=== PATIENT | female | born 1965 | race Caucasian/White ===

== ENCOUNTER → 2018-12-30 | Outpatient (CLI) | payer MEDICAID ==
[~2018-12-30] MED LIST: CLOP75TA PO; DILT120C PO; DILT120C57 PO; DILT240C56 PO; FLUO20CA25 PO; GABA-488 PO; HYDR-3875 PO; HYDR-3876 PO; HYDR-91 PO; LEVO750T6 PO; NITR-33 PO; NITR-65 PO; OMEP20CA12 PO; OMEP20TA2 PO; OXYC-272 PO; PNT40TEC PO; PRD20T PO; TAMS0.4C98 PO
--- NOTE | 2018-12-30 12:30 | Diagnostic Imaging Report ---
INDICATION: Pain. Two views were obtained. FINDINGS: The alignment is normal. There is no fracture or dislocation. Soft tissues are unremarkable. IMPRESSION: No acute fracture or dislocation. Dictated by: Dictated on workstation # [id number]
== END ==
LOC: RAD FS 11:47
PROVIDERS: ATTEND Family Medicine
DX: M79.674 Pain in right toe(s) (principal)
CPT/HCPCS: 73660

== ENCOUNTER 2019-04-17 19:27 | Emergency (ER) | payer MEDICAID ==
[~2019-04-17] VITALS: Ht 162.6 cm; Wt 108.9 kg
[2019-04-17] MEDS ORDERED: ONDANSETRON 4 MG/2 ML (SDV) Z0FRAN IVP STA (19:48)
[2019-04-17] MEDS ORDERED: NS IV 1000 ML 1,000 ML IV STA (19:48)
[2019-04-17] MEDS ORDERED: fentaNYL INJECTION 100 MCG/2 ML AMP IVP STA (19:48)
[2019-04-17 20:00] LABS: CLARITY,URINE CLOUDY; COLOR,URINE YELLOW; PH,URINE 5.5 (5-9)
[2019-04-17 20:01] LABS: BILIRUBIN,URINE NEGATIVE (NEGATIVE); GLUCOSE, URINE (UA) NEGATIVE (NEGATIVE); KETONES,URINE NEGATIVE (NEGATIVE); LEUKOCYTE ESTERASE ,URINE 2+ (NEGATIVE); NITRITE,URINE POSITIVE (NEGATIVE); PROTEIN,URINE NEGATIVE (NEGATIVE); RBC,URINE 0-2 /HPF; UROBILINOGEN,URINE 0.2 MG/DL (NORMAL)
--- NOTE | 2019-04-17 20:01 | ED General ---
General Chief Complaint: - Urinary Stated Complaint: KIDNEY PAIN Nursing Triage Note: PT ARRIVED VIA EMS WITH COMPLAINTS OF RIGHT FLANK PAIN AND NAUSEA FOR ABOUT 3 DAYS. PT STATES SHE IS HAVING DIFFICULTY URINATING Nursing Sepsis Screen: No Definite Risk History of Present Illness Date Seen by Provider: Apr 17, 2019 Time Seen by Provider: 19:42 This is a 53-year-old female with a history of diabetes, multiple abdominal surgeries, here for right flank pain and nausea for the last couple of days. She had fallen out of bed and hit the top of her head several days ago and her head was also hurting but this is not the main reason for her visit. No visual change or focal weakness, numbness, or tingling. No neck pain. No neck stiffness. No fever or chills, but she does feel generalized malaise. She has had some nausea and vomiting. No change in bowel movements. She feels that she has urinary urgency passing only small volumes of urine when she does go. She also mentions some right sided chest pain that coming and going which she refers to as "gas pain". This is nonexertional. She is not having any shortness of breath. No pleuritic pain. No unilateral leg swelling. No history of blood clots. Allergies and Home Medications Allergies Coded Allergies: aspirin (Unverified Allergy, Severe, THROAT SWELLS, 01/20/13) amoxicillin (Unverified Allergy, Intermediate, HIVES, 04/25/16) sulfamethoxazole (Unverified Allergy, Unknown, 01/20/13) trimethoprim (Unverified Allergy, Unknown, 01/20/13) Home Medications Diltiazem HCl 240 Mg Capsule.er, 240 MG PO DAILY, (Reported) Fluoxetine Hcl 20 Mg Capsule, 20 MG PO DAILY, (Reported) Gabapentin 300 Mg Capsule, 300 MG PO TID, (Reported) Hydrocodone/Acetaminophen 1 Each Tablet, 1-2 EACH PO Q4H PRN for PAIN Prescribed by: ELENA AUSTIN on 04/25/16858 Nitrofurantoin Monohyd/M-Cryst 100 Mg Capsule, 1 TAB PO BID Prescribed by: ELENA AUSTIN on 04/25/16858 Patient Home Medication List Home Medication List Reviewed: Yes Review of Systems Review of Systems Constitutional: see HPI EENTM: no symptoms reported Respiratory: no symptoms reported Cardiovascular: see HPI Gastrointestinal: see HPI Genitourinary: see HPI Musculoskeletal: no symptoms reported Skin: no symptoms reported Psychiatric/Neurological: See HPI Hematologic/Lymphatic: No Symptoms Reported Immunological/Allergic: no symptoms reported Past Ordirsu-Zhbipn-Oglcbm Hx Past Med/Social Hx: Reviewed Nursing Past Med/Soc Hx Patient Social History Alcohol Use: Denies Use Recreational Drug Use: No (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) Recent Foreign Travel: No Contact w/Someone Who Travel: No Recent Infectious Disease Expo: No Recent Hopitalizations: No Immunizations Up To Date Date of Pneumonia Vaccine: Jan 06, 2013 Date of Influenza Vaccine: Jan 20, 2013 Past Medical History Surgeries: Yes (cysto's and eswl's) Respiratory: No Cardiac: Yes (SVT, ) Neurological: Yes (HAS 3 BRAIN ANEURYSMS DX AT 37 YRS OF AGE) Reproductive Disorders: No Kidney Stones Gastrointestinal: No (enlarged liver) Gastroesophageal Reflux Musculoskeletal: Yes (restless leg) Arthritis Endocrine: Yes (diet controlled diabetes) Cancer: No Uterine Psychosocial: Yes Depression Integumentary: No Blood Disorders: No Physical Exam Vital Signs Vital Signs - First Documented 04/17/19 19:33 Temp 98.1 Pulse 67 Resp 18 B/P (MAP) 60/ Pulse Ox 96 O2 Delivery Room Air Capillary Refill : Less Than 3 Seconds Height, Weight, BMI Height: 5'4.00" Weight: 240lbs. 9.6oz. 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 Norm as Tested; No Abnormal Cerebellar Tests Skin: Warm/Dry Progress/Results/Core Measures Suspected Sepsis Recent Fever Within 48 Hours: No Infection Criteria Present: Suspected New Infection New/Unexplained Altered Menta: No Sepsis Screen: No Definite Risk SIRS Temperature:98.1 Pulse: 67 Respiratory Rate: 18 Laboratory Tests 04/17/19 20:17: White Blood Count 15.0H Blood Pressure 60 / Mean: Laboratory Tests 04/17/19 20:17: Creatinine 0.80, Platelet Count 372, Total Bilirubin 0.3 Results/Orders Lab Results Laboratory Tests Test 04/17/19 19:40 04/17/19 20:17 Range/Units Urine Color YELLOW Urine Clarity CLOUDY Urine pH 5.5 5-9 Urine Specific [place] 1.015 L 1.016-1.022 Urine Protein NEGATIVE NEGATIVE Urine Glucose (UA) NEGATIVE NEGATIVE Urine Ketones NEGATIVE NEGATIVE Urine Nitrite POSITIVE H NEGATIVE Urine Bilirubin NEGATIVE NEGATIVE Urine Urobilinogen 0.2 NORMAL MG/DL Urine Leukocyte Esterase 2+ H NEGATIVE Urine RBC (Auto) TRACE H NEGATIVE Urine RBC 0-2 /HPF Urine WBC 50-100 H /HPF Urine Squamous Epithelial Cells 5-10 /HPF Urine Crystals NONE /LPF Urine Bacteria FEW H /HPF Urine Casts NONE /LPF Urine Mucus NONE /LPF Urine Culture Indicated YES White Blood Count 15.0 H 4.3-11.0 10^3/uL Red Blood Count 4.72 4.35-5.85 10^6/uL Hemoglobin 14.1 11.5-16.0 G/DL Hematocrit 43 35-52 % Mean Corpuscular Volume 92 80-99 FL Mean Corpuscular Hemoglobin 30 25-34 PG Mean Corpuscular Hemoglobin Concent 33 32-36 G/DL Red Cell Distribution Width 15.2 H 10.0-14.5 % Platelet Count 372 130-400 10^3/uL Mean Platelet Volume 11.5 H 7.4-10.4 FL Sodium Level 138 135-145 MMOL/L Potassium Level 4.3 3.6-5.0 MMOL/L Chloride Level 96 L 98-107 MMOL/L Carbon Dioxide Level 23 21-32 MMOL/L Anion Gap 19 H 5-14 MMOL/L Blood Urea Nitrogen 18 7-18 MG/DL Creatinine 0.80 0.60-1.30 MG/DL Estimat Glomerular Filtration Rate > 60 BUN/Creatinine Ratio 23 Glucose Level 111 H 70-105 MG/DL Calcium Level 9.5 8.5-10.1 MG/DL Corrected Calcium 9.6 8.5-10.1 MG/DL Total Bilirubin 0.3 0.1-1.0 MG/DL Aspartate Amino Transf (AST/SGOT) 12 5-34 U/L Alanine Aminotransferase (ALT/SGPT) 14 0-55 U/L Alkaline Phosphatase 103 40-136 U/L Troponin T < 6 <=10 NG/L Total Protein 7.6 6.4-8.2 GM/DL Albumin 3.9 3.2-4.5 GM/DL Lipase 23 8-78 U/L My Orders Orders - ROBERTA WERNERED Maribel DO Ct Head Wo (04/17/19 19:48) Ct Abd/Pelvis Wo(Kidney Stone) (04/17/19 19:48) Ua Culture If Indicated (04/17/19 19:48) Cbc No Diff (04/17/19 19:48) Comprehensive Metabolic Panel (04/17/19 19:48) Lipase (04/17/19:48) Troponin T (04/17/19:48) Ekg Tracing (04/17/19:48) Chest 1 View Ap/Pa Only (04/17/19 19:48) Fentanyl Injection (Sublimaze Injection (04/17/19 19:48) Ondansetron Injection (Zofran Injectio (04/17/19 19:48) Ns Iv 1000 Ml (Sodium Chloride 0.9%) (04/17/19 19:48) Urine Culture (04/17/19 19:40) Ciprofloxacin Iv 400mg/200ml (Cipro Iv S (04/17/19 20:26) Vital Signs/I&O 04/17/19 19:33 Temp 98.1 Pulse 67 Resp 18 B/P (MAP) 60/ Pulse Ox 96 O2 Delivery Room Air Capillary Refill : Less Than 3 Seconds Progress Note #1: Progress Note Patient is here primarily for right flank pain. She has prominent urinary symptoms. We will get a CAT scan to rule out a stone and a UA to rule out infection. Partial bowel obstruction would be another consideration. Gallbladder and appendix have been removed remotely. She had her head several days ago and is neurologically intact but she is having ongoing headaches and we can get a CAT scan to rule out intracranial hemorrhage. She has no neck pain or tenderness and again is neurologically intact we will defer CT of the cervical spine. She also mentions right-sided chest pain coming and going, this is very atypical for ACS or PE or dissection or pneumothorax, we can check an EKG, single troponin as the symptoms have been going on for several days, and a chest x-ray. She will not require admission for cardiac monitoring and serial troponins. Progress Note #2: Progress Note Patient feels well and would like to go home. We'll treat for pyelonephritis with ciprofloxacin given allergies to penicillin and Bactrim. First dose given by IV in the ER. Follow-up with primary care physician as soon as possible for repeat evaluation. Return if worse. Departure Impression Primary Impression: Pyelonephritis Additional Impression: Head injury Qualified Codes: S09.90XA - Unspecified injury of head, initial encounter Disposition: HOME, SELF-CARE Condition: Stable Departure-Patient Inst. Referrals: HAMILTON FONTAINE MD (PCP/Family) Primary Care Physician Patient Instructions: Kidney Infection Scripts Hydrocodone/Acetaminophen ([place] 5-325 Tablet) 1 Each Tablet 2 TAB PO TID PRN for PAIN-MODERATE TO SEVERE MDD 10 TABS for 3 Days, #16 TAB Prov: ATIYA WERNER DO 04/17/19 Ondansetron (Ondansetron Odt) 8 Mg Tab.rapdis 8 MG PO TID PRN for NAUSEA/VOMITING, #30 TAB Prov: ATIYA WERNER DO 04/17/19 Ciprofloxacin HCl (Ciprofloxacin HCl) 500 Mg Tablet 500 MG PO BID for 7 Days, #14 TAB Prov: ATIYA WERNER DO 04/17/19 ATIYA WERNER DO Apr 17, 2019 20:01
[2019-04-17 20:02] LABS: BACTERIA,URINE FEW /HPF; WBC,URINE 50-100 /HPF
[2019-04-17 20:24] LABS: HEMOGLOBIN 14.1 G/DL (11.5-16.0); MEAN PLATELET VOLUME 11.5 FL (7.4-10.4); RED CELL DISTRIBUTION WIDTH 15.2 % (10.0-14.5)
[2019-04-17] MEDS ORDERED: CIPROFLOXACIN IV 400MG/200ML 200 ML IV STA (20:26)
[2019-04-17 20:49] LABS: POTASSIUM 4.3 MMOL/L (3.6-5.0); SODIUM 138 MMOL/L (135-145)
[2019-04-17 20:50] LABS: BUN/CREATININE RATIO 23; CALCIUM 9.5 MG/DL (8.5-10.1); CARBON DIOXIDE 23 MMOL/L (21-32); CHLORIDE 96 MMOL/L (98-107); GFR ESTIMATED > 60; GLUCOSE 111 MG/DL (70-105)
[2019-04-17 20:51] LABS: ALANINE AMINOTRANSFERASE 14 U/L (0-55); ALBUMIN 3.9 GM/DL (3.2-4.5); ALKALINE PHOSPHATASE 103 U/L (40-136); BILIRUBIN,TOTAL 0.3 MG/DL (0.1-1.0); LIPASE 23 U/L (8-78); TOTAL PROTEIN 7.6 GM/DL (6.4-8.2)
--- NOTE | 2019-04-17 20:53 | Diagnostic Imaging Report ---
INDICATION: Nausea Portable chest 8:24 PM Heart size and pulmonary vascularity are normal. Lungs are clear. There are no effusions or pneumothoraces. IMPRESSION: Negative chest Dictated by: Dictated on workstation # [id number]
--- NOTE | 2019-04-17 20:54 | Diagnostic Imaging Report ---
PROCEDURE: CT head without contrast. TECHNIQUE: Multiple contiguous axial images were obtained through the brain without the use of intravenous contrast. Auto Exposure Controls were utilized during the CT exam to meet ALARA standards for radiation dose reduction. INDICATION: Head trauma. FINDINGS: The ventricles are normal in size, shape, and position. There are no masses or hemorrhages. There are no extra-axial fluid collections. There is a venous angioma in the right frontal lobe. IMPRESSION: No acute abnormalities in the head. Dictated by: Dictated on workstation # [id number]
--- NOTE | 2019-04-17 20:55 | Diagnostic Imaging Report ---
PROCEDURE: CT urinary tract, rule out kidney stone. TECHNIQUE: Multiple contiguous axial images were obtained through the abdomen and pelvis without the use of intravenous contrast. Auto Exposure Controls were utilized during the CT exam to meet ALARA standards for radiation dose reduction. INDICATION: Right flank pain Lung bases are clear. Liver appears normal. Gallbladder surgically absent. Spleen is not enlarged. Pancreas is normal. There is a 15 mm stone in the right renal pelvis. There is a 7 mm stone in the lower pole of the left kidney. There is no hydronephrosis. There are no ureteral calculi. There is aortic atherosclerosis. There is no evidence for appendicitis. Small bowel is not dilated. Colon is unremarkable. Uterus is surgically absent. IMPRESSION: Bilateral nephrolithiasis but no evidence of obstruction. Dictated by: Dictated on workstation # [id number]
[2019-04-17] MEDS ORDERED: HYDR-4226 PO (21:14)
[2019-04-17] MEDS ORDERED: CIPR500T4 PO (21:14)
[2019-04-17] MEDS ORDERED: ONDA8TAB13 PO (21:14)
[2019-04-17 21:50] VITALS: BP 102/59
== END 2019-04-17 21:55 | disposition home or self-care (01) ==
LOC: EDUNIT# 19:27 → ER FS 19:28
DX: S09.90XA Unspecified injury of head, initial encounter (principal); N12 Tubulo-interstitial nephritis, not specified as acute or chronic; E11.9 Type 2 diabetes mellitus without complications; K21.9 Gastro-esophageal reflux disease without esophagitis; F32.9 Major depressive disorder, single episode, unspecified; G25.81 Restless legs syndrome; Z98.890 Other specified postprocedural states; Z85.40 Personal history of malignant neoplasm of unspecified female genital organ; Z88.6 Allergy status to analgesic agent; Z88.1 Allergy status to other antibiotic agents; Z88.2 Allergy status to sulfonamides; Z88.8 Allergy status to other drugs, medicaments and biological substances; Z87.442 Personal history of urinary calculi; W06.XXXA Fall from bed, initial encounter; W22.09XA Striking against other stationary object, initial encounter
CPT/HCPCS: 36415; 70450; 71045; 74176; 80053; 81000; 83690; 84484; 85027; 87077; 87088; 87186

== ENCOUNTER 2019-06-28 15:52 | Emergency (ER) | payer MEDICAID ==
[~2019-06-28] VITALS: Ht 162.6 cm; Wt 108.9 kg
[~2019-06-28 15:52] MED LIST changes: +CIPR500T4 PO; +HYDR-4226 PO; +ONDA8TAB13 PO
[2019-06-28] MEDS ORDERED: NS IV 1000 ML 1,000 ML IV SCH (16:00)
[2019-06-28] MEDS ORDERED: ONDANSETRON 4 MG/2 ML (SDV) Z0FRAN IVP ONE (16:00)
[2019-06-28] MEDS ORDERED: KETOROLAC 30 MG/ML VIAL IVP ONE (16:00)
--- NOTE | 2019-06-28 16:03 | ED Abdominal Pain ---
General Stated Complaint: ABD PAIN,FALL Source of Information: Patient, EMS Exam Limitations: No Limitations History of Present Illness Date Seen by Provider: Jun 28, 2019 Time Seen by Provider: 15:53 Initial Comments Patient presents to ER by EMS from her apartment where she is staying with her mother has a caregiver. She reports for about 2-3 days now she's had some progressively worsening pain along the lower abdomen especially on her right groin and into her right flank. She has a history of kidney stones. She has dysuria but no hematuria. No fevers or chills but she does have nausea without vomiting. Poor fluid intake and poor appetite. She has a history of diabetes, heart disease and high blood pressure. She takes gabapentin for her chronic back pain. Patient admits to recent methamphetamine use in the last 2 weeks. She's had her tubes tied, gallbladder and appendix removed surgically. Allergies and Home Medications Allergies Coded Allergies: aspirin (Unverified Allergy, Severe, THROAT SWELLS, 01/20/13) amoxicillin (Unverified Allergy, Intermediate, HIVES, 04/25/16) sulfamethoxazole (Unverified Allergy, Unknown, 01/20/13) trimethoprim (Unverified Allergy, Unknown, 01/20/13) Home Medications Ciprofloxacin HCl 500 Mg Tablet, 500 MG PO BID Prescribed by: ATIYA WERNER on 04/17/192113 Diltiazem HCl 240 Mg Capsule.er, 240 MG PO DAILY, (Reported) Fluoxetine Hcl 20 Mg Capsule, 20 MG PO DAILY, (Reported) Gabapentin 300 Mg Capsule, 300 MG PO TID, (Reported) Hydrocodone/Acetaminophen 1 Each Tablet, 1-2 EACH PO Q4H PRN for PAIN Prescribed by: ELENA AUSTIN on 04/25/16 0859 Hydrocodone/Acetaminophen 1 Each Tablet, 2 TAB PO TID PRN for PAIN-MODERATE TO SEVERE Prescribed by: ATIYA WERNER on 04/17/192113 Nitrofurantoin Monohyd/M-Cryst 100 Mg Capsule, 1 TAB PO BID Prescribed by: ELENA AUSTIN on 04/25/16 0859 Ondansetron 8 Mg Tab.rapdis, 8 MG PO TID PRN for NAUSEA/VOMITING Prescribed by: ATIYA WERNER on 04/17/192113 Patient Home Medication List Home Medication List Reviewed: Yes Review of Systems Review of Systems Constitutional: No chills, No diaphoresis EENTM: No Blurred Vision, No Double Vision Respiratory: Denies Cough, Denies Shortness of Air Gastrointestinal: See HPI, Abdominal Pain; Denies Constipated (last BM today), Denies Diarrhea; Nausea, Poor Appetite, Poor Fluid Intake; Denies Vomiting Genitourinary: Burning; Denies Discharge, Denies Drainage; Flank Pain; Denies Hematuria Musculoskeletal: see HPI, back pain (acute and chronic); No joint pain Skin: No pruritus, No rash Psychiatric/Neurological: Denies Headache, Denies Numbness, Denies Paresthesia Past Ldezgff-Irexjt-Xagvut Hx Patient Social History Alcohol Use: Denies Use Recreational Drug Use: No Smoking Status: Never a Smoker Recent Hopitalizations: No Immunizations Up To Date Date of Pneumonia Vaccine: Jan 06, 2013 Date of Influenza Vaccine: Jan 20, 2013 Past Medical History Surgeries: Yes (cysto's and eswl's) Respiratory: No Cardiac: Yes (SVT, ) Neurological: Yes (HAS 3 BRAIN ANEURYSMS DX AT 37 YRS OF AGE) Reproductive Disorders: No Kidney Stones Gastrointestinal: No (enlarged liver) Gastroesophageal Reflux Musculoskeletal: Yes (restless leg) Arthritis Endocrine: Yes (diet controlled diabetes) Cancer: No Uterine Psychosocial: Yes Depression Integumentary: No Blood Disorders: No Physical Exam Vital Signs Vital Signs - First Documented 06/28/19 16:08 Temp 97.2 Pulse 71 Resp 18 B/P (MAP) 140/61 (87) Pulse Ox 97 O2 Delivery Room Air Capillary Refill : Height/Weight/BMI Height: 5'4.00" Weight: 240lbs. 9.6oz. 108.712896ju; 48.92 BMI Method:Stated General Appearance: WD/WN, mild distress, other (emotionally labile, tearful) HEENT: normal ENT inspection, pharynx normal Neck: full range of motion, normal inspection Respiratory: lungs clear, normal breath sounds, no respiratory distress, no accessory muscle use Cardiovascular: normal peripheral pulses, regular rate, rhythm, no edema Peripheral Pulses: 2+ Radial Pulses (R), 2+ Radial Pulses (L) Gastrointestinal: normal bowel sounds, soft; No rebound; tenderness (mild suprapubic and moderate in the right lower quadrant) Extremities: normal range of motion, non-tender, normal inspection, normal capillary refill Back: normal inspection, CVA tenderness (R) (to percussion) Neurologic/Psychiatric: alert, oriented x 3, other (and emotionally labile, tearful) Skin: normal color, warm/dry Progress/Results/Core Measures Results/Orders Lab Results Laboratory Tests Test 06/28/19 16:00 06/28/19 16:05 Range/Units Urine Color YELLOW Urine Clarity CLOUDY H Urine pH 5.5 5-9 Urine Specific [place] 1.025 H 1.016-1.022 Urine Protein NEGATIVE NEGATIVE Urine Glucose (UA) NEGATIVE NEGATIVE Urine Ketones NEGATIVE NEGATIVE Urine Nitrite NEGATIVE NEGATIVE Urine Bilirubin NEGATIVE NEGATIVE Urine Urobilinogen 0.2 NORMAL MG/DL Urine Leukocyte Esterase 3+ H NEGATIVE Urine RBC (Auto) 2+ H NEGATIVE Urine RBC 10-25 H /HPF Urine WBC >100 H /HPF Urine Squamous Epithelial Cells 10-25 H /HPF Urine Crystals NONE /LPF Urine Bacteria FEW H /HPF Urine Casts NONE /LPF Urine Mucus SMALL H /LPF Urine Culture Indicated YES Urine Opiates Screen NEGATIVE NEGATIVE Urine Oxycodone Screen NEGATIVE NEGATIVE Urine Methadone Screen NEGATIVE NEGATIVE Urine Propoxyphene Screen NEGATIVE NEGATIVE Urine Barbiturates Screen NEGATIVE NEGATIVE Ur Tricyclic Antidepressants Screen NEGATIVE NEGATIVE Urine Phencyclidine Screen NEGATIVE NEGATIVE Urine Amphetamines Screen NEGATIVE NEGATIVE Urine Methamphetamines Screen POSITIVE H NEGATIVE Urine Benzodiazepines Screen NEGATIVE NEGATIVE Urine Cocaine Screen NEGATIVE NEGATIVE Urine Cannabinoids Screen NEGATIVE NEGATIVE White Blood Count 11.3 H 4.3-11.0 10^3/uL Red Blood Count 4.88 4.35-5.85 10^6/uL Hemoglobin 14.9 11.5-16.0 G/DL Hematocrit 45 35-52 % Mean Corpuscular Volume 91 80-99 FL Mean Corpuscular Hemoglobin 31 25-34 PG Mean Corpuscular Hemoglobin Concent 33 32-36 G/DL Red Cell Distribution Width 14.2 10.0-14.5 % Platelet Count 366 130-400 10^3/uL Mean Platelet Volume 11.1 H 7.4-10.4 FL Neutrophils (%) (Auto) 55 42-75 % Lymphocytes (%) (Auto) 36 12-44 % Monocytes (%) (Auto) 6 0-12 % Eosinophils (%) (Auto) 2 0-10 % Basophils (%) (Auto) 1 0-10 % Neutrophils # (Auto) 6.1 1.8-7.8 X 10^3 Lymphocytes # (Auto) 4.1 H 1.0-4.0 X 10^3 Monocytes # (Auto) 0.7 0.0-1.0 X 10^3 Eosinophils # (Auto) 0.2 0.0-0.3 10^3/uL Basophils # (Auto) 0.1 0.0-0.1 10^3/uL Sodium Level 143 135-145 MMOL/L Potassium Level 4.2 3.6-5.0 MMOL/L Chloride Level 106 98-107 MMOL/L Carbon Dioxide Level 24 21-32 MMOL/L Anion Gap 13 5-14 MMOL/L Blood Urea Nitrogen 14 7-18 MG/DL Creatinine 0.89 0.60-1.30 MG/DL Estimat Glomerular Filtration Rate > 60 BUN/Creatinine Ratio 16 Glucose Level 154 H 70-105 MG/DL Calcium Level 9.5 8.5-10.1 MG/DL Corrected Calcium 9.6 8.5-10.1 MG/DL Total Bilirubin 0.2 0.1-1.0 MG/DL Aspartate Amino Transf (AST/SGOT) 12 5-34 U/L Alanine Aminotransferase (ALT/SGPT) 12 0-55 U/L Alkaline Phosphatase 119 40-136 U/L Total Protein 7.3 6.4-8.2 GM/DL Albumin 3.9 3.2-4.5 GM/DL Lipase 18 8-78 U/L My Orders Orders - RONNA MEADOWS Ed Iv/Invasive Line Start (06/28/19 16:00) Ns Iv 1000 Ml (Sodium Chloride 0.9%) (06/28/19 16:00) Ketorolac Injection (Toradol Injection) (06/28/19 16:00) Cbc With Automated Diff (06/28/19 16:00) Comprehensive Metabolic Panel (06/28/19 16:00) Ua Culture If Indicated (06/28/19 16:00) Ondansetron Injection (Zofran Injectio (06/28/19 16:00) Lipase (06/28/19 16:02) Urine Culture (06/28/19 16:00) Drug Screen Stat (Urine) (06/28/19 16:36) Ceftriaxone For Iv Use (Rocephin For I (06/28/19 16:45) Ct Abdomen/Pelvis Wo (06/28/19 16:40) Rx-Hydrocodone/[place] 5-325 Mg (Rx-Vicodin (06/28/19 17:15) Rx-Ondansetron Po (Rx-Zofran Po) (06/28/19 17:04) Rx-Cephalexin Capsule (Rx-Keflex Capsule (06/28/19 17:04) Medications Given in ED Current Medications Medications Dose Ordered Sig/Sirisha Route Start Time Stop Time Status Last Admin Dose Admin Ketorolac Tromethamine 30 mg ONCE ONCE IVP 06/28/19 16:00 06/28/19 16:03 DC 06/28/19 16:20 30 MG Ondansetron HCl 4 mg ONCE ONCE IVP 06/28/19 16:00 06/28/19 16:03 DC 06/28/19 16:20 4 MG Vital Signs/I&O 06/28/19 16:08 Temp 97.2 Pulse 71 Resp 18 B/P (MAP) 140/61 (87) Pulse Ox 97 O2 Delivery Room Air Progress Progress Note : Time: 16:39 Progress Note Kidney stones, UTI, colitis, gynecologic? She has no discharge fevers, chills and has aseptic vital signs. We'll give her some Toradol, Zofran and check urine and blood. 1 L of fluids IV. Diagnostic Imaging Diagonstic Imaging: CT Plain Films/CT/US/NM/MRI: abdomen, pelvis Comments 4 mm stone in the distal right ureter just superior to the UVJ. Reviewed: Reviewed by Me Departure Impression Primary Impression: Ureteral calculus Additional Impression: UTI (urinary tract infection) Qualified Codes: N30.01 - Acute cystitis with hematuria Disposition: HOME, SELF-CARE Condition: Stable Departure-Patient Inst. Decision time for Depature: 17:00 Referrals: HAMILTON FONTAINE MD (PCP/Family) Primary Care Physician Patient Instructions: Kidney Stones (DC) Add. Discharge Instructions: Drink lots of water. Ibuprofen 800 mg every 8 hours as needed for pain. Tylenol 650 mg every 8 hours as needed for pain. Hydrocodone one tablet every 6 hours as needed for breakthrough pain. Flomax 1 tablet every night until you pass the kidney stone. Keflex 500 mg capsule twice daily for a week. Ondansetron one tablet every 6 hours under the tongue as needed for nausea. Strain your urine to see if you catch the stone. Once you catch the stone you should usually have relief of your symptoms within a day or 2. If you're unable to pass the stone in the next one or 2 days then follow-up with Dr. Romero, urology. Scripts Cephalexin (Keflex) 500 Mg Capsule 500 MG PO BID for 7 Days, #14 CAP 0 Refills Prov: RONNA MEADOWS 06/28/19 Ibuprofen (Ibuprofen) 800 Mg Tablet 800 MG PO Q8H PRN for PAIN, #20 TAB 0 Refills Prov: RONNA MEADOWS 06/28/19 Tamsulosin HCl (Flomax) 0.4 Mg Cap 0.4 MG PO HS, #7 CAP 0 Refills Prov: RONNA MEADOWS 06/28/19 Ondansetron (Ondansetron Odt) 4 Mg Tab.rapdis 4 MG PO Q6H PRN for NAUSEA/VOMITING, #8 TAB 0 Refills Prov: RONNA MEADOWS 06/28/19 Hydrocodone/Acetaminophen (Hydrocodone-Acetamin 5-325 mg) 1 Each Tablet 1 TAB PO Q4-6HR for PAIN-MODERATE for 7 Days, #8 TAB 0 Refills Prov: RONNA MEADOWS 06/28/19 RONNA MEADOWS Jun 28, 2019 16:03
[2019-06-28 16:31] LABS: BASOPHILS % (AUTO) 1 % (0-10); EOSINOPHILS % (AUTO) 2 % (0-10); HEMATOCRIT 45 % (35-52); HEMOGLOBIN 14.9 G/DL (11.5-16.0); LYMPHOCYTES % (AUTO) 36 % (12-44); MEAN CORPUSCULAR HEMOGLOBIN 31 PG (25-34); MEAN CORPUSCULAR HGB CONC 33 G/DL (32-36); MEAN CORPUSCULAR VOLUME 91 FL (80-99); MEAN PLATELET VOLUME 11.1 FL (7.4-10.4); MONOCYTES % (AUTO) 6 % (0-12); NEUTROPHILS # (AUTO) 6.1 X 10^3 (1.8-7.8); NEUTROPHILS % (AUTO) 55 % (42-75); PLATELET COUNT 366 10^3/uL (130-400); RED CELL DISTRIBUTION WIDTH 14.2 % (10.0-14.5); WHITE BLOOD COUNT 11.3 10^3/uL (4.3-11.0)
[2019-06-28 16:32] LABS: BASOPHILS # (AUTO) 0.1 10^3/uL (0.0-0.1); EOSINOPHILS # (AUTO) 0.2 10^3/uL (0.0-0.3); LYMPHOCYTES # (AUTO) 4.1 X 10^3 (1.0-4.0); MONOCYTES # (AUTO) 0.7 X 10^3 (0.0-1.0)
[2019-06-28 16:33] LABS: BILIRUBIN,URINE NEGATIVE (NEGATIVE); CLARITY,URINE CLOUDY; COLOR,URINE YELLOW; GLUCOSE, URINE (UA) NEGATIVE (NEGATIVE); KETONES,URINE NEGATIVE (NEGATIVE); LEUKOCYTE ESTERASE ,URINE 3+ (NEGATIVE); NITRITE,URINE NEGATIVE (NEGATIVE); PH,URINE 5.5 (5-9); PROTEIN,URINE NEGATIVE (NEGATIVE); UROBILINOGEN,URINE 0.2 MG/DL (NORMAL)
[2019-06-28 16:34] LABS: BACTERIA,URINE FEW /HPF; WBC,URINE >100 /HPF
[2019-06-28 16:42] LABS: BILIRUBIN,TOTAL 0.2 MG/DL (0.1-1.0); BUN/CREATININE RATIO 16; CALCIUM 9.5 MG/DL (8.5-10.1); CARBON DIOXIDE 24 MMOL/L (21-32); CHLORIDE 106 MMOL/L (98-107); CREATININE SERUM 0.89 MG/DL (0.60-1.30); GFR ESTIMATED > 60; GLUCOSE 154 MG/DL (70-105); POTASSIUM 4.2 MMOL/L (3.6-5.0); SODIUM 143 MMOL/L (135-145)
[2019-06-28 16:43] LABS: ALANINE AMINOTRANSFERASE 12 U/L (0-55); ALBUMIN 3.9 GM/DL (3.2-4.5); ALKALINE PHOSPHATASE 119 U/L (40-136); LIPASE 18 U/L (8-78); TOTAL PROTEIN 7.3 GM/DL (6.4-8.2)
[2019-06-28] MEDS ORDERED: cefTRIAXone FOR IV USE 1,000 MG in WATER (STERILE) FOR INJECTION 10 ML IV ONE (16:45)
[2019-06-28 17:01] LABS: AMPHETAMINE SCREEN, URINE NEGATIVE (NEGATIVE); BARBITURATE SCREEN URINE NEGATIVE (NEGATIVE); BENZODIAZEPINES SCREEN URINE NEGATIVE (NEGATIVE); CANNABINOID SCREEN, URINE NEGATIVE (NEGATIVE); COCAINE SCREEN URINE NEGATIVE (NEGATIVE); METHADONE STAT NEGATIVE (NEGATIVE); METHAMPHETAMINE SCREEN URINE S POSITIVE (NEGATIVE); OPIATE SCREEN URINE NEGATIVE (NEGATIVE); OXYCODONE STAT NEGATIVE (NEGATIVE); PROPOXYPHENE STAT NEGATIVE (NEGATIVE); TRICYCLIC ANTIDEPRESSANTS SCRE NEGATIVE (NEGATIVE)
[2019-06-28] MEDS ORDERED: RX-CEPHALEXIN (KEFLEX) 250 MG CAP PPK#4 PO STA (17:04)
[2019-06-28] MEDS ORDERED: RX-ONDANSETRON 4 MG ODT (ZOFRAN) PPK #4 PO STA (17:04)
[2019-06-28] MEDS ORDERED: HYDR-3812 PO (17:11)
[2019-06-28] MEDS ORDERED: CEPH-507 PO (17:11)
[2019-06-28] MEDS ORDERED: TAMS0.4C98 PO (17:11)
[2019-06-28] MEDS ORDERED: ONDA4TAB11 PO (17:11)
[2019-06-28] MEDS ORDERED: IBUP-1780 PO (17:11)
[2019-06-28] MEDS ORDERED: RX-HYDROCODONE/APAP 5/325 MG #4 TAB PK PO PRN (17:15)
--- NOTE | 2019-06-28 17:23 | Diagnostic Imaging Report ---
PROCEDURE: CT abdomen and pelvis without contrast. TECHNIQUE: Multiple contiguous axial images were obtained through the abdomen and pelvis without the use of intravenous contrast. Auto Exposure Controls were utilized during the CT exam to meet ALARA standards for radiation dose reduction. INDICATION: Right-sided abdominal pain. FINDINGS: The previous CT abdomen/pelvis exam of 04/17/2019 showed a 1.5 cm calculus in the right renal pelvis and a 0.8 cm calculus in the inferior pole of the left kidney. Those findings are again evident on this study and do not seem to have change significantly. There is no other evidence for nephrolithiasis and there is no sign of urolithiasis. The kidneys do not appear to be obstructed. Urinary bladder is grossly unremarkable. As noted on the prior exam, the uterus is surgically absent. There is no pelvic mass or free fluid collection evident. The appendix is not well-visualized but there are no indirect signs of acute appendicitis. There are radiopaque densities in the right lower quadrant and the patient may have had a prior appendectomy. Correlation with patient's history is recommended. The liver, spleen, pancreas, adrenals, aorta and inferior vena cava show no sign of an acute abnormality. The gallbladder is surgically absent. The stomach is filled with fluid and particulate matter, consequently difficult to assess. The lung bases are clear. The bone windows show no sign of a fracture or of an obstructive lesion. IMPRESSION: 1. The calculi within the kidneys, seen previously, are again evident and no different. There is still no sign of obstruction of the collecting system. 2. There is no acute abnormality of the abdomen or pelvis noted otherwise. 3. The uterus and gallbladder are surgically absent. There may also have been a prior appendectomy. Correlation with patient's surgical history would be recommended. Dictated by: Dictated on workstation # [id number]
[2019-06-28 18:00] VITALS: BP 120/64
== END 2019-06-28 18:05 | disposition home or self-care (01) ==
LOC: EDUNIT# 15:52 → ER FS 15:53
DX: N20.1 Calculus of ureter (principal); N39.0 Urinary tract infection, site not specified; E11.9 Type 2 diabetes mellitus without complications; K21.9 Gastro-esophageal reflux disease without esophagitis; F32.9 Major depressive disorder, single episode, unspecified; Z88.6 Allergy status to analgesic agent; Z88.1 Allergy status to other antibiotic agents; Z88.2 Allergy status to sulfonamides; Z85.42 Personal history of malignant neoplasm of other parts of uterus
CPT/HCPCS: 36415; 74176; 80053; 80306; 81000; 83690; 85025; 87088

== ENCOUNTER 2019-07-21 18:56 | Emergency (ER) | payer MEDICAID ==
[~2019-07-21] VITALS: Ht 170 cm; Wt 90.9 kg
[~2019-07-21 18:56] MED LIST changes: +CEPH-507 PO; +HYDR-3812 PO; +IBUP-1780 PO; +ONDA4TAB11 PO
[2019-07-21] MEDS ORDERED: RT-ALBUTEROL/IPRATROPIUM 3 ML (DUONEB) VIAL INH ONE (19:30)
[2019-07-21 20:12] LABS: HEMATOCRIT 42 % (35-52); HEMOGLOBIN 14.1 G/DL (11.5-16.0); MEAN CORPUSCULAR HEMOGLOBIN 30 PG (25-34); MEAN CORPUSCULAR VOLUME 91 FL (80-99); WHITE BLOOD COUNT 15.5 10^3/uL (4.3-11.0)
[2019-07-21 20:13] LABS: BASOPHILS % (AUTO) 1 % (0-10); EOSINOPHILS % (AUTO) 2 % (0-10); LYMPHOCYTES % (AUTO) 18 % (12-44); MEAN CORPUSCULAR HGB CONC 34 G/DL (32-36); MEAN PLATELET VOLUME 11.9 FL (7.4-10.4); MONOCYTES % (AUTO) 6 % (0-12); NEUTROPHILS % (AUTO) 73 % (42-75); PLATELET COUNT 283 10^3/uL (130-400); RED CELL DISTRIBUTION WIDTH 14.2 % (10.0-14.5)
[2019-07-21 20:14] LABS: BASOPHILS # (AUTO) 0.1 10^3/uL (0.0-0.1); EOSINOPHILS # (AUTO) 0.3 10^3/uL (0.0-0.3); LYMPHOCYTES # (AUTO) 2.8 X 10^3 (1.0-4.0); NEUTROPHILS # (AUTO) 11.3 X 10^3 (1.8-7.8)
[2019-07-21 20:26] LABS: BACTERIA,URINE TRACE /HPF; BILIRUBIN,URINE NEGATIVE (NEGATIVE); CLARITY,URINE CLEAR; COLOR,URINE YELLOW; GLUCOSE, URINE (UA) NEGATIVE (NEGATIVE); KETONES,URINE NEGATIVE (NEGATIVE); LEUKOCYTE ESTERASE ,URINE NEGATIVE (NEGATIVE); NITRITE,URINE NEGATIVE (NEGATIVE); PH,URINE 7.5 (5-9); PROTEIN,URINE NEGATIVE (NEGATIVE); UROBILINOGEN,URINE 0.2 MG/DL (NORMAL); WBC,URINE RARE /HPF
[2019-07-21 20:27] LABS: AMPHETAMINE SCREEN, URINE NEGATIVE (NEGATIVE); BARBITURATE SCREEN URINE NEGATIVE (NEGATIVE); BENZODIAZEPINES SCREEN URINE POSITIVE (NEGATIVE); CANNABINOID SCREEN, URINE NEGATIVE (NEGATIVE); COCAINE SCREEN URINE NEGATIVE (NEGATIVE); METHADONE STAT NEGATIVE (NEGATIVE); METHAMPHETAMINE SCREEN URINE S NEGATIVE (NEGATIVE); OPIATE SCREEN URINE NEGATIVE (NEGATIVE); OXYCODONE STAT NEGATIVE (NEGATIVE); PROPOXYPHENE STAT NEGATIVE (NEGATIVE); TRICYCLIC ANTIDEPRESSANTS SCRE NEGATIVE (NEGATIVE)
[2019-07-21 20:29] LABS: CHLORIDE 98 MMOL/L (98-107); SODIUM 140 MMOL/L (135-145)
--- NOTE | 2019-07-21 20:29 | Diagnostic Imaging Report ---
INDICATION: Cough, dyspnea and chills Single AP view of the chest is obtained with comparison made to the study of 04/17/2019. There is mild air trapping, bilaterally. No pneumothorax or consolidation is identified. There is no significant pleural fluid appreciated. IMPRESSION: Mild chronic findings without acute abnormality detected. Dictated by: Dictated on workstation # [id number]
[2019-07-21 20:30] LABS: ALANINE AMINOTRANSFERASE 11 U/L (0-55); ALKALINE PHOSPHATASE 105 U/L (40-136); BILIRUBIN,TOTAL 0.6 MG/DL (0.1-1.0); BUN/CREATININE RATIO 20; CALCIUM 9.7 MG/DL (8.5-10.1); CARBON DIOXIDE 26 MMOL/L (21-32); CREATININE SERUM 0.76 MG/DL (0.60-1.30); GFR ESTIMATED > 60; GLUCOSE 127 MG/DL (70-105); MAGNESIUM 1.8 MG/DL (1.6-2.4); TOTAL PROTEIN 7.2 GM/DL (6.4-8.2)
[2019-07-21 21:00] LABS: BAND NEUTROPHILS 1 %; BASOPHILS % (MANUAL) 0 %; EOSINOPHILS % (MANUAL) 3 %; LYMPHOCYTES % (MANUAL) 19 %; MONOCYTES % (MANUAL) 5 %; NEUTROPHILS % (MANUAL) 72 %
--- NOTE | 2019-07-21 21:53 | ED General ---
General Chief Complaint: Cough/Cold/Flu Symptoms Stated Complaint: COUGH Nursing Triage Note: Patient and daughter report that patient was at [place], [place] ED on Saturday night, inpatient admission was recommended to patient d/t possible pneumonia, patient declined admission at that time and went home. EMS was dispatched to patient's residence today for shortness of breath. Nursing Sepsis Screen: No Definite Risk Source of Information: Patient, EMS, Family History of Present Illness Date Seen by Provider: Jul 21, 2019 Time Seen by Provider: 19:47 Initial Comments 53-year-old female presenting by EMS from home. She states that she was then intubated ER over the weekend and was told that she had pneumonia. She comes in tonight stating that she has been having shortness of breath and chest pains. She is coughing and having a headache. She has multiple complaints and was not feeling well. She has been coughing and having posttussive emesis. She feels that she is not doing well and then she needs help. 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 She has a history of methamphetamine abuse and family was concerned that that might be causing part of her symptoms. She denies using any methamphetamines recently. However she states that she doesn't remember for sure when she last used today. She is a smoker. She has a hacking cough. She complains of pain all over. She denies any tick bites or rash. Allergies and Home Medications Allergies Coded Allergies: aspirin (Unverified Allergy, Severe, THROAT SWELLS, 01/20/13) amoxicillin (Unverified Allergy, Intermediate, HIVES, 04/25/16) sulfamethoxazole (Unverified Allergy, Unknown, 01/20/13) trimethoprim (Unverified Allergy, Unknown, 01/20/13) Home Medications Azithromycin 250 Mg Tablet, 250 MG PO DAILY Prescribed by: KOBI BERG on 07/21/19 2315 Cephalexin 500 Mg Capsule, 500 MG PO BID Prescribed by: RONNA MEADOWS on 06/28/19 171 Ciprofloxacin HCl 500 Mg Tablet, 500 MG PO BID Prescribed by: ATIYA WERNER on 04/17/19 2114 Diltiazem HCl 240 Mg Capsule.er, 240 MG PO DAILY, (Reported) Fluoxetine Hcl 20 Mg Capsule, 20 MG PO DAILY, (Reported) Gabapentin 300 Mg Capsule, 300 MG PO TID, (Reported) Hydrocodone/Acetaminophen 1 Each Tablet, 1-2 EACH PO Q4H PRN for PAIN Prescribed by: ELENA AUSTIN on 04/25/16858 Hydrocodone/Acetaminophen 1 Each Tablet, 2 TAB PO TID PRN for PAIN-MODERATE TO SEVERE Prescribed by: ATIYA WERNER on 04/17/192113 Hydrocodone/Acetaminophen 1 Each Tablet, 1 TAB PO Q4-6HR Prescribed by: RONNA MEADOWS on 06/28/191710 Ibuprofen 800 Mg Tablet, 800 MG PO Q8H PRN for PAIN Prescribed by: RONNA MEADOWS on 06/28/191710 Nitrofurantoin Monohyd/M-Cryst 100 Mg Capsule, 1 TAB PO BID Prescribed by: ELENA AUSTIN on 04/25/16858 Ondansetron 8 Mg Tab.rapdis, 8 MG PO TID PRN for NAUSEA/VOMITING Prescribed by: ATIYA WERNER on 04/17/192113 Ondansetron 4 Mg Tab.rapdis, 4 MG PO Q6H PRN for NAUSEA/VOMITING Prescribed by: RONNA MEADOWS on 06/28/191710 Prednisone 20 Mg Tab, 40 MG PO DAILY Prescribed by: KOBI BERG on 07/21/192314 Tamsulosin HCl 0.4 Mg Cap, 0.4 MG PO HS Prescribed by: RONNA MEADOWS on 06/28/191710 Patient Home Medication List Home Medication List Reviewed: Yes Review of Systems Review of Systems Constitutional: chills, fever, malaise EENTM: nose congestion Respiratory: cough, short of breath Cardiovascular: chest pain (sharp pains in her chest especially with coughing) Gastrointestinal: vomiting (posttussive) Genitourinary: No dysuria, No frequency Musculoskeletal: muscle pain (generalized) Skin: No rash Past Duplrmr-Dsnwho-Sidful Hx Past Med/Social Hx: Reviewed Nursing Past Med/Soc Hx Patient Social History Alcohol Use: Denies Use Recreational Drug Use: No (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) Drug of Choice: methamphetamines Type Used: Cigarettes 2nd Hand Smoke Exposure: No Recent Foreign Travel: No Contact w/Someone Who Travel: No Recent Infectious Disease Expo: No Recent Hopitalizations: No Physical Abuse: No Sexual Abuse: No Mistreated: No Fear: No Immunizations Up To Date Date of Pneumonia Vaccine: Jan 06, 2013 Date of Influenza Vaccine: Jan 20, 2013 Seasonal Allergies Seasonal Allergies: No Past Medical History Surgeries: Yes (cysto's and eswl's) Appendectomy, Gallbladder, Hysterectomy, Tubal Ligation Respiratory: No Cardiac: Yes (SVT, ) Atrial Fibrillation, Hypertension Neurological: Yes (HAS 3 BRAIN ANEURYSMS DX AT 37 YRS OF AGE, bulging discs, pinched nerve) Reproductive Disorders: No Genitourinary: Yes Kidney Stones Gastrointestinal: Yes (enlarged liver) Gastroesophageal Reflux Musculoskeletal: Yes (restless leg) Arthritis Endocrine: Yes Diabetes, Non-Insulin dep HEENT: No Cancer: No Uterine Psychosocial: Yes Depression Integumentary: No Blood Disorders: No Physical Exam Vital Signs Vital Signs - First Documented 07/21/19 19:05 Temp 37.9 Pulse 81 Resp 18 B/P (MAP) 112/50 (70) Pulse Ox 93 O2 Delivery Room Air Capillary Refill : Less Than 3 Seconds Height, Weight, BMI Height: 5'4.00" Weight: 240lbs. 9.6oz. 108.306743st; 31.00 BMI Method:Stated General Appearance: Moderate Distress (complaints pain all over), Obese HEENT: PERRL/EOMI; No Moist Mucous Membranes (slightly dry mucous membranes), No Tonsillar Exudate Neck: Full Range of Motion, Normal Inspection, Non Tender, Supple Respiratory: No Accessory Muscle Use, No Respiratory Distress, Decreased Breath Sounds, Rhonci; No Stridor; Wheezing, Other (tender to push on chest wall) Cardiovascular: Regular Rate, Rhythm, Normal Peripheral Pulses Gastrointestinal: Normal Bowel Sounds, No Pulsatile Mass, Soft, Tenderness (mild tenderness with palpation all over) Neurologic/Psychiatric: Alert, Oriented x3, No Motor/Sensory Deficits Skin: Normal Color, Warm/Dry Focused Exam Lactate Level 07/21/19 19:45: Lactic Acid Level 1.91 Lactic Acid Level Progress/Results/Core Measures Suspected Sepsis Recent Fever Within 48 Hours: Yes Infection Criteria Present: Suspected New Infection New/Unexplained Altered Menta: No Sepsis Screen: No Definite Risk SIRS Temperature: Pulse: 81 Respiratory Rate: 18 Laboratory Tests 07/21/19 19:45: White Blood Count 15.5H Blood Pressure 112 /50 Mean: 70 07/21/19 19:45: Lactic Acid Level 1.91 Laboratory Tests 07/21/19 19:45: Creatinine 0.76, Platelet Count 283, Total Bilirubin 0.6 Results/Orders Lab Results Laboratory Tests Test 07/21/19 19:30 07/21/19 19:45 Range/Units Urine Color YELLOW Urine Clarity CLEAR Urine pH 7.5 5-9 Urine Specific [place] 1.015 L 1.016-1.022 Urine Protein NEGATIVE NEGATIVE Urine Glucose (UA) NEGATIVE NEGATIVE Urine Ketones NEGATIVE NEGATIVE Urine Nitrite NEGATIVE NEGATIVE Urine Bilirubin NEGATIVE NEGATIVE Urine Urobilinogen 0.2 NORMAL MG/DL Urine Leukocyte Esterase NEGATIVE NEGATIVE Urine RBC (Auto) NEGATIVE NEGATIVE Urine RBC NONE /HPF Urine WBC RARE /HPF Urine Squamous Epithelial Cells 10-25 H /HPF Urine Crystals NONE /LPF Urine Bacteria TRACE /HPF Urine Casts NONE /LPF Urine Mucus NONE /LPF Urine Culture Indicated NO Urine Opiates Screen NEGATIVE NEGATIVE Urine Oxycodone Screen NEGATIVE NEGATIVE Urine Methadone Screen NEGATIVE NEGATIVE Urine Propoxyphene Screen NEGATIVE NEGATIVE Urine Barbiturates Screen NEGATIVE NEGATIVE Ur Tricyclic Antidepressants Screen NEGATIVE NEGATIVE Urine Phencyclidine Screen NEGATIVE NEGATIVE Urine Amphetamines Screen NEGATIVE NEGATIVE Urine Methamphetamines Screen NEGATIVE NEGATIVE Urine Benzodiazepines Screen POSITIVE H NEGATIVE Urine Cocaine Screen NEGATIVE NEGATIVE Urine Cannabinoids Screen NEGATIVE NEGATIVE White Blood Count 15.5 H 4.3-11.0 10^3/uL Red Blood Count 4.63 4.35-5.85 10^6/uL Hemoglobin 14.1 11.5-16.0 G/DL Hematocrit 42 35-52 % Mean Corpuscular Volume 91 80-99 FL Mean Corpuscular Hemoglobin 30 25-34 PG Mean Corpuscular Hemoglobin Concent 34 32-36 G/DL Red Cell Distribution Width 14.2 10.0-14.5 % Platelet Count 283 130-400 10^3/uL Mean Platelet Volume 11.9 H 7.4-10.4 FL Neutrophils (%) (Auto) 73 42-75 % Lymphocytes (%) (Auto) 18 12-44 % Monocytes (%) (Auto) 6 0-12 % Eosinophils (%) (Auto) 2 0-10 % Basophils (%) (Auto) 1 0-10 % Neutrophils # (Auto) 11.3 H 1.8-7.8 X 10^3 Lymphocytes # (Auto) 2.8 1.0-4.0 X 10^3 Monocytes # (Auto) 1.0 0.0-1.0 X 10^3 Eosinophils # (Auto) 0.3 0.0-0.3 10^3/uL Basophils # (Auto) 0.1 0.0-0.1 10^3/uL Neutrophils % (Manual) 72 % Lymphocytes % (Manual) 19 % Monocytes % (Manual) 5 % Eosinophils % (Manual) 3 % Basophils % (Manual) 0 % Band Neutrophils 1 % Sodium Level 140 135-145 MMOL/L Potassium Level 4.0 3.6-5.0 MMOL/L Chloride Level 98 98-107 MMOL/L Carbon Dioxide Level 26 21-32 MMOL/L Anion Gap 16 H 5-14 MMOL/L Blood Urea Nitrogen 15 7-18 MG/DL Creatinine 0.76 0.60-1.30 MG/DL Estimat Glomerular Filtration Rate > 60 BUN/Creatinine Ratio 20 Glucose Level 127 H 70-105 MG/DL Lactic Acid Level 1.91 0.50-2.00 MMOL/L Calcium Level 9.7 8.5-10.1 MG/DL Corrected Calcium 9.7 8.5-10.1 MG/DL Magnesium Level 1.8 1.6-2.4 MG/DL Total Bilirubin 0.6 0.1-1.0 MG/DL Aspartate Amino Transf (AST/SGOT) 13 5-34 U/L Alanine Aminotransferase (ALT/SGPT) 11 0-55 U/L Alkaline Phosphatase 105 40-136 U/L Total Protein 7.2 6.4-8.2 GM/DL Albumin 4.0 3.2-4.5 GM/DL My Orders Orders - KOBI BERG MD Cbc With Automated Diff (07/21/19) Comprehensive Metabolic Panel (07/21/19) Blood Culture (07/21/19) Chest 1 View Ap/Pa Only (07/21/19) Albuterol/Ipra Inhalation Soln (Duoneb I (07/21/19 19:30) Magnesium (07/21/19) Ekg Tracing (07/21/19) O2 (07/21/19:) Ed Iv/Invasive Line Start (07/21/19) Sputum Culture (07/21/19) Monitor-Rhythm Ecg Trace Only (9/17/19 19:24) Lactic Acid Analyzer (07/21/19 19:24) Svn Small Volume Nebulizer (07/21/19 19:24) Ua Culture If Indicated (07/21/19 19:24) Straight Cath For Spec.-Adult (07/21/19 19:24) Drug Screen Stat (Urine) (07/21/19 19:27) Manual Differential (07/21/19 19:45) Methylprednisolone Sod Succ (Solu-Medrol (07/21/19 22:28) Azithromycin Injection (Zithromax Inject (07/21/19 22:30) Orphenadrine Injection (Norflex Injectio (07/21/19 22:28) Albuterol/Ipra Inhalation Soln (Duoneb I (07/21/19 22:28) Svn Small Volume Nebulizer (07/21/19 22:28) Ketorolac Injection (Toradol Injection) (07/21/19 22:28) Ondansetron Injection (Zofran Injectio (07/21/19 22:28) Medications Given in ED Current Medications Medications Dose Ordered Sig/Sirisha Route Start Time Stop Time Status Last Admin Dose Admin Albuterol/ Ipratropium 3 ml ONCE ONCE INH 07/21/19 19:30 07/21/19 19:31 DC 07/21/19 19:41 3 ML Azithromycin 500 mg/Sodium Chloride 250 ml @ 250 mls/hr ONCE ONCE IV 07/21/19 22:30 07/21/19 23:29 DC 07/21/19 22:40 250 MLS/HR Vital Signs/I&O 07/21/19 07/21/19 07/21/19 07/21/19 19:05 19:17 19:51 23:51 Temp 37.9 37.2 Pulse 81 70 Resp 18 18 B/P (MAP) 112/50 (70) 106/65 Pulse Ox 93 95 O2 Delivery Room Air Room Air Room Air Room Air 07/22/19 00:00 Intake Total 250 ml Balance 250 ml Capillary Refill : Less Than 3 Seconds Blood Pressure Mean: 70 Progress Note #1: Progress Note Obtain labs, chest x-ray, EKG and cardiac workup. Also will try to get records from the [place] since she states that she was recently seen there. Try a breathing treatment for her complaint of difficulty breathing and chest pains. Progress Note #2: Progress Note Electrocardiogram does not show any acute significant findings. Her labs showed a mild elevation of her white blood cell count but she had no have a definite source of infection. Her chemistry showed no signs of acute renal failure or hepatic failure. Her cardiac enzymes were all normal.. The chest x-ray did not show signs of infiltrate or infection. Her cardiac enzymes were negative for acute coronary syndrome or heart attack. She continued to complain of sharp chest pains with breathing. A dose of steroids and Toradol was ordered as well as a repeat breathing treatment. She did work herself up with hyperventilating to the point that she had an episode of vomiting. This was after coughing. He dose of Zofran was also ordered. I advised her that we did not see any pain to show signs of infection and that she may have some bronchitis. Will treat with antibiotic and with a dose of steroids. Counseled to check back with the clinic for further concerns. ECG Initial ECG Impression Date: Jul 21, 2019 Initial ECG Impression Time: 19:31 Initial ECG Rate: 79 Initial ECG Rhythm: Normal Sinus Initial ECG Comparisson: No Previous ECG Available Comment Normal sinus rhythm with a heart rate 79 bpm. TX interval is 145 ms. QT interval 372 ms and a QT corrected interval 427 ms. There is no acute ST elevation or ischemic changes. No prior tracing is immediately available for comparison. Diagnostic Imaging Diagonstic Imaging: Xray Plain Films/CT/US/NM/MRI: chest Comments NAME: ELIN CASTILLO [facility] REC#: [id number] PT STATUS: REG ER : 1965 PHYSICIAN: KOBI BERG MD ADMIT DATE: 07/21/19/ER FS Signed Date of Exam:07/21/19 CHEST 1 VIEW AP/PA ONLY INDICATION: Cough, dyspnea and chills Single AP view of the chest is obtained with comparison made to the study of 04/17/2019. There is mild air trapping, bilaterally. No pneumothorax or consolidation is identified. There is no significant pleural fluid appreciated. IMPRESSION: Mild chronic findings without acute abnormality detected. Dictated by: Dictated on workstation # [id number] Dict: 07/21/192024 Trans: 07/21/19 2153 [facility] [id number] Interpreted by: JONY WHITE MD Electronically signed by: JONY WHITE MD 07/21/19 0855 Departure Impression Primary Impression: Bronchitis Additional Impressions: Cough Dehydration Disposition: 01 HOME, SELF-CARE Condition: Stable Departure-Patient Inst. Decision time for Depature: 23:12 Referrals: HAMILTON FONTAINE MD (PCP/Family) Primary Care Physician Patient Instructions: Acute Bronchitis, Adult (DC), Bacterial Upper Respiratory Infection, Adult (DC), Dehydration, Adult (DC) Add. Discharge Instructions: Stay well hydrated and get plenty of rest Use your breathing treatments to help with your lungs and breathing Check with clinic for continued concerns Take the steroids and antibiotic to help with your cough and chest pains. All discharge instructions reviewed with patient and/or family. Voiced understanding. Scripts Prednisone (Prednisone) 20 Mg Tab 40 MG PO DAILY for 5 Days, #10 TAB 0 Refills Prov: KOBI BERG MD 07/21/19 Azithromycin (Azithromycin) 250 Mg Tablet 250 MG PO DAILY for 4 Days, #4 TAB 0 Refills Prov: KOBI BERG MD 07/21/19 KOBI BERG MD Jul 21, 2019 21:53
[2019-07-21] MEDS ORDERED: methylPREDNISolone 125 MG (Solu-MEDROL) VIAL IVP STA (22:28)
[2019-07-21] MEDS ORDERED: RT-ALBUTEROL/IPRATROPIUM 3 ML (DUONEB) VIAL INH STA (22:28)
[2019-07-21] MEDS ORDERED: ONDANSETRON 4 MG/2 ML (SDV) Z0FRAN IVP STA (22:28)
[2019-07-21] MEDS ORDERED: KETOROLAC 30 MG/ML VIAL IVP STA (22:28)
[2019-07-21] MEDS ORDERED: ORPHENADRINE 60 MG/2 ML (NORFLEX) AMP IV STA (22:28)
[2019-07-21] MEDS ORDERED: AZITHROMYCIN INJECTION 500 MG in NS (IVPB) 250 ML IV ONE (22:30)
[2019-07-21] MEDS ORDERED: PRD20T PO (23:15)
[2019-07-21] MEDS ORDERED: AZIT250T12 PO (23:15)
[2019-07-21 23:51] VITALS: BP 106/65
== END 2019-07-21 23:51 | disposition home or self-care (01) ==
LOC: EDUNIT# 18:56 → ER FS 18:57
DX: J40 Bronchitis, not specified as acute or chronic (principal); E86.0 Dehydration; I10 Essential (primary) hypertension; E11.9 Type 2 diabetes mellitus without complications; F32.9 Major depressive disorder, single episode, unspecified; I48.91 Unspecified atrial fibrillation; K21.9 Gastro-esophageal reflux disease without esophagitis; F17.210 Nicotine dependence, cigarettes, uncomplicated; Z85.42 Personal history of malignant neoplasm of other parts of uterus; Z87.442 Personal history of urinary calculi; Z90.49 Acquired absence of other specified parts of digestive tract; Z98.51 Tubal ligation status; Z90.710 Acquired absence of both cervix and uterus; Z88.0 Allergy status to penicillin; Z88.6 Allergy status to analgesic agent; Z88.2 Allergy status to sulfonamides; Z88.1 Allergy status to other antibiotic agents
CPT/HCPCS: 36415; 71045; 80053; 80306; 81000; 83605; 83735; 85007; 85027; 87040; 93005; 93041; 94640

== ENCOUNTER 2019-08-10 15:03 | Inpatient (IN) | payer MEDICAID ==
[~2019-08-10] VITALS: Ht 162.5 cm; Wt 110.9 kg
[~2019-08-10 15:03] MED LIST changes: +AZIT250T12 PO
--- NOTE | 2019-08-10 15:25 | ED Psychosocial ---
General Stated Complaint: PSYCH EVAL Source: patient Exam Limitations: no limitations (KEYANNA GOMES DO) History of Present Illness Date Seen by Provider: Aug 10, 2019 Time Seen by Provider: 15:14 Initial Comments The patient is a 53-year-old female who presents for evaluation of depression and suicidal and possibly homicidal thoughts. She states that she went to see her primary care provider and indicated to them that she had been having thoughts of hurting herself and other people and they told her to go to the emergency department. The patient denies history of psychiatric admission. She is well-known to this emergency department for anxiety and depression. She tells me that she is currently taking care of her 74-year-old mother who lives 2 doors down from her and that this is her primary stressor. She states she is very worried that her mother is going to while she is here in this is bothering her. She says that she is having pains all over her entire body as well. She is alert, very anxious and tearful, but appears to be in no distress this time. She denies to me any specific plan to harm herself and denies to me any specific intent to harm anyone else. However, later she states "I know if I tell you that I want to hurt someone you're gonna lock me up in a nut house". She states that a month ago she drank bleach in an effort to harm herself. Associated Symptoms: suicidal ideation (KEYANNA GOMES DO) Allergies and Home Medications Allergies Coded Allergies: aspirin (Unverified Allergy, Severe, THROAT SWELLS, 01/20/13) amoxicillin (Unverified Allergy, Intermediate, HIVES, 04/25/16) sulfamethoxazole (Unverified Allergy, Unknown, 01/20/13) trimethoprim (Unverified Allergy, Unknown, 01/20/13) Home Medications Acetaminophen 500 Mg Tablet, 1,000 MG PO Q4H PRN for PAIN-MILD, (Reported) Allopurinol 300 Mg Tablet, 300 MG PO DAILY, (Reported) Atorvastatin Calcium 10 Mg Tablet, 10 MG PO HS, (Reported) Digoxin 125 Mcg Tablet, 125 MCG PO DAILY, (Reported) Diltiazem HCl 240 Mg Cap.er.24h, 240 MG PO DAILY, (Reported) Fluoxetine HCl 40 Mg Capsule, 40 MG PO DAILY, (Reported) Gabapentin 300 Mg Capsule, 600 MG PO TID, (Reported) TAKES 2 (300MG) CAPSULES Lisinopril 10 Mg Tablet, 10 MG PO DAILY, (Reported) Metformin HCl 500 Mg Tablet, 500 MG PO BID, (Reported) Ondansetron 4 Mg Tab.rapdis, 4 MG PO Q6H PRN for NAUSEA/VOMITING Prescribed by: RONNA MEADOWS on 06/28/19 7165 Patient Home Medication List Home Medication List Reviewed: Yes (KEYANNA GOMES DO) Review of Systems Constitutional: no symptoms reported EENTM: no symptoms reported Respiratory: no symptoms reported Cardiovascular: no symptoms reported Gastrointestinal: no symptoms reported Genitourinary: no symptoms reported Musculoskeletal: no symptoms reported Skin: no symptoms reported Psychiatric/Neurological: Anxiety, Depressed (KEYANNA GOMES DO) All Other Systems Reviewed Negative Unless Noted: Yes (KEYANNA GOMES DO) Past Mugoohb-Ugrdmb-Ihfhxm Hx Past Med/Social Hx: Reviewed Nursing Past Med/Soc Hx (KEYANNA GOMES DO) Patient Social History Drug of Choice: methamphetamines Type Used: Cigarettes 2nd Hand Smoke Exposure: No Recent Hopitalizations: No (KEYANNA GOMES DO) Immunizations Up To Date Date of Pneumonia Vaccine: Jan 06, 2013 Date of Influenza Vaccine: Jan 20, 2013 (KEYANNA GOMES DO) Seasonal Allergies Seasonal Allergies: No (KEYANNA GOMES DO) Past Medical History Surgeries: Yes (cysto's and eswl's) Appendectomy, Gallbladder, Hysterectomy, Tubal Ligation Respiratory: No Cardiac: Yes (SVT, ) Atrial Fibrillation, Hypertension Neurological: Yes (HAS 3 BRAIN ANEURYSMS DX AT 37 YRS OF AGE, bulging discs, pinched nerve) Reproductive Disorders: No Genitourinary: Yes Kidney Stones Gastrointestinal: Yes (enlarged liver) Gastroesophageal Reflux Musculoskeletal: Yes (restless leg) Arthritis Endocrine: Yes Diabetes, Non-Insulin dep HEENT: No Cancer: No Uterine Psychosocial: Yes Depression Integumentary: No Blood Disorders: No (KEYANNA GOMES DO) Physical Exam Vital Signs - First Documented 08/10/19 08/11/19 15:10 16:05 Temp 37.0 Pulse 65 Resp 24 B/P (MAP) 124/58 (80) Pulse Ox 96 O2 Delivery Room Air (KOBI BERG MD) Capillary Refill : (KEYANNA GOMES DO) Height, Weight, BMI Height: 5'4.00" Weight: 240lbs. 9.6oz. 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 nml as tested, no motor/sensory deficits, alert, oriented x 3, depressed affect Behavior/Eye Contact: avoids eye contact Thoughts/Hallucinations: no apparent hallucination Skin: normal color, warm/dry (KEYANNA GOMES DO) Progress/Results/Core Measures Results/Orders Lab Results Laboratory Tests Test 08/11/19 15:03 Range/Units Glucometer 229 H 70-110 MG/DL (KOBI BERG MD) My Orders Orders - KOBI BERG MD Lorazepam Injection (Ativan Injection) (08/10/19 19:18) Gabapentin Capsule/Tablet (Neurontin Cap (08/10/19 19:18) Ziprasidone Injection (Geodon Injection) (08/10/19 19:18) Gabapentin Capsule/Tablet (Neurontin Cap (08/10/19 19:39) (KOBI BERG MD) Vital Signs/I&O 08/12/19 08/12/19 08/12/19 07:48 09:00 10:40 Temp 36.2 Pulse 56 Resp 20 B/P (MAP) 90/49 (63) Pulse Ox 95 95 O2 Delivery Room Air Room Air (KOBI BERG MD) Progress Progress Note : Progress Note @1758 - Pt evaluated by mental health professional and meets involuntary admission criteria. Pt is upset by this. Awaiting official bed and physician acceptance at [facility]. @1800 - Pt care transferred from Dr. Gomes to Dr. Berg at this time. Awaiting formal acceptance and transfer to OSH. (KEYANNA GOMES DO) Progress Note #1: Progress Note I took over care of the patient at [address] Gomes at shift change. Pending placement for inpatient psychiatric services and told that we are just waiting on attending name and bed assignment for the patient to go to [facility]. Progress Note #2: Progress Note Pt was agitated and wanting something for anxiety and neuropathic pain. given Gabapentin and Ativan with Geodon for anxiety and agitation since we are waiting on placement for the patient. Progress Note #3: Progress Note [facility] was contacted to find out where we were in the process of finding out the attending and placement for the pt to go to OSH and they stated that no placement was being arranged for the patient since they had not spoken with her. They stated that OSH can try to screen her but they do not have anyone to screen her overnight, also they have a long wait list for involuntary admits. So patient has no disposition as had been originally been thought. Will wait for patient to wake back up more so that she can be screened or that OSH could screen her for involuntary placement. Progress Note #4: Time: 03:24 Progress Note patient awake and now willing to speak to mental health so will contact [facility] again to see if they can have a screener conduct an interview with her over the telemedicine conference. Progress Note #5: Time: 04:57 Progress Note After speaking with the mental health screener he called back to the ED and stated that the patient was still too groggy and not staying awake enough to complete a proper interview so he would have to recommend a face to face interview and that would be with staff from [facility] after 8 am. Patient will be allowed to sleep and rest until someone is available from [facility]. We will have to contact them after 8 am to get a screener to come and speak with her to determine her disposition. Care will be passed to Dr. Robles at 0600 at shift change pending this screening after 8 am. (KOBI BERG MD) Progress Note #1: Time: 12:24 Progress Note 1100 - Ana - Patient was seen by screener and felt that she was unsafe to go home. Patient reportedly has to go to court house to be made involuntary. Patient pending placement. Progress Note #2: Time: 15:03 Davon Note Ana - 1500 - [facility] called and stated that they would not be able to take her for 2-3 days. Given we have no inpatient services, we will transfer to [facility]. Patient transferred in stable condition after accepted by Dr. Tran. (SAVANNAH ROBLES DO) EKG : Comment @1519 - Normal sinus rhythm, rate of 66, normal axis, no acute ischemic findings noted, no STEMI, reviewed and interpreted by myself (KEYANNA GOMES DO) Transfer of Care Time: 06:00 Care transferred to: Dr. Robles (KOBI BERG MD) Departure Impression Primary Impression: Depression Additional Impressions: Suicidal thoughts Anxiety Methamphetamine abuse Disposition: ADMITTED INPATIENT Condition: Stable Transfer Method of Transfer: EMS (SAVANNAH ROBLES DO) Departure-Patient Inst. Referrals: HAMILTON FONTAINE MD (PCP/Family) Primary Care Physician KEYANNA GOMES DO Aug 10, 2019 15:25 KOBI BERG MD Aug 10, 2019 18:28 SAVANNAH ROBLES DO Aug 11, 2019 12:25
[2019-08-10 15:48] LABS: BASOPHILS # (AUTO) 0.1 10^3/uL (0.0-0.1); BASOPHILS % (AUTO) 1 % (0-10); EOSINOPHILS # (AUTO) 0.4 10^3/uL (0.0-0.3); EOSINOPHILS % (AUTO) 3 % (0-10); HEMATOCRIT 43 % (35-52); HEMOGLOBIN 13.8 G/DL (11.5-16.0); LYMPHOCYTES # (AUTO) 4.1 X 10^3 (1.0-4.0); LYMPHOCYTES % (AUTO) 32 % (12-44); MEAN CORPUSCULAR HEMOGLOBIN 30 PG (25-34); MEAN CORPUSCULAR HGB CONC 33 G/DL (32-36); MEAN CORPUSCULAR VOLUME 92 FL (80-99); MEAN PLATELET VOLUME 11.5 FL (7.4-10.4); MONOCYTES # (AUTO) 0.9 X 10^3 (0.0-1.0); MONOCYTES % (AUTO) 7 % (0-12); NEUTROPHILS # (AUTO) 7.4 X 10^3 (1.8-7.8); NEUTROPHILS % (AUTO) 57 % (42-75); PLATELET COUNT 282 10^3/uL (130-400); RED CELL DISTRIBUTION WIDTH 14.5 % (10.0-14.5)
[2019-08-10 16:08] LABS: ACETAMINOPHEN < 10 UG/ML (10-30); ALANINE AMINOTRANSFERASE 13 U/L (0-55); ALBUMIN 4.1 GM/DL (3.2-4.5); ALKALINE PHOSPHATASE 114 U/L (40-136); BILIRUBIN,TOTAL 0.2 MG/DL (0.1-1.0); BUN/CREATININE RATIO 20; CARBON DIOXIDE 27 MMOL/L (21-32); CHLORIDE 102 MMOL/L (98-107); CREATININE SERUM 0.87 MG/DL (0.60-1.30); GFR ESTIMATED > 60; GLUCOSE 99 MG/DL (70-105); POTASSIUM 4.6 MMOL/L (3.6-5.0); SALICYLATE < 5.0 MG/DL (5.0-20.0); SODIUM 139 MMOL/L (135-145); TOTAL PROTEIN 7.4 GM/DL (6.4-8.2)
[2019-08-10 16:23] LABS: BACTERIA,URINE LARGE /HPF; BILIRUBIN,URINE NEGATIVE (NEGATIVE); CLARITY,URINE SL CLOUDY; COLOR,URINE YELLOW; GLUCOSE, URINE (UA) NEGATIVE (NEGATIVE); KETONES,URINE NEGATIVE (NEGATIVE); LEUKOCYTE ESTERASE ,URINE NEGATIVE (NEGATIVE); NITRITE,URINE NEGATIVE (NEGATIVE); PROTEIN,URINE NEGATIVE (NEGATIVE); SQUAMOUS EPITHELIAL CELL,UR >50 /HPF; UROBILINOGEN,URINE 0.2 MG/DL (NORMAL); WBC,URINE >100 /HPF
[2019-08-10 16:27] LABS: AMPHETAMINE SCREEN, URINE NEGATIVE (NEGATIVE); BARBITURATE SCREEN URINE NEGATIVE (NEGATIVE); BENZODIAZEPINES SCREEN URINE NEGATIVE (NEGATIVE); CANNABINOID SCREEN, URINE NEGATIVE (NEGATIVE); COCAINE SCREEN URINE NEGATIVE (NEGATIVE); METHADONE STAT NEGATIVE (NEGATIVE); METHAMPHETAMINE SCREEN URINE S POSITIVE (NEGATIVE); OPIATE SCREEN URINE NEGATIVE (NEGATIVE); TRICYCLIC ANTIDEPRESSANTS SCRE NEGATIVE (NEGATIVE)
[2019-08-10 16:28] LABS: OXYCODONE STAT NEGATIVE (NEGATIVE); PROPOXYPHENE STAT NEGATIVE (NEGATIVE)
--- NOTE | 2019-08-10 17:18 | NUR ---
Called [facility] at this time to request screening.
--- NOTE | 2019-08-10 17:59 | NUR ---
Patient is not participating in mental health screening with [facility] via laptop. Screener is recommending an involuntary admission.
--- NOTE | 2019-08-10 18:37 | NUR ---
patient stated she was leaving and had a ride coming to pick her up. Patient walked outside while this RN called for police to come for patient.
--- NOTE | 2019-08-10 18:45 | NUR ---
Patient returned inside when her ride was not there. Police came inside to speak to patient and then left.
[2019-08-10] MEDS ORDERED: ZIPRASIDONE 20 MG INJ (GEODON) VIAL IM STA (19:18)
[2019-08-10] MEDS ORDERED: LORazepam INJ 2 MG/ML (ATIVAN) VIAL IM STA (19:18)
[2019-08-10] MEDS ORDERED: GABAPENTIN 300 MG (NEURONTIN) CAP PO STA (19:18)
[2019-08-10] MEDS ORDERED: GABAPENTIN 100 MG (NEURONTIN) CAP ONE (19:39)
--- NOTE | 2019-08-10 19:55 | NUR ---
PT IN ROOM AND CONTINUES YELLING THAT SHE WANTS TO GO HOME.
--- NOTE | 2019-08-10 20:21 | NUR ---
[facility] CONTACTED AND THEY STATED THAT SINCE THE PT WAS UNWILLING TO TALK TO THEM THAT SHE WILL BE TREATED AN INVOLUNTARY ADMISSION AND THAT OSH DOES NOT TRIAGE PTS AFTER HOURS SO IT WILL HAVE TO WAIT UNTIL THE MORNING AND THAT THE PT IS ON THE OSH WAIT LIST. [facility] ALSO STATED THAT THEY HAD NOT RECEIVED EVERYTHING THAT WAS FAXED TO THEM SO INFORMATION WAS REFAXED.
--- NOTE | 2019-08-10 22:17 | NUR ---
PT SLEEPING IN BED. PT ARROUSES EASILY BUT DOES NOT WANT TO TALK.
--- NOTE | 2019-08-10 23:15 | NUR ---
PT SLEEPING IN BED. PT WILL WAKE EASILY BUT DOES NOT WANT TO TALK. EXPLANATION GIVEN TO PT THAT SHE NEEDS TO SPEAK WITH MH COUNCELOR IN ORDER TO PROCEED WITH TREATMENT.
--- NOTE | 2019-08-11 00:25 | NUR ---
PT SLEEPING IN BED. ANOTHER ATTEMPT WAS MADE TO WAKE THE PT AND ENCOURAGE HER TO CONSENT TO SPEAK WITH MH. PT WILL WAKE UP AND LOOK AROUND AND THEN GO BACK TO SLEEP.
--- NOTE | 2019-08-11 01:32 | NUR ---
PT CONTINUES TO SLEEP IN BED. FREQUENT CHECKS HAVE BEEN MADE AND MULTIPLE ATTEMPTS TO GET THE PT TO SPEAK WITH MH AND THE PT SHOWS NO INTEREST IN SPEAKING WITH ANYONE AT THIS TIME. WHEN ASKED IF SHE WANTS TO SPEAK WITH MH PT STATES "NO" AND THEN GOES BACK TO SLEEP.
--- NOTE | 2019-08-11 03:17 | NUR ---
PT SLEEPING. PT WILL WAKEN WHEN YOU LIGHTLY SHAKE HER.
--- NOTE | 2019-08-11 03:27 | NUR ---
PT WOKE UP WHEN ENTERING THE ROOM TO TAKE V/S. PT STATED SHE WAS READY TO TALK TO MH SCREENER. PT WAS WALKED TO THE BATHROOM AND RETURNED TO ROOM.
--- NOTE | 2019-08-11 03:43 | NUR ---
[facility] CONTACTED. NEW TRACKING NUMBER: [id number]. SCREENER TO RETURN CALL WITHIN THE HOUR.
--- NOTE | 2019-08-11 04:55 | NUR ---
DURING TELECONFERENCE PT CONTINUED TO FALL ASLEEP AND RESPONDED WITH MUMBLING RESPONSES. SCREENER CALL THIS RN ON THE PHONE AND STATED THAT HE FELT IT WOULD BE BEST TO CONDUCT A FACE TO FACE INTERVIEW WITH THE PT. SCREENER STATED THAT HE COULD NOT MAKE A DETERMINATION AT THIS TIME AND TO CALL [facility] AGAIN IF THE PT BECOMES MUCH MORE AWAKE OR AT 0800 IN ORDER TO SET UP THE FACE TO FACE INTERVIEW BETWEEN PT AND SCREENER. PT WILL KEEP THE SAME TRACKING NUMBER ([id number]) AND TO USE THIS NUMBER WHEN CALLING. UPON ENDING THE TELECONFERENCE THE PT PROMPTLY FELL BACK ASLEEP.
--- NOTE | 2019-08-11 06:04 | NUR ---
PT SLEEPING IN BED WITH THE LIGHTS ON. PT CONTINUES TO WAKE EASILY WHEN V/S ARE ASSESSED. PT GIVEN WARM BLANKET AND SHE STATES THERE IS NOTHING ELSE SHE NEEDS AT THIS TIME. PT INFORMED THAT SCREENER SHOULD BE HERE AFTER 0800 FOR A FACE TO FACE INTERVIEW. PT STATES THAT SHE WANTS TO GO HOME AND WAS INFORMED THAT THE INTERVIEW WITH THE SCREENER WOULD BE THE NEXT STEP IN THAT PROCESS AND THAT THE DECISION TO GO HOME WILL BE ASSISTED BY THE SCREENER.
--- NOTE | 2019-08-11 08:00 | NUR ---
Patient awakens easily to verbal stimulation, vital signs as follows: T. 37 P. 57 O2. 96% RR. 18 B/P. 94/38. Patient ambulatory to the bathroom, cooperative with care, alert and oriented x 4, given coffee, water, and food for breakfast. States she wants to go home and is willing to speak with a screener. [facility] called, they will send a screener as soon as possible.
--- NOTE | 2019-08-11 08:40 | NUR ---
Call back received from [facility], screener will be here in approximately 20 minutes.
--- NOTE | 2019-08-11 08:59 | NUR ---
Christopher from [facility] in room with patient for screen.
--- NOTE | 2019-08-11 11:26 | NUR ---
Screener from [facility], Khurram Omalley, has completed his screening and is recommending that patient be an involuntary admission to inpatient psychiatric treatment. [employer] officers present when patient informed of screener's decision. Patient tearful and states she just wants to go home, but did not attempt to leave. Patient continues to be cooperative with care, given fluids and food for lunch, ambulatory to bathroom as needed. [facility] called per their request and informed of screener's decision, patient will be transferred by [employer] to court at some point today for hearing and return to ED following hearing. Khurram Omalley at [facility] informed.
--- NOTE | 2019-08-11 11:44 | NUR ---
Patient informed of court hearing. Vital signs as follows: T. 36.8, P. 76, O2. 95%, B/P. 104/37, RR. 18.
[2019-08-11] MEDS ORDERED: HYDROcodone/APAP 5 MG/325 MG (LORTAB) TAB PO ONE (11:45)
[2019-08-11] MEDS ORDERED: IBUPROFEN 800 MG (MOTRIN) TAB PO ONE (11:45)
[2019-08-11] MEDS ORDERED: NICOTINE 21 MG (NICODERM) PATCH TD ONE (12:00)
--- NOTE | 2019-08-11 14:00 | NUR ---
Noted on patient's medication list that she takes XR diltiazim (hx of a-fib) and digoxin, her personal pill bottle is empty, all pills mixed in pill material planner. Noman Jenkins [facility] does not stock oral cardizem, patient has not had her home medications in over 24 hours.
[2019-08-11] MEDS ORDERED: DILTIAZEM 240 MG (CARDIZEM CD) CAP PO ONE ×2 (15:00→17:38)
[2019-08-11] MEDS ORDERED: DIGOXIN 0.125 MG (LANOXIN) TAB PO ONE (15:00)
[2019-08-11] MEDS ORDERED: GABAPENTIN 600 MG (NEURONTIN) TAB PO ONE (15:00)
[2019-08-11] MEDS ORDERED: metFORMIN 500 MG (GLUCOPHAGE) TAB PO SCH (15:00)
--- NOTE | 2019-08-11 15:19 | NUR ---
Call received from [place] teachers' assistant, patient is on the waiting list, will be at least tomorrow, possibly before patient will be admitted. Dr. Perez informed, patient will be admitted to [facility] [place] [place] to await placement.
--- NOTE | 2019-08-11 15:20 | NUR ---
T. 36.8, P. 77, RR. 18, O2. 97%, B/P 126/71. Patient given food and water, ambulatory to bathroom.
--- NOTE | 2019-08-11 15:30 | NUR ---
Khurram Omalley at [facility], [facility], [facility] informed that patient will be admitted to [facility] to await placement at [place]. [facility] states patient is not in protective custody and they do not need to go with EMS unless their services are requested. Patient has been cooperative with care in the ED.
--- NOTE | 2019-08-11 15:40 | NUR ---
Ada in admissions at [facility] informed that patient will be admitted to [facility] to await placement.
[2019-08-11 16:40] VITALS: BP 102/60
[2019-08-11] MEDS ORDERED: CATHETER FLUSH 10 ML SYR IV PRN (17:00)
[2019-08-11] MEDS ORDERED: ACETAMINOPHEN 325 MG TABLET PO PRN (17:00)
[2019-08-11] MEDS ORDERED: DIGOXIN 0.125 MG (LANOXIN) TAB ONE (17:37)
[2019-08-11] MEDS ORDERED: GABAPENTIN 600 MG (NEURONTIN) TAB ONE (17:37)
[2019-08-11] MEDS: IBUPROFEN 600 MG (MOTRIN) TAB PO PRN ×2 (17:45→23:56)
[2019-08-11 20:02] VITALS: BP 122/62
[2019-08-11] MEDS ORDERED: LORazepam 0.5 MG (ATIVAN) TABLET PO PRN (22:15)
[2019-08-11] MEDS: CATHETER FLUSH 10 ML SYR IV SCH (22:16)
[2019-08-11] MEDS ORDERED: LORazepam 1 MG (ATIVAN) TAB ONE (22:18)
[2019-08-11] MEDS ORDERED: LORazepam 1 MG (ATIVAN) TAB PO PRN (22:30)
[2019-08-11] MEDS: HYDROcodone/APAP 5 MG/325 MG (LORTAB) TAB PO PRN (23:56)
[2019-08-11 23:58] VITALS: BP 108/66
[2019-08-12] MEDS: HYDROcodone/APAP 5 MG/325 MG (LORTAB) TAB PO PRN ×2 (03:38→08:11)
[2019-08-12 04:08] VITALS: BP 112/70
[2019-08-12] MEDS: CATHETER FLUSH 10 ML SYR IV SCH (04:40)
[2019-08-12 07:48] VITALS: BP 90/49
[2019-08-12] MEDS ORDERED: LISI10TA2 PO (08:38)
[2019-08-12] MEDS ORDERED: ATOR10TA66 PO (08:38)
[2019-08-12] MEDS ORDERED: DILT240C90 PO (08:38)
[2019-08-12] MEDS ORDERED: ALLO300T2 PO (08:38)
[2019-08-12] MEDS ORDERED: FLUO40CA12 PO (08:38)
[2019-08-12] MEDS ORDERED: ACET-2267 PO (08:38)
[2019-08-12] MEDS ORDERED: DIGO125T PO (08:38)
[2019-08-12] MEDS ORDERED: METF-397 PO (08:38)
--- NOTE | 2019-08-12 09:30 | NUR ---
Dr. Tran stated she has given doc-to-doc report at [facility]
--- NOTE | 2019-08-12 09:31 | NUR ---
Spoke with Christopher Omalley from who was requesting pt to ideasoft in to court to speak to bonderizer about involuntary status. Told Christopher we could Facetime or download the [employer] juana but we did not have access to any specific program for that type of situation. Christopher stated the bonderizer would not accept it, even from a [facility] owned phone et he would be in contact with me.
--- NOTE | 2019-08-12 09:37 | NUR ---
Notified [facility] social work of situation
--- NOTE | 2019-08-12 09:50 | NUR ---
Message left for Christopher Omalley at [facility] ([phone]) with call back information.
--- NOTE | 2019-08-12 09:58 | NUR ---
Report called to PARMJIT Garcia at [facility]
--- NOTE | 2019-08-12 10:15 | NUR ---
Spoke with Elissa Zacarias in care management. She stated this was considered a discharge et to discharge pt to [facility].
--- NOTE | 2019-08-12 10:19 | Short Stay Summary-Hospitalist ---
History of Present Illness HPI/Chief Complaint Chief complaint: Suicidal ideation History of present illness: This is a 53-year-old white female clinic patient of Dr. Degroot in [place] who has a past medical history of mild diabetes and chronic atrial fibrillation rate controlled who presented for [facility] with complaints of suicidal ideation and meth use. She was held on an involuntary hold due to mental illness and high risk to harm herself and that court date is 11 o'clock this morning. I did speak with the psychiatrist at [place] and he is except the patient in transfer. Currently patient denies any significant problems I did give her some Ativan due to hysterical crying for her mother last night but otherwise she denies any other significant issues except for chronic back pain. Source: patient, RN/MD, old records Exam Limitations: no limitations Date Seen 08/12/19 Time Seen by a Provider: 09:00 Attending Physician Gay Tran Katrina M MD Referring Physician Date of Admission Aug 11, 2019 at 15:32 Home Medications & Allergies Home Medications Reviewed patient Home Medication Reconciliation performed by pharmacy medication reconciliations air moving technician and/or nursing. Patients Allergies have been reviewed. Allergies Allergies Coded Allergies aspirin (Unverified Allergy, Severe, THROAT SWELLS, 01/20/13) amoxicillin (Unverified Allergy, Intermediate, HIVES, 04/25/16) sulfamethoxazole (Unverified Allergy, Unknown, 01/20/13) trimethoprim (Unverified Allergy, Unknown, 01/20/13) Past Uzaietr-Jnsgxk-Ylziji Hx Past Med/Social Hx: Reviewed Nursing Past Med/Soc Hx, Reviewed and Corrections made Patient Social History Marrital Status: single Employed/Student: unemployed Alcohol Use: Denies Use Recreational Drug Use: Yes (METH AND COCAINE) Drug of Choice: methamphetamines- used a couple of weeks ago Type Used: Cigarettes 2nd Hand Smoke Exposure: No Recent Foreign Travel: No Contact w/other who traveled: No Recent Hopitalizations: No Recent Infectious Disease Expo: No Immunizations Up To Date Date of Pneumonia Vaccine: Jan 06, 2013 Date of Influenza Vaccine: Jan 20, 2013 Seasonal Allergies Seasonal Allergies: No Past Medical History Surgeries: Appendectomy, Gallbladder, Hysterectomy, Tubal Ligation Cardiac: Atrial Fibrillation, Hypertension Reproductive: No Genitourinary: Kidney Stones Gastrointestinal: Gastroesophageal Reflux Musculoskeletal: Arthritis Endocrine: Diabetes, Non-Insulin dep Cancer: Uterine Psychosocial: Suicide Attempts, Depression History of Blood Disorders: No Family History Asthma 19 MOTHER Diabetes mellitus 19 FATHER FH: COPD (chronic obstructive pulmonary disease) 19 MOTHER FH: emphysema 19 MOTHER Review of Systems Constitutional: see HPI, weakness Musculoskeletal: back pain Psychiatric/Neurological: Emotional Problems Physical Exam Physical Exam Vital Signs Vital Signs - First Documented 08/10/19 08/11/19 15:10 16:05 Temp 37.0 Pulse 65 Resp 24 B/P (MAP) 124/58 (80) Pulse Ox 96 O2 Delivery Room Air Capillary Refill : Less Than 3 Seconds Height, Weight, BMI Height: 5'4.00" Weight: 240lbs. 9.6oz. [id number]; 41.08 BMI Method:Stated General Appearance: No Apparent Distress, WD/WN, Chronically ill, Obese Eyes: Bilateral Eye Normal Inspection, Bilateral Eye PERRL HEENT: PERRL/EOMI, Normal ENT Inspection, Pharynx Normal Neck: Full Range of Motion, Normal Inspection, Non Tender, Supple, Carotid Bruit Respiratory: Chest Non Tender, Lungs Clear, Normal Breath Sounds, No Accessory Muscle Use, No Respiratory Distress Cardiovascular: No Edema, No Gallop, No JVD, No Murmur, Normal Peripheral Pulses, Irregularly Irregular Gastrointestinal: Normal Bowel Sounds, No Organomegaly, No Pulsatile Mass, Non Tender, Soft Back: Normal Inspection, No CVA Tenderness, No Vertebral Tenderness Extremity: Normal Capillary Refill, Normal Inspection, Normal Range of Motion, Non Tender, No Calf Tenderness, No Pedal Edema Neurologic/Psychiatric: Alert, Oriented x3, No Motor/Sensory Deficits, Normal Mood/Affect Skin: Normal Color, Warm/Dry Lymphatic: No Adenopathy Results Results/Procedures Labs Laboratory Tests 08/10/19 15:37 Patient resulted labs reviewed. Short Stay Diagnosis Discharge Diagnosis-Short Stay Admission Diagnosis Suicidal ideation Chronic atrial fibrillation Diabetes mellitus Smoker Methamphetamine use Final Discharge Diagnosis Suicidal ideation Chronic atrial fibrillation Diabetes mellitus Smoker Methamphetamine use Conclusion Plan Court date 11 o'clock today [facility] Diagnosis/Problems Diagnosis/Problems (1) Suicidal thoughts Status: Acute (2) Atrial fibrillation, chronic (3) Diabetes (4) Back pain, chronic (5) Methamphetamine abuse Status: Acute (6) Depression Status: Acute (7) Anxiety Status: Acute Clinical Quality Measures DVT/VTE Risk/Contraindication: Risk Factor Score Per Nursin RFS Level Per Nursing on Admit: 2=Moderate GAY TRAN DO Aug 12, 2019 10:19
--- NOTE | 2019-08-12 10:24 | NUR ---
SPOKE WITH THE PATIENT THIS MORNING ABOUT HER MEDICATIONS. SHE HAD BOTTLES AND A PILL MICA SIZER WITH HER IN THE ROOM. HER PILL MICA SIZER HAS THE MEDS SET UP ODDLY, SHE STATES SHE JUST USES EACH COMPARTMENT A DAY NOT NECESSARILY 4 TIMES FOR 1 DAY AND THAT IS WHY THEY LOOK DISORGANIZED. SEVERAL OF HER BOTTLES ARE EMPTY AND PAST DUE FOR REFILL BUT SHE STATES SHE IS TAKING EACH OF THEM STILL. SHE ADMITS SHE HAS SOME THAT NEED TO BE PICKED UP THAT HAVE BEEN REFILLED. I CALLED AND ASKED [facility] SHANE PINEDA TO FAX ME A MED LIST HOWEVER I HAVE NOT RECEIVED IT YET AND THE DISCHARGE ORDERS HAVE BEEN INITIATED SO I WILL NOT BE UPDATING THE MED REC FURTHER. BOTTLES SHE HAD WITH HER: 06-29-19 DIGOXIN 0.125MG DAILY #30 06-29-19 GABAPENTIN 300MG 2 TID #180 03-31-19 METFORMIN 500MG BID #60 03-11-19 FLUOXETINE 40MG DAILY #30 03-11-19 DILTIAZEM XR 240MG CAP DAILY #30 02-24-19 ALLOPURINOL 300MG DAILY #30 02-17-19 LIPITOR 10MG HS #30 11-11-18 LISINOPRIL 10MG DAILY #90 Addendum: 08/12/19 at 1029 by BERNA WEEMS [facility] ADDITIONALLY SHE STATES SHE USES TYLENOL OTC NEEDED AND HAD THE ZOFRAN ON HAND AT HOME IF NEEDED. SHE STATES SHE DOES NOT HAVE ANY PAIN MEDICATIONS LEFT AT HOME FROM WHERE SHE HAS BEEN GETTING SCRIPTS FROM ED. SHE ALSO STATES SHE COMPLETED THE ANTIBIOTICS AND PREDNISONE THERAPIES.
--- NOTE | 2019-08-12 10:37 | NUR ---
Spoke with Christopher Omalley ([facility]) he stated that [facility] [employer] will transport the patient to the Court there for appearance and then on to [place]. He stated he had already discussed this discharge plan with the RN.
--- NOTE | 2019-08-12 10:44 | NUR ---
Pt discharged, escorted by [facility]'s officer. Pt going to court apopearance at 1100 in [facility]
== END 2019-08-12 10:44 | DRG 881 ==
LOC: EDUNIT# 15:03 → ER FS 15:05 → ICU 08-11 15:32
PROVIDERS: ADMIT Internal Medicine; ATTEND Internal Medicine
DX: F32.9 Major depressive disorder, single episode, unspecified (principal); R45.851 Suicidal ideations; I48.20 Chronic atrial fibrillation, unspecified; I10 Essential (primary) hypertension; M19.90 Unspecified osteoarthritis, unspecified site; E11.9 Type 2 diabetes mellitus without complications; F15.10 Other stimulant abuse, uncomplicated; F41.9 Anxiety disorder, unspecified; M54.9 Dorsalgia, unspecified; K21.9 Gastro-esophageal reflux disease without esophagitis; F17.210 Nicotine dependence, cigarettes, uncomplicated; G89.29 Other chronic pain; Z79.84 Long term (current) use of oral hypoglycemic drugs; Z90.710 Acquired absence of both cervix and uterus; Z98.51 Tubal ligation status; Z87.442 Personal history of urinary calculi; Z85.42 Personal history of malignant neoplasm of other parts of uterus; Z91.5 Personal history of self-harm
CPT/HCPCS: 36415; 80053; 80306; 80320; 80329; 81000; 82962; 85025; 87088; 93005; 96372

== ENCOUNTER 2019-09-18 10:24 | Emergency (ER) | payer MEDICAID ==
[~2019-09-18] VITALS: Ht 162.6 cm; Wt 113.6 kg
[~2019-09-18 10:24] MED LIST changes: +ACET-2267 PO; +ALLO300T2 PO; +ATOR10TA66 PO; +DIGO125T PO; +DILT240C90 PO; +FLUO40CA12 PO; +LISI10TA2 PO; +METF-397 PO
[2019-09-18] MEDS ORDERED: NS IV 1000 ML 1,000 ML IV STA (10:48)
[2019-09-18] MEDS ORDERED: ACETAMINOPHEN 325 MG TABLET PO ONE (11:00)
[2019-09-18] MEDS ORDERED: ONDANSETRON 4 MG/2 ML (SDV) Z0FRAN IVP ONE (11:00)
[2019-09-18] MEDS ORDERED: DICYCLOMINE 10 MG/ML (BENTYL) 2 ML AMP IM SCH (11:00)
--- NOTE | 2019-09-18 11:07 | ED Abdominal Pain ---
General Stated Complaint: DIARRHEA History of Present Illness Date Seen by Provider: Sep 18, 2019 Time Seen by Provider: 10:45 Initial Comments The patient is a 53-year-old female with a history of hypertension, hyperlipidemia, lsm-hdlgdie-kcsmzorzc diabetes, morbid obesity, methamphetamine abuse and tobacco abuse. She presents with concern for about 18 hours of copious watery nonbloody vomiting and diarrhea, about 4 episodes of vomiting in total and about 10 episodes of diarrhea in total. Associated bilateral lower quadrant crampy abdominal discomfort. Associated fatigue. Associated mild shortness of breath. No associated fevers, hematemesis, hematochezia, melena, new productive cough, chest pain, flank pain, back pain, dysuria or hematuria, recent unusual foods, unusual travel, sick contacts with similar symptoms, recent antibiotic use. Patient is resting comfortably in no acute distress upon initial evaluation in the emergency department and vital signs are entirely appropriate here. Allergies and Home Medications Allergies Coded Allergies: aspirin (Unverified Allergy, Severe, THROAT SWELLS, 01/20/13) amoxicillin (Unverified Allergy, Intermediate, HIVES, 04/25/16) sulfamethoxazole (Unverified Allergy, Unknown, 01/20/13) trimethoprim (Unverified Allergy, Unknown, 01/20/13) Home Medications Acetaminophen 500 Mg Tablet, 1,000 MG PO Q4H PRN for PAIN-MILD, (Reported) Allopurinol 300 Mg Tablet, 300 MG PO DAILY, (Reported) Atorvastatin Calcium 10 Mg Tablet, 10 MG PO HS, (Reported) Digoxin 125 Mcg Tablet, 125 MCG PO DAILY, (Reported) Diltiazem HCl 240 Mg Cap.er.24h, 240 MG PO DAILY, (Reported) Fluoxetine HCl 40 Mg Capsule, 40 MG PO DAILY, (Reported) Gabapentin 300 Mg Capsule, 600 MG PO TID, (Reported) TAKES 2 (300MG) CAPSULES Lisinopril 10 Mg Tablet, 10 MG PO DAILY, (Reported) Metformin HCl 500 Mg Tablet, 500 MG PO BID, (Reported) Ondansetron 4 Mg Tab.rapdis, 4 MG PO Q6H PRN for NAUSEA/VOMITING Prescribed by: RONNA MEADOWS on 06/28/19 3059 Patient Home Medication List Home Medication List Reviewed: Yes Review of Systems Review of Systems Constitutional: see HPI All Other Systems Reviewed Negative Unless Noted: Yes (Negative excepted noted.) Past Ymxivpa-Koxpfz-Jgzklz Hx Past Med/Social Hx: Reviewed Nursing Past Med/Soc Hx Patient Social History Drug of Choice: methamphetamines- used a couple of weeks ago Type Used: Cigarettes 2nd Hand Smoke Exposure: No Recent Foreign Travel: No Recent Hopitalizations: No Immunizations Up To Date Date of Pneumonia Vaccine: Jan 06, 2013 Date of Influenza Vaccine: Jan 20, 2013 Seasonal Allergies Seasonal Allergies: No Past Medical History Surgeries: Yes (cysto's and eswl's) Appendectomy, Gallbladder, Hysterectomy, Tubal Ligation Respiratory: No Cardiac: Yes (SVT, ) Atrial Fibrillation, Hypertension Neurological: Yes (HAS 3 BRAIN ANEURYSMS DX AT 35 YRS OF AGE, bulging discs, pinched nerve) Reproductive Disorders: No Genitourinary: Yes Kidney Stones Gastrointestinal: Yes (enlarged liver) Gastroesophageal Reflux Musculoskeletal: Yes (restless leg) Arthritis Endocrine: Yes Diabetes, Non-Insulin dep HEENT: No Cancer: No Uterine Psychosocial: Yes Suicide Attempts, Depression Integumentary: No Blood Disorders: No Family Medical History Reviewed Nursing Family Hx Asthma 19 MOTHER Diabetes mellitus 19 FATHER FH: COPD (chronic obstructive pulmonary disease) 19 MOTHER FH: emphysema 19 MOTHER Physical Exam Vital Signs Vital Signs - First Documented 09/18/19 10:35 Temp 36.8 Pulse 85 Resp 18 B/P (MAP) 122/53 (76) Pulse Ox 97 O2 Delivery Room Air Capillary Refill : Height/Weight/BMI Height: 5'4.00" Weight: 240lbs. 9.6oz. [id number]; 41.08 BMI Method:Stated General Appearance: no apparent distress Exam Comments This is an obese female appearing nontoxic and in no acute distress although older than her stated age. Head is normocephalic and atraumatic. Neck is supple and nontender. Oropharynx is mildly tacky. Lungs are clear to auscultation in all stations. There is a normal S1 and S2 without rubs or gallops and capillary refill is appropriate, less than 2 seconds globally. Abdomen is soft, obese and protuberant and with mild bilateral lower quadrant tenderness to palpation without rebound or guarding. Skin is warm and dry without cyanosis, clubbing or edema. Psychiatrically, the patient demonstrates appropriate mood and affect and is alert. Progress/Results/Core Measures Results/Orders Lab Results Laboratory Tests Test 09/18/19 11:15 09/18/19 11:25 09/18/19 11:49 Range/Units Urine Color YELLOW Urine Clarity SLT CLOUDY Urine pH 5.5 5-9 Urine Specific Bernie >=1.030 1.016-1.022 Urine Protein NEGATIVE NEGATIVE Urine Glucose (UA) NEGATIVE NEGATIVE Urine Ketones NEGATIVE NEGATIVE Urine Nitrite NEGATIVE NEGATIVE Urine Bilirubin NE NEGATIVE Urine Urobilinogen 0.2 < = 1.0 MG/DL Urine Leukocyte Esterase 1+ H NEGATIVE Urine RBC (Auto) NEGATIVE NEGATIVE Urine RBC RARE /HPF Urine WBC 2-5 /HPF Urine Squamous Epithelial Cells 10-25 H /HPF Urine Crystals PRESENT H /LPF Urine Amorphous Sediment FEW ANI URATES H /LPF Urine Bacteria FEW H /HPF Urine Casts NONE /LPF Urine Mucus NONE /LPF Urine Culture Indicated YES Urine Opiates Screen NEGATIVE NEGATIVE Urine Oxycodone Screen NEGATIVE NEGATIVE Urine Methadone Screen NEGATIVE NEGATIVE Urine Propoxyphene Screen NEGATIVE NEGATIVE Urine Barbiturates Screen NEGATIVE NEGATIVE Ur Tricyclic Antidepressants Screen NEGATIVE NEGATIVE Urine Phencyclidine Screen NEGATIVE NEGATIVE Urine Amphetamines Screen NEGATIVE NEGATIVE Urine Methamphetamines Screen POSITIVE H NEGATIVE Urine Benzodiazepines Screen POSITIVE H NEGATIVE Urine Cocaine Screen NEGATIVE NEGATIVE Urine Cannabinoids Screen NEGATIVE NEGATIVE White Blood Count 14.9 H 4.3-11.0 10^3/uL Red Blood Count 4.11 L 4.35-5.85 10^6/uL Hemoglobin 12.5 11.5-16.0 G/DL Hematocrit 40 35-52 % Mean Corpuscular Volume 96 80-99 FL Mean Corpuscular Hemoglobin 30 25-34 PG Mean Corpuscular Hemoglobin Concent 32 32-36 G/DL Red Cell Distribution Width 15.2 H 10.0-14.5 % Platelet Count 274 130-400 10^3/uL Mean Platelet Volume 10.8 H 7.4-10.4 FL Neutrophils (%) (Auto) 64 42-75 % Lymphocytes (%) (Auto) 24 12-44 % Monocytes (%) (Auto) 8 0-12 % Eosinophils (%) (Auto) 3 0-10 % Basophils (%) (Auto) 1 0-10 % Neutrophils # (Auto) 9.5 H 1.8-7.8 X 10^3 Lymphocytes # (Auto) 3.6 1.0-4.0 X 10^3 Monocytes # (Auto) 1.2 H 0.0-1.0 X 10^3 Eosinophils # (Auto) 0.5 H 0.0-0.3 10^3/uL Basophils # (Auto) 0.1 0.0-0.1 10^3/uL Neutrophils % (Manual) 54 % Lymphocytes % (Manual) 27 % Monocytes % (Manual) 10 % Eosinophils % (Manual) 4 % Basophils % (Manual) 1 % Metamyelocytes % 1 % Myelocytes % 1 % Band Neutrophils 2 % Sodium Level 139 135-145 MMOL/L Potassium Level 4.7 3.6-5.0 MMOL/L Chloride Level 102 98-107 MMOL/L Carbon Dioxide Level 25 21-32 MMOL/L Anion Gap 12 5-14 MMOL/L Blood Urea Nitrogen 19 H 7-18 MG/DL Creatinine 0.83 0.60-1.30 MG/DL Estimat Glomerular Filtration Rate > 60 BUN/Creatinine Ratio 23 Glucose Level 134 H 70-105 MG/DL Calcium Level 9.2 8.5-10.1 MG/DL Corrected Calcium 9.2 8.5-10.1 MG/DL Total Bilirubin < 0.2 0.1-1.0 MG/DL Aspartate Amino Transf (AST/SGOT) 13 5-34 U/L Alanine Aminotransferase (ALT/SGPT) 11 0-55 U/L Alkaline Phosphatase 118 40-136 U/L Troponin I < 0.30 <0.30 NG/ML Total Protein 7.3 6.4-8.2 GM/DL Albumin 4.0 3.2-4.5 GM/DL Lipase 76 8-78 U/L Serum Test, Qualitative NEGATIVE NEGATIVE My Orders Orders - MOSES NORTON MD Cbc With Automated Diff (09/18/19 10:48) Comprehensive Metabolic Panel (09/18/19 10:48) Lipase (09/18/19 10:48) Ua Culture If Indicated (09/18/19 10:48) Hcg,Qualitative Serum (09/18/19 10:48) Ondansetron Injection (Zofran Injectio (09/18/19 11:00) Ns Iv 1000 Ml (Sodium Chloride 0.9%) (09/18/19 10:48) Ed Iv/Invasive Line Start (09/18/19 10:48) Digoxin (09/18/19 10:50) Troponin I Fs (09/18/19 10:59) Ekg Tracing (09/18/19 10:59) Chest Pa/Lat (2 View) (09/18/19 10:59) Ct Abdomen/Pelvis W (09/18/19 10:59) Acetaminophen Tablet/Caplet (Tylenol T (09/18/19 11:00) Dicyclomine Injection (Bentyl Injection) (09/18/19 11:00) Drug Screen Stat (Urine) (09/18/19 11:11) Manual Differential (09/18/19 11:25) Urine Culture (09/18/19 11:15) Iohexol Injection (Omnipaque 350 Mg/Ml 1 (09/18/19 12:45) Received Contrast (Hold Metformin- Contr (09/18/19 12:45) Ns (Ivpb) (Sodium Chloride 0.9% Ivpb Bag (09/18/19 12:45) Oxycodone/Apap 5/325mg Tablet (Percocet (09/18/19 13:15) Medications Given in ED Current Medications Medications Dose Ordered Sig/Sirisha Route Start Time Stop Time Status Last Admin Dose Admin Acetaminophen 975 mg ONCE ONCE PO 09/18/19 11:00 09/18/19 11:01 DC 09/18/19 11:56 975 MG Iohexol 100 ml ONCE ONCE IV 09/18/19 12:45 09/18/19 12:57 DC 09/18/19 12:42 100 ML Ondansetron HCl 4 mg ONCE ONCE IVP 09/18/19 11:00 09/18/19 11:01 DC 09/18/19 11:56 4 MG Oxycodone/ Acetaminophen 1 tab ONCE ONCE PO 09/18/19 13:15 09/18/19 13:16 DC 09/18/19 13:33 1 TAB Sodium Chloride 100 ml ONCE ONCE IV 09/18/19 12:45 09/18/19 12:57 DC 09/18/19 12:42 80 ML Vital Signs/I&O 09/18/19 10:35 Temp 36.8 Pulse 85 Resp 18 B/P (MAP) 122/53 (76) Pulse Ox 97 O2 Delivery Room Air Progress Progress Note : Time: 11:09 Progress Note Clinical examination reassuring and vital signs are appropriate here. 53-year-old rather comorbid female with 18 hours of vomiting and diarrhea along with clinical evidence of some mild dehydration. No red flags for bacterial diarrhea today. We will check labs and give IV fluids and medication for discomfort and nausea and given abdominal pain and difficult abdominal exam due to habitus we will check an abdominal/pelvic CT scan. Given mild shortness of breath, we will check chest x-ray, cardiac biomarkers and EKG. We will then reevaluate. If workup is reassuring and the patient feels better after km tment, plan will likely be for discharge home to follow up very closely in the next 2-4 days with primary care in the office. The patient understands and agrees with this plan of care. Update 1327: Patient is feeling much better after treatment as per nursing flow sheet here in the emergency department. She feels ready to go home. Workup is without evidence of acute process aside from leukocytosis in the setting of vomiting and diarrhea, most likely in context reflective of a viral process. We will proceed with discharge home at this time. The patient is to follow-up on Saturday with her primary care physician in the office and understands that if she feels worse instead of better or develops other new symptoms of concern that she should return immediately for reevaluation. We will discharge home with medication for discomfort and spasm. All questions are answered. EKG : Comment Sinus rhythm, rate 70, no acute ST elevation or depression, VT 141, QRS 90, QTC 384, EP interpretation. Diagnostic Imaging Comments XR chest and CT A/P: no acute process per radiology read CT ABDOMEN/PELVIS W PROCEDURE: CT abdomen and pelvis with contrast. TECHNIQUE: Multiple contiguous axial images were obtained through the abdomen and pelvis after administration of intravenous contrast. Auto Exposure Controls were utilized during the CT exam to meet ALARA standards for radiation dose reduction. INDICATION: Abdominal pain with nausea and vomiting and diarrhea. COMPARISON: Correlation is made with prior CT from 06/28/2019. FINDINGS: The lung bases are clear. The liver demonstrates generalized low density consistent with hepatic steatosis. No discrete liver mass is detected. Gallbladder is surgically absent. No biliary ductal dilatation is seen. The pancreas and spleen are unremarkable. No adrenal mass is identified. Bilateral renal calculi noted on prior CT are again noted and appear similar. Largest calculus is located in the right renal pelvis measuring approximately 15 mm x 8 mm. No hydronephrosis is seen. No ureteral calculi is detected. Bladder is unremarkable. The aorta is non-aneurysmal. Bowel loops appear to be nonobstructed. No free fluid or fluid collection is seen. No abdominal or pelvic lymphadenopathy is seen. IMPRESSION: 1. Hepatic steatosis. 2. Bilateral nonobstructing nephrolithiasis, similar to prior study from 06/28/2019. 3. No acute feature is detected. Dictated on workstation # [id number] Departure Impression Primary Impression: Diarrhea Qualified Codes: R19.7 - Diarrhea, unspecified Additional Impression: Vomiting Qualified Codes: R11.2 - Nausea with vomiting, unspecified Disposition: HOME, SELF-CARE Condition: Improved Departure-Patient Inst. Referrals: HAMILTON FONTAINE MD (PCP/Family) Primary Care Physician Patient Instructions: Nausea and Vomiting, Adult (DC), Diarrhea in Adolescents and Adults Add. Discharge Instructions: Follow-up with your primary care doctor in the office on Saturday or Saturday. Use the medication as instructed for nausea and discomfort. Drink plenty of fluids. Return right away to the emergency department with worsened symptoms or other new concerns. Scripts Acetaminophen (Tylenol) 325 Mg Capsule 650 MG PO Q6H for abd pain, #50 CAP Prov: MOSES NORTON MD 09/18/19 Dicyclomine HCl (Dicyclomine HCl) 10 Mg Capsule 10 MG PO Q8H for Abdominal Pain, #14 CAP Prov: MOSES NORTON MD 09/18/19 Ondansetron (Ondansetron Odt) 4 Mg Tab.rapdis 4 MG PO Q8H for nausea, #10 TAB Prov: MOSES NORTON MD 09/18/19 MOSES NORTON MD Sep 18, 2019 11:07 POS
[2019-09-18 11:40] LABS: HEMATOCRIT 40 % (35-52); HEMOGLOBIN 12.5 G/DL (11.5-16.0); MEAN CORPUSCULAR HEMOGLOBIN 30 PG (25-34); MEAN CORPUSCULAR HGB CONC 32 G/DL (32-36); MEAN CORPUSCULAR VOLUME 96 FL (80-99); MEAN PLATELET VOLUME 10.8 FL (7.4-10.4); PLATELET COUNT 274 10^3/uL (130-400); RED CELL DISTRIBUTION WIDTH 15.2 % (10.0-14.5); WHITE BLOOD COUNT 14.9 10^3/uL (4.3-11.0)
[2019-09-18 11:41] LABS: BASOPHILS # (AUTO) 0.1 10^3/uL (0.0-0.1); BASOPHILS % (AUTO) 1 % (0-10); EOSINOPHILS # (AUTO) 0.5 10^3/uL (0.0-0.3); EOSINOPHILS % (AUTO) 3 % (0-10); LYMPHOCYTES # (AUTO) 3.6 X 10^3 (1.0-4.0); LYMPHOCYTES % (AUTO) 24 % (12-44); MONOCYTES # (AUTO) 1.2 X 10^3 (0.0-1.0); MONOCYTES % (AUTO) 8 % (0-12); NEUTROPHILS # (AUTO) 9.5 X 10^3 (1.8-7.8); NEUTROPHILS % (AUTO) 64 % (42-75)
[2019-09-18 11:49] LABS: AMPHETAMINE SCREEN, URINE NEGATIVE (NEGATIVE); BARBITURATE SCREEN URINE NEGATIVE (NEGATIVE); BENZODIAZEPINES SCREEN URINE POSITIVE (NEGATIVE); CANNABINOID SCREEN, URINE NEGATIVE (NEGATIVE); COCAINE SCREEN URINE NEGATIVE (NEGATIVE); METHADONE STAT NEGATIVE (NEGATIVE); METHAMPHETAMINE SCREEN URINE S POSITIVE (NEGATIVE); OPIATE SCREEN URINE NEGATIVE (NEGATIVE); OXYCODONE STAT NEGATIVE (NEGATIVE); PROPOXYPHENE STAT NEGATIVE (NEGATIVE); TRICYCLIC ANTIDEPRESSANTS SCRE NEGATIVE (NEGATIVE)
[2019-09-18 12:09] LABS: CLARITY,URINE SLT CLOUDY; COLOR,URINE YELLOW; GLUCOSE, URINE (UA) NEGATIVE (NEGATIVE); PH,URINE 5.5 (5-9); PROTEIN,URINE NEGATIVE (NEGATIVE)
[2019-09-18 12:10] LABS: AMORPHOUS SEDIMENT,UR FEW AMOR URATES /LPF; BACTERIA,URINE FEW /HPF; BILIRUBIN,URINE NE (NEGATIVE); KETONES,URINE NEGATIVE (NEGATIVE); LEUKOCYTE ESTERASE ,URINE 1+ (NEGATIVE); NITRITE,URINE NEGATIVE (NEGATIVE); RBC,URINE RARE /HPF
[2019-09-18 12:11] LABS: BAND NEUTROPHILS 2 %; BASOPHILS % (MANUAL) 1 %; EOSINOPHILS % (MANUAL) 4 %; LYMPHOCYTES % (MANUAL) 27 %; METAMYELOCYTES % 1 %; MONOCYTES % (MANUAL) 10 %; MYELOCYTES % 1 %; NEUTROPHILS % (MANUAL) 54 %
[2019-09-18 12:20] LABS: POTASSIUM 4.7 MMOL/L (3.6-5.0); SODIUM 139 MMOL/L (135-145)
[2019-09-18 12:21] LABS: ALANINE AMINOTRANSFERASE 11 U/L (0-55); ALKALINE PHOSPHATASE 118 U/L (40-136); BILIRUBIN,TOTAL < 0.2 MG/DL (0.1-1.0); BUN/CREATININE RATIO 23; CALCIUM 9.2 MG/DL (8.5-10.1); CARBON DIOXIDE 25 MMOL/L (21-32); CHLORIDE 102 MMOL/L (98-107); CREATININE SERUM 0.83 MG/DL (0.60-1.30); GFR ESTIMATED > 60; GLUCOSE 134 MG/DL (70-105); TOTAL PROTEIN 7.3 GM/DL (6.4-8.2)
[2019-09-18 12:22] LABS: LIPASE 76 U/L (8-78)
[2019-09-18] MEDS ORDERED: NS 100 ML (IVPB) BAG IV ONE (12:45)
[2019-09-18] MEDS ORDERED: IOHEXOL 350 MG/ML 100 ML (OMNIPAQUE 350) VIAL IV ONE (12:45)
[2019-09-18] MEDS ORDERED: HOLD METFORMIN - RECEIVED CONTRAST 20 ML VIAL IV SCH (12:45)
--- NOTE | 2019-09-18 12:58 | Diagnostic Imaging Report ---
Indication: Chest pain PA and lateral chest Heart size and pulmonary vascularity are normal. Lungs are clear. There are no effusions or pneumothoraces. IMPRESSION: Negative chest Dictated by: Dictated on workstation # [id number]
--- NOTE | 2019-09-18 13:04 | Diagnostic Imaging Report ---
PROCEDURE: CT abdomen and pelvis with contrast. TECHNIQUE: Multiple contiguous axial images were obtained through the abdomen and pelvis after administration of intravenous contrast. Auto Exposure Controls were utilized during the CT exam to meet ALARA standards for radiation dose reduction. INDICATION: Abdominal pain with nausea and vomiting and diarrhea. COMPARISON: Correlation is made with prior CT from 06/28/2019. FINDINGS: The lung bases are clear. The liver demonstrates generalized low density consistent with hepatic steatosis. No discrete liver mass is detected. Gallbladder is surgically absent. No biliary ductal dilatation is seen. The pancreas and spleen are unremarkable. No adrenal mass is identified. Bilateral renal calculi noted on prior CT are again noted and appear similar. Largest calculus is located in the right renal pelvis measuring approximately 15 mm x 8 mm. No hydronephrosis is seen. No ureteral calculi is detected. Bladder is unremarkable. The aorta is non-aneurysmal. Bowel loops appear to be nonobstructed. No free fluid or fluid collection is seen. No abdominal or pelvic lymphadenopathy is seen. IMPRESSION: 1. Hepatic steatosis. 2. Bilateral nonobstructing nephrolithiasis, similar to prior study from 06/28/2019. 3. No acute feature is detected. Dictated by: Dictated on workstation # [id number]
[2019-09-18] MEDS ORDERED: oxyCODONE/APAP 5/325MG (PERCOCET 5) TABLET PO ONE (13:15)
[2019-09-18] MEDS ORDERED: DICY10CA12 PO (13:36)
[2019-09-18] MEDS ORDERED: ONDA4TAB11 PO (13:36)
[2019-09-18] MEDS ORDERED: ACET325C5 PO (13:36)
[2019-09-18 13:53] VITALS: BP 115/52
== END 2019-09-18 13:52 | disposition home or self-care (01) ==
LOC: EDUNIT# 10:24 → ER FS 10:26
DX: R19.7 Diarrhea, unspecified (principal); R11.10 Vomiting, unspecified; I10 Essential (primary) hypertension; E78.5 Hyperlipidemia, unspecified; E11.9 Type 2 diabetes mellitus without complications; E66.01 Morbid (severe) obesity due to excess calories; I48.91 Unspecified atrial fibrillation; K21.9 Gastro-esophageal reflux disease without esophagitis; F32.9 Major depressive disorder, single episode, unspecified; Z85.42 Personal history of malignant neoplasm of other parts of uterus; Z87.442 Personal history of urinary calculi; Z88.6 Allergy status to analgesic agent; Z88.1 Allergy status to other antibiotic agents; Z88.2 Allergy status to sulfonamides; Z79.84 Long term (current) use of oral hypoglycemic drugs; Z90.49 Acquired absence of other specified parts of digestive tract; Z90.710 Acquired absence of both cervix and uterus; Z98.51 Tubal ligation status
CPT/HCPCS: 36415; 71046; 74177; 80053; 80162; 80306; 81000; 83690; 84484; 84703; 85007; 85027; 87077; 87088; 87186; 93005; 96361; 96372; 96374

== ENCOUNTER 2019-09-30 13:25 | Emergency (ER) | payer MEDICAID ==
[~2019-09-30] VITALS: Ht 162 cm; Wt 113.6 kg
[~2019-09-30 13:25] MED LIST changes: +ACET325C5 PO; +DICY10CA12 PO
[2019-09-30] MEDS ORDERED: ADENOSINE 6 MG/2 ML (ADENOCARD) VIAL IV ONE ×2 (13:45→14:00)
--- NOTE | 2019-09-30 13:48 | ED Cardiac General ---
History of Present Illness General Stated Complaint: CHEST PAIN Source: patient Exam Limitations: no limitations History of Present Illness Date Seen by Provider: Sep 30, 2019 Time Seen by Provider: 13:46 Initial Comments Patient complains of racing heart rate for the past 30-45 minutes. Onset was at rest. It is associated with anterior chest heaviness. She is a little short of breath and feels weak. No fevers or chills. Similar symptoms 2 years ago. Allergies and Home Medications Allergies Coded Allergies: aspirin (Unverified Allergy, Severe, THROAT SWELLS, 01/20/13) amoxicillin (Unverified Allergy, Intermediate, HIVES, 04/25/16) sulfamethoxazole (Unverified Allergy, Unknown, 01/20/13) trimethoprim (Unverified Allergy, Unknown, 01/20/13) Home Medications Acetaminophen 500 Mg Tablet, 1,000 MG PO Q4H PRN for PAIN-MILD, (Reported) Acetaminophen 325 Mg Capsule, 650 MG PO Q6H Prescribed by: MOSES NORTON on 09/18/19 133 Allopurinol 300 Mg Tablet, 300 MG PO DAILY, (Reported) Atorvastatin Calcium 10 Mg Tablet, 10 MG PO HS, (Reported) Dicyclomine HCl 10 Mg Capsule, 10 MG PO Q8H Prescribed by: MOSES NORTON on 09/18/19 133 Digoxin 125 Mcg Tablet, 125 MCG PO DAILY, (Reported) Diltiazem HCl 240 Mg Cap.er.24h, 240 MG PO DAILY, (Reported) Fluoxetine HCl 40 Mg Capsule, 40 MG PO DAILY, (Reported) Gabapentin 300 Mg Capsule, 600 MG PO TID, (Reported) TAKES 2 (300MG) CAPSULES Lisinopril 10 Mg Tablet, 10 MG PO DAILY, (Reported) Metformin HCl 500 Mg Tablet, 500 MG PO BID, (Reported) Ondansetron 4 Mg Tab.rapdis, 4 MG PO Q6H PRN for NAUSEA/VOMITING Prescribed by: RONNA MEADOWS on 06/28/19 1711 Ondansetron 4 Mg Tab.rapdis, 4 MG PO Q8H Prescribed by: MOSES NORTON on 09/18/19 1336 Patient Home Medication List Home Medication List Reviewed: Yes Review of Systems Review of Systems Constitutional: no symptoms reported, malaise, weakness Respiratory: Shortness of Air Cardiovascular: Chest Pain Gastrointestinal: No Symptoms Reported Genitourinary: No Symptoms Reported Skin: no symptoms reported Psychiatric/Neurological: No Symptoms Reported All Other Systems Reviewed Negative Unless Noted: Yes Past Btnddla-Ysyoyy-Cguczk Hx Patient Social History Drug of Choice: meth-pt reports last use 1 week ago Type Used: Cigarettes 2nd Hand Smoke Exposure: No Recent Hopitalizations: No Immunizations Up To Date Date of Pneumonia Vaccine: Jan 06, 2013 Date of Influenza Vaccine: Jan 20, 2013 Seasonal Allergies Seasonal Allergies: No Past Medical History Surgeries: Yes (cysto's and eswl's) Appendectomy, Gallbladder, Hysterectomy, Tubal Ligation Respiratory: No Cardiac: Yes (SVT, ) Atrial Fibrillation, Hypertension Neurological: Yes (HAS 3 BRAIN ANEURYSMS DX AT 37 YRS OF AGE, bulging discs, pinched nerve) Reproductive Disorders: No Genitourinary: Yes Kidney Stones Gastrointestinal: Yes (enlarged liver) Gastroesophageal Reflux Musculoskeletal: Yes (restless leg) Arthritis Endocrine: Yes Diabetes, Non-Insulin dep HEENT: No Cancer: No Uterine Psychosocial: Yes Suicide Attempts, Depression Integumentary: No Blood Disorders: No Family Medical History Asthma 19 MOTHER Diabetes mellitus 19 FATHER FH: COPD (chronic obstructive pulmonary disease) 19 MOTHER FH: emphysema 19 MOTHER Physical Exam Vital Signs Vital Signs - First Documented 09/30/19 09/30/19 14:14 14:23 Temp 36.5 Pulse 199 Resp 20 B/P (MAP) 122/98 (106) Pulse Ox 97 O2 Delivery Room Air Capillary Refill : Height, Weight, BMI Height: 5'4.00" Weight: 240lbs. 9.6oz. 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 Norm as Tested Skin: Normal Color, Warm/Dry Progress/Results/Core Measures Results/Orders Lab Results Laboratory Tests Test 09/30/19 13:45 09/30/19 14:35 Range/Units White Blood Count 15.6 H 4.3-11.0 10^3/uL Red Blood Count 4.47 4.35-5.85 10^6/uL Hemoglobin 13.9 11.5-16.0 G/DL Hematocrit 42 35-52 % Mean Corpuscular Volume 94 80-99 FL Mean Corpuscular Hemoglobin 31 25-34 PG Mean Corpuscular Hemoglobin Concent 33 32-36 G/DL Red Cell Distribution Width 15.3 H 10.0-14.5 % Platelet Count 423 H 130-400 10^3/uL Mean Platelet Volume 10.7 H 7.4-10.4 FL Neutrophils (%) (Auto) 59 42-75 % Lymphocytes (%) (Auto) 28 12-44 % Monocytes (%) (Auto) 8 0-12 % Eosinophils (%) (Auto) 4 0-10 % Basophils (%) (Auto) 1 0-10 % Neutrophils # (Auto) 9.3 H 1.8-7.8 X 10^3 Lymphocytes # (Auto) 4.4 H 1.0-4.0 X 10^3 Monocytes # (Auto) 1.2 H 0.0-1.0 X 10^3 Eosinophils # (Auto) 0.6 H 0.0-0.3 10^3/uL Basophils # (Auto) 0.2 H 0.0-0.1 10^3/uL Neutrophils % (Manual) 55 % Lymphocytes % (Manual) 30 % Monocytes % (Manual) 6 % Eosinophils % (Manual) 5 % Reactive Lymphocytes 4 % Platelet Estimate INCREASED Microcytosis SLIGHT Prothrombin Time 12.3 12.2-14.7 SEC INR Comment 0.9 0.8-1.4 Activated Partial Thromboplast Time 25 24-35 SEC Sodium Level 136 135-145 MMOL/L Potassium Level 4.7 3.6-5.0 MMOL/L Chloride Level 102 98-107 MMOL/L Carbon Dioxide Level 21 21-32 MMOL/L Anion Gap 13 5-14 MMOL/L Blood Urea Nitrogen 25 H 7-18 MG/DL Creatinine 0.98 0.60-1.30 MG/DL Estimat Glomerular Filtration Rate 60 BUN/Creatinine Ratio 26 Glucose Level 185 H 70-105 MG/DL Calcium Level 9.2 8.5-10.1 MG/DL Corrected Calcium 9.2 8.5-10.1 MG/DL Magnesium Level 1.8 1.6-2.4 MG/DL Total Bilirubin < 0.2 0.1-1.0 MG/DL Aspartate Amino Transf (AST/SGOT) 23 5-34 U/L Alanine Aminotransferase (ALT/SGPT) 20 0-55 U/L Alkaline Phosphatase 130 40-136 U/L Troponin I < 0.30 <0.30 NG/ML Total Protein 7.5 6.4-8.2 GM/DL Albumin 4.0 3.2-4.5 GM/DL Urine Color YELLOW Urine Clarity CLEAR Urine pH 6.0 5-9 Urine Specific [place] 1.025 H 1.016-1.022 Urine Protein TRACE NEGATIVE Urine Glucose (UA) NEGATIVE NEGATIVE Urine Ketones NEGATIVE NEGATIVE Urine Nitrite NEGATIVE NEGATIVE Urine Bilirubin NEGATIVE NEGATIVE Urine Urobilinogen 0.2 < = 1.0 MG/DL Urine Leukocyte Esterase TRACE NEGATIVE Urine RBC (Auto) NEGATIVE NEGATIVE Urine RBC 0 /HPF Urine WBC 10-25 H /HPF Urine Squamous Epithelial Cells 10-25 H /HPF Urine Crystals NONE /LPF Urine Bacteria FEW H /HPF Urine Casts NONE /LPF Urine Mucus NEGATIVE /LPF Urine Culture Indicated YES Urine Opiates Screen NEGATIVE NEGATIVE Urine Oxycodone Screen NEGATIVE NEGATIVE Urine Methadone Screen NEGATIVE NEGATIVE Urine Propoxyphene Screen NEGATIVE NEGATIVE Urine Barbiturates Screen NEGATIVE NEGATIVE Ur Tricyclic Antidepressants Screen NEGATIVE NEGATIVE Urine Phencyclidine Screen NEGATIVE NEGATIVE Urine Amphetamines Screen NEGATIVE NEGATIVE Urine Methamphetamines Screen NEGATIVE NEGATIVE Urine Benzodiazepines Screen NEGATIVE NEGATIVE Urine Cocaine Screen NEGATIVE NEGATIVE Urine Cannabinoids Screen NEGATIVE NEGATIVE My Orders Orders - JAYLA OWEN MD Cbc With Automated Diff (09/30/19 13:28) Magnesium (09/30/19 13:28) Chest 1 View Ap/Pa Only (09/30/19 13:28) Ekg Tracing (09/30/19 13:28) Comprehensive Metabolic Panel (09/30/19 13:28) Protime With Inr (09/30/19 13:28) Partial Thromboplastin Time (09/30/19 13:28) O2 (09/30/19 13:28) Monitor-Rhythm Ecg Trace Only (09/30/19 13:28) Ed Iv/Invasive Line Start (09/30/19 13:28) Troponin I Fs (09/30/19 13:28) Adenosine Injection (Adenocard Injection (09/30/19 13:45) Adenosine Injection (Adenocard Injection (09/30/19 14:00) Drug Screen Stat (Urine) (09/30/19 13:58) Ekg Tracing (09/30/19 14:04) Manual Differential (09/30/19 13:45) Urinalysis (09/30/19 14:53) Acetaminophen Tablet (Tylenol Tablet) (09/30/19 15:30) Urine Culture (09/30/19 14:35) Medications Given in ED Current Medications Medications Dose Ordered Sig/Sirisha Route Start Time Stop Time Status Last Admin Dose Admin Adenosine 6 mg ONCE ONCE IV 09/30/19 13:45 09/30/19 13:46 DC 09/30/19 14:06 6 MG Adenosine 12 mg ONCE ONCE IV 09/30/19 14:00 09/30/19 14:01 DC 09/30/19 14:06 12 MG Vital Signs/I&O 09/30/19 09/30/19 14:14 14:23 Temp 36.5 Pulse 199 Resp 20 B/P (MAP) 122/98 (106) Pulse Ox 97 O2 Delivery Room Air Progress Progress Note : Progress Note Converted after 12 mg of adenosine. The only complaint now is back pain. We'll treat her symptomatically with Macrobid. We called her clinic and had her prescriptions refilled to her pharmacy. Initial ECG Impression Date: Sep 30, 2019 Initial ECG Impression Time: 13:48 Initial ECG Rate: 191 Initial ECG Rhythm: SVT Initial ECG Impression: Nonspecific Changes EKG : EKG Time: 14:07 Rate: 87 Rhythm: Normal Sinus Intervals: Normal ECG Impression: Normal Comment Converted to sinus rhythm after12 mg of adenosine IV push Departure Impression Primary Impression: Supraventricular tachycardia Additional Impression: UTI (urinary tract infection) Disposition: 01 HOME, SELF-CARE Condition: Stable Departure-Patient Inst. Decision time for Depature: 15:23 Referrals: HAMILTON FONTAINE MD (PCP/Family) Primary Care Physician Patient Instructions: Paroxysmal Supraventricular Tachycardia (DC) Add. Discharge Instructions: Get your prescriptions filled and take them as directed. Scripts Nitrofurantoin Monohyd/M-Cryst (Macrobid 100 mg Capsule) 100 Mg Capsule 1 TAB PO BID, #10 CAP Prov: JAYLA OWEN MD 09/30/19 JAYLA OWEN MD Sep 30, 2019 13:47 POS
--- NOTE | 2019-09-30 14:09 | Diagnostic Imaging Report ---
INDICATION: Tachycardia. Chest pain. COMPARISON: 09/18/2019 FINDINGS: Single frontal view of the chest demonstrates normal heart size and pulmonary vascularity. The lungs are well aerated and clear. No large pleural effusion or pneumothorax is seen. The visualized osseous structures show no acute abnormalities. IMPRESSION: 1. No acute cardiopulmonary process. Dictated by: Dictated on workstation # [id number]
[2019-09-30 14:20] LABS: HEMATOCRIT 42 % (35-52); HEMOGLOBIN 13.9 G/DL (11.5-16.0); MEAN CORPUSCULAR HEMOGLOBIN 31 PG (25-34); MEAN CORPUSCULAR HGB CONC 33 G/DL (32-36); MEAN CORPUSCULAR VOLUME 94 FL (80-99); PLATELET COUNT 423 10^3/uL (130-400); RED CELL DISTRIBUTION WIDTH 15.3 % (10.0-14.5); WHITE BLOOD COUNT 15.6 10^3/uL (4.3-11.0)
[2019-09-30 14:21] LABS: BASOPHILS # (AUTO) 0.2 10^3/uL (0.0-0.1); BASOPHILS % (AUTO) 1 % (0-10); EOSINOPHILS # (AUTO) 0.6 10^3/uL (0.0-0.3); EOSINOPHILS % (AUTO) 4 % (0-10); LYMPHOCYTES # (AUTO) 4.4 X 10^3 (1.0-4.0); LYMPHOCYTES % (AUTO) 28 % (12-44); MEAN PLATELET VOLUME 10.7 FL (7.4-10.4); MONOCYTES # (AUTO) 1.2 X 10^3 (0.0-1.0); MONOCYTES % (AUTO) 8 % (0-12); NEUTROPHILS # (AUTO) 9.3 X 10^3 (1.8-7.8); NEUTROPHILS % (AUTO) 59 % (42-75)
[2019-09-30 14:23] LABS: ALANINE AMINOTRANSFERASE 20 U/L (0-55); ALKALINE PHOSPHATASE 130 U/L (40-136); BILIRUBIN,TOTAL < 0.2 MG/DL (0.1-1.0); BUN/CREATININE RATIO 26; CALCIUM 9.2 MG/DL (8.5-10.1); CARBON DIOXIDE 21 MMOL/L (21-32); CHLORIDE 102 MMOL/L (98-107); CREATININE SERUM 0.98 MG/DL (0.60-1.30); GFR ESTIMATED 60; GLUCOSE 185 MG/DL (70-105); MAGNESIUM 1.8 MG/DL (1.6-2.4); POTASSIUM 4.7 MMOL/L (3.6-5.0); SODIUM 136 MMOL/L (135-145); TOTAL PROTEIN 7.5 GM/DL (6.4-8.2)
[2019-09-30 14:25] LABS: INR 0.9 (0.8-1.4); PROTHROMBIN TIME PATIENT 12.3 SEC (12.2-14.7)
[2019-09-30 14:56] LABS: AMPHETAMINE SCREEN, URINE NEGATIVE (NEGATIVE); BARBITURATE SCREEN URINE NEGATIVE (NEGATIVE); BENZODIAZEPINES SCREEN URINE NEGATIVE (NEGATIVE); CANNABINOID SCREEN, URINE NEGATIVE (NEGATIVE); COCAINE SCREEN URINE NEGATIVE (NEGATIVE); METHADONE STAT NEGATIVE (NEGATIVE); METHAMPHETAMINE SCREEN URINE S NEGATIVE (NEGATIVE); OPIATE SCREEN URINE NEGATIVE (NEGATIVE); TRICYCLIC ANTIDEPRESSANTS SCRE NEGATIVE (NEGATIVE)
[2019-09-30 14:57] LABS: OXYCODONE STAT NEGATIVE (NEGATIVE); PROPOXYPHENE STAT NEGATIVE (NEGATIVE)
[2019-09-30 15:05] LABS: EOSINOPHILS % (MANUAL) 5 %; LYMPHOCYTES % (MANUAL) 30 %; MONOCYTES % (MANUAL) 6 %; NEUTROPHILS % (MANUAL) 55 %; REACTIVE LYMPHOCYTES 4 %
[2019-09-30 15:06] LABS: MICROCYTOSIS SLIGHT
[2019-09-30 15:07] LABS: PLATELET ESTIMATE INCREASED
[2019-09-30 15:07] LABS: BILIRUBIN,URINE NEGATIVE (NEGATIVE); CLARITY,URINE CLEAR; COLOR,URINE YELLOW; GLUCOSE, URINE (UA) NEGATIVE (NEGATIVE); KETONES,URINE NEGATIVE (NEGATIVE); LEUKOCYTE ESTERASE ,URINE TRACE (NEGATIVE); NITRITE,URINE NEGATIVE (NEGATIVE); PROTEIN,URINE TRACE (NEGATIVE)
[2019-09-30 15:16] LABS: BACTERIA,URINE FEW /HPF; RBC,URINE 0 /HPF
[2019-09-30] MEDS ORDERED: NITR-65 PO (15:24)
[2019-09-30] MEDS ORDERED: ACETAMINOPHEN 500 MG TAB (TYLENOL) PO ONE (15:30)
[2019-09-30 15:38] VITALS: BP 97/46
== END 2019-09-30 15:38 | disposition home or self-care (01) ==
LOC: EDUNIT# 13:25 → ER FS 13:28
DX: I47.1 Supraventricular tachycardia (principal); N39.0 Urinary tract infection, site not specified; I10 Essential (primary) hypertension; I48.91 Unspecified atrial fibrillation; K21.9 Gastro-esophageal reflux disease without esophagitis; E11.9 Type 2 diabetes mellitus without complications; F32.9 Major depressive disorder, single episode, unspecified; Z85.42 Personal history of malignant neoplasm of other parts of uterus; Z88.6 Allergy status to analgesic agent; Z88.1 Allergy status to other antibiotic agents; Z88.2 Allergy status to sulfonamides; Z79.84 Long term (current) use of oral hypoglycemic drugs; Z90.49 Acquired absence of other specified parts of digestive tract; Z98.51 Tubal ligation status; Z90.710 Acquired absence of both cervix and uterus; Z87.442 Personal history of urinary calculi
CPT/HCPCS: 36415; 71045; 80053; 80306; 81000; 83735; 84484; 85007; 85027; 85610; 85730; 87088; 93041

== ENCOUNTER 2019-12-29 13:14 | Emergency (ER) | payer MEDICAID ==
[~2019-12-29] VITALS: Ht 162 cm; Wt 100.0 kg
[~2019-12-29 13:14] MED LIST changes: -ACET325C5 PO; +ACET325C7 PO; -DIGO125T PO; +DIGO125T3 PO; -TAMS0.4C98 PO; +TMSL.4C PO
[2019-12-29] MEDS ORDERED: HOLD METFORMIN - RECEIVED CONTRAST 20 ML VIAL IV SCH (13:45)
[2019-12-29] MEDS ORDERED: NS 100 ML (IVPB) BAG IV ONE (13:45)
[2019-12-29] MEDS ORDERED: IOHEXOL 350 MG/ML 100 ML (OMNIPAQUE 350) VIAL IV ONE (13:45)
[2019-12-29] MEDS ORDERED: CATHETER FLUSH 10 ML SYR IV PRN (13:45)
--- NOTE | 2019-12-29 13:45 | ED Abdominal Pain ---
General Chief Complaint: Abdominal/GI Problems Stated Complaint: ABD PAIN Nursing Triage Note: PT REPORTS WHERE SHE HAD HER UMBILICAL HERNIA REPAIR A YEAR AND HALF AGO HAS BEEN HURTING HER FOR ABOUT A MONTH NOW. SHE STATES SHE HAS HAD SOME VOMITING FOR PAST FEW DAYS. Sepsis Screen: No Definite Risk Source of Information: Patient Exam Limitations: No Limitations History of Present Illness Date Seen by Provider: Dec 29, 2019 Time Seen by Provider: 13:28 Initial Comments The patient is a 54-year-old morbidly obese female who presents via EMS for evaluation of abdominal pain over the last 3-4 days. She also reports some vomiting and a decreased appetite over that same time.. She states that she had a umbilical hernia repair a few years ago and at that area has been hurting her for the last few days. She states that she has been urinating less and is concerned about being dehydrated. She mentions that she has a history of diabetes. She is alert and oriented 4, calm, and appears to be in no distress this time. She denies chest pain, shortness of breath, hematemesis, rectal bleeding, fevers or chills, diarrhea, dizziness or syncope. Severity/Quality: Moderate Location: Periumbilical Radiation: No Radiation Activities at Onset: None Associated Symptoms: Nausea/Vomiting Allergies and Home Medications Allergies Coded Allergies: aspirin (Unverified Allergy, Severe, THROAT SWELLS, 01/20/13) amoxicillin (Unverified Allergy, Intermediate, HIVES, 04/25/16) sulfamethoxazole (Unverified Allergy, Unknown, 01/20/13) trimethoprim (Unverified Allergy, Unknown, 01/20/13) Home Medications Acetaminophen 500 Mg Tablet, 1,000 MG PO Q4H PRN for PAIN-MILD, (Reported) Acetaminophen 325 Mg Capsule, 650 MG PO Q6H Prescribed by: MOSES NORTON on 09/18/19 1336 Allopurinol 300 Mg Tablet, 300 MG PO DAILY, (Reported) Atorvastatin Calcium 10 Mg Tablet, 10 MG PO HS, (Reported) Dicyclomine HCl 10 Mg Capsule, 10 MG PO Q8H Prescribed by: MOSES NORTON on 09/18/19 133 Digoxin 125 Mcg Tablet, 125 MCG PO DAILY, (Reported) Diltiazem HCl 240 Mg Cap.er.24h, 240 MG PO DAILY, (Reported) Fluoxetine HCl 40 Mg Capsule, 40 MG PO DAILY, (Reported) Gabapentin 300 Mg Capsule, 600 MG PO TID, (Reported) TAKES 2 (300MG) CAPSULES Lisinopril 10 Mg Tablet, 10 MG PO DAILY, (Reported) Metformin HCl 500 Mg Tablet, 500 MG PO BID, (Reported) Nitrofurantoin Monohyd/M-Cryst 100 Mg Capsule, 1 TAB PO BID Prescribed by: JAYLA OWEN on 09/30/19 1524 Ondansetron 4 Mg Tab.rapdis, 4 MG PO Q6H PRN for NAUSEA/VOMITING Prescribed by: RONNA MEADOWS on 06/28/19 1711 Ondansetron 4 Mg Tab.rapdis, 4 MG PO Q8H Prescribed by: MOSES NORTON on 09/18/19 1336 Patient Home Medication List Home Medication List Reviewed: Yes Review of Systems Review of Systems Constitutional: no symptoms reported EENTM: No Symptoms Reported Respiratory: No Symptoms Reported Cardiovascular: No Symptoms Reported Gastrointestinal: Abdominal Pain, Nausea, Vomiting Genitourinary: No Symptoms Reported Musculoskeletal: no symptoms reported Skin: no symptoms reported Psychiatric/Neurological: No Symptoms Reported Endocrine: No Symptoms Reported Hematologic/Lymphatic: No Symptoms Reported All Other Systems Reviewed Negative Unless Noted: Yes Past Orkyaqe-Lxksyc-Awlfif Hx Past Med/Social Hx: Reviewed Nursing Past Med/Soc Hx Patient Social History Alcohol Use: Denies Use Recreational Drug Use: No (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) Drug of Choice: DENIES Smoking Status: Current Everyday Smoker Type Used: Cigarettes 2nd Hand Smoke Exposure: No Recent Foreign Travel: No Contact w/Someone Who Travel: No Recent Infectious Disease Expo: No Recent Hopitalizations: No Physical Abuse: No Sexual Abuse: No Mistreated: No Fear: No Immunizations Up To Date Date of Pneumonia Vaccine: Jan 06, 2013 Date of Influenza Vaccine: Jan 20, 2013 Seasonal Allergies Seasonal Allergies: No Past Medical History Surgeries: Yes (cysto's and eswl's) Appendectomy, Gallbladder, Hysterectomy, Tubal Ligation Respiratory: No Cardiac: Yes (SVT, ) Atrial Fibrillation, Hypertension Neurological: Yes (HAS 3 BRAIN ANEURYSMS DX AT 37 YRS OF AGE, bulging discs, pinched nerve) Reproductive Disorders: No Genitourinary: Yes Kidney Stones Gastrointestinal: Yes (enlarged liver) Gastroesophageal Reflux Musculoskeletal: Yes (restless leg) Arthritis Endocrine: Yes Diabetes, Non-Insulin dep HEENT: No Cancer: No Uterine Psychosocial: Yes Suicide Attempts, Depression Integumentary: No Blood Disorders: No Family Medical History Asthma 19 MOTHER Diabetes mellitus 19 FATHER FH: COPD (chronic obstructive pulmonary disease) 19 MOTHER FH: emphysema 19 MOTHER Physical Exam Vital Signs Vital Signs - First Documented 12/29/19 13:32 Temp 36.3 Pulse 68 Resp 18 B/P (MAP) 161/90 (113) Pulse Ox 97 O2 Delivery Room Air Capillary Refill : Less Than 3 Seconds Height/Weight/BMI Height: 5'4.00" Weight: 240lbs. 9.6oz. 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, no motor/sensory deficits, alert, normal mood/affect, oriented x 3 Skin: normal color, warm/dry Progress/Results/Core Measures Results/Orders Lab Results Laboratory Tests Test 12/29/19 13:35 12/29/19 14:00 Range/Units Urine Color DARK YELLOW Urine Clarity SL CLOUDY Urine pH 5.5 5-9 Urine Specific [place] >=1.030 1.016-1.022 Urine Protein TRACE H NEGATIVE Urine Glucose (UA) NEGATIVE NEGATIVE Urine Ketones TRACE H NEGATIVE Urine Nitrite NEGATIVE NEGATIVE Urine Bilirubin 1+ H NEGATIVE Urine Urobilinogen 0.2 < = 1.0 MG/DL Urine Leukocyte Esterase 1+ H NEGATIVE Urine RBC (Auto) TRACE H NEGATIVE Urine RBC 2-5 H /HPF Urine WBC 25-50 H /HPF Urine Squamous Epithelial Cells >50 H /HPF Urine Crystals NONE /LPF Urine Bacteria MODERATE H /HPF Urine Casts NONE /LPF Urine Mucus MODERATE H /LPF Urine Culture Indicated YES White Blood Count 11.0 4.3-11.0 10^3/uL Red Blood Count 5.05 4.35-5.85 10^6/uL Hemoglobin 14.9 11.5-16.0 G/DL Hematocrit 45 35-52 % Mean Corpuscular Volume 90 80-99 FL Mean Corpuscular Hemoglobin 30 25-34 PG Mean Corpuscular Hemoglobin Concent 33 32-36 G/DL Red Cell Distribution Width 13.7 10.0-14.5 % Platelet Count 292 130-400 10^3/uL Mean Platelet Volume 11.6 H 7.4-10.4 FL Neutrophils (%) (Auto) 67 42-75 % Lymphocytes (%) (Auto) 23 12-44 % Monocytes (%) (Auto) 8 0-12 % Eosinophils (%) (Auto) 1 0-10 % Basophils (%) (Auto) 1 0-10 % Neutrophils # (Auto) 7.3 1.8-7.8 X 10^3 Lymphocytes # (Auto) 2.5 1.0-4.0 X 10^3 Monocytes # (Auto) 0.9 0.0-1.0 X 10^3 Eosinophils # (Auto) 0.1 0.0-0.3 10^3/uL Basophils # (Auto) 0.1 0.0-0.1 10^3/uL Sodium Level 140 135-145 MMOL/L Potassium Level 4.5 3.6-5.0 MMOL/L Chloride Level 101 98-107 MMOL/L Carbon Dioxide Level 23 21-32 MMOL/L Anion Gap 16 H 5-14 MMOL/L Blood Urea Nitrogen 26 H 7-18 MG/DL Creatinine 1.03 0.60-1.30 MG/DL Estimat Glomerular Filtration Rate 56 BUN/Creatinine Ratio 25 Glucose Level 125 H 70-105 MG/DL Calcium Level 9.6 8.5-10.1 MG/DL Corrected Calcium 9.6 8.5-10.1 MG/DL Total Bilirubin 0.4 0.1-1.0 MG/DL Aspartate Amino Transf (AST/SGOT) 26 5-34 U/L Alanine Aminotransferase (ALT/SGPT) 25 0-55 U/L Alkaline Phosphatase 101 40-136 U/L Total Protein 7.5 6.4-8.2 GM/DL Albumin 4.0 3.2-4.5 GM/DL Lipase 12 8-78 U/L My Orders Orders - KEYANNA GOMES DO Comprehensive Metabolic Panel (12/29/19 13:28) Lipase (12/29/19 13:28) Ua Culture If Indicated (12/29/19 13:28) Ed Iv/Invasive Line Start (12/29/19 13:28) Cbc With Automated Diff (12/29/19 13:28) Ct Abdomen/Pelvis W (12/29/19 13:28) Iohexol Injection (Omnipaque 350 Mg/Ml 1 (12/29/19 13:45) Received Contrast (Hold Metformin- Contr (12/29/19 13:45) Sodium Chloride Flush (Catheter Flush Sy (12/29/19 13:45) Ns (Ivpb) (Sodium Chloride 0.9% Ivpb Bag (12/29/19 13:45) Urine Culture (12/29/19 13:35) Ceftriaxone For Iv Use (Rocephin For I (12/29/19 14:30) Acetaminophen Tablet (Tylenol Tablet) (12/29/19 16:00) Ns Iv 1000 Ml (Sodium Chloride 0.9%) (12/29/19 16:00) Medications Given in ED Current Medications Medications Dose Ordered Sig/Sirisha Route Start Time Stop Time Status Last Admin Dose Admin Acetaminophen 1,000 mg ONCE ONCE PO 12/29/19 16:00 12/29/19 16:01 12/29/19 15:53 1,000 MG Ceftriaxone Sodium 1000 mg/ Sterile Water 10 ml @ 200 mls/hr ONCE ONCE IV 12/29/19 14:30 12/29/19 14:32 DC 12/29/19 14:29 200 MLS/HR Iohexol 100 ml ONCE ONCE IV 12/29/19 13:45 12/29/19 13:46 DC 12/29/19 14:53 100 ML Sodium Chloride 10 ml NEEDED PRN IV 12/29/19 13:45 12/29/19 14:53 10 ML Sodium Chloride 100 ml ONCE ONCE IV 12/29/19 13:45 12/29/19 13:46 DC 12/29/19 14:53 100 ML Vital Signs/I&O 12/29/19 13:32 Temp 36.3 Pulse 68 Resp 18 B/P (MAP) 161/90 (113) Pulse Ox 97 O2 Delivery Room Air Blood Pressure Mean: 113 Progress Progress Note : Progress Note @1503 - Patient updated on lab and imaging results which are unremarkable. The patient states she is feeling better and is asking to be discharged home. It is possible that the patient had a kidney stone which she passed that there is no current evidence to suggest hydronephrosis or obstruction. Alternatively she could have a viral gastroneuritis causing her symptoms. She will go home with a prescription for nausea and pain medications. Advised the patient to follow up with her PCP in the next 1-2 days and to return to the emergency Department immediately for new or worsening symptoms. Workup today fails to reveal any emergent pathology and the patient is stable for discharge. Departure Impression Primary Impression: Abdominal pain Additional Impressions: Nausea and vomiting Dehydration UTI (urinary tract infection) Disposition: HOME, SELF-CARE Condition: Stable Departure-Patient Inst. Decision time for Depature: 16:03 Referrals: HAMILTON FONTAINE MD (PCP/Family) Primary Care Physician Patient Instructions: Nausea and Vomiting, Adult (DC), Acute Abdomen (Belly Pain), Adult (DC), Dehydration, Adult (DC), Urinary Tract Infections in Adults Add. Discharge Instructions: Follow-up with your doctor in the next 1-2 days. Return to the Emergency Department immediately for new or worsening symptoms. Take the prescribed medicine as directed. Fluids at home to stay well-hydrated. Scripts Tramadol HCl (Ultram) 50 Mg Tablet 50 MG PO Q6H PRN for PAIN-MODERATE (5-7) for 3 Days, #12 TAB Prov: KEYANNA GOMES DO 12/29/19 Ondansetron (Ondansetron Odt) 4 Mg Tab.rapdis 4 MG PO Q6H PRN for NAUSEA/VOMITING-1ST LINE for 5 Days, #20 TAB Prov: KEYANNA GOMES DO 12/29/19 Cephalexin (Keflex) 500 Mg Capsule 500 MG PO BID for 7 Days, #14 CAP Prov: KEYANNA GOMES DO 12/29/19 KEYANNA GOMES DO Dec 29, 2019 13:45
[2019-12-29 14:13] LABS: HEMATOCRIT 45 % (35-52); HEMOGLOBIN 14.9 G/DL (11.5-16.0); MEAN CORPUSCULAR HEMOGLOBIN 30 PG (25-34); MEAN CORPUSCULAR HGB CONC 33 G/DL (32-36); MEAN CORPUSCULAR VOLUME 90 FL (80-99)
[2019-12-29 14:14] LABS: COLOR,URINE DARK YELLOW
[2019-12-29 14:14] LABS: BASOPHILS # (AUTO) 0.1 10^3/uL (0.0-0.1); BASOPHILS % (AUTO) 1 % (0-10); EOSINOPHILS # (AUTO) 0.1 10^3/uL (0.0-0.3); EOSINOPHILS % (AUTO) 1 % (0-10); LYMPHOCYTES # (AUTO) 2.5 X 10^3 (1.0-4.0); LYMPHOCYTES % (AUTO) 23 % (12-44); MEAN PLATELET VOLUME 11.6 FL (7.4-10.4); MONOCYTES # (AUTO) 0.9 X 10^3 (0.0-1.0); MONOCYTES % (AUTO) 8 % (0-12); NEUTROPHILS # (AUTO) 7.3 X 10^3 (1.8-7.8); NEUTROPHILS % (AUTO) 67 % (42-75); PLATELET COUNT 292 10^3/uL (130-400); RED CELL DISTRIBUTION WIDTH 13.7 % (10.0-14.5)
[2019-12-29 14:15] LABS: BILIRUBIN,URINE 1+ (NEGATIVE); CLARITY,URINE SL CLOUDY; GLUCOSE, URINE (UA) NEGATIVE (NEGATIVE); KETONES,URINE TRACE (NEGATIVE); LEUKOCYTE ESTERASE ,URINE 1+ (NEGATIVE); NITRITE,URINE NEGATIVE (NEGATIVE); PH,URINE 5.5 (5-9); PROTEIN,URINE TRACE (NEGATIVE)
[2019-12-29 14:16] LABS: BACTERIA,URINE MODERATE /HPF; SQUAMOUS EPITHELIAL CELL,UR >50 /HPF; WBC,URINE 25-50 /HPF
[2019-12-29] MEDS ORDERED: cefTRIAXone FOR IV USE 1,000 MG in WATER (STERILE) FOR INJECTION 10 ML IV ONE (14:30)
[2019-12-29 14:34] LABS: BILIRUBIN,TOTAL 0.4 MG/DL (0.1-1.0); CALCIUM 9.6 MG/DL (8.5-10.1); CREATININE SERUM 1.03 MG/DL (0.60-1.30); POTASSIUM 4.5 MMOL/L (3.6-5.0); TOTAL PROTEIN 7.5 GM/DL (6.4-8.2)
--- NOTE | 2019-12-29 15:28 | Diagnostic Imaging Report ---
PROCEDURE: CT abdomen and pelvis with contrast. TECHNIQUE: Multiple contiguous axial images were obtained through the abdomen and pelvis after administration of intravenous contrast. Auto Exposure Controls were utilized during the CT exam to meet ALARA standards for radiation dose reduction. DATE: December 29, 2019. COMPARISON: CT abdomen and pelvis September 18, 2019. INDICATION: 54-year-old female, periumbilical abdominal pain for 1 month. Nausea, vomiting, and diarrhea for 4 days. History of cervical cancer. FINDINGS: The visualized portions of the lung bases are clear. The heart is not enlarged. There is no identified pericardial effusion. The liver is normal in size and contour. There is no identified liver lesion. The patient is status post cholecystectomy. There is no biliary ductal dilation. The main pancreatic duct is not abnormally dilated. Unremarkable appearance of the pancreatic parenchyma. The spleen is normal in size. The adrenal glands are unremarkable. There is a stone in the right renal pelvis near the level of the ureteropelvic junction which measures 15 mm in size. There is no associated hydronephrosis. There is a nonobstructing left renal stone on axial image 48 which measures 7 mm in size. There is no left hydronephrosis. There is no identified ureteral stone. The urinary bladder is grossly unremarkable in appearance. The uterus is not seen and likely is surgically absent. The intestinal tract is not distended. There is no free intraperitoneal air. There is no drainable fluid collection. There is no free pelvic fluid. There is no identified abnormally enlarged lymph node in the abdomen or pelvis meeting CT size criteria for adenopathy. There are atherosclerotic calcifications. There are degenerative changes of the spine. There is no identified acute bony abnormality. IMPRESSION: CT ABDOMEN AND PELVIS. 1. No evidence of metastatic disease in the abdomen or pelvis. 2. Nonobstructing stone in the right renal pelvis and nonobstructing left renal stone. No hydronephrosis. 3. No identified acute abnormality in the abdomen or pelvis. Dictated by: Dictated on workstation # [id number]
[2019-12-29] MEDS ORDERED: NS IV 1000 ML 1,000 ML IV SCH (16:00)
[2019-12-29] MEDS ORDERED: ACETAMINOPHEN 500 MG TAB (TYLENOL) PO ONE (16:00)
[2019-12-29] MEDS ORDERED: CEPH-507 PO ×2 (16:08→16:15)
[2019-12-29] MEDS ORDERED: TRAM-42 PO (16:08)
[2019-12-29] MEDS ORDERED: ONDA4TAB11 PO ×2 (16:08→16:15)
[2019-12-29 16:18] VITALS: BP 104/81
== END 2019-12-29 16:18 | disposition home or self-care (01) ==
LOC: EDUNIT# 13:14 → ER FS 13:22
DX: N39.0 Urinary tract infection, site not specified (principal); E86.0 Dehydration; I10 Essential (primary) hypertension; I48.91 Unspecified atrial fibrillation; E11.9 Type 2 diabetes mellitus without complications; F32.9 Major depressive disorder, single episode, unspecified; F17.210 Nicotine dependence, cigarettes, uncomplicated; Z88.6 Allergy status to analgesic agent; Z85.42 Personal history of malignant neoplasm of other parts of uterus; Z88.0 Allergy status to penicillin; Z88.2 Allergy status to sulfonamides; Z88.1 Allergy status to other antibiotic agents; Z79.84 Long term (current) use of oral hypoglycemic drugs
CPT/HCPCS: 36415; 74177; 80053; 81000; 83690; 85025; 87077; 87088; 96374

== ENCOUNTER 2020-02-18 15:56 | Inpatient (IN) | payer MEDICAID ==
[~2020-02-18] VITALS: Ht 160 cm; Wt 124.9 kg
[2020-02-18] VITALS (9 sets, daily range): BP systolic 97–131; BP diastolic 56–68
[~2020-02-18 15:56] MED LIST changes: +ACHD5005 PO; +CATHETER FLUSH 10 ML SYR IV ONE; -HYDR-3812 PO; +TRAM-42 PO
[2020-02-18] MEDS ORDERED: LORazepam INJ 2 MG/ML (ATIVAN) VIAL ONE (15:57)
[2020-02-18] MEDS ORDERED: NS IV 500 ML 500 ML IV STA (16:04)
--- NOTE | 2020-02-18 16:10 | ED Cardiac General ---
History of Present Illness General Chief Complaint: Cardiac/General Problems Stated Complaint: FAST HEART RATE Source: patient, RN notes reviewed Exam Limitations: no limitations (SELAM MCWILLIAMS MD) History of Present Illness Date Seen by Provider: Feb 18, 2020 Time Seen by Provider: 17:50 Initial Comments This patient is a 52-year-old female well-known facility presents to the emergency department with SVT and anxiety issues. Patient does take digoxin for chronic issues with arrhythmia. It has been on noncompliant with medications for over a week since the of her mother. Patient is tearful. Patient states been having palpitations since last night. States that a friend did give her some medication to help doesn't know what it was. 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 The there are concerns that she did use last night also. We will do medical evaluation treatment is needed. Timing/Duration: 1 day Location: substernal Activities at Onset: none Associated Systoms: No Denies Symptoms, No Chest Pain, No Cough, No Diaphoresis, No Fever/Chills, No Headaches, No Loss of Appetite, No Malaise, No Nausea/Vomiting, No Rash, No Seizure, No Shortness of Air, No Syncope, No Weakness, No Other (SELAM MCWILLIAMS MD) Allergies and Home Medications Allergies Coded Allergies: aspirin (Unverified Allergy, Severe, THROAT SWELLS, 01/20/13) amoxicillin (Unverified Allergy, Intermediate, HIVES, 04/25/16) sulfamethoxazole (Unverified Allergy, Unknown, 01/20/13) trimethoprim (Unverified Allergy, Unknown, 01/20/13) Home Medications Acetaminophen 500 Mg Tablet, 1,000 MG PO Q4H PRN for PAIN-MILD, (Reported) Acetaminophen 325 Mg Capsule, 650 MG PO Q6H Prescribed by: MOSES NORTON on 09/18/19 1336 Allopurinol 300 Mg Tablet, 300 MG PO DAILY, (Reported) Atorvastatin Calcium 10 Mg Tablet, 10 MG PO HS, (Reported) Cephalexin 500 Mg Capsule, 500 MG PO BID Prescribed by: KEYANNA GOMES on 12/29/19 1608 Cephalexin 500 Mg Capsule, 500 MG PO BID Prescribed by: KEYANNA GOMES on 12/29/19 1615 Dicyclomine HCl 10 Mg Capsule, 10 MG PO Q8H Prescribed by: MOSES NORTON on 09/18/19 1336 Digoxin 125 Mcg Tablet, 125 MCG PO DAILY, (Reported) Diltiazem HCl 240 Mg Cap.er.24h, 240 MG PO DAILY, (Reported) Fluoxetine HCl 40 Mg Capsule, 40 MG PO DAILY, (Reported) Gabapentin 300 Mg Capsule, 600 MG PO TID, (Reported) TAKES 2 (300MG) CAPSULES Lisinopril 10 Mg Tablet, 10 MG PO DAILY, (Reported) Metformin HCl 500 Mg Tablet, 500 MG PO BID, (Reported) Nitrofurantoin Monohyd/M-Cryst 100 Mg Capsule, 1 TAB PO BID Prescribed by: JAYLA OWEN on 09/30/19 1524 Ondansetron 4 Mg Tab.rapdis, 4 MG PO Q6H PRN for NAUSEA/VOMITING Prescribed by: RONNA MEADOWS on 06/28/19 1711 Ondansetron 4 Mg Tab.rapdis, 4 MG PO Q8H Prescribed by: MOSES NORTON on 09/18/19 1336 Ondansetron 4 Mg Tab.rapdis, 4 MG PO Q6H PRN for NAUSEA/VOMITING-1ST LINE Prescribed by: KEYANNA GOMES on 12/29/19 1608 Ondansetron 4 Mg Tab.rapdis, 4 MG PO Q6H PRN for NAUSEA/VOMITING-1ST LINE Prescribed by: KEYANNA GOMES on 12/29/19 1615 Tramadol HCl 50 Mg Tablet, 50 MG PO Q6H PRN for PAIN-MODERATE (5-7) Prescribed by: KEYANNA GOMES on 12/29/19 1608 Patient Home Medication List Home Medication List Reviewed: Yes (SELAM MCWILLAIMS MD) Home Medication List Reviewed: Yes (BRIEN GARCIA MD) Review of Systems Review of Systems Constitutional: No no symptoms reported; see HPI; No chills, No diaphoresis, No dizziness, No fever, No malaise, No weakness, No weight gain, No weight loss, No other EENTM: No No Symptoms Reported, No See HPI, No Blurred Vision, No Double Visio n, No Eye Pain, No Eye Tearing, No Ear Drainage, No Ear Pain, No Mouth Pain, No Mouth Swelling, No Nose Congestion, No Nose Pain, No Throat Pain, No Throat Swelling, No Other Respiratory: Denies No Symptoms Reported, Denies See HPI, Denies Cough, Denies Orthopnea, Denies Shortness of Air, Denies SOA With Exertion, Denies SOA at Rest, Denies Stridor, Denies Wheezing, Denies Other Cardiovascular: Denies No Symptoms Reported; See HPI; Denies Chest Pain; Irregular Heart Rate; Denies Lightheadedness; Palpitations; Denies Syncope, Denies Other Gastrointestinal: Denies No Symptoms Reported, Denies See HPI, Denies Abdomen Distended, Denies Abdominal Pain, Denies Blood Streaked Stools, Denies Constipat ed, Denies Diarrhea, Denies Difficulty Swallowing, Denies Nausea, Denies Poor Appetite, Denies Poor Fluid Intake, Denies Rectal Bleeding, Denies Vomiting, Denies Other Genitourinary: Denies No Symptoms Reported, Denies See HPI, Denies Burning, Denies Discharge, Denies Drainage, Denies Frequency, Denies Flank Pain, Denies Hematuria, Denies Incontinence, Denies Pain, Denies Urgency, Denies Other Musculoskeletal: No no symptoms reported, No see HPI, No back pain, No gout, No joint pain, No joint swelling, No muscle pain, No muscle stiffness, No muscle cramps, No muscle twitching, No muscle weakness, No neck pain, No other Skin: No no symptoms reported, No see HPI, No change in color, No change in hair/nails, No dryness, No hx of skin cancer, No lesions, No lumps, No pruritus, No rash, No other Psychiatric/Neurological: Denies No Symptoms Reported, Denies See HPI, Denies Anxiety, Denies Depressed, Denies Emotional Problems, Denies Headache, Denies Numbness, Denies Paresthesia, Denies Pre-Existing Deficit, Denies Seizure, Denies Tingling, Denies Tremors, Denies Weakness, Denies Other (SELAM MCWILLIAMS MD) All Other Systems Reviewed Negative Unless Noted: Yes (SELAM MCWILLIAMS MD) Past Qmnapbc-Qwldvl-Kshoqm Hx Patient Social History Drug of Choice: DENIES Type Used: Cigarettes 2nd Hand Smoke Exposure: No Recent Hopitalizations: No (SELAM MCWILLIAMS MD) Immunizations Up To Date Date of Pneumonia Vaccine: Jan 06, 2013 Date of Influenza Vaccine: Jan 20, 2013 (SELAM MCWILLIAMS MD) Seasonal Allergies Seasonal Allergies: No (SELAM MCWILLIAMS MD) Past Medical History Surgeries: Yes (cysto's and eswl's) Appendectomy, Gallbladder, Hysterectomy, Tubal Ligation Respiratory: No Cardiac: Yes (SVT, ) Atrial Fibrillation, Hypertension Neurological: Yes (HAS 3 BRAIN ANEURYSMS DX AT 37 YRS OF AGE, bulging discs, p inched nerve) Reproductive Disorders: No Genitourinary: Yes Kidney Stones Gastrointestinal: Yes (enlarged liver) Gastroesophageal Reflux Musculoskeletal: Yes (restless leg) Arthritis Endocrine: Yes Diabetes, Non-Insulin dep HEENT: No Cancer: No Uterine Psychosocial: Yes Suicide Attempts, Depression Integumentary: No Blood Disorders: No (SELAM MCWILLIAMS MD) Family Medical History Asthma 19 MOTHER Diabetes mellitus 19 FATHER FH: COPD (chronic obstructive pulmonary disease) 19 MOTHER FH: emphysema 19 MOTHER Physical Exam Vital Signs Vital Signs - First Documented 02/18/20 16:00 Pulse 200 Resp 14 B/P (MAP) 116/83 (94) Pulse Ox 98 O2 Delivery Room Air Capillary Refill : Height, Weight, BMI Height: 5'4.00" Weight: 240lbs. 9.6oz. 108.905000av; 38.00 BMI Method:Stated General Appearance: No Apparent Distress, WD/WN HEENT: PERRL/EOMI, TMs Normal, Normal ENT Inspection, Pharynx Normal Neck: Full Range of Motion, Normal Inspection, Non Tender Respiratory: Chest Non Tender, Lungs Clear, Normal Breath Sounds, No Accessory Muscle Use, No Respiratory Distress Cardiovascular: No Edema, No Gallop, No JVD, No Murmur, Normal Peripheral Pulses, Irregularly Irregular, Tachycardia Gastrointestinal: Normal Bowel Sounds, No Organomegaly, No Pulsatile Mass, Non Tender Extremity: Normal Capillary Refill, Normal Inspection, Normal Range of Motion, Non Tender, No Calf Tenderness, No Pedal Edema Neurologic/Psychiatric: Alert, Oriented x3, No Motor/Sensory Deficits, Normal Mood/Affect Skin: Normal Color, Warm/Dry (SELAM MCWILLIAMS MD) Vital Signs Vital Signs - First Documented 02/18/20 16:00 Pulse 200 Resp 14 B/P (MAP) 116/83 (94) Pulse Ox 98 O2 Delivery Room Air (BRIEN GARCIA MD) Procedures/Interventions Additional Procedures: cardioversion/defib Progress Patient in SVT with a heart rate of 206. Patient blood pressure 80/40 and unstable. Patient placed in Trendelenburg procedure given 1 mg of Ativan for procedural sedation and patient was defibrillated synchronized at 50 J. Heart rate was remained unchanged have her blood pressure did improve afterwards to 100/80. Continue to monitor patient was prepared to give adenosine 6 mg is quite followed by 12 mg which completely resolved her SVT we'll continue to monitor. (SELAM MCWILLIAMS MD) Progress/Results/Core Measures Results/Orders Lab Results Laboratory Tests Test 02/18/20 16:38 Range/Units White Blood Count 20.3 H 4.3-11.0 10^3/uL Red Blood Count 4.98 4.35-5.85 10^6/uL Hemoglobin 14.5 11.5-16.0 G/DL Hematocrit 45 35-52 % Mean Corpuscular Volume 91 80-99 FL Mean Corpuscular Hemoglobin 29 25-34 PG Mean Corpuscular Hemoglobin Concent 32 32-36 G/DL Red Cell Distribution Width 14.7 H 10.0-14.5 % Platelet Count 333 130-400 10^3/uL Mean Platelet Volume 11.7 H 7.4-10.4 FL Neutrophils (%) (Auto) 70 42-75 % Lymphocytes (%) (Auto) 20 12-44 % Monocytes (%) (Auto) 9 0-12 % Eosinophils (%) (Auto) 0 0-10 % Basophils (%) (Auto) 1 0-10 % Neutrophils # (Auto) 14.2 H 1.8-7.8 X 10^3 Lymphocytes # (Auto) 4.0 1.0-4.0 X 10^3 Monocytes # (Auto) 1.9 H 0.0-1.0 X 10^3 Eosinophils # (Auto) 0.1 0.0-0.3 10^3/uL Basophils # (Auto) 0.1 0.0-0.1 10^3/uL My Orders Orders - SELAM MCWILLIAMS MD Ed Iv/Invasive Line Start (02/18/20 16:03) Cbc With Automated Diff (02/18/20 16:03) Comprehensive Metabolic Panel (02/18/20 16:03) Drug Screen Stat (Urine) (02/18/20 16:03) Urinalysis (02/18/20 16:03) Troponin I Fs (02/18/20 16:03) Probnp Fs (02/18/20 16:03) Fibrin Degradation Products (02/18/20 16:03) Ekg Tracing (02/18/20 16:03) Chest 1 View Ap/Pa Only (02/18/20 16:03) Lorazepam Injection (Ativan Injection) (02/18/20 15:57) Ns Iv 500 Ml (Sodium Chloride 0.9%) (02/18/20 16:04) Lorazepam Injection (Ativan Injection) (02/18/20 16:15) Adenosine Injection (Adenocard Injection (02/18/20 16:15) Ns Iv 1000 Ml (Sodium Chloride 0.9%) (02/18/20 16:30) Ns Iv 1000 Ml (Sodium Chloride 0.9%) (02/18/20 16:23) Adenosine Injection (Adenocard Injection (02/18/20 16:45) Manual Differential (02/18/20 16:38) Medications Given in ED Current Medications Medications Dose Ordered Sig/Sirisha Route Start Time Stop Time Status Last Admin Dose Admin Adenosine 6 mg ONCE ONCE IV 02/18/20 16:15 02/18/20 16:16 DC 02/18/20 16:44 6 MG Lorazepam 1 mg ONCE ONCE IVP 02/18/20 16:15 02/18/20 16:16 DC 02/18/20 16:45 1 MG Vital Signs/I&O 02/18/20 16:00 Pulse 200 Resp 14 B/P (MAP) 116/83 (94) Pulse Ox 98 O2 Delivery Room Air (SELAM MCWILLIAMS MD) Lab Results Laboratory Tests Test 02/18/20 16:38 02/18/20 17:00 Range/Units White Blood Count 20.3 H 4.3-11.0 10^3/uL Red Blood Count 4.98 4.35-5.85 10^6/uL Hemoglobin 14.5 11.5-16.0 G/DL Hematocrit 45 35-52 % Mean Corpuscular Volume 91 80-99 FL Mean Corpuscular Hemoglobin 29 25-34 PG Mean Corpuscular Hemoglobin Concent 32 32-36 G/DL Red Cell Distribution Width 14.7 H 10.0-14.5 % Platelet Count 333 130-400 10^3/uL Mean Platelet Volume 11.7 H 7.4-10.4 FL Neutrophils (%) (Auto) 70 42-75 % Lymphocytes (%) (Auto) 20 12-44 % Monocytes (%) (Auto) 9 0-12 % Eosinophils (%) (Auto) 0 0-10 % Basophils (%) (Auto) 1 0-10 % Neutrophils # (Auto) 14.2 H 1.8-7.8 X 10^3 Lymphocytes # (Auto) 4.0 1.0-4.0 X 10^3 Monocytes # (Auto) 1.9 H 0.0-1.0 X 10^3 Eosinophils # (Auto) 0.1 0.0-0.3 10^3/uL Basophils # (Auto) 0.1 0.0-0.1 10^3/uL Neutrophils % (Manual) 56 % Lymphocytes % (Manual) 21 % Monocytes % (Manual) 9 % Eosinophils % (Manual) 0 % Basophils % (Manual) 0 % Band Neutrophils 14 % Blood Morphology Comment NORMAL Prothrombin Time 13.6 12.2-14.7 SEC INR Comment 1.0 0.8-1.4 D-Dimer 0.64 H 0.00-0.49 UG/ML Troponin I 0.40 *H <0.30 NG/ML My Orders Orders - BRIEN GARCIA MD Magnesium (02/18/20 17:27) Ekg Tracing (02/18/20 17:34) Medications Given in ED Current Medications Medications Dose Ordered Sig/Sirisha Route Start Time Stop Time Status Last Admin Dose Admin Adenosine 6 mg ONCE ONCE IV 02/18/20 16:15 02/18/20 16:16 DC 02/18/20 16:44 6 MG Adenosine 12 mg ONCE ONCE IV 02/18/20 16:45 02/18/20 16:46 DC 02/18/20 16:36 12 MG Lorazepam 1 mg ONCE ONCE IVP 02/18/20 16:15 02/18/20 16:16 DC 02/18/20 16:45 1 MG Vital Signs/I&O 02/18/20 02/18/20 16:00 17:20 Pulse 200 85 Resp 14 16 B/P (MAP) 116/83 (94) 129/85 Pulse Ox 98 98 O2 Delivery Room Air Room Air (BRIEN GARCIA MD) Progress Progress Note : Time: 16:37 Progress Note Patient initially had SVT rhythm with blood pressure dropped to 80s over 40s. Patient was given Ativan for pretreatment and 1 mg to help calm her anxiety and stabilize patient for pretreatment for [place] shocked with 50 J. SVT remained however the patient's blood pressure did improve patient is receiving IV fluid bolus and Trendelenburg. Blood pressure 101/80. Then proceeded to give adenosine 6 mg IV push rapidly. With no result. Blood pressure remained stable assessment follow-up with 12 mg adenosine IV push rapidly that did convert the patient's rhythm back to a sinus rhythm with a heart rate of 82. Blood pressure continues to be stable. Patient staff tried to establish a secondary IV Cipro. We'll make arrangements for transfer patient to [facility]. 1643 I discussed at length with Dr. GARCIA ER physician a [facility]. He is accepted this patient for transfer emergently to [facility] ER. He will consult cardiology and advise further needed. Patient be transferred emergently to [facility] 1652 patient's blood pressures much improved 131/81 at this time. Patient stable Rh stable sinus rhythm at 90. Patient be transferred EMS emergently to [facility] [place] (SELAM MCWILLIAMS MD) Progress Note : Time: 16:58 Progress Note I have accepted the patient in transfer from [facility] ED to [facility] emergency department with anticipation of admission. I called for ICU admission. 1715: Patient is in route via EMS with stable vital signs currently per report. We will reevaluate on arrival. She will be admitted to the ICU. I have discussed the case with Dr. Jackson who accepts patient for admission. I have discussed the case with Dr. Fisher and he accepts patient in consult. We will continue chest pain protocol and get 2-D echo in the morning. Further guidance after evaluation and emergency department here. 1729: Patient arrives ED. 1747: Repeat EKG done. I have reevaluated the patient. She is tearful about the recent of her mother and does describe some central chest discomfort. Blood pr essures remained 120s to 130s systolic with heart rate in the 80s and 90s. Fluids are running. We are still pending chemistries but troponin was noted to be slightly elevated. Patient will be admitted to the ICU. 1804: I did discuss the case with Dr. Fisher. Patient's troponin and BNP are elevated. We will repeat BMP for our system tonight and she was given Lovenox 100 mg subcutaneous. Patient had wet listed as 320 pounds that she is in actuality closer to 240-220 pounds. We will go ahead and give 100 mg of Lovenox subcutaneous. Clear liquid diet now and nothing by mouth after midnight for possible heart catheter tomorrow. Otherwise remained stable. She was given morphine 4 mg IV for chest pain which did help. Patient agrees to admission. I did discuss heart catheter procedure with her and she is in agreement if needed. She does have risk factors of smoking, obesity, hypertension and diabetes. (BRIEN GARCIA MD) Initial ECG Impression Date: Feb 18, 2020 Initial ECG Impression Time: 16:04 Initial ECG Rate: 205 Initial ECG Rhythm: S.Tach, SVT Initial ECG Intervals: Normal Initial ECG Impression: Nonspecific Changes Comment Supraventricular tachycardia heart rate 205. EKG : EKG Time: 16:32 Rate: 97 Rhythm: Normal Sinus Intervals: Normal ECG Comparisson: Changed ECG Impression: Nonspecific Changes Comment EKG after 6 mg and 12 mg and defibrillation at 50 J heart rate sinus rhythm 97 with nonspecific T changes. (SELAM MCWILLIAMS MD) Diagnostic Imaging Diagonstic Imaging: Xray Plain Films/CT/US/NM/MRI: chest Comments [facility] [place] NAME: [facility] D [facility] REC#: [id number] PT STATUS: REG ER : 1965 PHYSICIAN: SELAM MCWILLIAMS MD ADMIT DATE: 02/18/20/ER FS Draft Date of Exam:02/18/20 CHEST 1 VIEW AP/PA ONLY INDICATION: Heart disease. COMPARISON: Prior examination from 09/30/2019. EXAMINATION: Single view of the chest was obtained. FINDINGS: Heart size is normal. There is some venous congestion. There is no pleural fusion or a pneumothorax. Mediastinum is unremarkable. IMPRESSION: Mild central pulmonary venous congestion. Dictated on workstation # [id number] Dict: 02/18/20 1655 Trans: 02/18/[address] [facility] [id number] Interpreted by: CHACHO LOZA MD Electronically signed by: (BRIEN GARCIA MD) Critical Care Note Critical Care Total Time (minutes) 70 (SELAM MCWILLIAMS MD) Departure Communication (Admissions) Time/Spoke to Admitting Phy: 17:15 Time/Spoke to Consulting Phy: 17:20 (BRIEN GARCIA MD) Impression Primary Impression: Supraventricular tachycardia Additional Impressions: Chest pain Qualified Codes: R07.9 - Chest pain, unspecified Hypotension (arterial) Qualified Codes: I95.9 - Hypotension, unspecified Elevated troponin Heart failure Qualified Codes: I50.9 - Heart failure, unspecified Disposition: 09 ADMITTED INPATIENT Condition: Stable Admissions Decision to Admit Reason: Admit from ER (General) Decision to Admit/Date: Feb 18, 2020 Time/Decision to Admit Time: 16:44 (SELAM MCWILLIAMS MD) Decision to Admit Reason: Admit from ER (General) Decision to Admit/Date: Feb 18, 2020 Time/Decision to Admit Time: 17:15 (BRIEN GARCIA MD) Transfer Transfer Reason: Exceeds level of care Time Spoke to Accepting Phy: 16:45 Transfer Progress Notes 1643 I discussed at length with Dr. GARCIA ER physician a [facility]. He is accepted this patient for transfer emergently to [facility] ER. He will consult cardiology and advise further needed. Patient be transferred emergently to [facility] Transfer Facility: [facility] Method of Transfer: EMS (SELAM MCWILLIAMS MD) Departure-Patient Inst. Referrals: [facility] (PCP/Family) Primary Care Physician SELAM MCWILLIAMS MD Feb 18, 2020 16:10 BRIEN GARCIA MD Feb 18, 2020 17:04
[2020-02-18] MEDS ORDERED: LORazepam INJ 2 MG/ML (ATIVAN) VIAL IVP ONE (16:15)
[2020-02-18] MEDS ORDERED: ADENOSINE 6 MG/2 ML (ADENOCARD) VIAL IV ONE ×2 (16:15→16:45)
[2020-02-18] MEDS ORDERED: NS IV 1000 ML 1,000 ML ONE (16:23)
[2020-02-18] MEDS ORDERED: NS IV 1000 ML 1,000 ML IV STA (16:30)
[2020-02-18 16:49] LABS: HEMATOCRIT 45 % (35-52); HEMOGLOBIN 14.5 G/DL (11.5-16.0); LYMPHOCYTES % (AUTO) 20 % (12-44); MEAN CORPUSCULAR HEMOGLOBIN 29 PG (25-34); MEAN CORPUSCULAR HGB CONC 32 G/DL (32-36); MEAN CORPUSCULAR VOLUME 91 FL (80-99); MEAN PLATELET VOLUME 11.7 FL (7.4-10.4); MONOCYTES % (AUTO) 9 % (0-12); NEUTROPHILS % (AUTO) 70 % (42-75); PLATELET COUNT 333 10^3/uL (130-400); RED CELL DISTRIBUTION WIDTH 14.7 % (10.0-14.5); WHITE BLOOD COUNT 20.3 10^3/uL (4.3-11.0)
[2020-02-18 16:50] LABS: BASOPHILS # (AUTO) 0.1 10^3/uL (0.0-0.1); BASOPHILS % (AUTO) 1 % (0-10); EOSINOPHILS # (AUTO) 0.1 10^3/uL (0.0-0.3); EOSINOPHILS % (AUTO) 0 % (0-10); MONOCYTES # (AUTO) 1.9 X 10^3 (0.0-1.0); NEUTROPHILS # (AUTO) 14.2 X 10^3 (1.8-7.8)
--- NOTE | 2020-02-18 17:01 | Diagnostic Imaging Report ---
INDICATION: Heart disease. COMPARISON: Prior examination from 09/30/2019. EXAMINATION: Single view of the chest was obtained. FINDINGS: Heart size is normal. There is some venous congestion. There is no pleural fusion or a pneumothorax. Mediastinum is unremarkable. IMPRESSION: Mild central pulmonary venous congestion. Dictated by: Dictated on workstation # [id number]
--- NOTE | 2020-02-18 17:08 | NUR ---
shock administered at 50J with no improvement in rate. HR 206, BP 99/71, SPo2 100%, RR 16 1626 6mg Adenosine administered with no improvement in rate, 1636 12mg Adenosine administered, return of normal rate HR 89, SPo2-99%, RR-24, BP 103/89 EKG 1639 1641 BP 135/82, HR-97, Spo2-94%, RR-22 Report called to Jessica Tineo RN at 1645 EMS arrival at 1650 departure 1700
[2020-02-18 17:19] LABS: BAND NEUTROPHILS 14 %; BASOPHILS % (MANUAL) 0 %; EOSINOPHILS % (MANUAL) 0 %; LYMPHOCYTES % (MANUAL) 21 %; MONOCYTES % (MANUAL) 9 %; NEUTROPHILS % (MANUAL) 56 %; RBC MORPH NORMAL
[2020-02-18 17:30] LABS: PROTHROMBIN TIME PATIENT 13.6 SEC (12.2-14.7)
[2020-02-18 17:49] LABS: ALANINE AMINOTRANSFERASE 25 U/L (0-55); ALKALINE PHOSPHATASE 95 U/L (40-136); BILIRUBIN,TOTAL 0.4 MG/DL (0.1-1.0); BUN/CREATININE RATIO 15; CALCIUM 8.9 MG/DL (8.5-10.1); CARBON DIOXIDE 24 MMOL/L (21-32); CHLORIDE 105 MMOL/L (98-107); CREATININE SERUM 0.92 MG/DL (0.60-1.30); GFR ESTIMATED > 60; GLUCOSE 148 MG/DL (70-105); POTASSIUM 4.2 MMOL/L (3.6-5.0); SODIUM 144 MMOL/L (135-145)
[2020-02-18 17:50] LABS: ALBUMIN 3.6 GM/DL (3.2-4.5); TOTAL PROTEIN 6.3 GM/DL (6.4-8.2)
[2020-02-18] MEDS ORDERED: morphine INJ 10 MG/ML 1ML (SYR OR VIAL) IVP ONE (18:00)
[2020-02-18] MEDS ORDERED: ENOXAPARIN 100 MG/1 ML (LOVENOX) SYR SC ONE ×2 (18:00→18:15)
[2020-02-18] MEDS ORDERED: LACTATED RINGERS 1,000 ML IV ONE (18:32)
--- NOTE | 2020-02-18 18:33 | NUR ---
Patient arrived to ICU via cart at 1833. Patient is alert and oriented. VSS.
[2020-02-18] MEDS ORDERED: morphine INJ 4 MG/ML 1 ML (VIAL/SYRINGE) IV PRN (18:45)
[2020-02-18] MEDS ORDERED: CATHETER FLUSH 10 ML SYR IV PRN (18:45)
[2020-02-18] MEDS ORDERED: ONDANSETRON 4 MG/2 ML (SDV) Z0FRAN IV PRN (18:45)
[2020-02-18] MEDS: LACTATED RINGERS 1,000 ML IV SCH (18:51)
[2020-02-18 19:42] LABS: BILIRUBIN,URINE NEGATIVE (NEGATIVE); CLARITY,URINE CLEAR; COLOR,URINE YELLOW; GLUCOSE, URINE (UA) NEGATIVE (NEGATIVE); KETONES,URINE NEGATIVE (NEGATIVE); LEUKOCYTE ESTERASE ,URINE NEGATIVE (NEGATIVE); NITRITE,URINE NEGATIVE (NEGATIVE); PH,URINE 5.5 (5-9); PROTEIN,URINE 1+ (NEGATIVE)
[2020-02-18 19:56] LABS: BACTERIA,URINE FEW /HPF; WBC,URINE RARE /HPF
[2020-02-18 20:07] LABS: AMPHETAMINE SCREEN, URINE POSITIVE (NEGATIVE); BARBITURATE SCREEN URINE NEGATIVE (NEGATIVE); BENZODIAZEPINES SCREEN URINE POSITIVE (NEGATIVE); CANNABINOID SCREEN, URINE NEGATIVE (NEGATIVE); COCAINE SCREEN URINE NEGATIVE (NEGATIVE); METHADONE STAT NEGATIVE (NEGATIVE); METHAMPHETAMINE SCREEN URINE S POSITIVE (NEGATIVE); OPIATE SCREEN URINE POSITIVE (NEGATIVE); OXYCODONE STAT NEGATIVE (NEGATIVE); PROPOXYPHENE STAT NEGATIVE (NEGATIVE); TRICYCLIC ANTIDEPRESSANTS SCRE NEGATIVE (NEGATIVE)
[2020-02-18] MEDS: MAGNESIUM 1 GM/100 ML IVPB 100 ML IV SCH ×2 (21:15→21:16)
[2020-02-18] MEDS: inSUlin ASPART (NovoLOG) 1 UNIT/0.01 ML (CHARGE PER UNIT) SC SCH (21:15)
[2020-02-18] MEDS: NITROGLYCERIN 0.4 MG SL TABS BTL 25'S SL PRN (21:28)
[2020-02-18] MEDS: ACETAMINOPHEN 325 MG TABLET PO PRN (23:15)
[2020-02-19] VITALS (26 sets, daily range): BP systolic 89–123; BP diastolic 38–75
--- NOTE | 2020-02-19 01:00 | NUR ---
PT COMPLAINING OF CHEST PAIN AT THIS TIME. THIS RN OFFERED PT NITRO. PT REFUSES NITRO AT THIS TIME. PT STATES "THAT STUFF IS NASTY". PT STATES IT HELPED HER CHEST PAIN THE PREVIOUS TIME IT WAS GIVEN TO HER BUT SHE DIDNT WANT IT AT THIS TIME. EDUCATED PT. WILL CONTINUE TO MONITOR.
[2020-02-19] MEDS: NITROGLYCERIN 0.4 MG SL TABS BTL 25'S SL PRN (03:37)
[2020-02-19 04:31] LABS: BASOPHILS # (AUTO) 0.1 10^3/uL (0.0-0.1); BASOPHILS % (AUTO) 0 % (0-10); EOSINOPHILS # (AUTO) 0.2 10^3/uL (0.0-0.3); EOSINOPHILS % (AUTO) 2 % (0-10); HEMATOCRIT 37 % (35-52); HEMOGLOBIN 11.9 G/DL (11.5-16.0); LYMPHOCYTES # (AUTO) 4.7 X 10^3 (1.0-4.0); LYMPHOCYTES % (AUTO) 39 % (12-44); MEAN CORPUSCULAR HEMOGLOBIN 29 PG (25-34); MEAN CORPUSCULAR HGB CONC 33 G/DL (32-36); MEAN CORPUSCULAR VOLUME 90 FL (80-99); MONOCYTES # (AUTO) 1.3 X 10^3 (0.0-1.0); MONOCYTES % (AUTO) 11 % (0-12); NEUTROPHILS # (AUTO) 5.8 X 10^3 (1.8-7.8); NEUTROPHILS % (AUTO) 48 % (42-75); PLATELET COUNT 292 10^3/uL (130-400); RED CELL DISTRIBUTION WIDTH 15.1 % (10.0-14.5); WHITE BLOOD COUNT 12.1 10^3/uL (4.3-11.0)
[2020-02-19 04:42] LABS: CHLORIDE 105 MMOL/L (98-107); POTASSIUM 3.9 MMOL/L (3.6-5.0); SODIUM 140 MMOL/L (135-145)
[2020-02-19 04:43] LABS: CALCIUM 8.3 MG/DL (8.5-10.1)
[2020-02-19 04:44] LABS: GLUCOSE 133 MG/DL (70-105); TRIGLYCERIDES 157 MG/DL (<150); VLDL CHOLESTEROL 31 MG/DL (5-40)
[2020-02-19 04:45] LABS: CARBON DIOXIDE 25 MMOL/L (21-32)
[2020-02-19 04:47] LABS: GFR ESTIMATED > 60; PHOSPHORUS 2.9 MG/DL (2.3-4.7)
[2020-02-19 04:49] LABS: BUN/CREATININE RATIO 15; CHOLESTEROL 178 MG/DL (< 200)
[2020-02-19 04:50] LABS: HDL CHOLESTEROL 30 MG/DL (40-60); MAGNESIUM 2.5 MG/DL (1.6-2.4)
[2020-02-19] MEDS: inSUlin ASPART (NovoLOG) 1 UNIT/0.01 ML (CHARGE PER UNIT) SC SCH ×2 (05:53→20:19)
--- NOTE | 2020-02-19 07:57 | Diagnostic Imaging Report ---
INDICATION: Dyspnea. TECHNIQUE: Single view chest 4:28 AM. CORRELATION STUDY: 02/18/2020 FINDINGS: Heart size stable with vascular slightly increased. Interstitial markings appear slightly increased, may reflect prominent edema. No definitive consolidating infiltrate. Elevated right diaphragm. IMPRESSION: 1. Appears to be some increasing vascularity along with mildly prominent interstitial markings, could be mild fluid overload or failure. Atypical-type interstitial pneumonitis is also a consideration. Dictated by: Dictated on workstation # [id number]
[2020-02-19] MEDS ORDERED: TRZ50T PO (10:43)
[2020-02-19] MEDS ORDERED: ALLO100T PO (10:43)
[2020-02-19] MEDS ORDERED: GABA800T10 PO (10:43)
--- NOTE | 2020-02-19 10:45 | NUR ---
SPOKE WITH THE PT, WENT THRU THE EXT MED HISTORY AND SPOKE WITH KHADAR TO COMPLETE THE MED REC PT ADMITTED THAT SHE WASNT ALWAYS COMPLIANT BUT SINCE HER MOTHER PASSED SHE HASNT BEEN TAKING HER MEDICATIONS AT ALL. I DID INCLUDE ON THE MED REC WHAT SHE WAS TAKING AND PUT THE PAST DUE FILL DATES ON THE MED REC. ALL MEDS ARE SHOWING IN THE EXT MED HISTORY. OTC MEDS: NONE
[2020-02-19] MEDS ORDERED: HEParin (CATH LAB) 2,000 ML IV ONE (11:19)
[2020-02-19] MEDS ORDERED: NS IV 1000 ML 0 ML ONE (11:19)
[2020-02-19] MEDS ORDERED: LIDOCAINE 1% INJ 20 ML 20 ML VIAL ONE (11:19)
--- NOTE | 2020-02-19 11:22 | NUR ---
RD ASSESSMENT PMHx: HTN; afib; DM; GERD; CA(uterine) PT INTERACTION: Pt was awake and pleasant during dietary consult for MST score. Pt states current appetite is good, though she hasn't been eating since 02/07. Pt states her mother recently . Note PO intake x100% x1meal, per chart review. Note pt is currently NPO, per chart review. Pt states following a regular diet at home, and has no issues with chewing/swallowing food. Pt states some recent issues with nausea/vomiting. Pt states no recent issues with constipation/diarrhea, and that her last BM was 02/17. Note pt not currently on bowel regimen per chart review. Pt states no recent wt changes. Note recent 47# wt gain x2mon, per chart review. Upon visual assessment, pt appears to be very well nourished with visible signs of muscle/fat wasting, and a BMI of 47.6. Pt states current DM management as "unsure, I don't usually check." Note unable to determine recent HbA1c, per chart review. Given wt hx and recent PO intake, pt does not meet criteria for malnutrition per ASPEN guidelines. ABNORMAL NUTRITION-RELATED LAB VALUES LOW: HDL 30; Ca 8.3 HIGH: glu 133; Mg 2.5; TG 157; LDL 138 Est. kcal needs: 8261-2172 kcal | 15-18 kcal/kg Est. Pro needs: 97-122 g Pro | 0.8-1.0 g Pro/kg PES STATEMENT: Inadequate oral intake (NI-2.1) related to nausea | vomiting | NPO status as evidenced by pt interview | chart review INTERVENTION: Note pt currently NPO, pending procedure. Would recommend consistent CHO diet when medically able and as tolerated. Discontinue current supplementation order of Ensure Enlive (vary) with meals TID. Will continue to follow and reassess as pt needs, intake, and status change. MONITOR/EVALUATE: PO Intake; Plan of Care; Hydration Status; Weight Status; Lab Values Andrew Corrigan, , RD, LD
[2020-02-19] MEDS ORDERED: fentaNYL INJECTION 100 MCG/2 ML AMP ONE (11:28)
[2020-02-19] MEDS ORDERED: MIDAZOLAM 5 MG/5 ML (VERSED) VIAL ONE (11:28)
--- NOTE | 2020-02-19 11:46 | NUR ---
1148 Patient leaving floor via bed with cathode ray tube assembler RN.
[2020-02-19] MEDS ORDERED: inSUlin ASPART (NovoLOG) 1 UNIT/0.01 ML (CHARGE PER UNIT) SC SCH (12:00)
[2020-02-19] MEDS ORDERED: NITRO DRIP 25000 MCG/D5W 250 ML IV ONE (12:02)
[2020-02-19] MEDS ORDERED: HEParin 1000 UNIT/ML (10ML VIAL) FOR BOLUS ONE (12:02)
[2020-02-19] MEDS ORDERED: VERAPAMIL 5 MG/2 ML (CALAN) VIAL IV ONE (12:02)
[2020-02-19] MEDS ORDERED: MIDAZOLAM 2 MG/2 ML (VERSED) VIAL ONE (12:24)
--- NOTE | 2020-02-19 12:51 | NUR ---
Patient arrived back to ICU room CU11 at 1251
--- NOTE | 2020-02-19 13:43 | Consultation-Cardiology ---
HPI-Cardiology Cardiology Consultation: Date of Consultation 02/19/20 Date of Admission Attending Physician Maci Jackson MD Admitting Physician [facility], [facility] Consulting Physician Latoya FISHER MD HPI: Time Seen by a Provider: 11:00 Chief Complaint: Chest pain, palpitation This is a 54-year-old lady who presented to [facility] and was found to have supraventricular tachycardia and chest pain. History is unclear, however she has history of SVT and/or atrial fibrillation and takes digoxin for it. She is not on oral anticoagulation. She is had previous coronary angiography in 2012 or 2013 which did not show any significant CAD. She has history of active smoking. No pertinent family history. However she does have history of diabetes, hypertension or hyperlipidemia. She also has history of meth abuse. In [facility] her heart rate was over 200 bpm and blood pressure was systolic 80 mmHg. She was urgently cardioverted however she did not convert to sinus rhythm. Her blood pressure improved. She ultimately converted with adenosine IV. She was found to have leukocytosis, positive troponin, elevated BNP and continue to have chest pain therefore was transferred to [place]. When I saw her this morning she was still having chest discomfort but denied any other complaints. Mild to moderate intensity. No radiation. No exacerbating or relieving factors. Describe it as an ache in the substernal area. Review of Systems-Cardiology Review of Systems Constitutional: As described under HPI; No As described under HPI, No no s ymptoms reported, No chills, No fever, No lightheadedness Eyes: No As described under HPI, No no symptoms reported, No blindness, No blurred vision, No contact lenses, No drainage, No decreased acuity, No foreign body sensation, No pain, No vision change Ears/Nose/Throat: No As described under HPI, No no symptoms reported, No chronic hearing loss, No ear discharge, No ear pain, No nasal drainage, No ulcerations Respiratory: No no symptoms reported; As described under HPI; No As described under HPI, No cough, No orthopnea, No shortness of breath, No SOB with excertion Cardiovascular: No no symptoms reported; As described under HPI; No As described under HPI; chest pain; No edema, No irregular heart rate, No lightheadedness; palpitations Gastrointestinal: No no symptoms reported, No As described under HPI, No abdomen distended, No abdominal pain, No blood streaked bowels, No constipation, No diarrhea, No nausea, No vomiting, No stool coloration changes Genitourinary: No As described under HPI, No burning, No dysuria, No discharge, No frequency, No flank pain, No hematuria, No urgency : Yes : No Skin: No rash, No skin related problems, No ulcerations Psychiatric/Neurological: No anxiety, No depression, No seizure, No focal weakness, No syncope Hematologic: No bleeding abnormalities All Other Systems Reviewed Negative Unless Noted: Yes [id number] Hx Patient Social History Alcohol Use: Denies Use Recreational Drug Use: No (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) Drug of Choice: DENIES Type Used: Cigarettes 2nd Hand Smoke Exposure: No Recent Foreign Travel: No Recent Infectious Disease Expo: No Immunizations Up To Date Date of Pneumonia Vaccine: Jan 06, 2013 Date of Influenza Vaccine: Jan 20, 2013 Past Medical History PMH As described under Assessment. Family Medical History Family History: Asthma 19 MOTHER Diabetes mellitus 19 FATHER FH: COPD (chronic obstructive pulmonary disease) 19 MOTHER FH: emphysema 19 MOTHER Allergies and Home Medications Allergies Coded Allergies: aspirin (Unverified Allergy, Severe, THROAT SWELLS, 01/20/13) amoxicillin (Unverified Allergy, Intermediate, HIVES, 04/25/16) sulfamethoxazole (Unverified Allergy, Unknown, 01/20/13) trimethoprim (Unverified Allergy, Unknown, 01/20/13) Home Medications Acetaminophen 500 Mg Tablet, 1,000 MG PO Q4H PRN for PAIN-MILD, (Reported) Allopurinol 100 Mg Tablet, 100 MG PO DAILY, (Reported) LAST FILLED 11-28-2019 #30 Atorvastatin Calcium 10 Mg Tablet, 10 MG PO HS, (Reported) LAST FILLED 11-09-2019 #30 Digoxin 125 Mcg Tablet, 125 MCG PO DAILY, (Reported) Diltiazem HCl 240 Mg Cap.er.24h, 240 MG PO DAILY, (Reported) LAST FILLED 11-10-2019 #30 Fluoxetine HCl 40 Mg Capsule, 40 MG PO DAILY, (Reported) LAST FILLED 12-18-2019 #30 Gabapentin 800 Mg Tablet, 800 MG PO TID, (Reported) FILLED 11-09-2019 #90 Lisinopril 10 Mg Tablet, 10 MG PO DAILY, (Reported) LAST FILLED 11-28-2019 #30 Trazodone HCl 50 Mg Tablet, 50 MG PO HS PRN for SLEEP, (Reported) LAST FILLED 11-09-2019 #30 Patient Home Medication List Home Medication List Reviewed: Yes Physical Exam-Cardiology Physical Exam Vital Signs/I&O 02/19/20 02/19/20 02/19/20 02/19/20 02:00 03:00 03:37 03:57 Temp 37.1 Pulse 67 71 Resp 18 20 B/P (MAP) 107/59 (75) 100/56 (71) Pulse Ox 94 95 O2 Delivery Room Air Room Air Room Air 02/19/20 02/19/20 02/19/20 02/19/20 04:00 05:00 06:00 06:40 Pulse 69 67 71 70 Resp 18 17 20 B/P (MAP) 103/54 (70) 95/51 (66) 99/47 (64) Pulse Ox 93 93 92 O2 Delivery Room Air Room Air Room Air 02/19/20 02/19/20 02/19/20 02/19/20 07:00 08:00 08:00 09:00 Pulse 70 69 68 Resp 18 14 25 B/P (MAP) 105/57 (73) 112/62 (79) 96/38 (57) Pulse Ox 94 93 95 O2 Delivery Room Air Room Air Room Air Room Air 02/19/20 02/19/20 10:00 11:00 Pulse 67 66 Resp 16 11 B/P (MAP) 123/75 (91) 122/62 (82) Pulse Ox 91 93 O2 Delivery Room Air Room Air 02/19/20 00:00 Intake Total 1640 ml Output Total 100 ml Balance 1540 ml Capillary Refill : Less Than 3 Seconds Constitutional: appears stated age, AAO x 3; No apparent distress; well- developed, well-nourished HEENT: PERRL; No discharge; hearing is well preserved, oral hygience is good; No ulceration, No xanthelasmas are seen Neck: No carotid bruit; carotid pulses are 2 + bilaterally Respiratory: chest is bilaterally symmetric, lungs clear to auscultation Cardiovascular: regular rate-rhythm, S1 and S2 Gastrointestinal: soft, distended, audible bowel sounds; No spleenomegaly Rectal: deferred Extremities: normal range of motion, non-tender, normal inspection, pedal edema; No clubbing, No cyanosis, No significant edema Neurologic/Psychiatric: no motor/sensory deficits, alert, normal mood/affect, oriented x 3, power is 5/5 both on sides Skin: normal color; No rash, No ulcerations Data Review Labs Laboratory Tests 02/18/20 16:38: White Blood Count 20.3H, Red Blood Count 4.98, Hemoglobin 14.5, Hematocrit 45, Mean Corpuscular Volume 91, Mean Corpuscular Hemoglobin 29, Mean Corpuscular Hemoglobin Concent 32, Red Cell Distribution Width 14.7H, Platelet Count 333, Mean Platelet Volume 11.7H, Neutrophils (%) (Auto) 70, Lymphocytes (%) (Auto) 20, Monocytes (%) (Auto) 9, Eosinophils (%) (Auto) 0, Basophils (%) (Auto) 1, Neutrophils # (Auto) 14.2H, Lymphocytes # (Auto) 4.0, Monocytes # (Auto) 1.9H, Eosinophils # (Auto) 0.1, Basophils # (Auto) 0.1, Neutrophils % (Manual) 56, Lymphocytes % (Manual) 21, Monocytes % (Manual) 9, Eosinophils % (Manual) 0, Basophils % (Manual) 0, Band Neutrophils 14, Blood Morphology Comment NORMAL 02/18/20 17:00: Prothrombin Time 13.6, INR Comment 1.0, D-Dimer 0.64H, Sodium Level 144, Potassium Level 4.2, Chloride Level 105, Carbon Dioxide Level 24, Anion Gap 15H, Blood Urea Nitrogen 14, Creatinine 0.92, Estimat Glomerular Filtration Rate > 60, BUN/Creatinine Ratio 15, Glucose Level 148H, Calcium Level 8.9, Corrected Calcium 9.2, Magnesium Level 1.4L, Total Bilirubin 0.4, Aspartate Amino Transf ( AST/SGOT) 28, Alanine Aminotransferase (ALT/SGPT) 25, Alkaline Phosphatase 95, Troponin I 0.40*H, Pro-B-Type Natriuretic Peptide 2805.0H, Total Protein 6.3L, Albumin 3.6 02/18/20 18:31: Urine Opiates Screen POSITIVEH, Urine Oxycodone Screen NEGATIVE, Urine Methadone Screen NEGATIVE, Urine Propoxyphene Screen NEGATIVE, Urine Barbiturates Screen NEGATIVE, Ur Tricyclic Antidepressants Screen NEGATIVE, Urine Phencyclidine Screen NEGATIVE, Urine Amphetamines Screen POSITIVEH, Urine Methamphetamines Screen POSITIVEH, Urine Benzodiazepines Screen POSITIVEH, Urine Cocaine Screen NEGATIVE, Urine Cannabinoids Screen NEGATIVE 4/16/20 18:40: Troponin I 0.512*H, Digoxin Level < 0.30L 02/18/20 19:37: Urine Color YELLOW, Urine Clarity CLEAR, Urine pH 5.5, Urine Specific Ider >=1.030, Urine Protein 1+H, Urine Glucose (UA) NEGATIVE, Urine Ketones NEGATIVE, Urine Nitrite NEGATIVE, Urine Bilirubin NEGATIVE, Urine Urobilinogen 0.2, Urine Leukocyte Esterase NEGATIVE, Urine RBC (Auto) TRACE-L, Urine RBC 2-5H, Urine WBC RARE, Urine Crystals NONE, Urine Bacteria FEWH, Urine Casts NONE, Urine Mucus MODERATEH, Urine Culture Indicated NO 02/18/20 20:58: Glucometer 195H 02/18/20 23:02: Troponin I 0.546*H, B-Type Natriuretic Peptide 207.7H 02/19/20 04:23: Troponin I 0.489*H, White Blood Count 12.1H, Red Blood Count 4.06L, Hemoglobin 11.9, Hematocrit 37, Mean Corpuscular Volume 90, Mean Corpuscular Hemoglobin 29, Mean Corpuscular Hemoglobin Concent 33, Red Cell Distribution Width 15.1H, Platelet Count 292, Mean Platelet Volume 11.0H, Neutrophils (%) (Auto) 48, Lymphocytes (%) (Auto) 39, Monocytes (%) (Auto) 11, Eosinophils (%) (Auto) 2, Basophils (%) (Auto) 0, Neutrophils # (Auto) 5.8, Lymphocytes # (Auto) 4.7H, Monocytes # (Auto) 1.3H, Eosinophils # (Auto) 0.2, Basophils # (Auto) 0.1, Sodium Level 140, Potassium Level 3.9, Chloride Level 105, Carbon Dioxide Level 25, Anion Gap 10, Blood Urea Nitrogen 12, Creatinine 0.80, Estimat Glomerular Filtration Rate > 60, BUN/Creatinine Ratio 15, Glucose Level 133H, Calcium Level 8.3L, Phosphorus Level 2.9, Magnesium Level 2.5H, Triglycerides Level 157H, Cholesterol Level 178, LDL Cholesterol Direct 138H, VLDL Cholesterol 31, HDL Cholesterol 30L ECG Impression ECG Comment Initial EKG shows SVT over 200 BPM. After adenosine which shows sinus rhythm. A/P-Cardiology Assessment/Admission Diagnosis Non-STEMI, Acute diastolic congestive heart failure, SVT, Possible atrial fibrillation, Hypertension, Diabetes, Hyperlipidemia, Drug abuse. Active smoking. Plan Non-STEMI, positive troponin in a patient with recurring chest pain. Patient has history of diabetes, active smoking, hypertension, hyperlipidemia. I discussed at length with the patient and recommended coronary angiography. Patient gave informed consent. I discussed the risk of complication including one to 2 percent risk off vascular damage, nerve damage, bleeding, cardiac complication and even . Patient understands all the recent complication and agreed to proceed with the procedure. Patient was given a dose of Lovenox last night. Not on aspirin or Plavix. Acute diastolic congestive heart failure, elevated BNP. Echocardiogram shows n ormal ejection fraction with diastolic dysfunction. Mild congestive heart failure. Will not give IV Lasix for now. SVT, will require EP study and ablation in the future. We will discontinue digoxin and discharge on a beta sunita. Possible atrial fibrillation, EKG showed SVT. Regular narrow complex tachycardia. Unlikely atrial fibrillation however was dismal atrial tachycardia cannot be ruled out. The patient may require an event monitor as an outpatient or an implantable loop recorder. Hypertension, continue outpatient medical therapy. Diabetes, deferred to the primary team. Hyperlipidemia, continue atorvastatin. Drug abuse. Educated. Smoking cessation was strongly recommended. Complicated patient with multiple medical issue and management as above. Thank you for your consultation. Please call me if you have any questions. Darnell Fisher MD, FACP, FACC, [facility] [place], RS, CCDS Interventional Cardiology Cardiac Electrophysiology Vascular Medicine and Endovascular Interventions Clinical Quality Measures DVT/VTE Risk/Contraindication: Risk Factor Score Per Nursin RFS Level Per Nursing on Admit: 4+=Very High Latoya FISHER MD Feb 19, 2020 13:43
--- NOTE | 2020-02-19 13:44 | Cardiac Procedure Note-CS/ASA ---
Pre-Procedure Note Pre-Op Procedure Note H&P Reviewed The H&P was reviewed, patient examined and no changes noted. Date H&P Reviewed: Feb 19, 2020 Time H&P Reviewed: 12:00 Conscious Sedation Pre-Proced Time 12:00 ASA Score 3 For ASA 3 and 4: Consider anesthesia and medical clearance. Also, for patients with a history of failed moderate sedation consider anesthesia. Airway Lungs Heart ASA score ASA 1: a normal healthy patient ASA 2: a patient with a mild systemic disease (mid diabetes, controlled hypertension, obesity ASA 3: a patient with a severe systemic disease that limits activity (angina, COPD, prior Myocardial infarction) ASA 4: a patient with an incapacitating disease that is a constant threat to life (CHF, renal failure) ASA 5: a moribund patient not expected to survive 24 hrs. (ruptured aneurysm) ASA 6: a declared brain- patient whose organs are being harvested. For emergent operations, add the letter E after the classification Mallampati Classification Grade 1 Sedation Plan Analgesia, Amnesia, Plan communicated to team members, Discussed options with patient/fam, Discussed risks with patient/fam The patient is an appropriate candidate to undergo the planned procedure, sedation, and anesthesia. The patient immediately re-assessed prior to indication. Latoya OSORIO MD Feb 19, 2020 13:44
[2020-02-19] MEDS ORDERED: PATIENT MAY USE OWN MEDS, ALL PO SCH (13:45)
--- NOTE | 2020-02-19 13:46 | Coronary Angiography Report ---
Coronary Angiography Report DATE OF PROCEDURE: 02/19/20 INDICATION: Non-STEMI. PREOPERATIVE DIAGNOSIS: Non-STEMI. POSTOPERATIVE DIAGNOSIS: Patent epicardial coronary arteries, likely type II myocardial infarction. HISTORY: This is a 54-year-old lady who presented to [facility] and was found to have supraventricular tachycardia and chest pain. History is unclear, however she has history of SVT and/or atrial fibrillation and takes digoxin for it. She is not on oral anticoagulation. She is had previous coronary angiography in 2012 or 2013 which did not show any significant CAD. She has history of active smoking. No pertinent family history. However she does have history of diabetes, hypertension or hyperlipidemia. She also has history of meth abuse. In [facility] her heart rate was over 200 bpm and blood pressure was systolic 80 mmHg. She was urgently cardioverted however she did not convert to sinus rhythm. Her blood pressure improved. She ultimately converted with adenosine IV. She was found to have leukocytosis, positive troponin, elevated BNP and continue to have chest pain therefore was transferred to [place]. When I saw her this morning she was still having chest discomfort but denied any ot her complaints. Mild to moderate intensity. No radiation. No exacerbating or relieving factors. Describe it as an ache in the substernal area. Positive cardiac enzymes with working diagnosis of non-STEMI. Therefore, the patient was scheduled for coronary angiography. PROCEDURES PERFORMED: 1.Coronary angiography. 2.Left heart catheterization. 3. Aortic arch angiogram: Medical necessity: To rule out aortic dissection/aneurysm in a patient with patent epicardial coronary arteries and ongoing chest discomfort. COMPLICATIONS: None. SPECIMENS: None. ESTIMATED BLOOD LOSS: 10 mL ANESTHESIA: Conscious sedation ANTICOAGULATION: IV heparin CONTRAST: 85 mL. FLUOROSCOPY: 8.6 minutes. FLOUROSCOPY DOSE: 942 mgy. PROCEDURE DETAILS: The patient is a 54 female and was brought to the slab installer after informed consent was taken. All the risks and complications were explained in detail; this included the risk of bleeding, vascular damage, stroke, VT and even . The patient was draped and prepped in the usual sterile fashion. Access was gained in the right radial artery with a 6 [place] sheath. Coronary angiography and left heart catheterization was performed with the [place] catheter. Right coronary artery was engaged with a JR4 catheter. FINDINGS: 1.Left main: Patent. 2.LAD: Luminal irregularities. 3.Left circumflex artery: Luminal irregularities. 4.RCA: Luminal irregularities. 5.Left heart catheterization: LV pressure 97/3 mmHg. LVEDP 18 mmHg. Aortic pressure 102/60 mmHg. Normal LV function with no wall motion abnormalities. No gradient across the aortic valve. 6. Aortic arch angiogram: No evidence of aortic dissection or aneurysm. Patent proximal segments of the great arteries. CONCLUSIONS: Patent epicardial coronary arteries. Normal LV function. Diastolic dysfunction noted. Type II myocardial infarction likely due to SVT. Darnell Fisher MD, FACP, FACC, [facility] Interventional Cardiology Latoya FISHER MD Feb 19, 2020 13:46
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
[2020-02-19] MEDS: NS IV 1000 ML 1,000 ML IV SCH ×2 (19:23→20:19)
[2020-02-19] MEDS: LACTATED RINGERS 1,000 ML IV SCH (19:23)
--- NOTE | 2020-02-19 19:30 | NUR ---
PT REFUSING IV FLUIDS AT THIS TIME. PT STATES "GIANCARLO BEEN DRINKING A LOT OF WATER, I DONT NEED MORE THAT WILL MAKE ME PEE ALL NIGHT".
[2020-02-19] MEDS: ACETAMINOPHEN 325 MG TABLET PO PRN (21:13)
[2020-02-20] VITALS (17 sets, daily range): BP systolic 92–147; BP diastolic 47–81
[2020-02-20 04:12] LABS: BASOPHILS % (AUTO) 0 % (0-10); EOSINOPHILS # (AUTO) 0.2 10^3/uL (0.0-0.3); EOSINOPHILS % (AUTO) 2 % (0-10); HEMATOCRIT 37 % (35-52); LYMPHOCYTES # (AUTO) 3.2 X 10^3 (1.0-4.0); LYMPHOCYTES % (AUTO) 37 % (12-44); MEAN CORPUSCULAR HEMOGLOBIN 29 PG (25-34); MEAN CORPUSCULAR HGB CONC 32 G/DL (32-36); MEAN CORPUSCULAR VOLUME 91 FL (80-99); MEAN PLATELET VOLUME 11.8 FL (7.4-10.4); MONOCYTES # (AUTO) 0.9 X 10^3 (0.0-1.0); MONOCYTES % (AUTO) 11 % (0-12); NEUTROPHILS # (AUTO) 4.3 X 10^3 (1.8-7.8); NEUTROPHILS % (AUTO) 50 % (42-75); PLATELET COUNT 261 10^3/uL (130-400); RED CELL DISTRIBUTION WIDTH 14.9 % (10.0-14.5); WHITE BLOOD COUNT 8.7 10^3/uL (4.3-11.0)
[2020-02-20 04:23] LABS: BUN/CREATININE RATIO 17; CALCIUM 8.4 MG/DL (8.5-10.1); CARBON DIOXIDE 22 MMOL/L (21-32); CHLORIDE 107 MMOL/L (98-107); CREATININE SERUM 0.77 MG/DL (0.60-1.30); GFR ESTIMATED > 60; GLUCOSE 120 MG/DL (70-105); PHOSPHORUS 3.4 MG/DL (2.3-4.7); POTASSIUM 3.6 MMOL/L (3.6-5.0); SODIUM 141 MMOL/L (135-145)
[2020-02-20] MEDS: inSUlin ASPART (NovoLOG) 1 UNIT/0.01 ML (CHARGE PER UNIT) SC SCH ×3 (04:31→14:06)
[2020-02-20] MEDS: NS IV 1000 ML 1,000 ML IV SCH (07:54)
--- NOTE | 2020-02-20 08:12 | Diagnostic Imaging Report ---
INDICATION: Dyspnea. Time of exam 3:14 AM Correlation is made with prior chest one day earlier. Heart size normal. Lungs are clear. Right hemidiaphragm is mildly elevated. No infiltrate, effusion or pneumothorax is seen. IMPRESSION: No acute cardiopulmonary process is detected. Dictated by: Dictated on workstation # [id number]
[2020-02-20] MEDS ORDERED: ASPIRIN E.C. 81 MG (ECOTRIN) TAB PO SCH (09:00)
[2020-02-20] MEDS ORDERED: ENOXAPARIN 40 MG/0.4 ML (LOVENOX) SYR SQ SCH (09:00)
--- NOTE | 2020-02-20 11:00 | NUR ---
THIS NURSE UPDATED DR OSORIO ON PT CONDITION. PT RESTING IN BED. VOICES NO COMPLAINTS. PT IS OKAY TO DC FROM DR OSORIO STANDPOINT. PT IS TO FOLLOW UP IN 3-4 WKS. THIS NURSE WILL SEND FOLLOW-UP FAX IF PT DC.
--- NOTE | 2020-02-20 11:23 | Cardiology Progress Note ---
Cardiology SOAP Progress Note Subjective: No cardiac complaints. Objective: I&O/Vital Signs 02/19/20 02/19/20 02/20/20 02/20/20 23:59 23:59 00:00 01:00 Temp 37.0 Pulse 64 61 Resp 19 B/P (MAP) 100/54 (69) Pulse Ox 93 O2 Delivery Room Air Room Air 02/20/20 02/20/20 02/20/20 02/20/20 01:00 02:00 03:00 04:00 Pulse 59 56 56 58 Resp 14 20 17 15 B/P (MAP) 92/47 (62) 109/66 (80) 106/60 (75) Pulse Ox 95 95 94 94 O2 Delivery Room Air Room Air Room Air Room Air 02/20/20 02/20/20 02/20/20 02/20/20 04:07 04:07 05:00 06:00 Temp 36.0 Pulse 57 60 Resp 18 17 B/P (MAP) 94/51 (65) 113/65 (81) Pulse Ox 94 94 O2 Delivery Room Air Room Air Room Air 02/20/20 02/20/20 02/20/20 02/20/20 07:00 07:00 07:46 07:50 Temp 36.2 Pulse 55 68 Resp 14 B/P (MAP) 119/64 (82) Pulse Ox 96 96 O2 Delivery Room Air Room Air 02/20/20 02/20/20 02/20/20 02/20/20 08:00 09:00 10:00 11:00 Pulse 63 61 60 65 Resp 12 10 12 B/P (MAP) 123/64 (83) 125/67 (86) 114/54 (74) 108/66 (80) Pulse Ox 95 97 94 93 O2 Delivery Room Air Room Air Room Air Room Air 02/20/20 11:13 Pulse Ox 94 O2 Delivery Room Air 02/20/20 00:00 Intake Total 850 ml Output Total 500 ml Balance 350 ml Weight (Pounds): 240 Weight (Ounces): 9.6 Weight (Calculated Kilograms): [id number] Constitutional: appears stated age, AAO x 3; No apparent distress; well- developed, well-nourished Respiratory: chest is bilaterally symmetric, lungs clear to auscultation Cardiovascular: regular rate-rhythm, S1 and S2 Gastrointestional: soft, distended, audible bowel sounds; No spleenomegaly Extremities: normal range of motion, non-tender, normal inspection, pedal edema; No clubbing, No cyanosis, No significant edema Neurologic/Psychiatric: no motor/sensory deficits, alert, normal mood/affect, oriented x 3, power is 5/5 both on sides Skin: normal color; No rash, No ulcerations Results/Procedures: Labs Laboratory Tests 02/19/20 13:48: Glucometer 156H 02/19/20 20:05: Glucometer 132H 02/20/20 03:12: White Blood Count 8.7, Red Blood Count 4.08L, Hemoglobin 12.0, Hematocrit 37, Mean Corpuscular Volume 91, Mean Corpuscular Hemoglobin 29, Mean Corpuscular Hemoglobin Concent 32, Red Cell Distribution Width 14.9H, Platelet Count 261, Mean Platelet Volume 11.8H, Neutrophils (%) (Auto) 50, Lymphocytes (%) (Auto) 37, Monocytes (%) (Auto) 11, Eosinophils (%) (Auto) 2, Basophils (%) (Auto) 0, Neutrophils # (Auto) 4.3, Lymphocytes # (Auto) 3.2, Monocytes # (Auto) 0.9, Eosinophils # (Auto) 0.2, Basophils # (Auto) 0.0, Sodium Level 141, Potassium Level 3.6, Chloride Level 107, Carbon Dioxide Level 22, Anion Gap 12, Blood Urea Nitrogen 13, Creatinine 0.77, Estimat Glomerular Filtration Rate > 60, BUN/Creatinine Ratio 17, Glucose Level 120H, Calcium Level 8.4L, Phosphorus Level 3.4, Magnesium Level 2.0 02/20/20 09:15: Glucometer 179H A/P: Assessment/Dx: Type II myocardial infarction, Acute diastolic congestive heart failure, SVT, Possible atrial fibrillation, Hypertension, Diabetes, Hyperlipidemia, Drug abuse. Active smoking. Plan: Type II myocardial infarction, coronary angiography showed minimal CAD on 02/19/2020. Positive troponin likely due to SVT. Acute diastolic congestive heart failure, elevated BNP. Echocardiogram shows normal ejection fraction with diastolic dysfunction. Mild congestive heart failure. Will not give IV Lasix for now. SVT, will require EP study and ablation in the future. We will discontinue digoxin and discharge on a beta sunita. Possible atrial fibrillation, EKG showed SVT. Regular narrow complex tachycardia. Unlikely atrial fibrillation however was paroxysmal atrial tachycardia cannot be ruled out. The patient may require an event monitor as an outpatient or an implantable loop recorder. Hypertension, continue outpatient medical therapy. Diabetes, deferred to the primary team. Hyperlipidemia, continue atorvastatin. Drug abuse. Educated. Smoking cessation was strongly recommended. Outpatient follow-up with cardiology in 3-4 weeks. Thank you for your consultation. Please call me if you have any questions. Darnell Fisher MD, FACP, FACC, FSCAI, FHRS, CCDS Interventional Cardiology Cardiac Electrophysiology Vascular Medicine and Endovascular Interventions Latoya FISHER MD Feb 20, 2020 11:23
[2020-02-20] MEDS ORDERED: METO-333 PO (12:09)
--- NOTE | 2020-02-20 12:09 | Discharge Summary ---
Discharge Summary Hospital Course Was the Problem List Reviewed?: Yes Problems/Dx: (1) Supraventricular tachycardia Status: Resolved (2) Elevated troponin Status: Acute (3) Diabetes Status: Chronic Qualifiers: (4) HTN (hypertension) Status: Chronic Qualifiers: Qualified Codes: I10 - Essential (primary) hypertension (5) Suicidal ideation Status: Acute (6) Methamphetamine abuse Status: Acute Hospital Course Date of Admission: Feb 18, 2020 at 17:05 Admission Diagnosis : Family Physician/Provider: Center/[facility] [place] Date of Discharge: 02/20/20 Discharge Diagnosis: SVT, Type II NSTEMI, Meth use, emotional problems Hospital Course: Patient was admitted for SVT and elevated troponin with recent meth use and suicidal ideation without a plan. Patient was managed in ICU and taken to cath labs revealing patent coronary vessels so elevated troponin was from SVT. Meds were reviewed by Dr Fisher at [facility] and multiple changes made including addition of Metoprolol sent in to pharmacy and patient agreeable for [facility]. Labs and Pending Lab Test: Laboratory Tests 02/19/20 13:48: Glucometer 156H 02/19/20 20:05: Glucometer 132H 02/20/20 03:12: White Blood Count 8.7, Red Blood Count 4.08L, Hemoglobin 12.0, Hematocrit 37, Mean Corpuscular Volume 91, Mean Corpuscular Hemoglobin 29, Mean Corpuscular Hemoglobin Concent 32, Red Cell Distribution Width 14.9H, Platelet Count 261, Mean Platelet Volume 11.8H, Neutrophils (%) (Auto) 50, Lymphocytes (%) (Auto) 37, Monocytes (%) (Auto) 11, Eosinophils (%) (Auto) 2, Basophils (%) (Auto) 0, Neutrophils # (Auto) 4.3, Lymphocytes # (Auto) 3.2, Monocytes # (Auto) 0.9, Eosinophils # (Auto) 0.2, Basophils # (Auto) 0.0, Sodium Level 141, Potassium Level 3.6, Chloride Level 107, Carbon Dioxide Level 22, Anion Gap 12, Blood Urea Nitrogen 13, Creatinine 0.77, Estimat Glomerular Filtration Rate > 60, BUN/Creatinine Ratio 17, Glucose Level 120H, Calcium Level 8.4L, Phosphorus Level 3.4, Magnesium Level 2.0 02/20/20 09:15: Glucometer 179H Home Meds Active Reported Trazodone HCl 50 Mg Tablet 50 Mg PO HS PRN LAST FILLED 11-09-2019 #30 Allopurinol 100 Mg Tablet 100 Mg PO DAILY LAST FILLED 11-28-2019 #30 Gabapentin 800 Mg Tablet 800 Mg PO TID FILLED 11-09-2019 #90 Tylenol Extra Strength (Acetaminophen) 500 Mg Tablet 1,000 Mg PO Q4H PRN Digoxin 125 Mcg Tablet 125 Mcg PO DAILY Atorvastatin Calcium 10 Mg Tablet 10 Mg PO HS LAST FILLED 11-09-2019 #30 Lisinopril 10 Mg Tablet 10 Mg PO DAILY LAST FILLED 11-28-2019 #30 Diltiazem 24Hr Cd (Diltiazem HCl) 240 Mg Cap.er.24h 240 Mg PO DAILY LAST FILLED 11-10-2019 #30 Prozac (Fluoxetine HCl) 40 Mg Capsule 40 Mg PO DAILY LAST FILLED 12-18-2019 #30 Assessment/Pt Instructions [facility] 1 week Discharge Planning: <30 minutes discharge planning Discharge Instructions Discharge Diet: No Restrictions Activity as Tolerated: Yes Discharge Physical Examination Vital Signs Vital Signs Date Time Temp Pulse Resp B/P (MAP) Pulse Ox O2 Delivery O2 Flow Rate FiO2 02/20/20 12:00 83 15 91 Room Air 02/20/20 12:00 36.0 General Appearance: No Apparent Distress, WD/WN, Chronically ill, Obese Respiratory: Lungs Clear Cardiovascular: Regular Rate, Rhythm Allergies: Coded Allergies: aspirin (Unverified Allergy, Severe, THROAT SWELLS, 01/20/13) amoxicillin (Unverified Allergy, Intermediate, HIVES, 04/25/16) sulfamethoxazole (Unverified Allergy, Unknown, 01/20/13) trimethoprim (Unverified Allergy, Unknown, 01/20/13) Discharge Summary Date of Admission Feb 18, 2020 at 17:05 Date of Discharge Discharge Date: Feb 20, 2020 Clinical Quality Measures DVT/VTE Risk/Contraindication: Risk Factor Score Per Nursin RFS Level Per Nursing on Admit: 4+=Very High SPIKE BERRIOS DO Feb 20, 2020 12:09
--- NOTE | 2020-02-20 12:26 | NUR ---
THIS NURSE NOTIFIED DR OSORIO PT IS GOING HOME AND HOME MED LIST NEEDS TO BE UPDATED.
--- NOTE | 2020-02-20 14:30 | NUR ---
THIS NURSE CLARIFIED HOME MEDICATION LIST WITH DR OSORIO.
[2020-02-20] MEDS: ACETAMINOPHEN 325 MG TABLET PO PRN (15:43)
--- NOTE | 2020-02-20 17:02 | NUR ---
THIS NURSE EDUCATED PT ON DISCHARGE INSTRUCTION AND ANSWERED PT QUESTIONS. PT STATED UNDERSTANDING.
[2020-02-20] MEDS ORDERED: meTOprolol TARTRATE 25 MG (LOPRESSOR) TABLET PO SCH (21:00)
== END 2020-02-20 17:55 | disposition home or self-care (01) | DRG 280 ==
LOC: EDUNIT# 15:56 → ER FS 15:57 → ICU 17:05 → ER 17:20
PROVIDERS: ADMIT Family Medicine; ATTEND Family Medicine
PROC: 4A023N7 Measurement of Cardiac Sampling and Pressure, Left Heart, Percutaneous Approach (ICD-10-PCS; principal; 2020-02-19)
PROC: B2111ZZ Fluoroscopy of Multiple Coronary Arteries using Low Osmolar Contrast (ICD-10-PCS; 2020-02-19)
PROC: B2151ZZ Fluoroscopy of Left Heart using Low Osmolar Contrast (ICD-10-PCS; 2020-02-19)
PROC: B3101ZZ Fluoroscopy of Thoracic Aorta using Low Osmolar Contrast (ICD-10-PCS; 2020-02-19)
DX: I47.1 Supraventricular tachycardia (principal); I21.A1 Myocardial infarction type 2; I11.0 Hypertensive heart disease with heart failure; I50.31 Acute diastolic (congestive) heart failure; Z68.42 Body mass index [BMI] 45.0-49.9, adult; R45.851 Suicidal ideations; F41.9 Anxiety disorder, unspecified; F17.210 Nicotine dependence, cigarettes, uncomplicated; E66.9 Obesity, unspecified; I48.91 Unspecified atrial fibrillation; I95.9 Hypotension, unspecified; R79.89 Other specified abnormal findings of blood chemistry; E11.9 Type 2 diabetes mellitus without complications; F15.10 Other stimulant abuse, uncomplicated; F32.9 Major depressive disorder, single episode, unspecified; R16.0 Hepatomegaly, not elsewhere classified; K21.9 Gastro-esophageal reflux disease without esophagitis; G25.81 Restless legs syndrome; M19.91 Primary osteoarthritis, unspecified site; I67.1 Cerebral aneurysm, nonruptured; G58.9 Mononeuropathy, unspecified; Z79.84 Long term (current) use of oral hypoglycemic drugs; Z91.14 Patient's other noncompliance with medication regimen; Z85.42 Personal history of malignant neoplasm of other parts of uterus; Z90.710 Acquired absence of both cervix and uterus; Z91.5 Personal history of self-harm; Z87.442 Personal history of urinary calculi; E78.5 Hyperlipidemia, unspecified
CPT/HCPCS: 36221; 36415; 71045; 80048; 80053; 80061; 80162; 80306; 81000; 82962; 83735; 83880; 84100; 84484; 85007; 85025; 85027; 85379; 85610; 93005; 93306; 93458; 96361; 96372; 96374; 96375; 99291

== ENCOUNTER 2020-04-29 19:16 | Emergency (ER) | payer MEDICAID ==
[~2020-04-29] VITALS: Ht 162.6 cm; Wt 80.0 kg
[~2020-04-29 19:16] MED LIST changes: +ALLO100T PO; -CATHETER FLUSH 10 ML SYR IV ONE; +GABA800T10 PO; +METO-333 PO; +TRZ50T PO
--- OUTSIDE RECORDS SUMMARY | 2020-04-29 19:22 | XMS REPORT | Clinical Summary ---
Author Author [facility] Organization [facility] Address Unknown Phone Unavailable Care Team Providers Care Clinical Microbiologist Name Role Phone Mikhail Banegas MD Unavailable Unavailable Self, Referral PCP Unavailable Source Comments Some departments are not documenting in the electronic medical record. If you d o not see the information that you expected, contact Release of Information in [facility] [employer] Information Management department at [phone] for further assistan ce in locating additional records.[facility] Allergies Comments Active Allergy Reactions Severity Noted Date "my throat swells up" Aspirin SEE COMMENTS High 12/04/2011 Medications End Date Status Medication Sig Dispensed Refills Start Date Active oxyCODONE/acetaminophen Take 1 Tab by 0 (PERCOCET; ENDOCET) mouth every 6 10/325 mg tablet hours as needed. Max 12 tabs/day Active Problems Not on file Social History Date Tobacco Use Types Packs/Day Years Used Current Every Day Smoker Cigarettes 1 33 Drinks/Week oz/Week Comments Alcohol Use "socially" No Sex Assigned at Date Recorded Not on file Industry Job Start Date Occupation Not on file Not on file Not on file Travel End Travel History Travel Start No recent travel history available. 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
--- OUTSIDE RECORDS SUMMARY | 2020-04-29 19:25 | XMS REPORT | Continuity of Care Document ---
Author Organization Unknown Address Unknown Phone Unavailable Allergies Active Description Code Type Severity Reaction Onset Reported/Identified Relationship to Patient Clinical Status Yes aspirin [id number] Drug Allergy Severe THROAT SWELLS 01/20/2013 Yes aMOXICILLIN aMOXICILLIN Unknown HIVES 01/20/2013 Yes sulfamethoxazole [id number] Drug Allergy Unknown N/A 01/20/2013 Yes trimethoprim [id number] Drug Allergy Unknown N/A 01/20/2013 Yes amoxicillin [id number] Drug Aller gy Moderate HIVES 04/25/2016 Medications There is no data. 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 01/26/2013 Ot 300.00 ANX IETY STATE NOS 01/26/2013 Ot 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 01/26/2013 Ot 311 DEPRES SIVE DISORDER NEC 01/26/2013 Ot 427.31 ATR IAL FIBRILLATION 01/26/2013 Ot 591 HYDRON EPHROSIS 01/26/2013 Ot 592.0 CALC ULUS OF KIDNEY 01/26/2013 Ot 592.1 CALC ULUS OF URETER 01/26/2013 Ot 599.0 URIN TRACT INFECTION NOS 01/26/2013 Ot 724.5 BACK ACHE NOS 01/26/2013 Ot 995.92 SEV ERE SEPSIS 01/26/2013 Ot V85.43 BOD Y MASS INDEX 50.0-59.9, ADULT 02/04/2013 Ot 592.0 CALC ULUS OF KIDNEY 03/10/2013 SUNDAR CUADRA, ALI FACP CCDS Ot 305.1 TOBACCO USE DISORDER 03/10/2013 SUNDAR HINOJOSA FACC, ALI FACP CCDS Ot 427.31 ATRIAL FIBRILLATION 03/10/2013 SUNDAR HINOJOSA FACC, ALI FACP CCDS Ot 786.05 SHORTNESS OF BREATH 03/10/2013 SUNDAR HINOJOSA FACC, ALI FACP CCDS Ot 786.59 CHEST PAIN NEC 03/10/2013 SUNDAR HINOJOSA FACC, ALI FACP CCDS Ot V13.01 PERSONAL HISTORY OF URINARY CALCULI 03/10/2013 SUNDAR HINOJOSA FACC, ALI FACP CCDS Ot V58.63 LONG-TERM(CURRENT)USE OF ANTIPLATELET/AN 03/10/2013 SUNDAR HINOJOSA FACC, ALI FACP CCDS Ot V58.66 LONG-TERM (CURRENT) USE OF ASPIRIN 03/10/2013 SUNDAR CUADRA, ALI FACP CCDS Ot V85.43 BODY MASS INDEX 50.0-59.9, ADULT 02/09/2016 EMI VARMA MD Ot N20.0 CALCULUS OF KIDNEY 02/09/2016 EMI VARMA MD Ot Z01.8 18 ENCOUNTER FOR OTHER PREPROCEDURAL EXAMIN 02/14/2016 Ot 592.0 02/14/2016 Ot V72.83 02/14/2016 Ot V74.8 02/14/2016 Ot 592.0 02/14/2016 Ot V45.89 02/14/2016 Ot 592.0 02/14/2016 Ot V67.09 02/14/2016 Ot V72.84 02/14/2016 PERRY CRISOSTOMO PROTOHISTORIAN Ot V58.63 02/14/2016 PERRY CRISOSTOMO PROTOHISTORIAN Ot V58.83 02/14/2016 EMI VARMA MD Ot 592.0 02/14/2016 Ot N20.0 02/14/2016 EMI VARMA MD Ot N20.0 CALCULUS OF KIDNEY 02/17/2016 Ot N20.0 CALC ULUS OF KIDNEY 02/27/2016 Ot 592.0 CALC ULUS OF KIDNEY 02/27/2016 Ot V72.83 EXA M PRE- OPERATIVE NEC 02/27/2016 Ot V74.8 SCRE EN-BACTERIAL DIS NEC 02/27/2016 Ot 592.0 CALC ULUS OF KIDNEY 02/27/2016 Ot V45.89 POS TSURGICAL STATES NEC 02/27/2016 Ot 592.0 CALC ULUS OF KIDNEY 02/27/2016 Ot V67.09 SCOT STEPHANIE FOLLOW- UP, OTHER SURGERY 02/27/2016 Ot V72.84 EXA M PRE- OPERATIVE NOS 02/27/2016 PERRY CRISOSTOMO Ot V58.63 LONG-TERM(CURRENT)USE OF ANTIPLATELET/AN 02/27/2016 PERRY CRISOSTOMOP Ot V58.83 ENCOUNTER FOR THERAPEUTIC DRUG MONITORIN 02/27/2016 EMI VARMA MD Ot 592.0 CALCULUS OF KIDNEY 02/27/2016 Ot N20.0 CALC ULUS OF KIDNEY 02/29/2016 EMI VARMA MD Ot N20.0 CALCULUS OF KIDNEY 02/29/2016 EMI VARMA MD Ot Z98.8 9 OTHER SPECIFIED POSTPROCEDURAL STATES 03/13/2016 EMI VARMA MD Ot N20.0 CALCULUS OF KIDNEY 03/13/2016 EMI VARMA MD Ot Z98.8 9 OTHER SPECIFIED POSTPROCEDURAL STATES 03/29/2016 EMI VARMA MD Ot N20.0 CALCULUS OF KIDNEY 03/29/2016 EMI VARMA MD Ot Z48.8 16 ENCOUNTER FOR SURGICAL AFTCR FOLLOWING S 04/13/2016 EMI VARMA MD Ot N20.0 CALCULUS OF KIDNEY 04/13/2016 EMI VARMA MD Ot Z48.8 16 ENCOUNTER FOR SURGICAL AFTCR FOLLOWING S 04/23/2016 EMI VARMA MD Ot N20.0 CALCULUS OF KIDNEY 04/23/2016 EMI VARMA MD Ot Z01.8 18 ENCOUNTER FOR OTHER PREPROCEDURAL EXAMIN 04/24/2016 EMI VARMA MD Ot N20.0 CALCULUS OF KIDNEY 04/24/2016 EMI VARMA MD Ot Z01.8 18 ENCOUNTER FOR OTHER PREPROCEDURAL EXAMIN 04/25/2016 AVANI HINOJOSA, EMI Pond Ot N20.0 CALCULUS OF KIDNEY 12/30/2018 Ot N20.0 CALC ULUS OF KIDNEY 12/30/2018 AVANI HINOJOSA, EMI Pond Ot N20.0 CALCULUS OF KIDNEY 12/30/2018 AVANI HINOJOSA, EMI Pond Ot Z98.8 9 OTHER SPECIFIED POSTPROCEDURAL STATES 12/30/2018 AVANI HINOJOSA, EMI Pond Ot N20.0 CALCULUS OF KIDNEY 12/30/2018 AVANI HINOJOSA, EMI Pond Ot Z48.8 16 ENCOUNTER FOR SURGICAL AFTCR FOLLOWING S 01/07/2019 Ot N20.0 CALC ULUS OF KIDNEY 01/07/2019 AVANI HINOJOSA, EMI Pond Ot N20.0 CALCULUS OF KIDNEY 01/07/2019 AVANI HINOJOSA, EMI Pond Ot Z98.8 9 OTHER SPECIFIED POSTPROCEDURAL STATES 01/07/2019 AVANI HINOJOSA, EMI Pond Ot N20.0 CALCULUS OF KIDNEY 01/07/2019 AVANI HINOJOSA, EMI Pond Ot Z48.8 16 ENCOUNTER FOR SURGICAL AFTCR FOLLOWING S 01/07/2019 MINAL HINOJOSA, HAMILTON Klein Ot M79.674 PAIN IN RIGHT TOE(S) 03/13/2019 MINAL HINOJOSA, HAMILTON Klein Ot M79.674 PAIN IN RIGHT TOE(S) 04/17/2019 ATIYA WERNER DO Ot E11. 9 TYPE 2 DIABETES MELLITUS WITHOUT COMPLIC 04/17/2019 ATIYA WERNER DO Ot F32. 9 MAJOR DEPRESSIVE DISORDER, SINGLE EPISOD 04/17/2019 ATIYA WERNER DO Ot G25. 81 RESTLESS LEGS SYNDROME 04/17/2019 ATIYA WERNER DO Ot K21. 9 GASTRO-ESOPHAGEAL REFLUX DISEASE WITHOUT 04/17/2019 ATIYA WERNER DO Ot N12 TUBULO-INTERSTITIAL NEPHRITIS, NOT SPCF 04/17/2019 ATIYA WERNER DO Ot R10. 9 UNSPECIFIED ABDOMINAL PAIN 04/17/2019 ATIYA WERNER DO Ot S09.90XA UNSPECIFIED INJURY OF HEAD, INITIAL ENCO 04/17/2019 ATIYA WERNER DO Ot W06.XXXA FALL FROM BED, INITIAL ENCOUNTER 04/17/2019 ATIYA WERNER DO Ot W22.09XA STRIKING AGAINST OTHER STATIONARY OBJECT 04/17/2019 ATIYA WERNER DO Ot Z85. 40 PRSNL HISTORY OF MALIG NEOPLM OF UNSP FE 04/17/2019 ATIYA WERNER DO, Ot Z87.442 PERSONAL HISTORY OF URINARY CALCULI 04/17/2019 ATIYA WERNER DO Ot Z88. 1 ALLERGY STATUS TO OTHER ANTIBIOTIC AGENT 04/17/2019 ATIYA WERNER DO Ot Z88. 2 ALLERGY STATUS TO SULFONAMIDES STATUS 04/17/2019 ATIYA WERNER DO Ot Z88. 6 ALLERGY STATUS TO ANALGESIC AGENT STATUS 04/17/2019 ATIYA WERNER DO Ot Z88. 8 ALLERGY STATUS TO OTH DRUG/MEDS/BIOL SUB 04/17/2019 ATIYA WERNER DO Ot Z98.890 OTHER SPECIFIED POSTPROCEDURAL STATES 04/17/2019 Ot N20.0 CALC ULUS OF KIDNEY 04/17/2019 AVANI HINOJOSA, EMI Pond Ot N20.0 CALCULUS OF KIDNEY 04/17/2019 AVANI HINOJOSA, EMI Pond Ot Z98.8 9 OTHER SPECIFIED POSTPROCEDURAL STATES 04/17/2019 AVANI HINOJOSA, EMI Pond Ot N20.0 CALCULUS OF KIDNEY 04/17/2019 AVANI HINOJOSA, EMI Pond Ot Z48.8 16 ENCOUNTER FOR SURGICAL AFTCR FOLLOWING S 04/17/2019 MINAL HINOJOSA, HAMILTON Klein Ot M79.674 PAIN IN RIGHT TOE(S) 04/20/2019 ATIYA WERNER DO Ot E11. 9 TYPE 2 DIABETES MELLITUS WITHOUT COMPLIC 04/20/2019 ATIYA WERNER DO Ot F32. 9 MAJOR DEPRESSIVE DISORDER, SINGLE EPISOD 04/20/2019 ATIYA WERNER DO Ot G25. 81 RESTLESS LEGS SYNDROME 04/20/2019 ATIYA WERNER DO Ot K21. 9 GASTRO-ESOPHAGEAL REFLUX DISEASE WITHOUT 04/20/2019 ATIYA WERNER DO Ot N12 TUBULO-INTERSTITIAL NEPHRITIS, NOT SPCF 04/20/2019 ATIYA WERNER DO Ot R10. 9 UNSPECIFIED ABDOMINAL PAIN 04/20/2019 ATIYA WERNER DO Ot S09.90XA UNSPECIFIED INJURY OF HEAD, INITIAL ENCO 04/20/2019 ATIYA WERNER DO Ot W06.XXXA FALL FROM BED, INITIAL ENCOUNTER 04/20/2019 ATIYA WERNER DO T Ot W22.09XA STRIKING AGAINST OTHER STATIONARY OBJECT 04/20/2019 ALPHONSO WATSONATIYA T Ot Z85. 40 PRSNL HISTORY OF MALIG NEOPLM OF UNSP FE 04/20/2019 ALPHONSO WATSONATIYA T Ot Z87.442 PERSONAL HISTORY OF URINARY CALCULI 04/20/2019 ALPHONSO WATSONATIYA T Ot Z88. 1 ALLERGY STATUS TO OTHER ANTIBIOTIC AGENT 04/20/2019 ATIYA WERNER DO T Ot Z88. 2 ALLERGY STATUS TO SULFONAMIDES STATUS 04/20/2019 ATIYA WERNER DO T Ot Z88. 6 ALLERGY STATUS TO ANALGESIC AGENT STATUS 04/20/2019 ALPHONSO ATIYA T Ot Z88. 8 ALLERGY STATUS TO OTH DRUG/MEDS/BIOL SUB 04/20/2019 ALPHONSO WATSONATIYA Ot Z98.890 OTHER SPECIFIED POSTPROCEDURAL STATES 06/28/2019 RONNA MEADOWS MD Ot E11. 9 TYPE 2 DIABETES MELLITUS WITHOUT COMPLIC 06/28/2019 RONNA MEADOWS MD Ot F32. 9 MAJOR DEPRESSIVE DISORDER, SINGLE EPISOD 06/28/2019 RONNA MEADOWS MD Ot K21. 9 GASTRO-ESOPHAGEAL REFLUX DISEASE WITHOUT 06/28/2019 RONNA MEADOWS MD Ot N20. 1 CALCULUS OF URETER 06/28/2019 RONNA MEADOWS MD Ot N39. 0 URINARY TRACT INFECTION, SITE NOT SPECIF 06/28/2019 RONNA MEADOWS MD Ot R10. 31 RIGHT LOWER QUADRANT PAIN 06/28/2019 RONNA MEADOWS MD Ot Z85. 42 PERSONAL HISTORY OF MALIGNANT NEOPLASM O 06/28/2019 RONNA MEADOWS MD Ot Z88. 1 ALLERGY STATUS TO OTHER ANTIBIOTIC AGENT 06/28/2019 RONNA MEADOWS MD Ot Z88. 2 ALLERGY STATUS TO SULFONAMIDES STATUS 06/28/2019 RONNA MEADOWS MD Ot Z88. 6 ALLERGY STATUS TO ANALGESIC AGENT STATUS 07/01/2019 RONNA MEADOWS MD Ot E11. 9 TYPE 2 DIABETES MELLITUS WITHOUT COMPLIC 07/01/2019 RONNA MEADOWS MD Ot F32. 9 MAJOR DEPRESSIVE DISORDER, SINGLE EPISOD 07/01/2019 RONNA MEADOWS MD Ot K21. 9 GASTRO-ESOPHAGEAL REFLUX DISEASE WITHOUT 07/01/2019 RONNA MEADOWS MD Ot N20. 1 CALCULUS OF URETER 07/01/2019 RONNA MEADOWS MD Ot N39. 0 URINARY TRACT INFECTION, SITE NOT SPECIF 07/01/2019 RONNA MEADOWS MD Ot R10. 31 RIGHT LOWER QUADRANT PAIN 07/01/2019 RONNA MEADOWS MD Ot Z85. 42 PERSONAL HISTORY OF MALIGNANT NEOPLASM O 07/01/2019 RONNA MEADOWS MD Ot Z88. 1 ALLERGY STATUS TO OTHER ANTIBIOTIC AGENT 07/01/2019 RONNA MEADOWS MD Ot Z88. 2 ALLERGY STATUS TO SULFONAMIDES STATUS 07/01/2019 RONNA MEADOWS MD Ot Z88. 6 ALLERGY STATUS TO ANALGESIC AGENT STATUS 07/21/2019 KOBI BERG MD Ot E11.9 TYPE 2 DIABETES MELLITUS WITHOUT COMPLIC 07/21/2019 KOBI BERG MD Ot E86.0 DEHYDRATION 07/21/2019 KOBI BERG MD, Ot F17.2 10 NICOTINE DEPENDENCE, CIGARETTES, UNCOMPL 07/21/2019 KOBI BERG MD, Ot F32.9 MAJOR DEPRESSIVE DISORDER, SINGLE EPISOD 07/21/2019 KOBI BERG MD, Ot I10 ESSENTIAL (PRIMARY) HYPERTENSION 07/21/2019 KOBI BERG MD, Ot I48.9 1 UNSPECIFIED ATRIAL FIBRILLATION 07/21/2019 KOBI BERG MD, Ot J40 BRONCHITIS, NOT SPECIFIED ACUTE OR CH 07/21/2019 KOBI BERG MD, Ot K21.9 GASTRO-ESOPHAGEAL REFLUX DISEASE WITHOUT 07/21/2019 KOBI BERG MD Ot R05 COUGH 07/21/2019 KOBI BERG MD, Ot Z85.4 2 PERSONAL HISTORY OF MALIGNANT NEOPLASM O 07/21/2019 KOBI BERG MD, Ot Z87.4 42 PERSONAL HISTORY OF URINARY CALCULI 07/21/2019 KOBI BERG MD, Ot Z88.0 ALLERGY STATUS TO PENICILLIN 07/21/2019 KOBI BERG MD, Ot Z88.1 ALLERGY STATUS TO OTHER ANTIBIOTIC AGENT 07/21/2019 KOBI BERG MD, Ot Z88.2 ALLERGY STATUS TO SULFONAMIDES STATUS 07/21/2019 KOBI BERG MD, Ot Z88.6 ALLERGY STATUS TO ANALGESIC AGENT STATUS 07/21/2019 KOBI BERG MD, Ot Z90.4 9 ACQUIRED ABSENCE OF OTHER SPECIFIED PART 07/21/2019 KOBI BERG MD Ot Z90.7 10 ACQUIRED ABSENCE OF BOTH CERVIX AND UTER 07/21/2019 KOBI BERG MD Ot Z98.5 1 TUBAL LIGATION STATUS 07/23/2019 KOBI BERG MD Ot E11.9 TYPE 2 DIABETES MELLITUS WITHOUT COMPLIC 07/23/2019 KOBI BERG MD Ot E86.0 DEHYDRATION 07/23/2019 KOBI BERG MD Ot F17.2 10 NICOTINE DEPENDENCE, CIGARETTES, UNCOMPL 07/23/2019 KOBI BERG MD Ot F32.9 MAJOR DEPRESSIVE DISORDER, SINGLE EPISOD 07/23/2019 KOBI BERG MD Ot I10 ESSENTIAL (PRIMARY) HYPERTENSION 07/23/2019 KOBI BERG MD, Ot I48.9 1 UNSPECIFIED ATRIAL FIBRILLATION 07/23/2019 KOBI BERG MD, Ot J40 BRONCHITIS, NOT SPECIFIED ACUTE OR CH 07/23/2019 KOBI BERG MD Ot K21.9 GASTRO-ESOPHAGEAL REFLUX DISEASE WITHOUT 07/23/2019 KOBI BERG MD Ot R05 COUGH 07/23/2019 KOBI BERG MD, Ot Z85.4 2 PERSONAL HISTORY OF MALIGNANT NEOPLASM O 07/23/2019 KOBI BERG MD, Ot Z87.4 42 PERSONAL HISTORY OF URINARY CALCULI 07/23/2019 KOBI BERG MD Ot Z88.0 ALLERGY STATUS TO PENICILLIN 07/23/2019 KOBI BERG MD Ot Z88.1 ALLERGY STATUS TO OTHER ANTIBIOTIC AGENT 07/23/2019 KOBI BERG MD Ot Z88.2 ALLERGY STATUS TO SULFONAMIDES STATUS 07/23/2019 KOBI BERG MD Ot Z88.6 ALLERGY STATUS TO ANALGESIC AGENT STATUS 07/23/2019 KOBI BERG MD Ot Z90.4 9 ACQUIRED ABSENCE OF OTHER SPECIFIED PART 07/23/2019 KOBI BERG MD, Ot Z90.7 10 ACQUIRED ABSENCE OF BOTH CERVIX AND UTER 07/23/2019 KOBI BERG MD, Ot Z98.5 1 TUBAL LIGATION STATUS 08/12/2019 AGUSTINA WATSON SPIKE Ot E11.9 TYPE 2 DIABETES MELLITUS WITHOUT COMPLIC 08/12/2019 AGUSTINA WATSON SPIKE Ot F15.10 OTHER STIMULANT ABUSE, UNCOMPLICATED 08/12/2019 AGUSTINA WATSON SPIKE Ot F17.21 0 NICOTINE DEPENDENCE, CIGARETTES, UNCOMPL 08/12/2019 AGUSTINA WATSON SPIKE Ot F32.9 MAJOR DEPRESSIVE DISORDER, SINGLE EPISOD 08/12/2019 BREANN BERRIOS DOI Ot F41.9 ANXIETY DISORDER, UNSPECIFIED 08/12/2019 AGUSTINA WATSON SPIKE Ot G89.29 OTHER CHRONIC PAIN 08/12/2019 AGUSTINA WATSON SPIKE Ot I10 ESSENTIAL (PRIMARY) HYPERTENSION 08/12/2019 AGUSTINA WATSON SPIKE Ot I48.20 CHRONIC ATRIAL FIBRILLATION, UNSPECIFIED 08/12/2019 AGUSTINA WATSON SPIKE Ot K21.9 GASTRO-ESOPHAGEAL REFLUX DISEASE WITHOUT 08/12/2019 AGUSTINA WATSON SPIKE Ot M19.90 UNSPECIFIED OSTEOARTHRITIS, UNSPECIFIED 08/12/2019 AGUSTINA WATSON SPIKE Ot M54.9 DORSALGIA, UNSPECIFIED 08/12/2019 AGUSTINA WATSON SPIKE Ot R45.85 1 SUICIDAL IDEATIONS 08/12/2019 BREANN BERRIOS DOI Ot Z79.84 GEOLOGIST (CURRENT) USE OF ORAL HYPOGLYC 08/12/2019 AGUSTINA WATSON SPIKE Ot Z85.42 PERSONAL HISTORY OF MALIGNANT NEOPLASM O 08/12/2019 AGUSTINA WATSON SPIKE Ot Z87.44 2 PERSONAL HISTORY OF URINARY CALCULI 08/12/2019 AGUSTINA WATSON SPIKE Ot Z90.71 0 ACQUIRED ABSENCE OF BOTH CERVIX AND UTER 08/12/2019 AGUSTINA WATSON SPIKE Ot Z91.5 PERSONAL HISTORY OF SELF-HARM 08/12/2019 BREANN BERRIOS DOI Ot Z98.51 TUBAL LIGATION STATUS 08/12/2019 SPIKE BERRIOS DO Ot E11.9 TYPE 2 DIABETES MELLITUS WITHOUT COMPLIC 08/12/2019 AGUSTINA WATSON SPIKE Ot F15.10 OTHER STIMULANT ABUSE, UNCOMPLICATED 08/12/2019 AGUSTINA WATSON SPIKE Ot F17.21 0 NICOTINE DEPENDENCE, CIGARETTES, UNCOMPL 08/12/2019 BREANN BERRIOS DOI Ot F32.9 MAJOR DEPRESSIVE DISORDER, SINGLE EPISOD 08/12/2019 AGUSTINA WATSON SPIKE Ot F41.9 ANXIETY DISORDER, UNSPECIFIED 08/12/2019 AGUSTINA WATSON SPIKE Ot G89.29 OTHER CHRONIC PAIN 08/12/2019 AGUSTINA WATSON SPIKE Ot I10 ESSENTIAL (PRIMARY) HYPERTENSION 08/12/2019 AGUSTINA WATSON SPIKE Ot I48.20 CHRONIC ATRIAL FIBRILLATION, UNSPECIFIED 08/12/2019 BERRIOS DO SPIKE Ot K21.9 GASTRO-ESOPHAGEAL REFLUX DISEASE WITHOUT 08/12/2019 BERRIOS DO SPIKE Ot M19.90 UNSPECIFIED OSTEOARTHRITIS, UNSPECIFIED 08/12/2019 AGUSTINA WATSON SPIKE Ot M54.9 DORSALGIA, UNSPECIFIED 08/12/2019 AGUSTINA WATSON SPIKE Ot R45.85 1 SUICIDAL IDEATIONS 08/12/2019 BERRIOSBERNIE WATSON SPIKE Ot Z79.84 CUSTODIAL (CURRENT) USE OF ORAL HYPOGLYC 08/12/2019 BERRIOSBERNIE WATSON SPIKE Ot Z85.42 PERSONAL HISTORY OF MALIGNANT NEOPLASM O 08/12/2019 BERRIOSBERNIE WATSON SPIKE Ot Z87.44 2 PERSONAL HISTORY OF URINARY CALCULI 08/12/2019 BREANN BERRIOS DOI Ot Z90.71 0 ACQUIRED ABSENCE OF BOTH CERVIX AND UTER 08/12/2019 AGUSTINA WATSON SPIKE Ot Z91.5 PERSONAL HISTORY OF SELF-HARM 08/12/2019 AGUSTINA WATSON SPIKE Ot Z98.51 TUBAL LIGATION STATUS 09/18/2019 MOSES NORTON MD Ot E11. 9 TYPE 2 DIABETES MELLITUS WITHOUT COMPLIC 09/18/2019 MOSES NORTON MD, Ot E66. 01 MORBID (SEVERE) OBESITY DUE TO EXCESS CA 09/18/2019 MOSES ONRTON MD, Ot E78. 5 HYPERLIPIDEMIA, UNSPECIFIED 09/18/2019 MOSES NORTON MD, Ot F32. 9 MAJOR DEPRESSIVE DISORDER, SINGLE EPISOD 09/18/2019 MOSES NORTON MD Ot I10 ESSENTIAL (PRIMARY) HYPERTENSION 09/18/2019 MOSES NORTON MD, Ot I48. 91 UNSPECIFIED ATRIAL FIBRILLATION 09/18/2019 MOSES NORTON MD, Ot K21. 9 GASTRO-ESOPHAGEAL REFLUX DISEASE WITHOUT 09/18/2019 MOSES NORTON MD, Ot R11. 10 VOMITING, UNSPECIFIED 09/18/2019 MOSES NORTON MD, Ot R19. 7 DIARRHEA, UNSPECIFIED 09/18/2019 MOSES NORTON MD, Ot Z79. 84 CUSTODIAL (CURRENT) USE OF ORAL HYPOGLYC 09/18/2019 MOSES NORTON MD, Ot Z85. 42 PERSONAL HISTORY OF MALIGNANT NEOPLASM O 09/18/2019 CIERRA MD, MOSES W Ot Z87.442 PERSONAL HISTORY OF URINARY CALCULI 09/18/2019 MOSES NROTON MD Ot Z88. 1 ALLERGY STATUS TO OTHER ANTIBIOTIC AGENT 09/18/2019 MOSES NORTON MD Ot Z88. 2 ALLERGY STATUS TO SULFONAMIDES STATUS 09/18/2019 MOSES NORTON MD Ot Z88. 6 ALLERGY STATUS TO ANALGESIC AGENT STATUS 09/18/2019 MOSES NORTON MD Ot Z90. 49 ACQUIRED ABSENCE OF OTHER SPECIFIED PART 09/18/2019 MOSES NORTON MD Ot Z90.710 ACQUIRED ABSENCE OF BOTH CERVIX AND UTER 09/18/2019 MOSES NORTON MD Ot Z98. 51 TUBAL LIGATION STATUS 09/30/2019 JAYLA OWEN MD Ot E11. 9 TYPE 2 DIABETES MELLITUS WITHOUT COMPLIC 09/30/2019 JAYLA OWEN MD Ot F32. 9 MAJOR DEPRESSIVE DISORDER, SINGLE EPISOD 09/30/2019 JAYLA OWEN MD A Ot I10 ESSENTIAL (PRIMARY) HYPERTENSION 09/30/2019 JAYLA OWEN MD A Ot I47. 1 SUPRAVENTRICULAR TACHYCARDIA 09/30/2019 JAYLA OWEN MD A Ot I48. 91 UNSPECIFIED ATRIAL FIBRILLATION 09/30/2019 JAYLA OWEN MD A Ot K21. 9 GASTRO-ESOPHAGEAL REFLUX DISEASE WITHOUT 09/30/2019 JAYLA OWEN MD Ot N39. 0 URINARY TRACT INFECTION, SITE NOT SPECIF 09/30/2019 JAYLA OWEN MD A Ot R07. 89 OTHER CHEST PAIN 09/30/2019 JAYLA OWEN MD A Ot Z79. 84 GEOLOGIST (CURRENT) USE OF ORAL HYPOGLYC 09/30/2019 JAYLA OWEN MD A Ot Z85. 42 PERSONAL HISTORY OF MALIGNANT NEOPLASM O 09/30/2019 JAYLA OWEN MD A Ot Z87.442 PERSONAL HISTORY OF URINARY CALCULI 09/30/2019 JAYLA OWEN MD A Ot Z88. 1 ALLERGY STATUS TO OTHER ANTIBIOTIC AGENT 09/30/2019 JAYLA OWEN MD A Ot Z88. 2 ALLERGY STATUS TO SULFONAMIDES STATUS 09/30/2019 JAYLA OWEN MD A Ot Z88. 6 ALLERGY STATUS TO ANALGESIC AGENT STATUS 09/30/2019 JAYLA OWEN MD A Ot Z90. 49 ACQUIRED ABSENCE OF OTHER SPECIFIED PART 09/30/2019 JAYLA OWEN MD A Ot Z90.710 ACQUIRED ABSENCE OF BOTH CERVIX AND UTER 09/30/2019 JAYLA OWEN MD Ot Z98. 51 TUBAL LIGATION STATUS 12/29/2019 Ot N20.0 CALC ULUS OF KIDNEY 12/29/2019 EMI VARMA MD Ot N20.0 CALCULUS OF KIDNEY 12/29/2019 EMI VARMA MD Ot Z98.8 9 OTHER SPECIFIED POSTPROCEDURAL STATES 12/29/2019 EMI VARMA MD Ot N20.0 CALCULUS OF KIDNEY 12/29/2019 AVANI HINOJOSA, EMI Pond Ot Z48.8 16 ENCOUNTER FOR SURGICAL AFTCR FOLLOWING S 12/29/2019 MINAL HINOJOSA, HAMILTON Klein Ot M79.674 PAIN IN RIGHT TOE(S) 01/08/2020 JAYLA OWEN MD Ot E11. 9 TYPE 2 DIABETES MELLITUS WITHOUT COMPLIC 01/08/2020 JAYLA OWEN MD Ot F32. 9 MAJOR DEPRESSIVE DISORDER, SINGLE EPISOD 01/08/2020 JAYLA OWEN MD Ot I10 ESSENTIAL (PRIMARY) HYPERTENSION 01/08/2020 JAYLA OWEN MD Ot I47. 1 SUPRAVENTRICULAR TACHYCARDIA 01/08/2020 JAYLA OWEN MD Ot I48. 91 UNSPECIFIED ATRIAL FIBRILLATION 01/08/2020 JAYLA OWEN MD Ot K21. 9 GASTRO-ESOPHAGEAL REFLUX DISEASE WITHOUT 01/08/2020 JAYLA OWEN MD Ot N39. 0 URINARY TRACT INFECTION, SITE NOT SPECIF 01/08/2020 JAYLA OWEN MD Ot R07. 89 OTHER CHEST PAIN 01/08/2020 JAYLA OWEN MD Ot Z79. 84 GEOLOGIST (CURRENT) USE OF ORAL HYPOGLYC 01/08/2020 JAYLA OWEN MD Ot Z85. 42 PERSONAL HISTORY OF MALIGNANT NEOPLASM O 01/08/2020 JAYLA OWEN MD Ot Z87.442 PERSONAL HISTORY OF URINARY CALCULI 01/08/2020 JAYLA OWEN MD Ot Z88. 1 ALLERGY STATUS TO OTHER ANTIBIOTIC AGENT 01/08/2020 JAYLA OWEN MD Ot Z88. 2 ALLERGY STATUS TO SULFONAMIDES STATUS 01/08/2020 JAYLA OWEN MD Ot Z88. 6 ALLERGY STATUS TO ANALGESIC AGENT STATUS 01/08/2020 JAYLA OWEN MD Ot Z90. 49 ACQUIRED ABSENCE OF OTHER SPECIFIED PART 01/08/2020 JAYLA OWEN MD Ot Z90.710 ACQUIRED ABSENCE OF BOTH CERVIX AND UTER 01/08/2020 BRAYDEN HINOJOSA, JAYLA Pond Ot Z98. 51 TUBAL LIGATION STATUS 02/20/2020 LAILA HINOJOSA, DENIS Merino Ot E11.9 TYPE 2 DIABETES MELLITUS WITHOUT COMPLIC 02/20/2020 LAILA HINOJOSA, DENIS Merino Ot E66.9 OBESITY, UNSPECIFIED 02/20/2020 LAILA HINOJOSA, DENIS Merino Ot F17.2 10 NICOTINE DEPENDENCE, CIGARETTES, UNCOMPL 02/20/2020 LAILA HINOJOSA, DENIS Merino Ot F32.9 MAJOR DEPRESSIVE DISORDER, SINGLE EPISOD 02/20/2020 LAILA HINOJOSA, DENIS R Ot F41.9 ANXIETY DISORDER, UNSPECIFIED 02/20/2020 LAILA HINOJOSA, DENIS Merino Ot G25.8 1 RESTLESS LEGS SYNDROME 02/20/2020 DENIS ULLOA MD Ot G58.9 MONONEUROPATHY, UNSPECIFIED 02/20/2020 DENIS ULLOA MD Ot I11.0 HYPERTENSIVE HEART DISEASE WITH HEART FA 02/20/2020 DENIS ULLOA MD Ot I47.1 SUPRAVENTRICULAR TACHYCARDIA 02/20/2020 DENIS ULLOA MD Ot I48.9 1 UNSPECIFIED ATRIAL FIBRILLATION 02/20/2020 DENIS ULLOA MD Ot I50.9 HEART FAILURE, UNSPECIFIED 02/20/2020 DENIS ULLOA MD Ot I67.1 CEREBRAL ANEURYSM, NONRUPTURED 02/20/2020 DENIS ULLOA MD Ot I95.9 HYPOTENSION, UNSPECIFIED 02/20/2020 DENIS ULLOA MD Ot K21.9 GASTRO-ESOPHAGEAL REFLUX DISEASE WITHOUT 02/20/2020 DENIS ULLOA MD Ot M19.9 1 PRIMARY OSTEOARTHRITIS, UNSPECIFIED SITE 02/20/2020 DENIS ULLOA MD Ot R07.2 PRECORDIAL PAIN 02/20/2020 DENIS ULLOA MD Ot R16.0 HEPATOMEGALY, NOT ELSEWHERE CLASSIFIED 02/20/2020 DENIS ULLOA MD Ot R79.8 9 OTHER SPECIFIED ABNORMAL FINDINGS OF BLO 02/20/2020 DENIS ULLOA MD Ot Z68.4 2 BODY MASS INDEX (BMI) 45.0-49.9, ADULT 02/20/2020 DENIS ULLOA MD Ot Z79.8 4 CUSTODIAL (CURRENT) USE OF ORAL HYPOGLYC 02/20/2020 DENIS ULLOA MD Ot Z85.4 2 PERSONAL HISTORY OF MALIGNANT NEOPLASM O 02/20/2020 DENIS ULLOA MD Ot Z87.4 42 PERSONAL HISTORY OF URINARY CALCULI 02/20/2020 DENIS ULLOA MD Ot Z90.7 10 ACQUIRED ABSENCE OF BOTH CERVIX AND UTER 02/20/2020 DENIS ULLOA MD Ot Z91.1 4 PATIENT'S OTHER NONCOMPLIANCE WITH MEDIC 02/20/2020 DENIS ULLOA MD Ot Z91.5 PERSONAL HISTORY OF SELF-HARM 02/20/2020 DENIS ULLOA MD Ot E11.9 TYPE 2 DIABETES MELLITUS WITHOUT COMPLIC 02/20/2020 DENIS ULLOA MD Ot E66.9 OBESITY, UNSPECIFIED 02/20/2020 DENIS ULLOA MD Ot E78.5 HYPERLIPIDEMIA, UNSPECIFIED 02/20/2020 DENIS ULLOA MD Ot 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, UNCOMPLICATED 02/20/2020 DENIS ULLOA MD Ot F17.2 10 NICOTINE DEPENDENCE, CIGARETTES, UNCOMPL 02/20/2020 DENIS ULLOA MD Ot F32.9 MAJOR DEPRESSIVE DISORDER, SINGLE EPISOD 02/20/2020 DENIS ULLOA MD Ot F41.9 ANXIETY DISORDER, UNSPECIFIED 02/20/2020 DENIS ULLOA MD Ot G25.8 1 RESTLESS LEGS SYNDROME 02/20/2020 DENIS ULLOA MD Ot G58.9 MONONEUROPATHY, UNSPECIFIED 02/20/2020 DENIS ULLOA MD Ot I11.0 HYPERTENSIVE HEART DISEASE WITH HEART FA 02/20/2020 DENIS ULLOA MD Ot 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.A 1 MYOCARDIAL INFARCTION TYPE 2 02/20/2020 DENIS ULLOA MD Ot I47.1 SUPRAVENTRICULAR TACHYCARDIA 02/20/2020 DENIS ULLOA MD Ot I48.9 1 UNSPECIFIED ATRIAL FIBRILLATION 02/20/2020 DENIS ULLOA MD Ot I50.3 1 ACUTE DIASTOLIC (CONGESTIVE) HEART FAILU 02/20/2020 DENIS ULLOA MD Ot I67.1 CEREBRAL ANEURYSM, NONRUPTURED 02/20/2020 DENIS ULLOA MD Ot I95.9 HYPOTENSION, UNSPECIFIED 02/20/2020 DENIS ULLOA MD Ot K21.9 GASTRO-ESOPHAGEAL REFLUX DISEASE WITHOUT 02/20/2020 DENIS ULLOA MD, Ot M19.9 1 PRIMARY OSTEOARTHRITIS, UNSPECIFIED SITE 02/20/2020 DENIS ULLOA MD, Ot R16.0 HEPATOMEGALY, NOT ELSEWHERE CLASSIFIED 02/20/2020 DENIS ULLOA MD, Ot R45.8 51 SUICIDAL IDEATIONS 02/20/2020 DENIS ULLOA MD, Ot R79.8 9 OTHER SPECIFIED ABNORMAL FINDINGS OF BLO 02/20/2020 DENIS ULLOA MD, Ot Z68.4 2 BODY MASS INDEX (BMI) 45.0-49.9, ADULT 02/20/2020 DENIS ULLOA MD, Ot Z79.8 4 CUSTODIAL (CURRENT) USE OF ORAL HYPOGLYC 02/20/2020 DENIS ULLOA MD, Ot Z85.4 2 PERSONAL HISTORY OF MALIGNANT NEOPLASM O 02/20/2020 DENIS ULLOA MD, Ot Z87.4 42 PERSONAL HISTORY OF URINARY CALCULI 02/20/2020 DENIS ULLOA MD, Ot Z90.7 10 ACQUIRED ABSENCE OF BOTH CERVIX AND UTER 02/20/2020 DENIS ULLOA MD, Ot Z91.1 4 PATIENT'S OTHER NONCOMPLIANCE WITH MEDIC 02/20/2020 DENIS ULLOA MD, Ot Z91.5 PERSONAL HISTORY OF SELF-HARM Procedures Code Description Performed By Per celeste On 38.93 01/22/2013 59.8 01/22/2013 [id number] [place] ASURE OF CARDIAC SAMPL PRESSURE, L H 02/19/2020 [id number] FL UOROSCOPY OF MULT COR ART USING L OSM 02/19/2020 [id number] FL UOROSCOPY OF LEFT HEART USING LOW OSMO 02/19/2020 [id number] FL UOROSCOPY OF THORACIC AORTA USING LOW 02/19/2020 Results Test Result Range [facility] - 12/30/18 12:16 GLUCOSE 143 mg/dL 65-99 UREA NITROGEN (BUN) 14 mg/dL 7-25 CREATININE 0.85 mg/dL 0.50-1.05 eGFR NON-AFR. [place] 79 mL/min/1.73m2 > OR = 60 eGFR 92 mL/min/1.73m2 > OR = 60 BUN/CREATININE RATIO NOT APPLICABLE (calc) 6-22 SODIUM 138 mmol/L 135-146 POTASSIUM 4.4 mmol/L 3.5-5.3 CHLORIDE 104 mmol/L 98-110 CARBON DIOXIDE 24 mmol/L 20-32 CALCIUM 9.9 mg/dL 8.6-10.4 PROTEIN, TOTAL 7.6 g/dL 6.1-8.1 ALBUMIN 4.4 g/dL 3.6-5.1 GLOBULIN 3.2 g/dL (calc) 1.9-3.7 ALBUMIN/GLOBULIN RATIO 1.4 (calc) 1.0-2. 5 BILIRUBIN, TOTAL 0.5 mg/dL 0.2-1.2 ALKALINE PHOSPHATASE 114 U/L 33-130 AST 14 U/L 10-35 ALT 15 U/L 6-29 A1C - 12/30/18 12:16 HEMOGLOBIN A1c 7.0 % of total Hgb <5.7 TSH w/ FREE T4 - 02/23/19 10:45 TSH 0.93 mIU/L NRG T4, FREE 1.2 ng/dL 0.8-1.8 URIC ACID, SERUM - 02/23/19 10:45 URIC ACID 9.4 mg/dL 2.5-7.0 CBC w/MANUAL DIFF - 02/23/19 10:45 WHITE BLOOD CELL COUNT 11.2 Thousand/uL 3.8-10.8 RED BLOOD CELL COUNT 5.43 Million/uL 3.8 0-5.10 HEMOGLOBIN 16.3 g/dL 11.7-15.5 HEMATOCRIT 47.7 % 35.0-45.0 MCV 87.8 fL 80.0-100.0 MCH 30.0 pg 27.0-33.0 MCHC 34.2 g/dL 32.0-36.0 RDW 13.8 % 11.0-15.0 PLATELET COUNT 390 Thousand/uL 140-400 MPV 11.6 fL 7.5-12.5 ABSOLUTE NEUTROPHILS 6272 cells/uL 1500- 7800 ABSOLUTE MONOCYTES 1008 cells/uL 200-950 ABSOLUTE EOSINOPHILS 0 cells/uL 15-500 ABSOLUTE BASOPHILS 112 cells/uL 0-200 NEUTROPHILS 56.0 % NRG LYMPHOCYTES 34.0 % NRG MONOCYTES 9.0 % NRG EOSINOPHILS 0 % NRG BASOPHILS 1.0 % NRG ABSOLUTE LYMPHOCYTES 3808 cells/uL 850-3 900 PLATELET ESTIMATION INCREASED ADEQUATE COMMENT(S) NRG Complete urinalysis with reflex to cultu re - 04/17/19 19:40 Urine color determination YELLOW NRG Urine clarity determination CLOUDY NR G Urine pH measurement by test strip 5.5 5-9 Specific gravity of urine by test strip 1.015 1.016-1.022 Urine protein assay by test strip, semi-quantitative NEGATIVE NEGATIVE Urine glucose detection by automated test strip NE GATIVE NEGATIVE Erythrocytes detection in urine sediment by light micr oscopy TRACE NEGATIVE Urine ketones detection by automated test strip NE GATIVE NEGATIVE Urine nitrite detection by test strip POSITIVE NEGATIVE Urine total bilirubin detection by test strip NEGA TIVE NEGATIVE Urine urobilinogen measurement by automated test strip (mass/volume) 0.2 mg/dL NORMAL Urine leukocyte esterase detection by dipstick 2+ NEGATIVE Automated urine sediment erythrocyte cou nt by microscopy (number/high power field) [HPF] NRG Automated urine sediment leukocyte count by microscopy (number/high power field) [HPF] NRG Bacteria detection in urine sediment by light microsco py FEW NRG Squamous epithelial cells detection in u rine sediment by light microscopy 5-10 NRG Crystals detection in urine sediment by light microsco py NONE NRG Casts detection in urine sediment by light microscopy NONE NRG Mucus detection in urine sediment by light microscopy NONE NRG Complete urinalysis with reflex to culture YES NRG Bacterial urine culture - 04/17/19 19:40 Bacterial urine culture [id number] NRG COLONY COUNT >100,000/ML NRG FTX;REPORTABLE SUSCEPTIBILITY REPORTED 04/19/19 09: 05 NRG FREE TEXT ENTRY 2 ID REPORTED 04/19/19 06:05 NRG Dirithromycin susceptibility test by dis k diffusion - 04/17/19 19:40 Gentamicin susceptibility test by minimum inhibitory c oncentration > NRG Trimethoprim/sulfamethoxazole susceptibi lity test by minimum inhibitoryconcentration > NRG Levofloxacin susceptibility test by minimum inhibitory concentration > NRG Ampicillin susceptibility test by minimum inhibitory c oncentration > NRG Cefazolin susceptibility test by minimum inhibitory co ncentration 2 NRG Ceftriaxone susceptibility test by minimum inhibitory concentration <= NRG Ciprofloxacin susceptibility test by minimum inhibitor y concentration > NRG Meropenem susceptibility test by minimum inhibitory co ncentration <= NRG Nitrofurantoin susceptibility test by mi nimum inhibitory concentration <= NRG Amoxicillin and clavulanate potassium susc SUSAN = NRG Automated blood complete blood count (he mogram) panel - 04/17/19 20:17 Blood leukocytes automated count (number/volume) 15.0 10*3/uL 4.3-11.0 Blood erythrocytes automated count (number/volume) 4.72 10*6/uL 4.35-5.85 Venous blood hemoglobin measurement (mass/volume) 14.1 g/dL 11.5-16.0 Blood hematocrit (volume fraction) 43 % 35-52 Automated erythrocyte mean corpuscular volume 92 [ foz_us] 80-99 Automated erythrocyte mean corpuscular h emoglobin (mass per erythrocyte) 30 pg 25-34 Automated erythrocyte mean corpuscular h emoglobin concentration measurement (mass/volume) 33 g/dL 32-36 Automated erythrocyte distribution width ratio 15. 2 % 10.0- 14.5 Automated blood platelet count (count/volume) 372 10*3/uL 130-400 Automated blood platelet mean volume measurement 11.5 [foz_us] 7.4-10.4 Comprehensive metabolic panel - 04/17/19 20:17 Serum or plasma sodium measurement (moles/volume) 138 mmol/L 135-145 Serum or plasma potassium measurement (moles/volume) 4.3 mmol/L 3.6-5.0 Serum or plasma chloride measurement (moles/volume) 96 mmol/L 98-107 Carbon dioxide 23 mmol/L 21-32 Serum or plasma anion gap determination (moles/volume) 19 mmol/L 5-14 Serum or plasma urea nitrogen measurement (mass/volume ) 18 mg/dL 7-18 Serum or plasma creatinine measurement (mass/volume) 0.80 mg/dL 0.60-1.30 Serum or plasma urea nitrogen/creatinine mass ratio 23 NRG Serum or plasma creatinine measurement w ith calculation of estimated glomerular filtration rate > NRG Serum or plasma glucose measurement (mass/volume) 111 mg/dL 70-105 Serum or plasma calcium measurement (mass/volume) 9.5 mg/dL 8.5-10.1 Serum or plasma total bilirubin measurement (mass/volu me) 0.3 mg/dL 0.1-1.0 Serum or plasma alkaline phosphatase matt surement (enzymatic activity/volume) 103 U/L 40-136 Serum or plasma aspartate aminotransfera se measurement (enzymatic activity/volume) 12 U/L 5-34 Serum or plasma alanine aminotransferase measurement (enzymatic activity/volume) 14 U/L 0-55 Serum or plasma protein measurement (mass/volume) 7.6 g/dL 6.4-8.2 Serum or plasma albumin measurement (mass/volume) 3.9 g/dL 3.2-4.5 CALCIUM CORRECTED 9.6 mg/dL 8.5-10.1 TROPONIN T - 04/17/19 20:17 TROPONIN T < 6 <=10 Lipase - 04/17/19 20:17 Lipase 23 U/L 8-78 Complete urinalysis with reflex to cultu re - 06/28/19 16:00 Urine color determination YELLOW NRG Urine clarity determination CLOUDY NR G Urine pH measurement by test strip 5.5 5-9 Specific gravity of urine by test strip 1.025 1.016-1.022 Urine protein assay by test strip, semi-quantitative NEGATIVE NEGATIVE Urine glucose detection by automated test strip NE GATIVE NEGATIVE Erythrocytes detection in urine sediment by light micr oscopy 2+ NEGATIVE Urine ketones detection by automated test strip NE GATIVE NEGATIVE Urine nitrite detection by test strip NEGATIVE NEGATIVE Urine total bilirubin detection by test strip NEGA TIVE NEGATIVE Urine urobilinogen measurement by automated test strip (mass/volume) 0.2 mg/dL NORMAL Urine leukocyte esterase detection by dipstick 3+ NEGATIVE Automated urine sediment erythrocyte cou nt by microscopy (number/high power field) [HPF] NRG Automated urine sediment leukocyte count by microscopy (number/high power field) > [HPF] NRG Bacteria detection in urine sediment by light microsco py FEW NRG Squamous epithelial cells detection in u rine sediment by light microscopy 10-25 NRG Crystals detection in urine sediment by light microsco py NONE NRG Casts detection in urine sediment by light microscopy NONE NRG Mucus detection in urine sediment by light microscopy SMALL NRG Complete urinalysis with reflex to culture YES NRG Urine drug screening test - 06/28/19 16: 00 Urine phencyclidine detection by screening method NEGATIVE NEGATIVE Urine benzodiazepines detection by screening method NEGATIVE NEGATIVE Urine cocaine detection NEGATIVE NEGATI VE Urine amphetamines detection by screening method N EGATIVE NEGATIVE Urine methamphetamine detection by screening method POSITIVE NEGATIVE Urine cannabinoids detection by screening method N EGATIVE NEGATIVE Urine opiates detection by screening method NEGATI VE NEGATIVE Urine barbiturates detection NEGATIVE N EGATIVE Screening urine tricyclic antidepressants detection NEGATIVE NEGATIVE Urine methadone detection by screening method NEGA TIVE NEGATIVE Urine oxycodone detection NEGATIVE NEGA TIVE Urine propoxyphene detection NEGATIVE N EGATIVE Bacterial urine culture - 06/28/19 16:00 Bacterial urine culture 3 OR MORE NRG COLONY COUNT 40,000 CFU/ML NRG FTX;REPORTABLE GRAM POSITIVES, SUGGESTING PROBABLE NRG FREE TEXT ENTRY 2 COLLECTION CONTAMINATION WITH SK IN JOSHUA NRG FREE TEXT ENTRY 3 NO SUSCEPTIBILITY PERFORMED NRG Complete blood count (CBC) with automate d white blood cell (WBC) differential - 06/28/19 16:05 Blood leukocytes automated count (number/volume) 11.3 10*3/uL 4.3-11.0 Blood erythrocytes automated count (number/volume) 4.88 10*6/uL 4.35-5.85 Venous blood hemoglobin measurement (mass/volume) 14.9 g/dL 11.5-16.0 Blood hematocrit (volume fraction) 45 % 35-52 Automated erythrocyte mean corpuscular volume 91 [ foz_us] 80-99 Automated erythrocyte mean corpuscular h emoglobin (mass per erythrocyte) 31 pg 25-34 Automated erythrocyte mean corpuscular h emoglobin concentration measurement (mass/volume) 33 g/dL 32-36 Automated erythrocyte distribution width ratio 14. 2 % 10.0- 14.5 Automated blood platelet count (count/volume) 366 10*3/uL 130-400 Automated blood platelet mean volume measurement 11.1 [foz_us] 7.4-10.4 Automated blood neutrophils/100 leukocytes 55 % 42-75 Automated blood lymphocytes/100 leukocytes 36 % 12-44 Blood monocytes/100 leukocytes 6 % 0-12 Automated blood eosinophils/100 leukocytes 2 % 0-10 Automated blood basophils/100 leukocytes 1 % 0-10 Blood neutrophils automated count (number/volume) 6.1 10*3 1.8-7.8 Blood lymphocytes automated count (number/volume) 4.1 10*3 1.0-4.0 Blood monocytes automated count (number/volume) 0. 7 10*3 0.0-1.0 Automated eosinophil count 0.2 10*3/uL 0 .0-0.3 Automated blood basophil count (count/volume) 0.1 10*3/uL 0.0-0.1 Comprehensive metabolic panel - 06/28/19 16:05 Serum or plasma sodium measurement (moles/volume) 143 mmol/L 135-145 Serum or plasma potassium measurement (moles/volume) 4.2 mmol/L 3.6-5.0 Serum or plasma chloride measurement (moles/volume) 106 mmol/L 98-107 Carbon dioxide 24 mmol/L 21-32 Serum or plasma anion gap determination (moles/volume) 13 mmol/L 5-14 Serum or plasma urea nitrogen measurement (mass/volume ) 14 mg/dL 7-18 Serum or plasma creatinine measurement (mass/volume) 0.89 mg/dL 0.60-1.30 Serum or plasma urea nitrogen/creatinine mass ratio 16 NRG Serum or plasma creatinine measurement w ith calculation of estimated glomerular filtration rate > NRG Serum or plasma glucose measurement (mass/volume) 154 mg/dL 70-105 Serum or plasma calcium measurement (mass/volume) 9.5 mg/dL 8.5-10.1 Serum or plasma total bilirubin measurement (mass/volu me) 0.2 mg/dL 0.1-1.0 Serum or plasma alkaline phosphatase matt surement (enzymatic activity/volume) 119 U/L 40-136 Serum or plasma aspartate aminotransfera se measurement (enzymatic activity/volume) 12 U/L 5-34 Serum or plasma alanine aminotransferase measurement (enzymatic activity/volume) 12 U/L 0-55 Serum or plasma protein measurement (mass/volume) 7.3 g/dL 6.4-8.2 Serum or plasma albumin measurement (mass/volume) 3.9 g/dL 3.2-4.5 CALCIUM CORRECTED 9.6 mg/dL 8.5-10.1 Lipase - 06/28/19 16:05 Lipase 18 U/L 8-78 Complete urinalysis with reflex to cultu re - 07/21/19 19:30 Urine color determination YELLOW NRG Urine clarity determination CLEAR NR G Urine pH measurement by test strip 7.5 5-9 Specific gravity of urine by test strip 1.015 1.016-1.022 Urine protein assay by test strip, semi-quantitative NEGATIVE NEGATIVE Urine glucose detection by automated test strip NE GATIVE NEGATIVE Erythrocytes detection in urine sediment by light micr oscopy NEGATIVE NEGATIVE Urine ketones detection by automated test strip NE GATIVE NEGATIVE Urine nitrite detection by test strip NEGATIVE NEGATIVE Urine total bilirubin detection by test strip NEGA TIVE NEGATIVE Urine urobilinogen measurement by automated test strip (mass/volume) 0.2 mg/dL NORMAL Urine leukocyte esterase detection by dipstick NEG ATIVE NEGATIVE Automated urine sediment erythrocyte cou nt by microscopy (number/high power field) NONE NRG Automated urine sediment leukocyte count by microscopy (number/high power field) RARE NRG Bacteria detection in urine sediment by light microsco py TRACE NRG Squamous epithelial cells detection in u rine sediment by light microscopy 10-25 NRG Crystals detection in urine sediment by light microsco py NONE NRG Casts detection in urine sediment by light microscopy NONE NRG Mucus detection in urine sediment by light microscopy NONE NRG Complete urinalysis with reflex to culture NO NRG Urine drug screening test - 07/21/19 19: 30 Urine phencyclidine detection by screening method NEGATIVE NEGATIVE Urine benzodiazepines detection by screening method POSITIVE NEGATIVE Urine cocaine detection NEGATIVE NEGATI VE Urine amphetamines detection by screening method N EGATIVE NEGATIVE Urine methamphetamine detection by screening method NEGATIVE NEGATIVE Urine cannabinoids detection by screening method N EGATIVE NEGATIVE Urine opiates detection by screening method NEGATI VE NEGATIVE Urine barbiturates detection NEGATIVE N EGATIVE Screening urine tricyclic antidepressants detection NEGATIVE NEGATIVE Urine methadone detection by screening method NEGA TIVE NEGATIVE Urine oxycodone detection NEGATIVE NEGA TIVE Urine propoxyphene detection NEGATIVE N EGATIVE Complete blood count (CBC) with automate d white blood cell (WBC) differential - 07/21/19 19:45 Blood leukocytes automated count (number/volume) 15.5 10*3/uL 4.3-11.0 Blood erythrocytes automated count (number/volume) 4.63 10*6/uL 4.35-5.85 Venous blood hemoglobin measurement (mass/volume) 14.1 g/dL 11.5-16.0 Blood hematocrit (volume fraction) 42 % 35-52 Automated erythrocyte mean corpuscular volume 91 [ foz_us] 80-99 Automated erythrocyte mean corpuscular h emoglobin (mass per erythrocyte) 30 pg 25-34 Automated erythrocyte mean corpuscular h emoglobin concentration measurement (mass/volume) 34 g/dL 32-36 Automated erythrocyte distribution width ratio 14. 2 % 10.0- 14.5 Automated blood platelet count (count/volume) 283 10*3/uL 130-400 Automated blood platelet mean volume measurement 11.9 [foz_us] 7.4-10.4 Automated blood neutrophils/100 leukocytes 73 % 42-75 Automated blood lymphocytes/100 leukocytes 18 % 12-44 Blood monocytes/100 leukocytes 6 % 0-12 Automated blood eosinophils/100 leukocytes 2 % 0-10 Automated blood basophils/100 leukocytes 1 % 0-10 Blood neutrophils automated count (number/volume) 11.3 10*3 1.8-7.8 Blood lymphocytes automated count (number/volume) 2.8 10*3 1.0-4.0 Blood monocytes automated count (number/volume) 1. 0 10*3 0.0-1.0 Automated eosinophil count 0.3 10*3/uL 0 .0-0.3 Automated blood basophil count (count/volume) 0.1 10*3/uL 0.0-0.1 Blood lactic acid measurement (moles/vol ume) - 07/21/19 19:45 Blood lactic acid measurement (moles/volume) 1.91 mmol/L 0.50-2.00 Comprehensive metabolic panel - 07/21/19 19:45 Serum or plasma sodium measurement (moles/volume) 140 mmol/L 135-145 Serum or plasma potassium measurement (moles/volume) 4.0 mmol/L 3.6-5.0 Serum or plasma chloride measurement (moles/volume) 98 mmol/L 98-107 Carbon dioxide 26 mmol/L 21-32 Serum or plasma anion gap determination (moles/volume) 16 mmol/L 5-14 Serum or plasma urea nitrogen measurement (mass/volume ) 15 mg/dL 7-18 Serum or plasma creatinine measurement (mass/volume) 0.76 mg/dL 0.60-1.30 Serum or plasma urea nitrogen/creatinine mass ratio 20 NRG Serum or plasma creatinine measurement w ith calculation of estimated glomerular filtration rate > NRG Serum or plasma glucose measurement (mass/volume) 127 mg/dL 70-105 Serum or plasma calcium measurement (mass/volume) 9.7 mg/dL 8.5-10.1 Serum or plasma total bilirubin measurement (mass/volu me) 0.6 mg/dL 0.1-1.0 Serum or plasma alkaline phosphatase matt surement (enzymatic activity/volume) 105 U/L 40-136 Serum or plasma aspartate aminotransfera se measurement (enzymatic activity/volume) 13 U/L 5-34 Serum or plasma alanine aminotransferase measurement (enzymatic activity/volume) 11 U/L 0-55 Serum or plasma protein measurement (mass/volume) 7.2 g/dL 6.4-8.2 Serum or plasma albumin measurement (mass/volume) 4.0 g/dL 3.2-4.5 CALCIUM CORRECTED 9.7 mg/dL 8.5-10.1 Magnesium - 07/21/19 19:45 Magnesium 1.8 mg/dL 1.6-2.4 Manual absolute plasma cell count - 07/05 05/22 19:45 Blood monocytes/100 leukocytes 5 % NRG Manual blood segmented neutrophils/100 leukocytes 72 % NRG Blood band neutrophils/100 leukocytes 1 % NRG Manual blood lymphocytes/100 leukocytes 19 % NRG Manual eosinophils/100 leukocytes in nose 3 % NRG Manual blood basophils/100 leukocytes 0 % NRG Bacterial blood culture - 07/21/19 19:45 Bacterial blood culture NG NRG Bacterial blood culture - 07/21/19 20:10 Bacterial blood culture NG NRG Complete blood count (CBC) with automate d white blood cell (WBC) differential - 08/10/19 15:37 Blood leukocytes automated count (number/volume) 13.0 10*3/uL 4.3-11.0 Blood erythrocytes automated count (number/volume) 4.60 10*6/uL 4.35-5.85 Venous blood hemoglobin measurement (mass/volume) 13.8 g/dL 11.5-16.0 Blood hematocrit (volume fraction) 43 % 35-52 Automated erythrocyte mean corpuscular volume 92 [ foz_us] 80-99 Automated erythrocyte mean corpuscular h emoglobin (mass per erythrocyte) 30 pg 25-34 Automated erythrocyte mean corpuscular h emoglobin concentration measurement (mass/volume) 33 g/dL 32-36 Automated erythrocyte distribution width ratio 14. 5 % 10.0- 14.5 Automated blood platelet count (count/volume) 282 10*3/uL 130-400 Automated blood platelet mean volume measurement 11.5 [foz_us] 7.4-10.4 Automated blood neutrophils/100 leukocytes 57 % 42-75 Automated blood lymphocytes/100 leukocytes 32 % 12-44 Blood monocytes/100 leukocytes 7 % 0-12 Automated blood eosinophils/100 leukocytes 3 % 0-10 Automated blood basophils/100 leukocytes 1 % 0-10 Blood neutrophils automated count (number/volume) 7.4 10*3 1.8-7.8 Blood lymphocytes automated count (number/volume) 4.1 10*3 1.0-4.0 Blood monocytes automated count (number/volume) 0. 9 10*3 0.0-1.0 Automated eosinophil count 0.4 10*3/uL 0 .0-0.3 Automated blood basophil count (count/volume) 0.1 10*3/uL 0.0-0.1 Comprehensive metabolic panel - 08/10/19 15:37 Serum or plasma sodium measurement (moles/volume) 139 mmol/L 135-145 Serum or plasma potassium measurement (moles/volume) 4.6 mmol/L 3.6-5.0 Serum or plasma chloride measurement (moles/volume) 102 mmol/L 98-107 Carbon dioxide 27 mmol/L 21-32 Serum or plasma anion gap determination (moles/volume) 10 mmol/L 5-14 Serum or plasma urea nitrogen measurement (mass/volume ) 17 mg/dL 7-18 Serum or plasma creatinine measurement (mass/volume) 0.87 mg/dL 0.60-1.30 Serum or plasma urea nitrogen/creatinine mass ratio 20 NRG Serum or plasma creatinine measurement w ith calculation of estimated glomerular filtration rate > NRG Serum or plasma glucose measurement (mass/volume) 99 mg/dL 70-105 Serum or plasma calcium measurement (mass/volume) 10.0 mg/dL 8.5-10.1 Serum or plasma total bilirubin measurement (mass/volu me) 0.2 mg/dL 0.1-1.0 Serum or plasma alkaline phosphatase matt surement (enzymatic activity/volume) 114 U/L 40-136 Serum or plasma aspartate aminotransfera se measurement (enzymatic activity/volume) 14 U/L 5-34 Serum or plasma alanine aminotransferase measurement (enzymatic activity/volume) 13 U/L 0-55 Serum or plasma protein measurement (mass/volume) 7.4 g/dL 6.4-8.2 Serum or plasma albumin measurement (mass/volume) 4.1 g/dL 3.2-4.5 CALCIUM CORRECTED 9.9 mg/dL 8.5-10.1 Serum or plasma salicylates measurement (mass/volume) - 08/10/19 15:37 Serum or plasma salicylates measurement (mass/volume) < mg/dL 5.0-20.0 Serum or plasma acetaminophen measuremen t (mass/volume) - 08/10/19 15:37 Serum or plasma acetaminophen measurement (mass/volume ) < ug/mL 10-30 Serum or plasma ethanol measurement (mas s/volume) - 08/10/19 15:37 Serum or plasma ethanol measurement (mass/volume) < mg/dL <10 Complete urinalysis with reflex to cultu re - 08/10/19 15:57 Urine color determination YELLOW NRG Urine clarity determination SL CLOUDY N RG Urine pH measurement by test strip 5.0 5-9 Specific gravity of urine by test strip 1.020 1.016-1.022 Urine protein assay by test strip, semi-quantitative NEGATIVE NEGATIVE Urine glucose detection by automated test strip NE GATIVE NEGATIVE Erythrocytes detection in urine sediment by light micr oscopy TRACE NEGATIVE Urine ketones detection by automated test strip NE GATIVE NEGATIVE Urine nitrite detection by test strip NEGATIVE NEGATIVE Urine total bilirubin detection by test strip NEGA TIVE NEGATIVE Urine urobilinogen measurement by automated test strip (mass/volume) 0.2 mg/dL NORMAL Urine leukocyte esterase detection by dipstick NEG ATIVE NEGATIVE Automated urine sediment erythrocyte cou nt by microscopy (number/high power field) NONE NRG Automated urine sediment leukocyte count by microscopy (number/high power field) > [HPF] NRG Bacteria detection in urine sediment by light microsco py LARGE NRG Squamous epithelial cells detection in u rine sediment by light microscopy >50 NRG Crystals detection in urine sediment by light microsco py NONE NRG Casts detection in urine sediment by light microscopy NONE NRG Mucus detection in urine sediment by light microscopy NEGATIVE NRG Complete urinalysis with reflex to culture YES NRG Urine drug screening test - 08/10/19 15: 57 Urine phencyclidine detection by screening method NEGATIVE NEGATIVE Urine benzodiazepines detection by screening method NEGATIVE NEGATIVE Urine cocaine detection NEGATIVE NEGATI VE Urine amphetamines detection by screening method N EGATIVE NEGATIVE Urine methamphetamine detection by screening method POSITIVE NEGATIVE Urine cannabinoids detection by screening method N EGATIVE NEGATIVE Urine opiates detection by screening method NEGATI VE NEGATIVE Urine barbiturates detection NEGATIVE N EGATIVE Screening urine tricyclic antidepressants detection NEGATIVE NEGATIVE Urine methadone detection by screening method NEGA TIVE NEGATIVE Urine oxycodone detection NEGATIVE NEGA TIVE Urine propoxyphene detection NEGATIVE N EGATIVE Bacterial urine culture - 08/10/19 15:57 Bacterial urine culture 3 OR MORE NRG COLONY COUNT >100,000/ML NRG FTX;REPORTABLE (GRAM POSITIVE) SUGGESTING PROBABLE NRG FREE TEXT ENTRY 2 COLLECTION CONTAMINATION WITH SK IN NRG FREE TEXT ENTRY 3 JOSHUA. NO SUSCEPTIBILITY PERFOR MED NRG Capillary blood glucose measurement by g lucometer (mass/volume) - 08/11/19 15:03 Capillary blood glucose measurement by glucometer (mas s/volume) 229 mg/dL 70-110 Urine drug screening test - 09/18/19 11: 15 Urine phencyclidine detection by screening method NEGATIVE NEGATIVE Urine benzodiazepines detection by screening method POSITIVE NEGATIVE Urine cocaine detection NEGATIVE NEGATI VE Urine amphetamines detection by screening method N EGATIVE NEGATIVE Urine methamphetamine detection by screening method POSITIVE NEGATIVE Urine cannabinoids detection by screening method N EGATIVE NEGATIVE Urine opiates detection by screening method NEGATI VE NEGATIVE Urine barbiturates detection NEGATIVE N EGATIVE Screening urine tricyclic antidepressants detection NEGATIVE NEGATIVE Urine methadone detection by screening method NEGA TIVE NEGATIVE Urine oxycodone detection NEGATIVE NEGA TIVE Urine propoxyphene detection NEGATIVE N EGATIVE Complete urinalysis with reflex to cultu re - 09/18/19 11:15 Urine color determination YELLOW NRG Urine clarity determination SLT CLOUDY NRG Urine pH measurement by test strip 5.5 5-9 Specific gravity of urine by test strip >= 1.016-1.022 Urine protein assay by test strip, semi-quantitative NEGATIVE NEGATIVE Urine glucose detection by automated test strip NE GATIVE NEGATIVE Erythrocytes detection in urine sediment by light micr oscopy NEGATIVE NEGATIVE Urine ketones detection by automated test strip NE GATIVE NEGATIVE Urine nitrite detection by test strip NEGATIVE NEGATIVE Urine total bilirubin detection by test strip NE NEGATIVE Urine urobilinogen measurement by automated test strip (mass/volume) 0.2 mg/dL < = 1.0 Urine leukocyte esterase detection by dipstick 1+ NEGATIVE Automated urine sediment erythrocyte cou nt by microscopy (number/high power field) RARE NRG Automated urine sediment leukocyte count by microscopy (number/high power field) [HPF] NRG Bacteria detection in urine sediment by light microsco py FEW NRG Squamous epithelial cells detection in u rine sediment by light microscopy 10-25 NRG Crystals detection in urine sediment by light microsco py PRESENT NRG Casts detection in urine sediment by light microscopy NONE NRG Mucus detection in urine sediment by light microscopy NONE NRG Complete urinalysis with reflex to culture YES NRG Amorphous sediment detection in urine sediment by ligh t microscopy FEW ANI URATES NRG Bacterial urine culture - 09/18/19 11:15 Bacterial urine culture [id number] NRG COLONY COUNT 30,000 CFU/ML NRG FTX;REPORTABLE SUSCEPTIBILITY REPORTED 09/21 13:35 NRG Dirithromycin susceptibility test by dis k diffusion - 09/18/19 11:15 Gentamicin susceptibility test by minimum inhibitory c oncentration <= NRG Trimethoprim/sulfamethoxazole susceptibi lity test by minimum inhibitoryconcentration <= NRG Levofloxacin susceptibility test by minimum inhibitory concentration <= NRG Ampicillin susceptibility test by minimum inhibitory c oncentration > NRG Cefazolin susceptibility test by minimum inhibitory co ncentration <= NRG Ceftriaxone susceptibility test by minimum inhibitory concentration <= NRG Ciprofloxacin susceptibility test by minimum inhibitor y concentration <= NRG Meropenem susceptibility test by minimum inhibitory co ncentration <= NRG Nitrofurantoin susceptibility test by mi nimum inhibitory concentration > NRG Amoxicillin and clavulanate potassium susc SUSAN <= NRG Dirithromycin susceptibility test by dis k diffusion - 09/18/19 11:15 Gentamicin susceptibility test by minimum inhibitory c oncentration > NRG Trimethoprim/sulfamethoxazole susceptibi lity test by minimum inhibitoryconcentration > NRG Levofloxacin susceptibility test by minimum inhibitory concentration > NRG Ampicillin susceptibility test by minimum inhibitory c oncentration > NRG Cefazolin susceptibility test by minimum inhibitory co ncentration 2 NRG Ceftriaxone susceptibility test by minimum inhibitory concentration <= NRG Ciprofloxacin susceptibility test by minimum inhibitor y concentration > NRG Meropenem susceptibility test by minimum inhibitory co ncentration <= NRG Nitrofurantoin susceptibility test by mi nimum inhibitory concentration <= NRG Amoxicillin and clavulanate potassium susc SUSAN = NRG Complete blood count (CBC) with automate d white blood cell (WBC) differential - 09/18/19 11:25 Blood leukocytes automated count (number/volume) 14.9 10*3/uL 4.3-11.0 Blood erythrocytes automated count (number/volume) 4.11 10*6/uL 4.35-5.85 Venous blood hemoglobin measurement (mass/volume) 12.5 g/dL 11.5-16.0 Blood hematocrit (volume fraction) 40 % 35-52 Automated erythrocyte mean corpuscular volume 96 [ foz_us] 80-99 Automated erythrocyte mean corpuscular h emoglobin (mass per erythrocyte) 30 pg 25-34 Automated erythrocyte mean corpuscular h emoglobin concentration measurement (mass/volume) 32 g/dL 32-36 Automated erythrocyte distribution width ratio 15. 2 % 10.0- 14.5 Automated blood platelet count (count/volume) 274 10*3/uL 130-400 Automated blood platelet mean volume measurement 10.8 [foz_us] 7.4-10.4 Automated blood neutrophils/100 leukocytes 64 % 42-75 Automated blood lymphocytes/100 leukocytes 24 % 12-44 Blood monocytes/100 leukocytes 8 % 0-12 Automated blood eosinophils/100 leukocytes 3 % 0-10 Automated blood basophils/100 leukocytes 1 % 0-10 Blood neutrophils automated count (number/volume) 9.5 10*3 1.8-7.8 Blood lymphocytes automated count (number/volume) 3.6 10*3 1.0-4.0 Blood monocytes automated count (number/volume) 1. 2 10*3 0.0-1.0 Automated eosinophil count 0.5 10*3/uL 0 .0-0.3 Automated blood basophil count (count/volume) 0.1 10*3/uL 0.0-0.1 Manual absolute plasma cell count - 09/04 03/22 11:25 Blood monocytes/100 leukocytes 10 % NRG Manual blood segmented neutrophils/100 leukocytes 54 % NRG Blood band neutrophils/100 leukocytes 2 % NRG Manual blood lymphocytes/100 leukocytes 27 % NRG Manual eosinophils/100 leukocytes in nose 4 % NRG Manual blood basophils/100 leukocytes 1 % NRG Manual blood metamyelocytes/100 leukocytes 1 % NRG Manual blood myelocytes/100 leukocytes 1 % NRG Serum or plasma choriogonadotropin (preg carlos test) detection - 09/18/19 11:49 Serum or plasma choriogonadotropin ( test) de tection NEGATIVE NEGATIVE Comprehensive metabolic panel - 09/18/19 11:49 Serum or plasma sodium measurement (moles/volume) 139 mmol/L 135-145 Serum or plasma potassium measurement (moles/volume) 4.7 mmol/L 3.6-5.0 Serum or plasma chloride measurement (moles/volume) 102 mmol/L 98-107 Carbon dioxide 25 mmol/L 21-32 Serum or plasma anion gap determination (moles/volume) 12 mmol/L 5-14 Serum or plasma urea nitrogen measurement (mass/volume ) 19 mg/dL 7-18 Serum or plasma creatinine measurement (mass/volume) 0.83 mg/dL 0.60-1.30 Serum or plasma urea nitrogen/creatinine mass ratio 23 NRG Serum or plasma creatinine measurement w ith calculation of estimated glomerular filtration rate > NRG Serum or plasma glucose measurement (mass/volume) 134 mg/dL 70-105 Serum or plasma calcium measurement (mass/volume) 9.2 mg/dL 8.5-10.1 Serum or plasma total bilirubin measurement (mass/volu me) < mg/dL 0.1-1.0 Serum or plasma alkaline phosphatase matt surement (enzymatic activity/volume) 118 U/L 40-136 Serum or plasma aspartate aminotransfera se measurement (enzymatic activity/volume) 13 U/L 5-34 Serum or plasma alanine aminotransferase measurement (enzymatic activity/volume) 11 U/L 0-55 Serum or plasma protein measurement (mass/volume) 7.3 g/dL 6.4-8.2 Serum or plasma albumin measurement (mass/volume) 4.0 g/dL 3.2-4.5 CALCIUM CORRECTED 9.2 mg/dL 8.5-10.1 TROPONIN I FS - 09/18/19 11:49 TROPONIN I FS < 0.30 <0.30 Lipase - 09/18/19 11:49 Lipase 76 U/L 8-78 [id number] - 09/18/19 11:49 [id number] 0.32 ng/mL 0.80-2.00 Complete blood count (CBC) with automate d white blood cell (WBC) differential - 09/30/19 13:45 Blood leukocytes automated count (number/volume) 15.6 10*3/uL 4.3-11.0 Blood erythrocytes automated count (number/volume) 4.47 10*6/uL 4.35-5.85 Venous blood hemoglobin measurement (mass/volume) 13.9 g/dL 11.5-16.0 Blood hematocrit (volume fraction) 42 % 35-52 Automated erythrocyte mean corpuscular volume 94 [ foz_us] 80-99 Automated erythrocyte mean corpuscular h emoglobin (mass per erythrocyte) 31 pg 25-34 Automated erythrocyte mean corpuscular h emoglobin concentration measurement (mass/volume) 33 g/dL 32-36 Automated erythrocyte distribution width ratio 15. 3 % 10.0- 14.5 Automated blood platelet count (count/volume) 423 10*3/uL 130-400 Automated blood platelet mean volume measurement 10.7 [foz_us] 7.4-10.4 Automated blood neutrophils/100 leukocytes 59 % 42-75 Automated blood lymphocytes/100 leukocytes 28 % 12-44 Blood monocytes/100 leukocytes 8 % 0-12 Automated blood eosinophils/100 leukocytes 4 % 0-10 Automated blood basophils/100 leukocytes 1 % 0-10 Blood neutrophils automated count (number/volume) 9.3 10*3 1.8-7.8 Blood lymphocytes automated count (number/volume) 4.4 10*3 1.0-4.0 Blood monocytes automated count (number/volume) 1. 2 10*3 0.0-1.0 Automated eosinophil count 0.6 10*3/uL 0 .0-0.3 Automated blood basophil count (count/volume) 0.2 10*3/uL 0.0-0.1 Comprehensive metabolic panel - 09/30/19 13:45 Serum or plasma sodium measurement (moles/volume) 136 mmol/L 135-145 Serum or plasma potassium measurement (moles/volume) 4.7 mmol/L 3.6-5.0 Serum or plasma chloride measurement (moles/volume) 102 mmol/L 98-107 Carbon dioxide 21 mmol/L 21-32 Serum or plasma anion gap determination (moles/volume) 13 mmol/L 5-14 Serum or plasma urea nitrogen measurement (mass/volume ) 25 mg/dL 7-18 Serum or plasma creatinine measurement (mass/volume) 0.98 mg/dL 0.60-1.30 Serum or plasma urea nitrogen/creatinine mass ratio 26 NRG Serum or plasma creatinine measurement w ith calculation of estimated glomerular filtration rate 60 NRG Serum or plasma glucose measurement (mass/volume) 185 mg/dL 70-105 Serum or plasma calcium measurement (mass/volume) 9.2 mg/dL 8.5-10.1 Serum or plasma total bilirubin measurement (mass/volu me) < mg/dL 0.1-1.0 Serum or plasma alkaline phosphatase matt surement (enzymatic activity/volume) 130 U/L 40-136 Serum or plasma aspartate aminotransfera se measurement (enzymatic activity/volume) 23 U/L 5-34 Serum or plasma alanine aminotransferase measurement (enzymatic activity/volume) 20 U/L 0-55 Serum or plasma protein measurement (mass/volume) 7.5 g/dL 6.4-8.2 Serum or plasma albumin measurement (mass/volume) 4.0 g/dL 3.2-4.5 CALCIUM CORRECTED 9.2 mg/dL 8.5-10.1 Magnesium - 09/30/19 13:45 Magnesium 1.8 mg/dL 1.6-2.4 TROPONIN I FS - 09/30/19 13:45 TROPONIN I FS < 0.30 <0.30 PT panel in platelet poor plasma by coag ulation assay - 09/30/19 13:45 Prothrombin time (PT) in platelet poor plasma by coagu lation assay 12.3 s 12.2-14.7 INR in platelet poor plasma or blood by coagulation as say 0.9 0.8-1.4 Activated partial thromboplastin time (a PTT) in platelet poor plasma bycoagulation assay - 09/30/19 13:45 Activated partial thromboplastin time (a PTT) in platelet poor plasma bycoagulation assay 25 s 24-35 Manual absolute plasma cell count - 09/05 05/22 13:45 Blood monocytes/100 leukocytes 6 % NRG Manual blood segmented neutrophils/100 leukocytes 55 % NRG Manual blood lymphocytes/100 leukocytes 30 % NRG Manual eosinophils/100 leukocytes in nose 5 % NRG Blood lymphocytes variant/100 leukocytes 4 % NRG Blood microcytes detection by light microscopy SLI GHT NRG Blood platelet adequacy detection by light microscopy INCREASED NRG Urine drug screening test - 09/30/19 14: 35 Urine phencyclidine detection by screening method NEGATIVE NEGATIVE Urine benzodiazepines detection by screening method NEGATIVE NEGATIVE Urine cocaine detection NEGATIVE NEGATI VE Urine amphetamines detection by screening method N EGATIVE NEGATIVE Urine methamphetamine detection by screening method NEGATIVE NEGATIVE Urine cannabinoids detection by screening method N EGATIVE NEGATIVE Urine opiates detection by screening method NEGATI VE NEGATIVE Urine barbiturates detection NEGATIVE N EGATIVE Screening urine tricyclic antidepressants detection NEGATIVE NEGATIVE Urine methadone detection by screening method NEGA TIVE NEGATIVE Urine oxycodone detection NEGATIVE NEGA TIVE Urine propoxyphene detection NEGATIVE N EGATIVE Complete urinalysis with reflex to cultu re - 09/30/19 14:35 Urine color determination YELLOW NRG Urine clarity determination CLEAR NR G Urine pH measurement by test strip 6.0 5-9 Specific gravity of urine by test strip 1.025 1.016-1.022 Urine protein assay by test strip, semi-quantitative TRACE NEGATIVE Urine glucose detection by automated test strip NE GATIVE NEGATIVE Erythrocytes detection in urine sediment by light micr oscopy NEGATIVE NEGATIVE Urine ketones detection by automated test strip NE GATIVE NEGATIVE Urine nitrite detection by test strip NEGATIVE NEGATIVE Urine total bilirubin detection by test strip NEGA TIVE NEGATIVE Urine urobilinogen measurement by automated test strip (mass/volume) 0.2 mg/dL < = 1.0 Urine leukocyte esterase detection by dipstick TRA CE NEGATIVE Automated urine sediment erythrocyte cou nt by microscopy (number/high power field) 0 [HPF] NRG Automated urine sediment leukocyte count by microscopy (number/high power field) [HPF] NRG Bacteria detection in urine sediment by light microsco py FEW NRG Squamous epithelial cells detection in u rine sediment by light microscopy 10-25 NRG Crystals detection in urine sediment by light microsco py NONE NRG Casts detection in urine sediment by light microscopy NONE NRG Mucus detection in urine sediment by light microscopy NEGATIVE NRG Complete urinalysis with reflex to culture YES NRG Bacterial urine culture - 09/30/19 14:35 Bacterial urine culture 3 OR MORE NRG COLONY COUNT 60,000 cfu/ml NRG FTX;REPORTABLE GRAM POSITIVE ISOLATES; SUGGESTING NRG FREE TEXT ENTRY 2 PROBABLE COLLECTION CONTAMINATIO N WITH NRG FREE TEXT ENTRY 3 SKIN [place]. NO SUSCEPTIBILITY PE RFORMED. NRG Complete urinalysis with reflex to cultu re - 12/29/19 13:35 Urine color determination DARK YELLOW N RG Urine clarity determination SL CLOUDY N RG Urine pH measurement by test strip 5.5 5-9 Specific gravity of urine by test strip >= 1.016-1.022 Urine protein assay by test strip, semi-quantitative TRACE NEGATIVE Urine glucose detection by automated test strip NE GATIVE NEGATIVE Erythrocytes detection in urine sediment by light micr oscopy TRACE NEGATIVE Urine ketones detection by automated test strip TR ROXANA NEGATIVE Urine nitrite detection by test strip NEGATIVE NEGATIVE Urine total bilirubin detection by test strip 1+ NEGATIVE Urine urobilinogen measurement by automated test strip (mass/volume) 0.2 mg/dL < = 1.0 Urine leukocyte esterase detection by dipstick 1+ NEGATIVE Automated urine sediment erythrocyte cou nt by microscopy (number/high power field) [HPF] NRG Automated urine sediment leukocyte count by microscopy (number/high power field) [HPF] NRG Bacteria detection in urine sediment by light microsco py MODERATE NRG Squamous epithelial cells detection in u rine sediment by light microscopy >50 NRG Crystals detection in urine sediment by light microsco py NONE NRG Casts detection in urine sediment by light microscopy NONE NRG Mucus detection in urine sediment by light microscopy MODERATE NRG Complete urinalysis with reflex to culture YES NRG Bacterial urine culture - 12/29/19 13:35 Bacterial urine culture [id number] NRG COLONY COUNT 20,000 CFU/ML NRG FTX;REPORTABLE SUSCEPTIBILITY REPORTED 01/02/20 11: 45 NRG FREE TEXT ENTRY 2 PRELIM RAPID ID BY VCP 12-31-19, [id number] NRG FREE TEXT ENTRY 3 RML CONFIRMED ID 12:05 NRG Dirithromycin susceptibility test by dis k diffusion - 12/29/19 13:35 Gentamicin susceptibility test by minimum inhibitory c oncentration > NRG Trimethoprim/sulfamethoxazole susceptibi lity test by minimum inhibitoryconcentration > NRG Levofloxacin susceptibility test by minimum inhibitory concentration > NRG Ampicillin susceptibility test by minimum inhibitory c oncentration > NRG Cefazolin susceptibility test by minimum inhibitory co ncentration 2 NRG Ceftriaxone susceptibility test by minimum inhibitory concentration <= NRG Ciprofloxacin susceptibility test by minimum inhibitor y concentration > NRG Meropenem susceptibility test by minimum inhibitory co ncentration <= NRG Nitrofurantoin susceptibility test by mi nimum inhibitory concentration <= NRG Amoxicillin and clavulanate potassium susc SUSAN = NRG Complete blood count (CBC) with automate d white blood cell (WBC) differential - 12/29/19 14:00 Blood leukocytes automated count (number/volume) 11.0 10*3/uL 4.3-11.0 Blood erythrocytes automated count (number/volume) 5.05 10*6/uL 4.35-5.85 Venous blood hemoglobin measurement (mass/volume) 14.9 g/dL 11.5-16.0 Blood hematocrit (volume fraction) 45 % 35-52 Automated erythrocyte mean corpuscular volume 90 [ foz_us] 80-99 Automated erythrocyte mean corpuscular h emoglobin (mass per erythrocyte) 30 pg 25-34 Automated erythrocyte mean corpuscular h emoglobin concentration measurement (mass/volume) 33 g/dL 32-36 Automated erythrocyte distribution width ratio 13. 7 % 10.0- 14.5 Automated blood platelet count (count/volume) 292 10*3/uL 130-400 Automated blood platelet mean volume measurement 11.6 [foz_us] 7.4-10.4 Automated blood neutrophils/100 leukocytes 67 % 42-75 Automated blood lymphocytes/100 leukocytes 23 % 12-44 Blood monocytes/100 leukocytes 8 % 0-12 Automated blood eosinophils/100 leukocytes 1 % 0-10 Automated blood basophils/100 leukocytes 1 % 0-10 Blood neutrophils automated count (number/volume) 7.3 10*3 1.8-7.8 Blood lymphocytes automated count (number/volume) 2.5 10*3 1.0-4.0 Blood monocytes automated count (number/volume) 0. 9 10*3 0.0-1.0 Automated eosinophil count 0.1 10*3/uL 0 .0-0.3 Automated blood basophil count (count/volume) 0.1 10*3/uL 0.0-0.1 Comprehensive metabolic panel - 12/29/19 14:00 Serum or plasma sodium measurement (moles/volume) 140 mmol/L 135-145 Serum or plasma potassium measurement (moles/volume) 4.5 mmol/L 3.6-5.0 Serum or plasma chloride measurement (moles/volume) 101 mmol/L 98-107 Carbon dioxide 23 mmol/L 21-32 Serum or plasma anion gap determination (moles/volume) 16 mmol/L 5-14 Serum or plasma urea nitrogen measurement (mass/volume ) 26 mg/dL 7-18 Serum or plasma creatinine measurement (mass/volume) 1.03 mg/dL 0.60-1.30 Serum or plasma urea nitrogen/creatinine mass ratio 25 NRG Serum or plasma creatinine measurement w ith calculation of estimated glomerular filtration rate 56 NRG Serum or plasma glucose measurement (mass/volume) 125 mg/dL 70-105 Serum or plasma calcium measurement (mass/volume) 9.6 mg/dL 8.5-10.1 Serum or plasma total bilirubin measurement (mass/volu me) 0.4 mg/dL 0.1-1.0 Serum or plasma alkaline phosphatase matt surement (enzymatic activity/volume) 101 U/L 40-136 Serum or plasma aspartate aminotransfera se measurement (enzymatic activity/volume) 26 U/L 5-34 Serum or plasma alanine aminotransferase measurement (enzymatic activity/volume) 25 U/L 0-55 Serum or plasma protein measurement (mass/volume) 7.5 g/dL 6.4-8.2 Serum or plasma albumin measurement (mass/volume) 4.0 g/dL 3.2-4.5 CALCIUM CORRECTED 9.6 mg/dL 8.5-10.1 Lipase - 12/29/19 14:00 Lipase 12 U/L 8-78 Complete blood count (CBC) with automate d white blood cell (WBC) differential - 02/18/20 16:38 Blood leukocytes automated count (number/volume) 20.3 10*3/uL 4.3-11.0 Blood erythrocytes automated count (number/volume) 4.98 10*6/uL 4.35-5.85 Venous blood hemoglobin measurement (mass/volume) 14.5 g/dL 11.5-16.0 Blood hematocrit (volume fraction) 45 % 35-52 Automated erythrocyte mean corpuscular volume 91 [ foz_us] 80-99 Automated erythrocyte mean corpuscular h emoglobin (mass per erythrocyte) 29 pg 25-34 Automated erythrocyte mean corpuscular h emoglobin concentration measurement (mass/volume) 32 g/dL 32-36 Automated erythrocyte distribution width ratio 14. 7 % 10.0- 14.5 Automated blood platelet count (count/volume) 333 10*3/uL 130-400 Automated blood platelet mean volume measurement 11.7 [foz_us] 7.4-10.4 Automated blood neutrophils/100 leukocytes 70 % 42-75 Automated blood lymphocytes/100 leukocytes 20 % 12-44 Blood monocytes/100 leukocytes 9 % 0-12 Automated blood eosinophils/100 leukocytes 0 % 0-10 Automated blood basophils/100 leukocytes 1 % 0-10 Blood neutrophils automated count (number/volume) 14.2 10*3 1.8-7.8 Blood lymphocytes automated count (number/volume) 4.0 10*3 1.0-4.0 Blood monocytes automated count (number/volume) 1. 9 10*3 0.0-1.0 Automated eosinophil count 0.1 10*3/uL 0 .0-0.3 Automated blood basophil count (count/volume) 0.1 10*3/uL 0.0-0.1 Manual absolute plasma cell count - 02/02 04/23 16:38 Blood monocytes/100 leukocytes 9 % NRG Manual blood segmented neutrophils/100 leukocytes 56 % NRG Blood band neutrophils/100 leukocytes 14 % NRG Manual blood lymphocytes/100 leukocytes 21 % NRG Manual eosinophils/100 leukocytes in nose 0 % NRG Manual blood basophils/100 leukocytes 0 % NRG Blood erythrocyte morphology finding identification NORMAL NRG PT panel in platelet poor plasma by coag ulation assay - 02/18/20 17:00 Prothrombin time (PT) in platelet poor plasma by coagu lation assay 13.6 s 12.2-14.7 INR in platelet poor plasma or blood by coagulation as say 1.0 0.8-1.4 Fibrin D-dimer FEU measurement in platel et poor plasma (mass/volume) - 02/18/20 17:00 Fibrin D-dimer FEU measurement in platelet poor plasma (mass/volume) 0.64 ug/mL 0.00-0.49 Comprehensive metabolic panel - 02/18/20 17:00 Serum or plasma sodium measurement (moles/volume) 144 mmol/L 135-145 Serum or plasma potassium measurement (moles/volume) 4.2 mmol/L 3.6-5.0 Serum or plasma chloride measurement (moles/volume) 105 mmol/L 98-107 Carbon dioxide 24 mmol/L 21-32 Serum or plasma anion gap determination (moles/volume) 15 mmol/L 5-14 Serum or plasma urea nitrogen measurement (mass/volume ) 14 mg/dL 7-18 Serum or plasma creatinine measurement (mass/volume) 0.92 mg/dL 0.60-1.30 Serum or plasma urea nitrogen/creatinine mass ratio 15 NRG Serum or plasma creatinine measurement w ith calculation of estimated glomerular filtration rate > NRG Serum or plasma glucose measurement (mass/volume) 148 mg/dL 70-105 Serum or plasma calcium measurement (mass/volume) 8.9 mg/dL 8.5-10.1 Serum or plasma total bilirubin measurement (mass/volu me) 0.4 mg/dL 0.1-1.0 Serum or plasma alkaline phosphatase matt surement (enzymatic activity/volume) 95 U/L 40-136 Serum or plasma aspartate aminotransfera se measurement (enzymatic activity/volume) 28 U/L 5-34 Serum or plasma alanine aminotransferase measurement (enzymatic activity/volume) 25 U/L 0-55 Serum or plasma protein measurement (mass/volume) 6.3 g/dL 6.4-8.2 Serum or plasma albumin measurement (mass/volume) 3.6 g/dL 3.2-4.5 CALCIUM CORRECTED 9.2 mg/dL 8.5-10.1 Magnesium - 02/18/20 17:00 Magnesium 1.4 mg/dL 1.6-2.4 TROPONIN I FS - 02/18/20 17:00 TROPONIN I FS 0.40 ng/mL <0.30 PROBNP FS - 02/18/20 17:00 PROBNP FS 2805.0 pg/mL <75.0 Urine drug screening test - 02/18/20 18: 31 Urine phencyclidine detection by screening method NEGATIVE NEGATIVE Urine benzodiazepines detection by screening method POSITIVE NEGATIVE Urine cocaine detection NEGATIVE NEGATI VE Urine amphetamines detection by screening method P OSITIVE NEGATIVE Urine methamphetamine detection by screening method POSITIVE NEGATIVE Urine cannabinoids detection by screening method N EGATIVE NEGATIVE Urine opiates detection by screening method POSITI VE NEGATIVE Urine barbiturates detection NEGATIVE N EGATIVE Screening urine tricyclic antidepressants detection NEGATIVE NEGATIVE Urine methadone detection by screening method NEGA TIVE NEGATIVE Urine oxycodone detection NEGATIVE NEGA TIVE Urine propoxyphene detection NEGATIVE N EGATIVE Serum or plasma troponin i.cardiac measu rement (mass/volume) - 02/18/20 18:40 Serum or plasma troponin i.cardiac measurement (mass/v olume) 0.512 ng/mL <0.028 [id number] - 02/18/20 18:40 [id number] < 0.30 0.80-2.00 Complete urinalysis with reflex to cultu re - 02/18/20 19:37 Urine color determination YELLOW NRG Urine clarity determination CLEAR NR G Urine pH measurement by test strip 5.5 5-9 Specific gravity of urine by test strip >= 1.016-1.022 Urine protein assay by test strip, semi-quantitative 1+ NEGATIVE Urine glucose detection by automated test strip NE GATIVE NEGATIVE Erythrocytes detection in urine sediment by light micr oscopy TRACE-L NEGATIVE Urine ketones detection by automated test strip NE GATIVE NEGATIVE Urine nitrite detection by test strip NEGATIVE NEGATIVE Urine total bilirubin detection by test strip NEGA TIVE NEGATIVE Urine urobilinogen measurement by automated test strip (mass/volume) 0.2 mg/dL < = 1.0 Urine leukocyte esterase detection by dipstick NEG ATIVE NEGATIVE Automated urine sediment erythrocyte cou nt by microscopy (number/high power field) [HPF] NRG Automated urine sediment leukocyte count by microscopy (number/high power field) RARE NRG Bacteria detection in urine sediment by light microsco py FEW NRG Crystals detection in urine sediment by light microsco py NONE NRG Casts detection in urine sediment by light microscopy NONE NRG Mucus detection in urine sediment by light microscopy MODERATE NRG Complete urinalysis with reflex to culture NO NRG Capillary blood glucose measurement by g lucometer (mass/volume) - 02/18/20 20:58 Capillary blood glucose measurement by glucometer (mas s/volume) 195 mg/dL 70-110 Serum or plasma lithium measurement (mol es/volume) - 02/18/20 23:02 BNP PT 207.7 pg/mL <100.0 Serum or plasma troponin i.cardiac measu rement (mass/volume) - 02/18/20 23:02 Serum or plasma troponin i.cardiac measurement (mass/v olume) 0.546 ng/mL <0.028 Complete blood count (CBC) with automate d white blood cell (WBC) differential - 02/19/20 04:23 Blood leukocytes automated count (number/volume) 12.1 10*3/uL 4.3-11.0 Blood erythrocytes automated count (number/volume) 4.06 10*6/uL 4.35-5.85 Venous blood hemoglobin measurement (mass/volume) 11.9 g/dL 11.5-16.0 Blood hematocrit (volume fraction) 37 % 35-52 Automated erythrocyte mean corpuscular volume 90 [ foz_us] 80-99 Automated erythrocyte mean corpuscular h emoglobin (mass per erythrocyte) 29 pg 25-34 Automated erythrocyte mean corpuscular h emoglobin concentration measurement (mass/volume) 33 g/dL 32-36 Automated erythrocyte distribution width ratio 15. 1 % 10.0- 14.5 Automated blood platelet count (count/volume) 292 10*3/uL 130-400 Automated blood platelet mean volume measurement 11.0 [foz_us] 7.4-10.4 Automated blood neutrophils/100 leukocytes 48 % 42-75 Automated blood lymphocytes/100 leukocytes 39 % 12-44 Blood monocytes/100 leukocytes 11 % 0-12 Automated blood eosinophils/100 leukocytes 2 % 0-10 Automated blood basophils/100 leukocytes 0 % 0-10 Blood neutrophils automated count (number/volume) 5.8 10*3 1.8-7.8 Blood lymphocytes automated count (number/volume) 4.7 10*3 1.0-4.0 Blood monocytes automated count (number/volume) 1. 3 10*3 0.0-1.0 Automated eosinophil count 0.2 10*3/uL 0 .0-0.3 Automated blood basophil count (count/volume) 0.1 10*3/uL 0.0-0.1 Whole blood basic metabolic panel - 02/02 05/23 04:23 Serum or plasma sodium measurement (moles/volume) 140 mmol/L 135-145 Serum or plasma potassium measurement (moles/volume) 3.9 mmol/L 3.6-5.0 Serum or plasma chloride measurement (moles/volume) 105 mmol/L 98-107 Carbon dioxide 25 mmol/L 21-32 Serum or plasma anion gap determination (moles/volume) 10 mmol/L 5-14 Serum or plasma urea nitrogen measurement (mass/volume ) 12 mg/dL 7-18 Serum or plasma creatinine measurement (mass/volume) 0.80 mg/dL 0.60-1.30 Serum or plasma urea nitrogen/creatinine mass ratio 15 NRG Serum or plasma creatinine measurement w ith calculation of estimated glomerular filtration rate > NRG Serum or plasma glucose measurement (mass/volume) 133 mg/dL 70-105 Serum or plasma calcium measurement (mass/volume) 8.3 mg/dL 8.5-10.1 Serum or plasma phosphate measurement (m ass/volume) - 02/19/20 04:23 Serum or plasma phosphate measurement (mass/volume) 2.9 mg/dL 2.3-4.7 Magnesium - 02/19/20 04:23 Magnesium 2.5 mg/dL 1.6-2.4 Serum or plasma troponin i.cardiac measu rement (mass/volume) - 02/19/20 04:23 Serum or plasma troponin i.cardiac measurement (mass/v olume) 0.489 ng/mL <0.028 Lipid 1996 panel - 02/19/20 04:23 Serum or plasma triglyceride measurement (mass/volume) 157 mg/dL <150 Serum or plasma cholesterol measurement (mass/volume) 178 mg/dL < 200 Serum or plasma cholesterol in HDL measurement (mass/v olume) 30 mg/dL 40-60 Cholesterol in LDL [mass/volume] in serum or plasma by direct assay 138 mg/dL 1-129 Serum or plasma cholesterol in VLDL measurement (mass/ volume) 31 mg/dL 5-40 Capillary blood glucose measurement by g lucometer (mass/volume) - 02/19/20 13:48 Capillary blood glucose measurement by glucometer (mas s/volume) 156 mg/dL 70-110 Capillary blood glucose measurement by g lucometer (mass/volume) - 02/19/20 20:05 Capillary blood glucose measurement by glucometer (mas s/volume) 132 mg/dL 70-110 Complete blood count (CBC) with automate d white blood cell (WBC) differential - 02/20/20 03:12 Blood leukocytes automated count (number/volume) 8.7 10*3/uL 4.3-11.0 Blood erythrocytes automated count (number/volume) 4.08 10*6/uL 4.35-5.85 Venous blood hemoglobin measurement (mass/volume) 12.0 g/dL 11.5-16.0 Blood hematocrit (volume fraction) 37 % 35-52 Automated erythrocyte mean corpuscular volume 91 [ foz_us] 80-99 Automated erythrocyte mean corpuscular h emoglobin (mass per erythrocyte) 29 pg 25-34 Automated erythrocyte mean corpuscular h emoglobin concentration measurement (mass/volume) 32 g/dL 32-36 Automated erythrocyte distribution width ratio 14. 9 % 10.0- 14.5 Automated blood platelet count (count/volume) 261 10*3/uL 130-400 Automated blood platelet mean volume measurement 11.8 [foz_us] 7.4-10.4 Automated blood neutrophils/100 leukocytes 50 % 42-75 Automated blood lymphocytes/100 leukocytes 37 % 12-44 Blood monocytes/100 leukocytes 11 % 0-12 Automated blood eosinophils/100 leukocytes 2 % 0-10 Automated blood basophils/100 leukocytes 0 % 0-10 Blood neutrophils automated count (number/volume) 4.3 10*3 1.8-7.8 Blood lymphocytes automated count (number/volume) 3.2 10*3 1.0-4.0 Blood monocytes automated count (number/volume) 0. 9 10*3 0.0-1.0 Automated eosinophil count 0.2 10*3/uL 0 .0-0.3 Automated blood basophil count (count/volume) 0.0 10*3/uL 0.0-0.1 Whole blood basic metabolic panel - 02/02 06/23 03:12 Serum or plasma sodium measurement (moles/volume) 141 mmol/L 135-145 Serum or plasma potassium measurement (moles/volume) 3.6 mmol/L 3.6-5.0 Serum or plasma chloride measurement (moles/volume) 107 mmol/L 98-107 Carbon dioxide 22 mmol/L 21-32 Serum or plasma anion gap determination (moles/volume) 12 mmol/L 5-14 Serum or plasma urea nitrogen measurement (mass/volume ) 13 mg/dL 7-18 Serum or plasma creatinine measurement (mass/volume) 0.77 mg/dL 0.60-1.30 Serum or plasma urea nitrogen/creatinine mass ratio 17 NRG Serum or plasma creatinine measurement w ith calculation of estimated glomerular filtration rate > NRG Serum or plasma glucose measurement (mass/volume) 120 mg/dL 70-105 Serum or plasma calcium measurement (mass/volume) 8.4 mg/dL 8.5-10.1 Serum or plasma phosphate measurement (m ass/volume) - 02/20/20 03:12 Serum or plasma phosphate measurement (mass/volume) 3.4 mg/dL 2.3-4.7 Magnesium - 02/20/20 03:12 Magnesium 2.0 mg/dL 1.6-2.4 Capillary blood glucose measurement by g lucometer (mass/volume) - 02/20/20 09:15 Capillary blood glucose measurement by glucometer (mas s/volume) 179 mg/dL 70-110 Capillary blood glucose measurement by g lucometer (mass/volume) - 02/20/20 14:05 Capillary blood glucose measurement by glucometer (mas s/volume) 162 mg/dL 70-110 Encounters ACCT No. Visit Date/Time Discharge Status Pt. Type Provider Facility Loc./Unit Complaint [id number] 09/30/2019 11:00:00 09/30/2019 23:59:5 9 CLS Outpatient HAMILTON FONTAINE [facility] [id number] 02/23/2019 10:15:00 Document Registration [id number] 12/30/2018 10:45:00 Document Registration [id number] 02/18/2020 17:05:00 020 17:55:00 DIS Inpatient LAILA HINOJOSA, DENIS [facility] ICU SVT, CHEST PAIN, METHAM PHETAMENE USE [id number] 12/29/2019 13:22:00 16:18:00 DIS Emergency KEYANNA WATSON MIREYA Diana [facility] ER FS ABD PAIN [id number] 09/30/2019 13:28:00 15:38:00 DIS Outpatient JAYLA OWEN MD [facility] ER FS CHEST PAIN [id number] 09/18/2019 10:26:00 13:52:00 DIS Emergency MOSES NORTON MD W [facility] ER FS DIARRHEA [id number] 08/11/2019 16:40:00 10:18:00 DIS Inpatient SPIKE BERRIOS DO, V [facility] ICU SUICIDAL IDEATION, AWAI TING PLACEMENT [id number] 07/21/2019 18:57:00 23:51:00 DIS Emergency KOBI BERG MD [facility] ER FS COUGH [id number] 06/28/2019 15:53:00 18:05:00 DIS Emergency DORI HINOJOSA, RONNA [place] [facility] ER FS ABD PAIN,FALL [id number] 04/17/2019 19:28:00 21:55:00 DIS Emergency ATIYA WERNER DO [facility] ER FS KIDNEY PAIN [id number] 12/30/2018 11:47:00 23:59:59 CLS Outpatient HAMILTON FONTAINE MD [facility] RAD FS [id number] 04/25/2016 06:02:00 10:25:00 DIS Outpatient EMI VARMA MD [facility] SDC RIGHT STONE [id number] 04/23/2016 05:43:00 14:06:00 DIS Outpatient EMI VARMA MD [facility] PREOP RIGHT STONE [id number] 03/28/2016 14:32:00 23:59:59 CLS Outpatient EMI VARMA MD [facility] RAD RENAL STONES [id number] 02/27/2016 13:34:00 016 23:59:59 CLS Outpatient EMI VARMA MD [facility] RAD KUB [id number] 02/14/2016 06:04:00 016 10:35:00 DIS Outpatient EMI VARMA MD [facility] SDC STONES [id number] 02/09/2016 05:34:00 016 10:11:00 DIS Outpatient EMI VARMA MD [facility] PREOP STONES [id number] 03/10/2013 09:28:00 17:30:00 DIS Outpatient SUNDAR HINOJOSA FACC, SUSANNA CROW CC DS [facility] CATH [id number] 03/05/2013 14:39:00 23:59:59 CLS Outpatient EMI VARMA MD [facility] RAD [id number] 03/04/2013 15:46:00 23:59:59 CLS Outpatient PERRY CRISOSTOMO [facility] LAB [id number] 02/02/2016 12:06:00 Document Registration [id number] 02/04/2013 06:11:00 Document Registration [id number] 02/03/2013 10:28:00 Document Registration [id number] 01/20/2013 14:22:00 Document Registration [id number] 10/27/2012 22:19:00 Document Registration [id number] 11/27/2011 14:29:00 Document Registration [id number] 11/14/2011 05:30:00 Document Registration [id number] 11/12/2011 15:43:00 Document Registration [id number] 11/01/2011 05:40:00 Document Registration [id number] 10/25/2011 13:18:00 Document Registration
--- NOTE | 2020-04-29 19:27 | ED General ---
General Chief Complaint: General Problems/Pain Stated Complaint: ANXIETY Source of Information: Patient, EMS History of Present Illness Date Seen by Provider: Apr 29, 2020 Time Seen by Provider: 19:15 Initial Comments 54 y/o female presents via EMS w complaint of feeling anxious, tired, not sleeping. Stopped taking all her medications, feels depressed since her mom in February this year. Denies SI Also having some Right sided abdominal pain, foul smelling urine and dysuria wit hout hematuria. Allergies and Home Medications Allergies Coded Allergies: aspirin (Unverified Allergy, Severe, THROAT SWELLS, 01/20/13) amoxicillin (Unverified Allergy, Intermediate, HIVES, 04/25/16) sulfamethoxazole (Unverified Allergy, Unknown, 01/20/13) trimethoprim (Unverified Allergy, Unknown, 01/20/13) Home Medications Acetaminophen 500 Mg Tablet, 1,000 MG PO Q4H PRN for PAIN-MILD, (Reported) Allopurinol 100 Mg Tablet, 100 MG PO DAILY, (Reported) LAST FILLED 11-28-2019 #30 Atorvastatin Calcium 10 Mg Tablet, 10 MG PO HS, (Reported) LAST FILLED 11-09-2019 #30 Fluoxetine HCl 40 Mg Capsule, 40 MG PO DAILY, (Reported) LAST FILLED 12-18-2019 #30 Gabapentin 800 Mg Tablet, 800 MG PO TID, (Reported) FILLED 11-09-2019 #90 Lisinopril 10 Mg Tablet, 10 MG PO DAILY, (Reported) LAST FILLED 11-28-2019 #30 Metoprolol Tartrate 25 Mg Tablet, 25 MG PO BID Prescribed by: SPIKE BERRIOS on 02/20/20 1209 Trazodone HCl 50 Mg Tablet, 50 MG PO HS PRN for SLEEP, (Reported) LAST FILLED 11-09-2019 #30 Patient Home Medication List Home Medication List Reviewed: Yes Review of Systems Review of Systems Constitutional: No dizziness, No fever; malaise, weakness EENTM: no symptoms reported Respiratory: No cough, No hemoptysis, No orthopnea, No short of breath Cardiovascular: No chest pain, No edema, No palpitations, No syncope Gastrointestinal: abdominal pain, loss of appetite; No nausea, No vomiting Genitourinary: see HPI Musculoskeletal: No back pain, No joint pain Skin: No change in color, No rash Psychiatric/Neurological: Anxiety, Depressed, Emotional Problems; Denies Headache, Denies Numbness, Denies Paresthesia, Denies Seizure, Denies Tremors; Weakness Past Yxclzgj-Cizmyq-Qnpefw Hx Past Med/Social Hx: Reviewed Nursing Past Med/Soc Hx Patient Social History Drug of Choice: DENIES Type Used: Cigarettes 2nd Hand Smoke Exposure: No Recent Foreign Travel: No Contact w/Someone Who Travel: No Recent Hopitalizations: No Immunizations Up To Date Date of Pneumonia Vaccine: Jan 06, 2013 Date of Influenza Vaccine: Jan 20, 2013 Seasonal Allergies Seasonal Allergies: No Past Medical History Surgeries: Yes (cysto's and eswl's) Appendectomy, Gallbladder, Hysterectomy, Tubal Ligation Respiratory: No Cardiac: Yes (SVT, ) Atrial Fibrillation, Hypertension Neurological: Yes (HAS 3 BRAIN ANEURYSMS DX AT 37 YRS OF AGE, bulging discs, pinched nerve) Reproductive Disorders: No Genitourinary: Yes Kidney Stones Gastrointestinal: Yes (enlarged liver) Gastroesophageal Reflux Musculoskeletal: Yes (restless leg) Arthritis Endocrine: Yes Diabetes, Non-Insulin dep HEENT: No Cancer: No Uterine Psychosocial: Yes Suicide Attempts, Depression Integumentary: No Blood Disorders: No Family Medical History Asthma 19 MOTHER Diabetes mellitus 19 FATHER FH: COPD (chronic obstructive pulmonary disease) 19 MOTHER FH: emphysema 19 MOTHER Physical Exam Vital Signs Vital Signs - First Documented 04/29/20 19:22 Temp 36.1 Pulse 101 Resp 20 B/P (MAP) 152/91 (111) Pulse Ox 97 O2 Delivery Room Air Capillary Refill : Height, Weight, BMI Height: 5'4.00" Weight: 240lbs. 9.6oz. [id number]; 58.00 BMI Method:Stated General Appearance: No Apparent Distress, WD/WN, Anxious HEENT: PERRL/EOMI, Normal ENT Inspection Neck: Non Tender, Supple Respiratory: Lungs Clear, Normal Breath Sounds Cardiovascular: Regular Rate, Rhythm, No Edema, Normal Peripheral Pulses Gastrointestinal: Non Tender, Soft Back: Normal Inspection, No CVA Tenderness Extremity: Normal Capillary Refill, Non Tender, No Calf Tenderness Neurologic/Psychiatric: Alert, Oriented x3, No Motor/Sensory Deficits, Normal Mood/Affect Progress/Results/Core Measures Suspected Sepsis SIRS Temperature: Pulse: Respiratory Rate: Blood Pressure / Mean: Results/Orders Lab Results Laboratory Tests Test 04/29/20 19:22 Range/Units Urine Color YELLOW Urine Clarity SL CLOUDY Urine pH 5.5 5-9 Urine Specific [place] >1.030 1.016-1.022 Urine Protein 1+ H NEGATIVE Urine Glucose (UA) NEGATIVE NEGATIVE Urine Ketones TRACE H NEGATIVE Urine Nitrite NEGATIVE NEGATIVE Urine Bilirubin 2+ H NEGATIVE Urine Urobilinogen 0.2 < = 1.0 MG/DL Urine Leukocyte Esterase TRACE H NEGATIVE Urine RBC (Auto) 3+ H NEGATIVE Urine RBC 50-100 H /HPF Urine WBC 2-5 /HPF Urine Crystals PRESENT H /LPF Urine Amorphous Sediment MOD ANI URATES H /LPF Urine Bacteria NONE /HPF Urine Casts NONE /LPF Urine Mucus SMALL H /LPF Urine Culture Indicated NO My Orders Orders - ROVENSTINEYEMIDILLON L DO Urinalysis (04/29/20 19:19) Vital Signs/I&O 04/29/20 19:22 Temp 36.1 Pulse 101 Resp 20 B/P (MAP) 152/91 (111) Pulse Ox 97 O2 Delivery Room Air Capillary Refill : Progress Note : Progress Note Patient admits to history of kidney stones. Also states she is no longer doing "meth". discussed f/u w PCP regarding her grief as well as hematuria (presumed renal lithiasis at this time). Refill of pt's trazadone which she previously took for sleep. Departure Impression Primary Impression: Feeling grief Additional Impressions: Medical non-compliance Hematuria Qualified Codes: R31.9 - Hematuria, unspecified Disposition: 01 HOME, SELF-CARE Condition: Stable Departure-Patient Inst. Decision time for Depature: 20:14 Referrals: [facility] (PCP/Family) Primary Care Physician Patient Instructions: Blood in the Urine (Hematuria) in Adults Add. Discharge Instructions: Call your Primary Care Provider at [facility] next week to make a follow-up appointment to talk about dealing with your grief and your blood in your urine. All discharge instructions reviewed with patient and/or family. Voiced und erstanding. Scripts Trazodone HCl (Trazodone HCl) 50 Mg Tablet 50 MG PO qhs, #10 TAB Prov: ROVENSTINE,DILLON L DO 04/29/20 Hydrocodone/Acetaminophen (Hydrocodone-Acetamin 5-325 mg) 1 Each Tablet 1 EACH PO Q4H for Abdominal Pain, #10 TAB Prov: ROVENSTINE,DILLON L DO 04/29/20 DILLON GASCA DO Apr 29, 2020 19:27
[2020-04-29 20:05] LABS: AMORPHOUS SEDIMENT,UR MOD AMOR URATES /LPF; BILIRUBIN,URINE 2+ (NEGATIVE); CLARITY,URINE SL CLOUDY; COLOR,URINE YELLOW; GLUCOSE, URINE (UA) NEGATIVE (NEGATIVE); KETONES,URINE TRACE (NEGATIVE); LEUKOCYTE ESTERASE ,URINE TRACE (NEGATIVE); NITRITE,URINE NEGATIVE (NEGATIVE); PH,URINE 5.5 (5-9); PROTEIN,URINE 1+ (NEGATIVE); RBC,URINE 50-100 /HPF
[2020-04-29] MEDS ORDERED: TRZ50T PO (20:19)
[2020-04-29] MEDS ORDERED: HYDR-83 PO (20:19)
[2020-04-29 20:22] VITALS: BP 141/83
== END 2020-04-29 20:22 | disposition home or self-care (01) ==
LOC: EDUNIT# 19:16 → ER FS 19:17
DX: F43.21 Adjustment disorder with depressed mood (principal); R31.9 Hematuria, unspecified; I10 Essential (primary) hypertension; F32.9 Major depressive disorder, single episode, unspecified; R10.9 Unspecified abdominal pain; Z91.19 Patient's noncompliance with other medical treatment and regimen; Z88.6 Allergy status to analgesic agent; Z88.2 Allergy status to sulfonamides; Z88.1 Allergy status to other antibiotic agents; Z88.0 Allergy status to penicillin
CPT/HCPCS: 81000; 99283

== ENCOUNTER 2020-06-17 18:33 | Emergency (ER) | payer MEDICAID ==
[~2020-06-17] VITALS: Ht 162.6 cm; Wt 113.4 kg
[~2020-06-17 18:33] MED LIST changes: +HYDR-3812 PO
--- NOTE | 2020-06-17 18:54 | ED Abdominal Pain ---
General Chief Complaint: Abdominal/GI Problems Stated Complaint: KIDNEY STONE Nursing Triage Note: Patient reports she has ongoing problems with kidney stones, states her right side has been hurting intermittently for 1 month. Sepsis Screen: No Definite Risk History of Present Illness Date Seen by Provider: Jun 17, 2020 Time Seen by Provider: 18:40 Initial Comments Patient says she's been trying to pass a kidney stone in the right kidney for the last couple months feels like the pain is excruciating and unbearable at this time. Some nausea no vomiting some discoloration of her urine no change in her stools no fever no chills Severity/Quality: Moderate Location: Flank (right) Radiation: No Radiation Activities at Onset: None Modifying Factors: Improves With Lying down; Worsens With Movement Associated Symptoms: No Chest Pain, No Fatigue, No Headache; Nausea/Vomiting; No Shortness of Air Allergies and Home Medications Allergies Coded Allergies: aspirin (Unverified Allergy, Severe, THROAT SWELLS, 01/20/13) amoxicillin (Unverified Allergy, Intermediate, HIVES, 04/25/16) sulfamethoxazole (Unverified Allergy, Unknown, 01/20/13) trimethoprim (Unverified Allergy, Unknown, 01/20/13) Home Medications Acetaminophen 500 Mg Tablet, 1,000 MG PO Q4H PRN for PAIN-MILD, (Reported) Allopurinol 100 Mg Tablet, 100 MG PO DAILY, (Reported) LAST FILLED 11-28-2019 #30 Atorvastatin Calcium 10 Mg Tablet, 10 MG PO HS, (Reported) LAST FILLED 11-09-2019 #30 Fluoxetine HCl 40 Mg Capsule, 40 MG PO DAILY, (Reported) LAST FILLED 12-18-2019 #30 Gabapentin 800 Mg Tablet, 800 MG PO TID, (Reported) FILLED 11-09-2019 #90 Hydrocodone/Acetaminophen 1 Each Tablet, 1 EACH PO Q4H Prescribed by: DILLON GASCA on 04/29/202018 Lisinopril 10 Mg Tablet, 10 MG PO DAILY, (Reported) LAST FILLED 11-28-2019 #30 Metoprolol Tartrate 25 Mg Tablet, 25 MG PO BID Prescribed by: SPIKE BERRIOS on 02/20/20 1209 Trazodone HCl 50 Mg Tablet, 50 MG PO HS PRN for SLEEP, (Reported) LAST FILLED 11-09-2019 #30 Trazodone HCl 50 Mg Tablet, 50 MG PO qhs Prescribed by: DILLON GASCA on 04/29/202018 Patient Home Medication List Home Medication List Reviewed: Yes Review of Systems Review of Systems Constitutional: No chills, No fever; malaise EENTM: No Symptoms Reported Respiratory: No Symptoms Reported Cardiovascular: No Symptoms Reported Gastrointestinal: Abdominal Pain; Denies Diarrhea; Nausea; Denies Vomiting Genitourinary: Denies Frequency; Flank Pain, Pain Musculoskeletal: No joint swelling, No neck pain Skin: no symptoms reported Psychiatric/Neurological: No Symptoms Reported Past Ourxqog-Kfagsa-Ccdfwl Hx Past Med/Social Hx: Reviewed Nursing Past Med/Soc Hx Patient Social History Alcohol Use: Denies Use Recreational Drug Use: Yes ( METH AND COCAINE) Drug of Choice: DENIES Smoking Status: Current Everyday Smoker Type Used: Cigarettes 2nd Hand Smoke Exposure: No Recent Foreign Travel: No Contact w/Someone Who Travel: No Recent Infectious Disease Expo: No Recent Hopitalizations: No Physical Abuse: No Sexual Abuse: No Mistreated: No Fear: No Immunizations Up To Date Date of Pneumonia Vaccine: Jan 06, 2013 Date of Influenza Vaccine: Jan 20, 2013 Seasonal Allergies Seasonal Allergies: No Past Medical History Surgeries: Yes (cysto's and eswl's) Appendectomy, Gallbladder, Hysterectomy, Tubal Ligation Respiratory: No Cardiac: Yes (SVT, ) Atrial Fibrillation, Hypertension Neurological: Yes (HAS 3 BRAIN ANEURYSMS DX AT 37 YRS OF AGE, bulging discs, pinched nerve) Reproductive Disorders: No Genitourinary: Yes Kidney Stones Gastrointestinal: Yes (enlarged liver) Gastroesophageal Reflux Musculoskeletal: Yes (restless leg) Arthritis Endocrine: Yes Diabetes, Non-Insulin dep HEENT: No Cancer: No Uterine Psychosocial: Yes Suicide Attempts, Depression Integumentary: No Blood Disorders: No Family Medical History Asthma 19 MOTHER Diabetes mellitus 19 FATHER FH: COPD (chronic obstructive pulmonary disease) 19 MOTHER FH: emphysema 19 MOTHER Physical Exam Vital Signs Vital Signs - First Documented 06/17/20 18:37 Temp 36.8 Pulse 78 Resp 16 B/P (MAP) 113/91 (98) Pulse Ox 98 O2 Delivery Room Air Capillary Refill : Less Than 3 Seconds Height/Weight/BMI Height: 5'4.00" Weight: 240lbs. 9.6oz. [id number]; 42.00 BMI Method:Stated General Appearance: WD/WN, mild distress HEENT: PERRL/EOMI, normal ENT inspection, TMs normal, pharynx normal Neck: non-tender, normal inspection Respiratory: lungs clear, normal breath sounds Cardiovascular: regular rate, rhythm, no murmur Gastrointestinal: normal bowel sounds, soft Extremities: normal range of motion, non-tender Back: CVA tenderness (R) Neurologic/Psychiatric: alert, normal mood/affect, oriented x 3 Skin: normal color, warm/dry Progress/Results/Core Measures Results/Orders Lab Results Laboratory Tests Test 06/17/20 19:10 06/17/20 19:40 Range/Units White Blood Count 10.3 4.3-11.0 10^3/uL Red Blood Count 4.53 4.35-5.85 10^6/uL Hemoglobin 13.4 11.5-16.0 G/DL Hematocrit 41 35-52 % Mean Corpuscular Volume 90 80-99 FL Mean Corpuscular Hemoglobin 30 25-34 PG Mean Corpuscular Hemoglobin Concent 33 32-36 G/DL Red Cell Distribution Width 14.0 10.0-14.5 % Platelet Count 309 130-400 10^3/uL Mean Platelet Volume 11.3 H 7.4-10.4 FL Neutrophils (%) (Auto) 61 42-75 % Lymphocytes (%) (Auto) 28 12-44 % Monocytes (%) (Auto) 8 0-12 % Eosinophils (%) (Auto) 2 0-10 % Basophils (%) (Auto) 1 0-10 % Neutrophils # (Auto) 6.2 1.8-7.8 X 10^3 Lymphocytes # (Auto) 2.9 1.0-4.0 X 10^3 Monocytes # (Auto) 0.8 0.0-1.0 X 10^3 Eosinophils # (Auto) 0.2 0.0-0.3 10^3/uL Basophils # (Auto) 0.1 0.0-0.1 10^3/uL Sodium Level 139 135-145 MMOL/L Potassium Level 4.3 3.6-5.0 MMOL/L Chloride Level 103 98-107 MMOL/L Carbon Dioxide Level 23 21-32 MMOL/L Anion Gap 13 5-14 MMOL/L Blood Urea Nitrogen 14 7-18 MG/DL Creatinine 0.76 0.60-1.30 MG/DL Estimat Glomerular Filtration Rate > 60 BUN/Creatinine Ratio 18 Glucose Level 293 H 70-105 MG/DL Calcium Level 8.9 8.5-10.1 MG/DL Corrected Calcium 9.3 8.5-10.1 MG/DL Total Bilirubin 0.2 0.1-1.0 MG/DL Aspartate Amino Transf (AST/SGOT) 16 5-34 U/L Alanine Aminotransferase (ALT/SGPT) 16 0-55 U/L Alkaline Phosphatase 124 40-136 U/L Total Protein 6.7 6.4-8.2 GM/DL Albumin 3.5 3.2-4.5 GM/DL Lipase 81 H 8-78 U/L Urine Color YELLOW Urine Clarity CLEAR Urine pH 6.5 5-9 Urine Specific [place] 1.020 1.016-1.022 Urine Protein NEGATIVE NEGATIVE Urine Glucose (UA) 3+ H NEGATIVE Urine Ketones NEGATIVE NEGATIVE Urine Nitrite NEGATIVE NEGATIVE Urine Bilirubin NEGATIVE NEGATIVE Urine Urobilinogen 0.2 < = 1.0 MG/DL Urine Leukocyte Esterase TRACE H NEGATIVE Urine RBC (Auto) TRACE H NEGATIVE Urine RBC 0-2 /HPF Urine WBC 2-5 /HPF Urine Squamous Epithelial Cells 2-5 /HPF Urine Crystals NONE /LPF Urine Bacteria TRACE /HPF Urine Casts NONE /LPF Urine Mucus NEGATIVE /LPF Urine Culture Indicated YES My Orders Orders - SAVANA JAUREGUI JR, MD Cbc With Automated Diff (06/17/20 18:49) Comprehensive Metabolic Panel (06/17/20 18:49) Lipase (06/17/20 18:49) Ua Culture If Indicated (06/17/20 18:49) Ct Abdomen/Pelvis W (06/17/20 18:49) Ns Iv 1000 Ml (Sodium Chloride 0.9%) (06/17/20 19:00) Ondansetron Injection (Zofran Injectio (06/17/20 19:00) Ketorolac Injection (Toradol Injection) (06/17/20 19:00) Ed Iv/Invasive Line Start (06/17/20 19:20) Urine Culture (06/17/20 19:40) Iohexol Injection (Omnipaque 350 Mg/Ml 1 (06/17/20 20:00) Received Contrast (Hold Metformin- Contr (06/17/20 20:00) Sodium Chloride Flush (Catheter Flush Sy (06/17/20 20:00) Ns (Ivpb) (Sodium Chloride 0.9% Ivpb Bag (06/17/20 20:00) Medications Given in ED Current Medications Medications Dose Ordered Sig/Sirisha Route Start Time Stop Time Status Last Admin Dose Admin Iohexol 100 ml ONCE ONCE IV 06/17/20 20:00 06/17/20 20:01 DC 06/17/20 20:12 100 ML Ketorolac Tromethamine 15 mg ONCE ONCE IVP 06/17/20 19:00 06/17/20 19:01 DC 06/17/20 19:06 15 MG Ondansetron HCl 4 mg ONCE ONCE IVP 06/17/20 19:00 06/17/20 19:01 DC 06/17/20 19:06 4 MG Sodium Chloride 10 ml NEEDED PRN IV 06/17/20 20:00 06/17/20 20:12 10 ML Sodium Chloride 100 ml ONCE ONCE IV 06/17/20 20:00 06/17/20 20:01 DC 06/17/20 20:12 100 ML Vital Signs/I&O 06/17/20 18:37 Temp 36.8 Pulse 78 Resp 16 B/P (MAP) 113/91 (98) Pulse Ox 98 O2 Delivery Room Air Blood Pressure Mean: 98 Departure Communication (Admissions) 70 mm stone in the right renal pelvis at this point she doesn't have any pain at all her kidney function seems to be good for her back to her PCP for urology referral she evidently has had that in place before but has not followed through. Impression Primary Impression: Calculus of kidney Disposition: HOME, SELF-CARE Condition: Stable Departure-Patient Inst. Referrals: [facility] [place] (PCP/Family) Primary Care Physician Patient Instructions: Kidney Stones (DC) SAVANA JAUREGUI JR, MD Jun 17, 2020 18:54
[2020-06-17] MEDS ORDERED: KETOROLAC 30 MG/ML VIAL IVP ONE (19:00)
[2020-06-17] MEDS ORDERED: NS IV 1000 ML 1,000 ML IV SCH (19:00)
[2020-06-17] MEDS ORDERED: ONDANSETRON 4 MG/2 ML (SDV) Z0FRAN IVP ONE (19:00)
--- OUTSIDE RECORDS SUMMARY | 2020-06-17 19:01 | XMS REPORT | Clinical Summary ---
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 If you d o not see the information that you expected, contact Release of Information in [facility] [employer] Information Management department at [phone] for further assistan ce in locating additional records.[facility] Allergies Comments Active Allergy Reactions Severity [...] Assigned at Date Recorded Not on file Last Filed Vital Signs Reading Time Taken Comments Vital Sign 121/66 12/13/2011 12:45 PM UROGYNECOLOGY PHYSICIAN Blood Pressure 63 12/13/2011 12:45 PM UROGYNECOLOGY PHYSICIAN Pulse 36.6 C (97.9 F) 12/13/2011 12:45 PM UROGYNECOLOGY PHYSICIAN Temperature - - Respiratory Rate 97% 12/13/2011 12:45 PM UROGYNECOLOGY PHYSICIAN Oxygen Saturation - - Inhaled Oxygen Concentration 117.9 kg (260 lb) 12/13/2011 8:15 AM UROGYNECOLOGY PHYSICIAN Weight 165.1 cm (5' 5") 12/13/2011 8:15 AM UROGYNECOLOGY PHYSICIAN Height 43.27 12/13/2011 8:15 AM UROGYNECOLOGY PHYSICIAN Body Mass Index Plan of Treatment Health Maintenance Due Date Last Done Comments HIV SCREENING 1982 DTAP/TDAP VACCINES ( - 1985 Tdap) HEPATITIS C SCREENING 1985 PHYSICAL (COMPREHENSIVE) 1985 EXAM CERVICAL CANCER SCREENING 1988 BREAST CANCER SCREENING 2007 COLORECTAL CANCER 2017 SCREENING SHINGLES RECOMBINANT 2017 VACCINE (1 of 2) INFLUENZA VACCINE 08/04/2020 Results Not on filefrom Last 3 Months
--- OUTSIDE RECORDS SUMMARY | 2020-06-17 19:02 | XMS REPORT | Continuity of Care Document ---
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 01/26/2013 Ot 311 DEPRES SIVE [...] 592.0 CALC ULUS OF KIDNEY 03/10/2013 SUNDAR HINOJOSA FACC, ALI FACP CCDS Ot 305.1 TOBACCO USE DISORDER 03/10/2013 SUNDAR HINOJOSA FACC, ALI FACP CCDS Ot 427.31 ATRIAL FIBRILLATION 03/10/2013 SUNDAR CUADRAC, ALI FACP CCDS Ot 786.05 SHORTNESS OF BREATH 03/10/2013 SUNDAR CUADRAC, ALI FACP CCDS Ot 786.59 CHEST PAIN NEC 03/10/2013 SUNDAR HINOJOSA FACC, ALI FACP CCDS Ot V13.01 PERSONAL HISTORY OF URINARY CALCULI 03/10/2013 SUNDAR HINOJOSA FACC, ALI FACP CCDS Ot V58.63 LONG-TERM(CURRENT)USE OF ANTIPLATELET/AN 03/10/2013 SUNDAR HINOJOSA FACC, ALI FACP CCDS Ot V58.66 LONG-TERM (CURRENT) USE OF ASPIRIN 03/10/2013 SUNDAR HINOJOSA FACC, ALI FACP CCDS Ot V85.43 BODY MASS INDEX 50.0-59.9, ADULT 02/09/2016 EMI VARMA MD Ot N20.0 CALCULUS OF KIDNEY 02/09/2016 EMI VARMA MD Ot Z01.8 18 ENCOUNTER FOR OTHER PREPROCEDURAL EXAMIN 02/14/2016 Ot 592.0 02/14/2016 Ot V72.83 02/14/2016 Ot V74.8 02/14/2016 Ot 592.0 02/14/2016 Ot V45.89 02/14/2016 Ot 592.0 02/14/2016 Ot V67.09 02/14/2016 Ot V72.84 02/14/2016 PERRY CRISOSTOMOP Ot V58.63 02/14/2016 PERRY CRISOSTOMOP Ot V58.83 02/14/2016 EMI VARMA MD Ot [...] EXA M PRE- OPERATIVE NOS 02/27/2016 PERRY CRISOSTOMOP Ot V58.63 LONG-TERM(CURRENT)USE OF ANTIPLATELET/AN 02/27/2016 PERRY [...] NEOPLM OF UNSP FE 04/17/2019 ATIYA WERNER DO Ot Z87.442 PERSONAL HISTORY OF URINARY CALCULI [...] AFTCR FOLLOWING S 04/17/2019 MINAL HINOJOSA, HAMILTON M Ot M79.674 PAIN IN RIGHT TOE(S) 04/20/2019 [...] W22.09XA STRIKING AGAINST OTHER STATIONARY OBJECT 04/20/2019 ATIYA WERNER DO T Ot Z85. 40 PRSNL HISTORY OF MALIG NEOPLM OF UNSP FE 04/20/2019 ATIYA WERNER DO T Ot Z87.442 PERSONAL HISTORY OF URINARY CALCULI 04/20/2019 ATIYA WERNER DO T Ot Z88. 1 ALLERGY STATUS TO OTHER ANTIBIOTIC AGENT 04/20/2019 ATIYA WERNER DO T Ot Z88. 2 ALLERGY STATUS TO SULFONAMIDES STATUS 04/20/2019 ATIYA WERNER DO T Ot Z88. 6 ALLERGY STATUS TO ANALGESIC AGENT STATUS 04/20/2019 ATIYA WERNER DO T Ot Z88. 8 ALLERGY STATUS TO OTH DRUG/MEDS/BIOL SUB 04/20/2019 ATIYA WERNER DO T Ot Z98.890 OTHER SPECIFIED POSTPROCEDURAL STATES 06/28/2019 [...] STATUS TO ANALGESIC AGENT STATUS 07/01/2019 RONNA MEDAOWS MD Ot E11. 9 TYPE 2 DIABETES [...] DIABETES MELLITUS WITHOUT COMPLIC 07/21/2019 KOBI BERG MD, Ot E86.0 DEHYDRATION 07/21/2019 KOBI BERG MD, [...] ALLERGY STATUS TO ANALGESIC AGENT STATUS 07/21/2019 ENYART MD, KOBI E Ot Z90.4 9 ACQUIRED ABSENCE OF OTHER [...] 1 UNSPECIFIED ATRIAL FIBRILLATION 07/23/2019 KOBI BERG MD Ot J40 BRONCHITIS, NOT SPECIFIED ACUTE OR CH 07/23/2019 KOBI BERG MD Ot K21.9 GASTRO-ESOPHAGEAL REFLUX DISEASE WITHOUT 07/23/2019 KOBI BERG MD Ot R05 COUGH 07/23/2019 KOBI BERG MD Ot Z85.4 2 PERSONAL HISTORY OF MALIGNANT NEOPLASM O 07/23/2019 KOBI BERG MD, Ot Z87.4 42 PERSONAL HISTORY OF URINARY CALCULI 07/23/2019 KOBI BERG MD Ot Z88.0 ALLERGY STATUS TO PENICILLIN 07/23/2019 KOBI BERG MD Ot Z88.1 ALLERGY STATUS TO OTHER ANTIBIOTIC AGENT 07/23/2019 KOBI BERG MD Ot Z88.2 ALLERGY STATUS TO SULFONAMIDES STATUS 07/23/2019 KOBI BERG MD, Ot Z88.6 ALLERGY STATUS TO ANALGESIC AGENT STATUS 07/23/2019 KOBI BERG MD, Ot Z90.4 9 ACQUIRED ABSENCE OF OTHER SPECIFIED PART 07/23/2019 KOBI BERG MD, Ot Z90.7 10 ACQUIRED ABSENCE OF BOTH CERVIX AND UTER 07/23/2019 KOBI BERG MD, Ot Z98.5 1 TUBAL LIGATION STATUS 08/12/2019 SPIKE BERRIOS DO Ot E11.9 TYPE 2 DIABETES MELLITUS WITHOUT COMPLIC 08/12/2019 SPIKE BERRIOS DO Ot F15.10 OTHER STIMULANT ABUSE, UNCOMPLICATED 08/12/2019 [...] SPIKE Ot R45.85 1 SUICIDAL IDEATIONS 08/12/2019 AGUSTINA WATSON SPIKE Ot Z79.84 LONGTERM (CURRENT) USE OF ORAL HYPOGLYC 08/12/2019 AGUSTINA WATSON SPIKE Ot Z85.42 PERSONAL HISTORY OF MALIGNANT NEOPLASM O 08/12/2019 AGUSTINA WATSON SPIKE Ot Z87.44 2 PERSONAL HISTORY OF URINARY CALCULI 08/12/2019 AGUSTINA WATSON SPIKE Ot Z90.71 0 ACQUIRED ABSENCE OF BOTH CERVIX AND UTER 08/12/2019 AGUSTINA WATSON SPIKE Ot Z91.5 PERSONAL HISTORY OF SELF-HARM 08/12/2019 BREANN BERRIOS DOI Ot Z98.51 TUBAL LIGATION STATUS 08/12/2019 BREANN BERRIOS DOI Ot E11.9 TYPE 2 DIABETES MELLITUS WITHOUT [...] SPIKE Ot I10 ESSENTIAL (PRIMARY) HYPERTENSION 08/12/2019 BERRIOSBERNIE WATSON SPIKE Ot I48.20 CHRONIC ATRIAL FIBRILLATION, UNSPECIFIED 08/12/2019 BERRIOSBERNIE WATSON SPIKE Ot K21.9 GASTRO-ESOPHAGEAL REFLUX DISEASE WITHOUT 08/12/2019 BERRIOSBERNIE WATSON SPIKE Ot M19.90 UNSPECIFIED OSTEOARTHRITIS, UNSPECIFIED 08/12/2019 BERRIOS DO SPIKE Ot M54.9 DORSALGIA, UNSPECIFIED 08/12/2019 BERRIOS DO SPIKE Ot R45.85 1 SUICIDAL IDEATIONS 08/12/2019 BERRIOSBERNIE WATSON SPIKE Ot Z79.84 LONGTERM (CURRENT) USE OF ORAL HYPOGLYC 08/12/2019 BERRIOSBERNIE WATSON SPIKE Ot Z85.42 PERSONAL HISTORY OF MALIGNANT NEOPLASM O 08/12/2019 AGUSTINA WATSON SPIKE Ot Z87.44 2 PERSONAL HISTORY OF URINARY CALCULI 08/12/2019 AGUSTINA WATSON SPIKE Ot Z90.71 0 ACQUIRED ABSENCE OF BOTH CERVIX AND UTER 08/12/2019 SPIKE BERRIOS DO Ot Z91.5 PERSONAL HISTORY OF SELF-HARM 08/12/2019 AGUSTINA WATSON SPIKE Ot Z98.51 TUBAL LIGATION STATUS 09/18/2019 MOSES NORTON MD Ot E11. 9 TYPE 2 DIABETES MELLITUS WITHOUT COMPLIC 09/18/2019 MOSES NORTON MD, Ot E66. 01 MORBID (SEVERE) OBESITY DUE TO EXCESS CA 09/18/2019 MOSES NORTON MD, Ot E78. 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 42 PERSONAL HISTORY OF MALIGNANT NEOPLASM O 09/18/2019 MOSES NORTON MD Ot Z87.442 PERSONAL HISTORY OF URINARY CALCULI 09/18/2019 MOSES NORTON MD Ot Z88. 1 ALLERGY STATUS TO [...] TUBAL LIGATION STATUS 09/30/2019 JAYLA OWEN MD A Ot E11. 9 TYPE 2 DIABETES MELLITUS WITHOUT COMPLIC 09/30/2019 JAYLA OWEN MD A Ot F32. 9 MAJOR DEPRESSIVE DISORDER, SINGLE EPISOD 09/30/2019 JAYLA OWEN MD A Ot I10 ESSENTIAL (PRIMARY) HYPERTENSION 09/30/2019 JAYLA OWEN MD A Ot I47. 1 SUPRAVENTRICULAR TACHYCARDIA 09/30/2019 JAYLA OWEN MD A Ot I48. 91 UNSPECIFIED ATRIAL FIBRILLATION 09/30/2019 JAYLA OWEN MD A Ot K21. 9 GASTRO-ESOPHAGEAL REFLUX DISEASE WITHOUT 09/30/2019 JAYLA OWEN MD A Ot N39. 0 URINARY TRACT INFECTION, SITE NOT SPECIF 09/30/2019 JAYLA OWEN MD A Ot R07. 89 OTHER CHEST PAIN 09/30/2019 JAYLA OWEN MD A Ot Z79. 84 TEASEL GIG OPERATOR (CURRENT) USE OF ORAL HYPOGLYC 09/30/2019 JAYLA [...] ABSENCE OF BOTH CERVIX AND UTER 09/30/2019 BRAYDEN HINOJOSA, JAYLA Pond Ot Z98. 51 TUBAL LIGATION STATUS 12/29/2019 MIREYA BRICEÑO DO Ot E11. 9 TYPE 2 DIABETES MELLITUS WITHOUT COMPLIC 12/29/2019 MIREYA BRICEÑO DO Ot E86. 0 DEHYDRATION 12/29/2019 MIREYA BRICEÑO DO Ot F17.210 NICOTINE DEPENDENCE, CIGARETTES, UNCOMPL 12/29/2019 MIREYA BRICEÑO DO Ot F32. 9 MAJOR DEPRESSIVE DISORDER, SINGLE EPISOD 12/29/2019 MIREYA BRICEÑO DO Ot I10 ESSENTIAL (PRIMARY) HYPERTENSION 12/29/2019 MIREYA BRICEÑO DO Ot I48. 91 UNSPECIFIED ATRIAL FIBRILLATION 12/29/2019 MIREYA BRICEÑO DO Ot N39. 0 URINARY TRACT INFECTION, SITE NOT SPECIF 12/29/2019 MIREYA BRICEÑO DO Ot R10. 9 UNSPECIFIED ABDOMINAL PAIN 12/29/2019 MIREYA BRICEÑO DO Ot Z79. 84 TEASEL GIG OPERATOR (CURRENT) USE OF ORAL HYPOGLYC 12/29/2019 MIREYA BRICEÑO DO Ot Z85. 42 PERSONAL HISTORY OF MALIGNANT NEOPLASM O 12/29/2019 MIREYA BRICEÑO DO Ot Z88. 0 ALLERGY STATUS TO PENICILLIN 12/29/2019 MIREYA BRICEÑO DO Ot Z88. 1 ALLERGY STATUS TO OTHER ANTIBIOTIC AGENT 12/29/2019 MIREYA BRICEÑO DO Ot Z88. 2 ALLERGY STATUS TO SULFONAMIDES STATUS 12/29/2019 MIREYA BRICEÑO DO Ot Z88. 6 ALLERGY STATUS TO ANALGESIC AGENT STATUS 12/29/2019 Ot N20.0 CALC ULUS OF KIDNEY 12/29/2019 EMI VARMA MD Ot N20.0 CALCULUS OF KIDNEY 12/29/2019 EMI VARMA MD Ot Z98.8 9 OTHER SPECIFIED POSTPROCEDURAL STATES 12/29/2019 EMI VARMA MD Ot N20.0 CALCULUS OF KIDNEY 12/29/2019 EMI VARMA MD Ot Z48.8 16 ENCOUNTER FOR SURGICAL AFTCR FOLLOWING S 12/29/2019 MINAL HINOJOSA, HAMILTON Klein Ot M79.674 PAIN IN RIGHT TOE(S) 01/08/2020 AJYLA OWEN MD Ot E11. 9 TYPE 2 DIABETES MELLITUS WITHOUT COMPLIC 01/08/2020 BRAYDEN MD, JAYLA A Ot F32. 9 MAJOR DEPRESSIVE DISORDER, SINGLE EPISOD 01/08/2020 JAYLA OWEN MD A Ot I10 ESSENTIAL (PRIMARY) HYPERTENSION 01/08/2020 JAYLA OWEN MD A Ot I47. 1 SUPRAVENTRICULAR TACHYCARDIA 01/08/2020 JAYLA OWEN MD A Ot I48. 91 UNSPECIFIED ATRIAL FIBRILLATION 01/08/2020 JAYLA OWEN MD A Ot K21. 9 GASTRO-ESOPHAGEAL REFLUX DISEASE WITHOUT 01/08/2020 JAYLA OWEN MD A Ot N39. 0 URINARY TRACT INFECTION, SITE NOT SPECIF 01/08/2020 JAYLA OWEN MD A Ot R07. 89 OTHER CHEST PAIN 01/08/2020 JAYLA OWEN MD A Ot Z79. 84 LONGTERM (CURRENT) USE OF ORAL HYPOGLYC 01/08/2020 JAYLA OWEN MD A Ot Z85. 42 PERSONAL HISTORY OF MALIGNANT NEOPLASM O 01/08/2020 JAYLA OWEN MD A Ot Z87.442 PERSONAL HISTORY OF URINARY CALCULI 01/08/2020 AJYLA OWEN MD A Ot Z88. 1 ALLERGY STATUS TO OTHER ANTIBIOTIC AGENT 01/08/2020 JAYLA OWEN MD A Ot Z88. 2 ALLERGY STATUS TO SULFONAMIDES STATUS 01/08/2020 JAYLA OWEN MD A Ot Z88. 6 ALLERGY STATUS TO ANALGESIC AGENT STATUS 01/08/2020 JAYLA OWEN MD A Ot Z90. 49 ACQUIRED ABSENCE OF OTHER SPECIFIED PART 01/08/2020 JAYLA OWEN MD A Ot Z90.710 ACQUIRED ABSENCE OF BOTH CERVIX AND UTER 01/08/2020 JAYLA OWEN MD A Ot Z98. 51 TUBAL LIGATION STATUS 02/20/2020 DENIS ULLOA MD Ot E11.9 TYPE 2 DIABETES MELLITUS WITHOUT COMPLIC 02/20/2020 DENIS ULLOA MD Ot E66.9 OBESITY, UNSPECIFIED 02/20/2020 DENIS ULLOA MD Ot F17.2 10 [...] 02/20/2020 DENIS ULLOA MD, Ot Z79.8 4 LONGTERM (CURRENT) USE OF ORAL HYPOGLYC 02/20/2020 DENIS [...] TYPE 2 DIABETES MELLITUS WITHOUT COMPLIC 02/20/2020 DENSI ULLOA MD Ot E66.9 OBESITY, UNSPECIFIED 02/20/2020 DENIS ULLOA MD Ot E78.5 HYPERLIPIDEMIA, UNSPECIFIED 02/20/2020 DENIS ULLOA MD Ot 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, UNCOMPLICATED 02/20/2020 LAILA HINOJOSA, DENIS Merino Ot F17.2 10 NICOTINE DEPENDENCE, CIGARETTES, UNCOMPL 02/20/2020 DENIS ULLOA MD Ot F32.9 MAJOR DEPRESSIVE DISORDER, SINGLE EPISOD 02/20/2020 LAILA HINOJOSA, DENIS Merino Ot F41.9 ANXIETY DISORDER, UNSPECIFIED 02/20/2020 DENIS ULLOA MD Ot G25.8 1 RESTLESS LEGS SYNDROME 02/20/2020 DENIS ULLOA MD Ot G58.9 MONONEUROPATHY, UNSPECIFIED 02/20/2020 LAILA HINOJOSA, DENIS Merino Ot I11.0 HYPERTENSIVE HEART DISEASE WITH HEART [...] UNSPECIFIED SITE 02/20/2020 DENIS ULLOA MD Ot R16.0 HEPATOMEGALY, NOT ELSEWHERE CLASSIFIED 02/20/2020 DENIS ULLOA MD Ot R45.8 51 SUICIDAL IDEATIONS 02/20/2020 DENIS ULLOA MD Ot R79.8 9 OTHER SPECIFIED ABNORMAL FINDINGS OF BLO 02/20/2020 DENIS ULLOA MD Ot Z68.4 2 BODY MASS INDEX (BMI) 45.0-49.9, ADULT 02/20/2020 DENIS ULLOA MD Ot Z79.8 4 TEASEL GIG OPERATOR (CURRENT) USE OF ORAL HYPOGLYC 02/20/2020 DENIS ULLOA MD Ot Z85.4 2 PERSONAL HISTORY OF MALIGNANT NEOPLASM O 02/20/2020 DENIS ULLOA MD Ot Z87.4 42 PERSONAL HISTORY OF URINARY CALCULI 02/20/2020 LAILA HINOJOSA, DENIS Merino Ot Z90.7 10 ACQUIRED ABSENCE OF BOTH CERVIX AND UTER 02/20/2020 DENIS ULLOA MD Ot Z91.1 4 PATIENT'S OTHER NONCOMPLIANCE WITH MEDIC 02/20/2020 DENIS ULLOA MD, Ot Z91.5 PERSONAL HISTORY OF SELF-HARM 04/29/2020 Ot N20.0 CALC ULUS OF KIDNEY 04/29/2020 AVANI HINOJOSA, EMI Pond Ot N20.0 CALCULUS OF KIDNEY 04/29/2020 AVANI HINOJOSA, EMI Pond Ot Z98.8 9 OTHER SPECIFIED POSTPROCEDURAL STATES 04/29/2020 EMI VARMA MD, Ot N20.0 CALCULUS OF KIDNEY 04/29/2020 AVANI HINOJOSA, EMI Pond Ot Z48.8 16 ENCOUNTER FOR SURGICAL AFTCR FOLLOWING S 04/29/2020 MINAL HINOJOSA, HAMILTON Klein Ot M79.674 PAIN IN RIGHT TOE(S) 05/02/2020 ROVENSTINE DO, DILLON L Ot F32.9 MAJOR DEPRESSIVE DISORDER, SINGLE EPISOD 05/02/2020 ROVENSTINE DO, DILLON L Ot F41.9 ANXIETY DISORDER, UNSPECIFIED 05/02/2020 ROVENSTINE DO, DILLON L Ot F43.21 ADJUSTMENT DISORDER WITH DEPRESSED MOOD 05/02/2020 ROVENSTINE DO, DILLON L Ot I10 ESSENTIAL (PRIMARY) HYPERTENSION 05/02/2020 ROVENSTINE DO, DILLON L Ot R10.9 UNSPECIFIED ABDOMINAL PAIN 05/02/2020 ROVENSTINE DO, DILLON L Ot R31.9 HEMATURIA, UNSPECIFIED 05/02/2020 ROVENSTINE DO, DILLON L Ot Z88.0 ALLERGY STATUS TO PENICILLIN 05/02/2020 ROVENSTINE DO, DILLON L Ot Z88.1 ALLERGY STATUS TO OTHER ANTIBIOTIC AGENT 05/02/2020 ROVENSTINE DO, DILLON L Ot Z88.2 ALLERGY STATUS TO SULFONAMIDES STATUS 05/02/2020 ROVENSTINE DO, DILLON L Ot Z88.6 ALLERGY STATUS TO ANALGESIC AGENT STATUS 05/02/2020 ROVENSTINE DO, DILLON L Ot Z91.19 PATIENT'S NONCOMPLIANCE W [facility] Procedures Code Description Performed By Per formed On .93 01/22/2013 59.8 01/22/2013 [id number] OR ASURE OF CARDIAC SAMPL PRESSURE, L H 02/19/2020 [id number] FL UOROSCOPY OF MULT COR ART USING L OSM 02/19/2020 [id number] FL UOROSCOPY OF LEFT HEART USING LOW OSMO 02/19/2020 [id number] FL UOROSCOPY OF THORACIC AORTA USING LOW 02/19/2020 Results Test Result Range [facility] - 12/30/18 12:16 GLUCOSE 143 mg/dL 65-99 UREA NITROGEN (BUN) 14 mg/dL 7-25 CREATININE 0.85 mg/dL 0.50-1.05 eGFR NON-AFR. FILIPINO 79 mL/min/1.73m2 > OR = 60 eGFR [...] culture - 04/17/19 19:40 Bacterial urine culture [id number] NRG COLONY COUNT >100,000/ML NRG FTX;REPORTABLE SUSCEPTIBILITY [...] in u rine sediment by light microscopy - NRG Crystals detection in urine sediment by light microsco py PRESENT NRG Casts detection in urine sediment by light microscopy NONE NRG Mucus detection in urine sediment by light microscopy NONE NRG Complete urinalysis with reflex to culture YES NRG Amorphous sediment detection in urine sediment by ligh t microscopy FEW ANI URATES NRG Bacterial urine culture - 09/18/19 11:15 Bacterial urine culture [id number] NRG COLONY COUNT 30,000 CFU/ML NRG FTX;REPORTABLE [...] ncentration <= NRG Nitrofurantoin susceptibility test by hi nimum inhibitory concentration <= NRG Amoxicillin and [...] - 09/18/19 11:49 Lipase 76 U/L 8-78 [id number] - 09/18/19 11:49 [id number] 0.32 ng/mL 0.80-2.00 Complete blood count (CBC) [...] culture - 12/29/19 13:35 Bacterial urine culture [id number] NRG COLONY COUNT 20,000 CFU/ML NRG FTX;REPORTABLE SUSCEPTIBILITY REPORTED 01/02/20 11: 45 NRG FREE TEXT ENTRY 2 PRELIM RAPID ID BY [facility] 12-31-19, 08 NRG FREE TEXT ENTRY 3 RML CONFIRMED [...] i.cardiac measurement (mass/v olume) 0.512 ng/mL <0.028 [id number] - 02/18/20 18:40 [id number] < 0.30 0.80-2.00 Complete urinalysis with reflex [...] by glucometer (mas s/volume) 162 mg/dL 70-110 Complete urinalysis with reflex to cultu re - 04/29/20 19:22 Urine color determination YELLOW NRG Urine clarity determination SL CLOUDY N RG Urine pH measurement by test strip 5.5 5-9 Specific gravity of urine by test strip > 1.016-1.022 Urine protein assay by test strip, semi-quantitative 1+ NEGATIVE Urine glucose detection by automated test strip NE GATIVE NEGATIVE Erythrocytes detection in urine sediment by light micr oscopy 3+ NEGATIVE Urine ketones detection by automated test strip TR ROXANA NEGATIVE Urine nitrite detection by test strip NEGATIVE NEGATIVE Urine total bilirubin detection by test strip 2+ NEGATIVE Urine urobilinogen measurement by automated test strip (mass/volume) 0.2 mg/dL < = 1.0 Urine leukocyte esterase detection by dipstick TRA CE NEGATIVE Automated urine sediment erythrocyte cou nt by microscopy (number/high power field) [HPF] NRG Automated urine sediment leukocyte count by microscopy (number/high power field) [HPF] NRG Bacteria detection in urine sediment by light microsco py NONE NRG Crystals detection in urine sediment by light microsco py PRESENT NRG Casts detection in urine sediment by light microscopy NONE NRG Mucus detection in urine sediment by light microscopy SMALL NRG Complete urinalysis with reflex to culture NO NRG Amorphous sediment detection in urine sediment by ligh t microscopy MOD ANI URATES NRG Encounters ACCT No. Visit Date/Time Discharge Status Pt. Type Provider Facility Loc./Unit Complaint [id number] 09/30/2019 11:00:00 09/30/2019 23:59:5 9 CLS Outpatient FONTAINE HAMILTON [facility] [id number] 02/23/2019 10:15:00 Document Registration [id number] 12/30/2018 10:45:00 Document Registration [id number] 04/29/2020 19:17:00 20:22:00 DIS Outpatient DILLON GASCA DO [facility] ER FS ANXIETY [id number] 02/18/2020 17:05:00 17:55:00 DIS Inpatient GAULT MD, DENIS Merino [facility] ICU SVT, CHEST PAIN, METHAM PHETAMENE USE [id number] 12/29/2019 13:22:00 16:18:00 DIS Emergency MIREYA BRICEÑO DO [facility] ER FS ABD PAIN [id number] 09/30/2019 13:28:00 15:38:00 DIS Emergency JAYLA OWEN MD [facility] ER FS CHEST PAIN [id number] 09/18/2019 10:26:00 13:52:00 DIS Emergency CIERRA HINOJOSA, MOSES Etienne [facility] ER FS DIARRHEA [id number] 08/11/2019 16:40:00 10:18:00 DIS Inpatient AGUSTINA WATSON, SPIKE [facility] ICU SUICIDAL IDEATION, AWAI TING PLACEMENT [id number] 07/21/2019 18:57:00 23:51:00 DIS Emergency MORENA HINOJOSA, KOBI Moon [facility] ER FS COUGH [id number] 06/28/2019 15:53:00 18:05:00 DIS Emergency DORI HINOJOSA, RONNA Waite [facility] ER FS ABD PAIN,FALL [id number] 04/17/2019 19:28:00 21:55:00 DIS Emergency ATIYA WERNER DO [facility] ER FS KIDNEY PAIN [id number] 12/30/2018 11:47:00 23:59:59 CLS Outpatient MINAL HINOJOSA, HAMILTON Klein [facility] RAD FS M79.674 [id number] 04/25/2016 06:02:00 10:25:00 DIS Outpatient EMI VARMA MD [facility] SDC RIGHT STONE [id number] 04/23/2016 05:43:00 14:06:00 DIS Outpatient EMI VARMA MD [facility] PREOP RIGHT STONE [id number] 03/28/2016 14:32:00 016 23:59:59 CLS Outpatient EMI VARMA MD [facility] RAD RENAL STONES [id number] 02/27/2016 13:34:00 016 23:59:59 CLS Outpatient EMI VARMA MD [facility] RAD KUB [id number] 02/14/2016 06:04:00 016 10:35:00 DIS Outpatient EMI VARMA MD [facility] SDC STONES [id number] 02/09/2016 05:34:00 016 10:11:00 DIS Outpatient EMI VARMA MD [facility] PREOP STONES [id number] 03/10/2013 09:28:00 17:30:00 DIS Outpatient SUNDAR HINOJOSA FACC, SUSANNA CROW CC DS [facility] CATH [id number] 03/05/2013 14:39:00 23:59:59 CLS Outpatient EMI VARAM MD [facility] RAD [id number] 03/04/2013 15:46:00 23:59:59 CLS Outpatient PERRY CRISOSTOMO [facility] LAB [id number] 06/17/2020 18:34:[address] Emergency SAVANA JAUREGUI MD [facility] ER FS KIDNEY STONE [id number] 02/02/2016 12:06:00 Document Registration [id number] 02/04/2013 06:11:00 Document Registration [id number] 02/03/2013 10:28:00 Document Registration [id number] 01/20/2013 14:22:00 Document Registration [id number] 10/27/2012 22:19:00 Document Registration [id number] 11/27/2011 14:29:00 Document Registration [id number] 11/14/2011 05:30:00 Document Registration [id number] 11/12/2011 15:43:00 Document Registration [id number] 11/01/2011 05:40:00 Document Registration [id number] 10/25/2011 13:18:00 Document Registration
[2020-06-17 19:15] LABS: HEMATOCRIT 41 % (35-52); HEMOGLOBIN 13.4 G/DL (11.5-16.0); LYMPHOCYTES % (AUTO) 28 % (12-44); MEAN CORPUSCULAR HEMOGLOBIN 30 PG (25-34); MEAN CORPUSCULAR HGB CONC 33 G/DL (32-36); MEAN CORPUSCULAR VOLUME 90 FL (80-99); MEAN PLATELET VOLUME 11.3 FL (7.4-10.4); MONOCYTES % (AUTO) 8 % (0-12); NEUTROPHILS % (AUTO) 61 % (42-75); PLATELET COUNT 309 10^3/uL (130-400); WHITE BLOOD COUNT 10.3 10^3/uL (4.3-11.0)
[2020-06-17 19:16] LABS: BASOPHILS # (AUTO) 0.1 10^3/uL (0.0-0.1); BASOPHILS % (AUTO) 1 % (0-10); EOSINOPHILS # (AUTO) 0.2 10^3/uL (0.0-0.3); EOSINOPHILS % (AUTO) 2 % (0-10); LYMPHOCYTES # (AUTO) 2.9 X 10^3 (1.0-4.0); MONOCYTES # (AUTO) 0.8 X 10^3 (0.0-1.0); NEUTROPHILS # (AUTO) 6.2 X 10^3 (1.8-7.8)
[2020-06-17 19:41] LABS: ALANINE AMINOTRANSFERASE 16 U/L (0-55); ALBUMIN 3.5 GM/DL (3.2-4.5); ALKALINE PHOSPHATASE 124 U/L (40-136); BILIRUBIN,TOTAL 0.2 MG/DL (0.1-1.0); BUN/CREATININE RATIO 18; CALCIUM 8.9 MG/DL (8.5-10.1); CARBON DIOXIDE 23 MMOL/L (21-32); CHLORIDE 103 MMOL/L (98-107); CREATININE SERUM 0.76 MG/DL (0.60-1.30); GFR ESTIMATED > 60; GLUCOSE 293 MG/DL (70-105); LIPASE 81 U/L (8-78); POTASSIUM 4.3 MMOL/L (3.6-5.0); SODIUM 139 MMOL/L (135-145); TOTAL PROTEIN 6.7 GM/DL (6.4-8.2)
[2020-06-17 19:55] LABS: BACTERIA,URINE TRACE /HPF; BILIRUBIN,URINE NEGATIVE (NEGATIVE); CLARITY,URINE CLEAR; COLOR,URINE YELLOW; GLUCOSE, URINE (UA) 3+ (NEGATIVE); KETONES,URINE NEGATIVE (NEGATIVE); LEUKOCYTE ESTERASE ,URINE TRACE (NEGATIVE); NITRITE,URINE NEGATIVE (NEGATIVE); PH,URINE 6.5 (5-9); PROTEIN,URINE NEGATIVE (NEGATIVE); RBC,URINE 0-2 /HPF
[2020-06-17] MEDS ORDERED: HOLD METFORMIN - RECEIVED CONTRAST 20 ML VIAL IV SCH (20:00)
[2020-06-17] MEDS ORDERED: CATHETER FLUSH 10 ML SYR IV PRN (20:00)
[2020-06-17] MEDS ORDERED: IOHEXOL 350 MG/ML 100 ML (OMNIPAQUE 350) VIAL IV ONE (20:00)
[2020-06-17] MEDS ORDERED: NS 100 ML (IVPB) BAG IV ONE (20:00)
--- NOTE | 2020-06-17 20:43 | Diagnostic Imaging Report ---
TECHNIQUE: CT of the abdomen and pelvis. All CT scans use one or more of the following dose optimizing techniques: automated exposure control, MA and/or KvP adjustment based on patient size and exam type or iterative reconstruction. INDICATION: Right-sided flank pain history of appendectomy, cholecystectomy and tubal ligation. Ongoing problems with kidney stones. Right size has been hurting intermittently for one month. COMPARISON STUDY: CT of the abdomen and pelvis from 12/29/2019. FINDINGS: The lung bases are clear. Fatty metamorphosis of the liver is again identified. The gallbladder is absent. The spleen, pancreas and adrenal glands are normal. Bilateral renal lithiasis is present. There is a 17 mm calculi in the right renal pelvis and a 4 mm calculi in the upper pole. Left kidney has a couple calculi with the largest one being in the lower pole. It measures 8 mm. No hydronephrosis or inflammation is present. No calculi are seen in the ureters or urinary bladder. On the right side of the lower abdominal wall there is some scar tissue which is unchanged. Postoperative changes are seen in the left lower quadrant. Bowel loops demonstrate no inflammation or obstruction. Mild arterial sclerosis present. No aneurysm is present. Osseous structures demonstrate some facet arthropathy. IMPRESSION: 1. Bilateral renal lithiasis is again identified. No inflammation or hydronephrosis is present. 2. Fatty liver is again seen. Dictated by: Dictated on workstation # [id number]
[2020-06-17 21:00] VITALS: BP 124/58
== END 2020-06-17 21:01 | disposition home or self-care (01) ==
LOC: EDUNIT# 18:33 → ER FS 18:34
DX: N20.0 Calculus of kidney (principal); I10 Essential (primary) hypertension; F32.9 Major depressive disorder, single episode, unspecified; F17.210 Nicotine dependence, cigarettes, uncomplicated; Z88.1 Allergy status to other antibiotic agents; Z88.2 Allergy status to sulfonamides; Z88.8 Allergy status to other drugs, medicaments and biological substances; Z85.42 Personal history of malignant neoplasm of other parts of uterus; Z82.49 Family history of ischemic heart disease and other diseases of the circulatory system
CPT/HCPCS: 36415; 74177; 80053; 81000; 83690; 85025; 87088

== ENCOUNTER 2020-06-19 17:12 | Emergency (ER) | payer MEDICAID ==
[~2020-06-19] VITALS: Ht 162.5 cm; Wt 113.6 kg
--- NOTE | 2020-06-19 17:44 | ED Abdominal Pain ---
General Chief Complaint: Abdominal/GI Problems Stated Complaint: ABD PAIN Nursing Triage Note: PATIENT PRESENTS PER [facility] REPORTING PATIENT CALLED WITH MULTIPLE C/O'S. PT SEEN 06/17/20 FOR KIDNEY STONE AND NOW REPORTS WORSENING PAIN IN RLQ WITH RADIATION GROIN AND BACK. PT VOMITED EARLIER TODAY. Sepsis Screen: No Definite Risk History of Present Illness Date Seen by Provider: Jun 19, 2020 Time Seen by Provider: 17:39 Initial Comments Pt brought by EMS from home with abdominal pain. Patient was seen in the ED 2 days ago for similar complaints. She had a CT which showed renal lithiasis but no ureteral stones. She has vomited 2-3 times today. She wouldn't eat dinner at home because she was nauseated and got into an argument with her daughter who told her she needed to eat. Patient is very tearful. She did have some chest pain earlier today after she vomited. Allergies and Home Medications Allergies Coded Allergies: aspirin (Unverified Allergy, Severe, THROAT SWELLS, 01/20/13) amoxicillin (Unverified Allergy, Intermediate, HIVES, 04/25/16) sulfamethoxazole (Unverified Allergy, Unknown, 01/20/13) trimethoprim (Unverified Allergy, Unknown, 01/20/13) Home Medications Acetaminophen 500 Mg Tablet, 1,000 MG PO Q4H PRN for PAIN-MILD, (Reported) Allopurinol 100 Mg Tablet, 100 MG PO DAILY, (Reported) LAST FILLED 11-28-2019 #30 Atorvastatin Calcium 10 Mg Tablet, 10 MG PO HS, (Reported) LAST FILLED 11-09-2019 #30 Fluoxetine HCl 40 Mg Capsule, 40 MG PO DAILY, (Reported) LAST FILLED 12-18-2019 #30 Gabapentin 800 Mg Tablet, 800 MG PO TID, (Reported) FILLED 11-09-2019 #90 Hydrocodone/Acetaminophen 1 Each Tablet, 1 EACH PO Q4H Prescribed by: DILLON GASCA on 04/29/202018 Lisinopril 10 Mg Tablet, 10 MG PO DAILY, (Reported) LAST FILLED 11-28-2019 #30 Metoprolol Tartrate 25 Mg Tablet, 25 MG PO BID Prescribed by: SPIKE BERRIOS on 02/20/20 1209 Trazodone HCl 50 Mg Tablet, 50 MG PO HS PRN for SLEEP, (Reported) LAST FILLED 01-06-2020 #30 Trazodone HCl 50 Mg Tablet, 50 MG PO qhs Prescribed by: DILLON GASCA on 04/29/202018 Patient Home Medication List Home Medication List Reviewed: Yes Review of Systems Review of Systems Constitutional: no symptoms reported EENTM: No Symptoms Reported Respiratory: No Symptoms Reported Cardiovascular: Chest Pain; Denies Syncope Gastrointestinal: Abdominal Pain, Nausea, Other Genitourinary: Flank Pain; Denies Hematuria Musculoskeletal: no symptoms reported Skin: no symptoms reported Psychiatric/Neurological: Anxiety Past Vmjvclj-Tphsmw-Tygwfw Hx Patient Social History Alcohol Use: Denies Use Recreational Drug Use: No (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) Drug of Choice: DENIES Smoking Status: Current Everyday Smoker Type Used: Cigarettes 2nd Hand Smoke Exposure: No Recent Foreign Travel: No Contact w/Someone Who Travel: No Recent Infectious Disease Expo: No Recent Hopitalizations: No Physical Abuse: No Sexual Abuse: No Mistreated: No Fear: No Immunizations Up To Date Date of Pneumonia Vaccine: Jan 06, 2013 Date of Influenza Vaccine: Jan 20, 2013 Seasonal Allergies Seasonal Allergies: No Past Medical History Surgeries: Yes (cysto's and eswl's) Appendectomy, Gallbladder, Hysterectomy, Tubal Ligation Respiratory: No Cardiac: Yes (SVT, ) Atrial Fibrillation, Hypertension Neurological: Yes (HAS 3 BRAIN ANEURYSMS DX AT 37 YRS OF AGE, bulging discs, pinched nerve) Reproductive Disorders: No Genitourinary: Yes Kidney Stones Gastrointestinal: Yes (enlarged liver) Gastroesophageal Reflux Musculoskeletal: Yes (restless leg) Arthritis Endocrine: Yes Diabetes, Non-Insulin dep HEENT: No Cancer: No Uterine Psychosocial: Yes Suicide Attempts, Depression Integumentary: No Blood Disorders: No Family Medical History Asthma 19 MOTHER Diabetes mellitus 19 FATHER FH: COPD (chronic obstructive pulmonary disease) 19 MOTHER FH: emphysema 19 MOTHER Physical Exam Vital Signs Vital Signs - First Documented 06/19/20 17:14 Temp 37.0 Pulse 70 Resp 20 B/P (MAP) 126/59 (81) Pulse Ox 96 O2 Delivery Room Air Capillary Refill : Less Than 3 Seconds Height/Weight/BMI Height: 5'4.00" Weight: 240lbs. 9.6oz. [id number]; 43.00 BMI Method:Stated General Appearance: WD/WN, no apparent distress HEENT: PERRL/EOMI, normal ENT inspection Neck: supple Respiratory: lungs clear, normal breath sounds, no respiratory distress Cardiovascular: regular rate, rhythm, no edema, no murmur Gastrointestinal: non tender, soft Extremities: normal inspection Back: no CVA tenderness Neurologic/Psychiatric: no motor/sensory deficits, alert, oriented x 3, other (Anxious) Skin: normal color, warm/dry Progress/Results/Core Measures Results/Orders Lab Results Laboratory Tests Test 06/19/20 18:10 06/19/20 18:20 Range/Units White Blood Count 10.8 4.3-11.0 10^3/uL Red Blood Count 4.47 4.35-5.85 10^6/uL Hemoglobin 13.3 11.5-16.0 G/DL Hematocrit 40 35-52 % Mean Corpuscular Volume 90 80-99 FL Mean Corpuscular Hemoglobin 30 25-34 PG Mean Corpuscular Hemoglobin Concent 33 32-36 G/DL Red Cell Distribution Width 14.2 10.0-14.5 % Platelet Count 325 130-400 10^3/uL Mean Platelet Volume 11.2 H 7.4-10.4 FL Neutrophils (%) (Auto) 62 42-75 % Lymphocytes (%) (Auto) 26 12-44 % Monocytes (%) (Auto) 8 0-12 % Eosinophils (%) (Auto) 3 0-10 % Basophils (%) (Auto) 1 0-10 % Neutrophils # (Auto) 6.6 1.8-7.8 X 10^3 Lymphocytes # (Auto) 2.9 1.0-4.0 X 10^3 Monocytes # (Auto) 0.8 0.0-1.0 X 10^3 Eosinophils # (Auto) 0.3 0.0-0.3 10^3/uL Basophils # (Auto) 0.1 0.0-0.1 10^3/uL Sodium Level 142 135-145 MMOL/L Potassium Level 4.2 3.6-5.0 MMOL/L Chloride Level 104 98-107 MMOL/L Carbon Dioxide Level 26 21-32 MMOL/L Anion Gap 12 5-14 MMOL/L Blood Urea Nitrogen 11 7-18 MG/DL Creatinine 0.75 0.60-1.30 MG/DL Estimat Glomerular Filtration Rate > 60 BUN/Creatinine Ratio 15 Glucose Level 171 H 70-105 MG/DL Calcium Level 8.9 8.5-10.1 MG/DL Corrected Calcium 9.2 8.5-10.1 MG/DL Total Bilirubin 0.2 0.1-1.0 MG/DL Aspartate Amino Transf (AST/SGOT) 14 5-34 U/L Alanine Aminotransferase (ALT/SGPT) 12 0-55 U/L Alkaline Phosphatase 110 40-136 U/L Troponin I < 0.30 <0.30 NG/ML Total Protein 6.4 6.4-8.2 GM/DL Albumin 3.6 3.2-4.5 GM/DL Lipase 19 8-78 U/L Urine Color YELLOW Urine Clarity CLEAR Urine pH 7.5 5-9 Urine Specific [place] 1.020 1.016-1.022 Urine Protein NEGATIVE NEGATIVE Urine Glucose (UA) NEGATIVE NEGATIVE Urine Ketones NEGATIVE NEGATIVE Urine Nitrite NEGATIVE NEGATIVE Urine Bilirubin NEGATIVE NEGATIVE Urine Urobilinogen 0.2 < = 1.0 MG/DL Urine Leukocyte Esterase 1+ H NEGATIVE Urine RBC (Auto) NEGATIVE NEGATIVE Urine RBC 2-5 H /HPF Urine WBC 5-10 H /HPF Urine Squamous Epithelial Cells 5-10 /HPF Urine Crystals NONE /LPF Urine Bacteria NEGATIVE /HPF Urine Casts NONE /LPF Urine Mucus NEGATIVE /LPF Urine Culture Indicated YES My Orders Orders - FLACO WERNER MD Cbc With Automated Diff (06/19/20 17:33) Comprehensive Metabolic Panel (06/19/20 17:33) Lipase (06/19/20 17:33) Troponin I Fs (06/19/20 17:33) Ekg-Prn For Chest Pain Or Rhyt (06/19/20 17:33) Ns Iv 1000 Ml (Sodium Chloride 0.9%) (06/19/20 17:45) Ondansetron Injection (Zofran Injectio (06/19/20 17:45) Ketorolac Injection (Toradol Injection) (06/19/20 17:45) Ua Culture If Indicated (06/19/20 17:33) Ekg Tracing (06/19/20 17:40) Urine Culture (06/19/20 18:20) Morphine Injection (Morphine Injection (06/19/20 18:48) Medications Given in ED Current Medications Medications Dose Ordered Sig/Sirisha Route Start Time Stop Time Status Last Admin Dose Admin Ketorolac Tromethamine 30 mg ONCE ONCE IVP 06/19/20 17:45 06/19/20 17:46 DC 06/19/20 17:46 30 MG Ondansetron HCl 4 mg ONCE ONCE IVP 06/19/20 17:45 06/19/20 17:46 DC 06/19/20 17:46 4 MG Vital Signs/I&O 06/19/20 06/19/20 17:14 17:46 Temp 37.0 37.0 Pulse 70 Resp 20 B/P (MAP) 126/59 (81) Pulse Ox 96 O2 Delivery Room Air Blood Pressure Mean: 81 Progress Progress Note : Time: 18:49 Progress Note Workup unremarkable. Will discharge home. Initial ECG Impression Date: Jun 19, 2020 Initial ECG Impression Time: 17:48 Initial ECG Rate: 64 Initial ECG Rhythm: Normal Sinus Initial ECG Intervals: Normal Initial ECG Impression: Normal Departure Impression Primary Impression: Abdominal pain Qualified Codes: R10.9 - Unspecified abdominal pain Disposition: 01 HOME, SELF-CARE Condition: Stable Departure-Patient Inst. Referrals: [facility] (PCP/Family) Primary Care Physician Patient Instructions: Severe Abdominal Pain, Adult (DC) FLACO WERNER MD Jun 19, 2020 17:43
[2020-06-19] MEDS ORDERED: KETOROLAC 30 MG/ML VIAL IVP ONE (17:45)
[2020-06-19] MEDS ORDERED: ONDANSETRON 4 MG/2 ML (SDV) Z0FRAN IVP ONE (17:45)
[2020-06-19] MEDS ORDERED: NS IV 1000 ML 1,000 ML IV SCH (17:45)
[2020-06-19 18:22] LABS: BASOPHILS % (AUTO) 1 % (0-10); EOSINOPHILS % (AUTO) 3 % (0-10); HEMATOCRIT 40 % (35-52); HEMOGLOBIN 13.3 G/DL (11.5-16.0); MEAN CORPUSCULAR HEMOGLOBIN 30 PG (25-34); MEAN CORPUSCULAR HGB CONC 33 G/DL (32-36); MEAN CORPUSCULAR VOLUME 90 FL (80-99); MEAN PLATELET VOLUME 11.2 FL (7.4-10.4); MONOCYTES % (AUTO) 8 % (0-12); NEUTROPHILS % (AUTO) 62 % (42-75); PLATELET COUNT 325 10^3/uL (130-400); RED CELL DISTRIBUTION WIDTH 14.2 % (10.0-14.5); WHITE BLOOD COUNT 10.8 10^3/uL (4.3-11.0)
[2020-06-19 18:23] LABS: BASOPHILS # (AUTO) 0.1 10^3/uL (0.0-0.1); EOSINOPHILS # (AUTO) 0.3 10^3/uL (0.0-0.3); LYMPHOCYTES # (AUTO) 2.9 X 10^3 (1.0-4.0); LYMPHOCYTES % (AUTO) 26 % (12-44); MONOCYTES # (AUTO) 0.8 X 10^3 (0.0-1.0); NEUTROPHILS # (AUTO) 6.6 X 10^3 (1.8-7.8)
[2020-06-19 18:31] LABS: BILIRUBIN,URINE NEGATIVE (NEGATIVE); CLARITY,URINE CLEAR; COLOR,URINE YELLOW; GLUCOSE, URINE (UA) NEGATIVE (NEGATIVE); KETONES,URINE NEGATIVE (NEGATIVE); LEUKOCYTE ESTERASE ,URINE 1+ (NEGATIVE); NITRITE,URINE NEGATIVE (NEGATIVE); PH,URINE 7.5 (5-9); PROTEIN,URINE NEGATIVE (NEGATIVE)
[2020-06-19 18:34] LABS: BACTERIA,URINE NEGATIVE /HPF
[2020-06-19 18:42] LABS: CHLORIDE 104 MMOL/L (98-107); POTASSIUM 4.2 MMOL/L (3.6-5.0); SODIUM 142 MMOL/L (135-145)
[2020-06-19 18:43] LABS: ALANINE AMINOTRANSFERASE 12 U/L (0-55); ALBUMIN 3.6 GM/DL (3.2-4.5); ALKALINE PHOSPHATASE 110 U/L (40-136); BILIRUBIN,TOTAL 0.2 MG/DL (0.1-1.0); BUN/CREATININE RATIO 15; CALCIUM 8.9 MG/DL (8.5-10.1); CARBON DIOXIDE 26 MMOL/L (21-32); CREATININE SERUM 0.75 MG/DL (0.60-1.30); GFR ESTIMATED > 60; GLUCOSE 171 MG/DL (70-105); LIPASE 19 U/L (8-78); TOTAL PROTEIN 6.4 GM/DL (6.4-8.2)
[2020-06-19] MEDS ORDERED: morphine INJ 10 MG/ML 1ML (SYR OR VIAL) IVP STA (18:48)
--- NOTE | 2020-06-19 19:00 | NUR ---
REPORT TO ANGELA PARNELL. PT'S DGT VLDAIMIR CALLED [phone] AND GIVEN UPDATE PER PT'S PERMISSION. PLAN DISCHARGE. DGT HAS NO TRANSPORTATION BUT PT HAS PHONE # OF FRIEND ATUL [phone]. ATUL NOTIFIED AND SHE REPORTS SHE WILL GET READY SOON AND BE OUT. PT WILL BE PREPARED TO DISCHARGE AND WAIT IN WAITING ROOM FOR HER RIDE.
[2020-06-19 19:19] VITALS: BP 155/80
== END 2020-06-19 19:19 | disposition home or self-care (01) ==
LOC: EDUNIT# 17:12 → ER FS 17:13
DX: R10.9 Unspecified abdominal pain (principal); I10 Essential (primary) hypertension; F32.9 Major depressive disorder, single episode, unspecified; F17.210 Nicotine dependence, cigarettes, uncomplicated; Z85.42 Personal history of malignant neoplasm of other parts of uterus; Z88.6 Allergy status to analgesic agent; Z88.0 Allergy status to penicillin; Z88.2 Allergy status to sulfonamides; Z88.1 Allergy status to other antibiotic agents
CPT/HCPCS: 36415; 80053; 81000; 83690; 84484; 85025; 87088; 93005

== ENCOUNTER 2020-07-06 00:17 | Emergency (ER) | payer MEDICAID ==
[~2020-07-06] VITALS: Ht 162.5 cm; Wt 106.8 kg
[~2020-07-06 00:17] MED LIST changes: -HYDR-3812 PO
--- NOTE | 2020-07-06 00:17 | NUR ---
[facility] consulting senior practice director deputies x3 present with EMS arrival.
[2020-07-06] MEDS ORDERED: LORazepam 0.5 MG (ATIVAN) TABLET PO STA (00:28)
[2020-07-06 01:03] LABS: HEMATOCRIT 42 % (35-52); MEAN CORPUSCULAR HEMOGLOBIN 30 PG (25-34); MEAN CORPUSCULAR HGB CONC 33 G/DL (32-36); MEAN CORPUSCULAR VOLUME 90 FL (80-99); MEAN PLATELET VOLUME 11.2 FL (7.4-10.4); PLATELET COUNT 332 10^3/uL (130-400); RED CELL DISTRIBUTION WIDTH 13.9 % (10.0-14.5); WHITE BLOOD COUNT 13.7 10^3/uL (4.3-11.0)
[2020-07-06 01:04] LABS: BASOPHILS # (AUTO) 0.1 10^3/uL (0.0-0.1); BASOPHILS % (AUTO) 1 % (0-10); EOSINOPHILS # (AUTO) 0.3 10^3/uL (0.0-0.3); EOSINOPHILS % (AUTO) 2 % (0-10); LYMPHOCYTES # (AUTO) 4.3 X 10^3 (1.0-4.0); LYMPHOCYTES % (AUTO) 31 % (12-44); MONOCYTES # (AUTO) 1.1 X 10^3 (0.0-1.0); MONOCYTES % (AUTO) 8 % (0-12); NEUTROPHILS # (AUTO) 7.9 X 10^3 (1.8-7.8); NEUTROPHILS % (AUTO) 58 % (42-75)
[2020-07-06 01:14] LABS: CLARITY,URINE SL CLOUDY; PH,URINE 5.5 (5-9)
[2020-07-06 01:15] LABS: BACTERIA,URINE FEW /HPF; BILIRUBIN,URINE NEGATIVE (NEGATIVE); GLUCOSE, URINE (UA) NEGATIVE (NEGATIVE); KETONES,URINE NEGATIVE (NEGATIVE); LEUKOCYTE ESTERASE ,URINE 1+ (NEGATIVE); NITRITE,URINE NEGATIVE (NEGATIVE); PROTEIN,URINE NEGATIVE (NEGATIVE); WBC,URINE 25-50 /HPF
[2020-07-06 01:16] LABS: COLOR,URINE YELLOW
[2020-07-06 01:17] LABS: BUN/CREATININE RATIO 27; CARBON DIOXIDE 26 MMOL/L (21-32); CHLORIDE 105 MMOL/L (98-107); CREATININE SERUM 0.84 MG/DL (0.60-1.30); GFR ESTIMATED > 60; GLUCOSE 230 MG/DL (70-105); SODIUM 144 MMOL/L (135-145)
[2020-07-06 01:18] LABS: ACETAMINOPHEN < 10 UG/ML (10-30); ALANINE AMINOTRANSFERASE 12 U/L (0-55); ALBUMIN 3.9 GM/DL (3.2-4.5); ALKALINE PHOSPHATASE 148 U/L (40-136); BILIRUBIN,TOTAL 0.2 MG/DL (0.1-1.0); CALCIUM 9.6 MG/DL (8.5-10.1); TOTAL PROTEIN 7.3 GM/DL (6.4-8.2)
[2020-07-06 01:20] LABS: AMPHETAMINE SCREEN, URINE NEGATIVE (NEGATIVE); BARBITURATE SCREEN URINE NEGATIVE (NEGATIVE); BENZODIAZEPINES SCREEN URINE NEGATIVE (NEGATIVE); CANNABINOID SCREEN, URINE NEGATIVE (NEGATIVE); COCAINE SCREEN URINE NEGATIVE (NEGATIVE); METHADONE STAT NEGATIVE (NEGATIVE); METHAMPHETAMINE SCREEN URINE S NEGATIVE (NEGATIVE); OPIATE SCREEN URINE NEGATIVE (NEGATIVE); OXYCODONE STAT NEGATIVE (NEGATIVE); PROPOXYPHENE STAT NEGATIVE (NEGATIVE); TRICYCLIC ANTIDEPRESSANTS SCRE NEGATIVE (NEGATIVE)
[2020-07-06 01:25] LABS: ATYPICAL LYMPHOCYTES 6 %; BAND NEUTROPHILS 2 %; BASOPHILS % (MANUAL) 0 %; EOSINOPHILS % (MANUAL) 1 %; LYMPHOCYTES % (MANUAL) 30 %; MONOCYTES % (MANUAL) 7 %; NEUTROPHILS % (MANUAL) 54 %; RBC MORPH NORMAL
--- NOTE | 2020-07-06 01:26 | NUR ---
[facility] contacted for possible screening.
[2020-07-06] MEDS ORDERED: METF-397 PO (01:50)
[2020-07-06] MEDS ORDERED: ONDA4TAB11 PO (01:50)
[2020-07-06] MEDS ORDERED: DILT240C91 PO (01:50)
--- NOTE | 2020-07-06 01:58 | NUR ---
Fax sent to [facility]. Awaiting call back.
--- NOTE | 2020-07-06 02:18 | ED General ---
General Chief Complaint: Psych/Social Disorder Stated Complaint: ANXIETY Nursing Triage Note: Pt arrived via EMS from home with c/o suicidal ideation after an altercation with family. Pt says that her daughter is not allowing her to see her grand kids. Pt states, "one daughter hates me and the other wont let me see my grand kids! My mom in February and if I cant see my grand kids then I want to be with my mom!" "I dont want to be here. I just want to ." When asked how she would kill herself she states, "I would set myself on fire, like my mom did, or I would overdose or cut my wrist like I have done before." Nursing Sepsis Screen: No Definite Risk Source of Information: Patient History of Present Illness Date Seen by Provider: Jul 06, 2020 Time Seen by Provider: 12:30 Initial Comments Patient is a 54-year-old who presents with suicidal ideation of her altercation with family. Patient states her daughters do not allow her to see her grand kids in the other daughter does not like her. Patient states her mother in February and she told police that if she can't see her grandchildren and she wants to be with her mom permanently. Patient states she wants to and has had previous suicide attempts including potential drug overdoses and abrading her wrists. Denies current drugs and alcohol. History of methamphetamine abuse. Timing/Duration: 4-6 Hours Severity: Moderate Associated Systoms: Denies Symptoms Allergies and Home Medications Allergies Coded Allergies: aspirin (Unverified Allergy, Severe, THROAT SWELLS, 01/20/13) amoxicillin (Unverified Allergy, Intermediate, HIVES, 04/25/16) sulfamethoxazole (Unverified Allergy, Unknown, 01/20/13) trimethoprim (Unverified Allergy, Unknown, 01/20/13) Home Medications Acetaminophen 500 Mg Tablet, 1,000 MG PO Q4H PRN for PAIN-MILD, (Reported) Allopurinol 100 Mg Tablet, 100 MG PO DAILY, (Reported) LAST FILLED 11-28-2019 #30 Atorvastatin Calcium 10 Mg Tablet, 10 MG PO HS, (Reported) LAST FILLED 11-09-2019 #30 Diltiazem HCl 240 Mg Cap.er.24h, 240 MG PO DAILY, (Reported) Fluoxetine HCl 40 Mg Capsule, 40 MG PO DAILY, (Reported) LAST FILLED 12-18-2019 #30 Gabapentin 800 Mg Tablet, 800 MG PO TID, (Reported) FILLED 11-09-2019 #90 Lisinopril 10 Mg Tablet, 10 MG PO DAILY, (Reported) LAST FILLED 11-28-2019 #30 Metformin HCl 500 Mg Tablet, 500 MG PO BID WITH MEALS, (Reported) Metoprolol Tartrate 25 Mg Tablet, 25 MG PO BID Prescribed by: SPIKE BERRIOS on 02/20/20 1209 Ondansetron 4 Mg Tab.rapdis, 4 MG PO for NAUSEA/VOMITING, (Reported) Patient Home Medication List Home Medication List Reviewed: Yes Review of Systems Review of Systems Constitutional: see HPI EENTM: see HPI Respiratory: see HPI Cardiovascular: see HPI Genitourinary: see HPI Musculoskeletal: see HPI Psychiatric/Neurological: See HPI, Emotional Problems, Seizure Hematologic/Lymphatic: See HPI Immunological/Allergic: see HPI All Other Systems Reviewed Negative Unless Noted: Yes Past Rgfyyhx-Budqcv-Fraerg Hx Past Med/Social Hx: Reviewed Nursing Past Med/Soc Hx Patient Social History Alcohol Use: Denies Use Recreational Drug Use: Yes (BEEN CLEAN FOR 2 months meth) Drug of Choice: DENIES Smoking Status: Current Everyday Smoker Type Used: Cigarettes 2nd Hand Smoke Exposure: No Recent Foreign Travel: No Contact w/Someone Who Travel: No Recent Infectious Disease Expo: No Recent Hopitalizations: No Physical Abuse: No Sexual Abuse: No Mistreated: No Fear: No Immunizations Up To Date Date of Pneumonia Vaccine: Jan 06, 2013 Date of Influenza Vaccine: Jan 20, 2013 Seasonal Allergies Seasonal Allergies: No Past Medical History Surgeries: Yes (cysto's and eswl's) Appendectomy, Gallbladder, Hysterectomy, Tubal Ligation Respiratory: No Cardiac: Yes (SVT, ) Atrial Fibrillation, Hypertension Neurological: Yes (HAS 3 BRAIN ANEURYSMS DX AT 37 YRS OF AGE, bulging discs, pinched nerve) Reproductive Disorders: No Genitourinary: Yes Kidney Stones Gastrointestinal: Yes (enlarged liver) Gastroesophageal Reflux Musculoskeletal: Yes (restless leg) Arthritis Endocrine: Yes Diabetes, Non-Insulin dep HEENT: No Cancer: No Uterine Psychosocial: Yes Suicide Attempts, Depression Integumentary: No Blood Disorders: No Family Medical History Asthma 19 MOTHER Diabetes mellitus 19 FATHER FH: COPD (chronic obstructive pulmonary disease) 19 MOTHER FH: emphysema 19 MOTHER Physical Exam Vital Signs Vital Signs - First Documented 07/06/20 00:17 Temp 36.8 Pulse 90 Resp 20 B/P (MAP) 152/83 (106) Pulse Ox 98 O2 Delivery Room Air Capillary Refill : Less Than 3 Seconds Height, Weight, BMI Height: 5'4.00" Weight: 240lbs. 9.6oz. 108.415677dr; 40.00 BMI Method:Stated General Appearance: Anxious Eyes: Bilateral Eye Normal Inspection, Bilateral Eye PERRL, Bilateral Eye EOMI HEENT: PERRL/EOMI Neck: Full Range of Motion, Normal Inspection, Supple Respiratory: Lungs Clear Gastrointestinal: Non Tender, Soft Back: Normal Inspection Extremity: Normal Capillary Refill, Normal Inspection Neurologic/Psychiatric: Alert, Oriented x3, Other (anxious. Denies SI, HI, hallucinations delusions and paranoia upon repeat questioning.) Focused Exam Sepsis Stage: Ruled Out Progress/Results/Core Measures Suspected Sepsis Recent Fever Within 48 Hours: No Infection Criteria Present: None New/Unexplained Altered Menta: No Sepsis Screen: No Definite Risk SIRS Temperature: Pulse: 90 Respiratory Rate: 20 Laboratory Tests 07/06/20 00:35: White Blood Count 13.7H Blood Pressure 152 /83 Mean: 106 Laboratory Tests 07/06/20 00:35: Creatinine 0.84, Platelet Count 332, Total Bilirubin 0.2 Results/Orders Lab Results Laboratory Tests Test 07/06/20 00:35 07/06/20 01:00 Range/Units White Blood Count 13.7 H 4.3-11.0 10^3/uL Red Blood Count 4.70 4.35-5.85 10^6/uL Hemoglobin 14.0 11.5-16.0 G/DL Hematocrit 42 35-52 % Mean Corpuscular Volume 90 80-99 FL Mean Corpuscular Hemoglobin 30 25-34 PG Mean Corpuscular Hemoglobin Concent 33 32-36 G/DL Red Cell Distribution Width 13.9 10.0-14.5 % Platelet Count 332 130-400 10^3/uL Mean Platelet Volume 11.2 H 7.4-10.4 FL Neutrophils (%) (Auto) 58 42-75 % Lymphocytes (%) (Auto) 31 12-44 % Monocytes (%) (Auto) 8 0-12 % Eosinophils (%) (Auto) 2 0-10 % Basophils (%) (Auto) 1 0-10 % Neutrophils # (Auto) 7.9 H 1.8-7.8 X 10^3 Lymphocytes # (Auto) 4.3 H 1.0-4.0 X 10^3 Monocytes # (Auto) 1.1 H 0.0-1.0 X 10^3 Eosinophils # (Auto) 0.3 0.0-0.3 10^3/uL Basophils # (Auto) 0.1 0.0-0.1 10^3/uL Neutrophils % (Manual) 54 % Lymphocytes % (Manual) 30 % Monocytes % (Manual) 7 % Eosinophils % (Manual) 1 % Basophils % (Manual) 0 % Band Neutrophils 2 % Atypical Lymphocytes 6 % Blood Morphology Comment NORMAL Sodium Level 144 135-145 MMOL/L Potassium Level 4.0 3.6-5.0 MMOL/L Chloride Level 105 98-107 MMOL/L Carbon Dioxide Level 26 21-32 MMOL/L Anion Gap 13 5-14 MMOL/L Blood Urea Nitrogen 23 H 7-18 MG/DL Creatinine 0.84 0.60-1.30 MG/DL Estimat Glomerular Filtration Rate > 60 BUN/Creatinine Ratio 27 Glucose Level 230 H 70-105 MG/DL Calcium Level 9.6 8.5-10.1 MG/DL Corrected Calcium 9.7 8.5-10.1 MG/DL Magnesium Level 2.0 1.6-2.4 MG/DL Total Bilirubin 0.2 0.1-1.0 MG/DL Aspartate Amino Transf (AST/SGOT) 12 5-34 U/L Alanine Aminotransferase (ALT/SGPT) 12 0-55 U/L Alkaline Phosphatase 148 H 40-136 U/L Total Protein 7.3 6.4-8.2 GM/DL Albumin 3.9 3.2-4.5 GM/DL Acetaminophen Level < 10 L 10-30 UG/ML Serum Alcohol < 10 <10 MG/DL Urine Color YELLOW Urine Clarity SL CLOUDY Urine pH 5.5 5-9 Urine Specific [place] >=1.030 1.016-1.022 Urine Protein NEGATIVE NEGATIVE Urine Glucose (UA) NEGATIVE NEGATIVE Urine Ketones NEGATIVE NEGATIVE Urine Nitrite NEGATIVE NEGATIVE Urine Bilirubin NEGATIVE NEGATIVE Urine Urobilinogen 0.2 < = 1.0 MG/DL Urine Leukocyte Esterase 1+ H NEGATIVE Urine RBC (Auto) 2+ H NEGATIVE Urine RBC 10-25 H /HPF Urine WBC 25-50 H /HPF Urine Squamous Epithelial Cells 10-25 H /HPF Urine Crystals NONE /LPF Urine Bacteria FEW H /HPF Urine Casts NONE /LPF Urine Mucus SMALL H /LPF Urine Culture Indicated YES Urine Opiates Screen NEGATIVE NEGATIVE Urine Oxycodone Screen NEGATIVE NEGATIVE Urine Methadone Screen NEGATIVE NEGATIVE Urine Propoxyphene Screen NEGATIVE NEGATIVE Urine Barbiturates Screen NEGATIVE NEGATIVE Ur Tricyclic Antidepressants Screen NEGATIVE NEGATIVE Urine Phencyclidine Screen NEGATIVE NEGATIVE Urine Amphetamines Screen NEGATIVE NEGATIVE Urine Methamphetamines Screen NEGATIVE NEGATIVE Urine Benzodiazepines Screen NEGATIVE NEGATIVE Urine Cocaine Screen NEGATIVE NEGATIVE Urine Cannabinoids Screen NEGATIVE NEGATIVE My Orders Orders - LAKISHA ALVAREZ DO Lorazepam Tablet (Ativan Tablet) (07/06/20 00:28) Cbc With Automated Diff (07/06/20 00:28) Comprehensive Metabolic Panel (07/06/20 00:28) Ekg Tracing (07/06/20 00:28) Magnesium (07/06/20 00:28) Drug Screen Stat (Urine) (07/06/20 00:28) Alcohol (07/06/20 00:28) Ua Culture If Indicated (07/06/20 00:29) Acetaminophen (07/06/20 00:41) Manual Differential (07/06/20 00:35) Urine Culture (07/06/20 01:00) Vital Signs/I&O 07/06/20 00:17 Temp 36.8 Pulse 90 Resp 20 B/P (MAP) 152/83 (106) Pulse Ox 98 O2 Delivery Room Air Capillary Refill : Less Than 3 Seconds Blood Pressure Mean: 106 Departure Communication (Admissions) EKG: Normal sinus rhythm Lab and EKG reviewed. Ativan given for anxiety. Psychiatric assessment requested. Patient denies SI or HI, hallucinations delusions paranoia. Recommendations by psychiatric assessment team is to discharge home with patient safety plan. Patient is agreeable and requests discharge from the ED. Patient will be discharged home at her request with instructions to follow up with PCP covering and lining supervisor. Return precautions reviewed. Patient verbalizes understanding and agreement discharge instructions prior to departure Impression Primary Impression: Mood disorder Disposition: 01 HOME, SELF-CARE Condition: Stable Departure-Patient Inst. Decision time for Depature: 04:41 [address]errals: [facility] (PCP/Family) Primary Care Physician Patient Instructions: Anxiety, Adult (DC) Add. Discharge Instructions: Please follow instructions on home safety plan and follow-up with your local PCP and manager case. Return to the ED if new or worsening symptoms. All discharge instructions reviewed with patient and/or family. Voiced understanding. LAKISHA ALVAREZ DO Jul 06, 2020 02:17
--- NOTE | 2020-07-06 03:03 | NUR ---
Solitario from [facility] called to screen pt. Pt given laptop for screening.
--- NOTE | 2020-07-06 04:00 | NUR ---
Screening complete. Call back received from Solitario wanting a second zoom meeting with pt to discuss crisis plan. Laptop again given to pt.
--- NOTE | 2020-07-06 04:31 | NUR ---
This RN received call from Solit[employer] regarding safety plan. Safety plan faxed to ER for pt review and signature. This surgical clinical reviewer plan with pt and pt did agree with the plan and pt signed. Pt given a copy of safety plan.
[2020-07-06 04:47] VITALS: BP 143/78
--- NOTE | 2020-07-06 04:47 | NUR ---
[facility] deputies present for entire pt stay.
== END 2020-07-06 04:47 | disposition home or self-care (01) ==
LOC: EDUNIT# 00:17 → ER FS 00:18
DX: F39 Unspecified mood [affective] disorder (principal); F41.9 Anxiety disorder, unspecified; E11.9 Type 2 diabetes mellitus without complications; I10 Essential (primary) hypertension; F32.9 Major depressive disorder, single episode, unspecified; Z88.1 Allergy status to other antibiotic agents; Z88.2 Allergy status to sulfonamides; Z88.8 Allergy status to other drugs, medicaments and biological substances; Z79.84 Long term (current) use of oral hypoglycemic drugs; Z85.42 Personal history of malignant neoplasm of other parts of uterus
CPT/HCPCS: 36415; 80053; 80306; 81000; 83735; 85007; 85027; 87088; 93005; G0480 ×2; 80320; 80329

== ENCOUNTER 2020-09-13 15:55 | Emergency (ER) | payer MEDICAID ==
[~2020-09-13] VITALS: Ht 162.6 cm; Wt 117.9 kg
[~2020-09-13 15:55] MED LIST changes: +DILT240C91 PO
--- NOTE | 2020-09-13 16:06 | ED Fall/Injury ---
General Stated Complaint: FALL,RT RIBS AND HIP PAIN,BACK PAIN Source: patient, RN/MD, EMS, RN notes reviewed, EMS notes reviewed, old records History of Present Illness Date Seen by Provider: Sep 13, 2020 Time Seen by Provider: 16:00 Initial Comments This patient is a 54-year-old female presents to the emergency department status post fall. Patient complain neck right rehabilitation right hip pain and low back pain. Patient states she does have chronic pain issues and does take gabapentin for the same. Patient states she couldn't get herself up. Patient is morbidly obese. No obvious signs of injury. We'll do medical evaluation t reatment as needed Occurred: just prior to arrival Injuries/Pain Location: neck, back, lower extremity Context: lost balance, slipped Loss of Consciousness: no loss of consciousness Associated Symptoms (Fall): Denies Symptoms Allergies and Home Medications Allergies Coded Allergies: aspirin (Unverified Allergy, Severe, THROAT SWELLS, 01/20/13) amoxicillin (Unverified Allergy, Intermediate, HIVES, 04/25/16) sulfamethoxazole (Unverified Allergy, Unknown, 01/20/13) trimethoprim (Unverified Allergy, Unknown, 01/20/13) Home Medications Acetaminophen 500 Mg Tablet, 1,000 MG PO Q4H PRN for PAIN-MILD, (Reported) Allopurinol 100 Mg Tablet, 100 MG PO DAILY, (Reported) LAST FILLED 11-28-2019 #30 Atorvastatin Calcium 10 Mg Tablet, 10 MG PO HS, (Reported) LAST FILLED 11-09-2019 #30 Diltiazem HCl 240 Mg Cap.er.24h, 240 MG PO DAILY, (Reported) Fluoxetine HCl 40 Mg Capsule, 40 MG PO DAILY, (Reported) LAST FILLED 12-18-2019 #30 Gabapentin 800 Mg Tablet, 800 MG PO TID, (Reported) FILLED 11-09-2019 #90 Lisinopril 10 Mg Tablet, 10 MG PO DAILY, (Reported) LAST FILLED 11-28-2019 #30 Metformin HCl 500 Mg Tablet, 500 MG PO BID WITH MEALS, (Reported) Metoprolol Tartrate 25 Mg Tablet, 25 MG PO BID Prescribed by: SPIKE BERRIOS on 02/20/20 1209 Ondansetron 4 Mg Tab.rapdis, 4 MG PO for NAUSEA/VOMITING, (Reported) Patient Home Medication List Home Medication List Reviewed: Yes Review of Systems Review of Systems Constitutional: No no symptoms reported; see HPI; No chills, No diaphoresis, No dizziness, No fever, No malaise, No weakness, No weight gain, No weight loss, No other Eyes: Denies No Symptoms Reported, Denies See HPI, Denies Blindness, Denies Blurred Vision, Denies Drainage, Denies Decreased Acuity, Denies Foreign Body Sensation, Denies Inflammation, Denies Pain, Denies Photophobia, Denies Previous Injury, Denies Shadows, Denies Tunnel Vision, Denies Vision Changes, Denies Contact Lenses, Denies Glasses, Denies Other Ears, Nose, Mouth, Throat: denies no symptoms reported, denies see HPI, denies ear pain, denies ear discharge, denies nose pain, denies nose discharge, denies epistaxis, denies mouth pain, denies mouth swelling, denies loose teeth, denies throat pain, denies throat swelling Respiratory: No no symptoms reported, No see HPI, No cough, No dyspnea on exertion, No hemoptysis, No orthopnea, No phlegm, No short of breath, No stridor, No wheezing, No other Cardiovascular: No no symptoms reported, No see HPI, No chest pain, No edema, No Hx of Intervention, No palpitations, No syncope, No vascular heart diseas, No other Gastrointestinal: No RUQ, No LUQ, No RLQ, No LLQ, No no symptoms reported, No see HPI, No abdominal pain, No constipation, No diarrhea, No dysphagia, No hematemesis, No heartburn, No jaundice, No loss of appetite, No melena, No nausea, No vomiting, No other Genitourinary: No no symptoms reported, No see HPI, No decreased output, No discharge, No dysuria, No frequency, No hematuria, No hesitancy, No incontinence, No nocturia, No pain, No other Musculoskeletal: No no symptoms reported; see HPI, back pain; No gout; joint pain; No joint swelling, No muscle pain, No muscle stiffness, No muscle cramps, No muscle twitching, No muscle weakness; neck pain; No other Skin: No no symptoms reported, No see HPI, No change in color, No change in hair/nails, No dryness, No hx of skin cancer, No lesions, No lumps, No pruritus, No rash, No other All Other Systems Reviewed Negative Unless Noted: Yes Past Zcfccwe-Yzhuca-Uktupc Hx Patient Social History Drug of Choice: DENIES Type Used: Cigarettes 2nd Hand Smoke Exposure: No Recent Hopitalizations: No Immunizations Up To Date Date of Pneumonia Vaccine: Jan 06, 2013 Date of Influenza Vaccine: Jan 20, 2013 Seasonal Allergies Seasonal Allergies: No Past Medical History Surgeries: Yes (cysto's and eswl's) Appendectomy, Gallbladder, Hysterectomy, Tubal Ligation Respiratory: No Cardiac: Yes (SVT, ) Atrial Fibrillation, Hypertension Neurological: Yes (HAS 3 BRAIN ANEURYSMS DX AT 37 YRS OF AGE, bulging discs, pinched nerve) Reproductive Disorders: No Genitourinary: Yes Kidney Stones Gastrointestinal: Yes (enlarged liver) Gastroesophageal Reflux Musculoskeletal: Yes (restless leg) Arthritis Endocrine: Yes Diabetes, Non-Insulin dep HEENT: No Cancer: No Uterine Psychosocial: Yes Suicide Attempts, Depression Integumentary: No Blood Disorders: No Family Medical History Asthma 19 MOTHER Diabetes mellitus 19 FATHER FH: COPD (chronic obstructive pulmonary disease) 19 MOTHER FH: emphysema 19 MOTHER Physical Exam Vital Signs Vital Signs - First Documented 09/13/20 16:07 Temp 36.2 Pulse 67 Resp 16 B/P (MAP) 133/107 (116) Pulse Ox 96 O2 Delivery Room Air Capillary Refill : Height, Weight, BMI Height: 5'4.00" Weight: 240lbs. 9.6oz. [id number]; 40.00 BMI Method:Stated General Appearance: WD/WN, no apparent distress Neck: non-tender, full range of motion, supple, normal inspection Cardiovascular: normal peripheral pulses, regular rate, rhythm, no edema, no gallop, no JVD, no murmur Respiratory: chest non-tender, lungs clear, normal breath sounds, no respiratory distress, no accessory muscle use Gastrointestinal: normal bowel sounds, non tender, soft, no organomegaly, no pulsatile mass Back: normal inspection, no CVA tenderness, no vertebral tenderness Extremities: normal range of motion, non-tender, normal inspection, no pedal edema, no calf tenderness, normal capillary refill, pelvis stable Skin: normal color, warm/dry Progress/Results/Core Measures Results/Orders My Orders Orders - SELAM MCWILLIAMS MD Ribs 2-3 View Right (09/13/20 16:04) Cervical Spine 3 View Or Less (09/13/20 16:04) Hip 2-3 View Right (09/13/20 16:04) Lumbar Spine 2 Or 3 View (09/13/20 16:04) Ibuprofen Tablet (Motrin Tablet) (09/13/20 17:00) Medications Given in ED Current Medications Medications Dose Ordered Sig/Sirisha Route Start Time Stop Time Status Last Admin Dose Admin Ibuprofen 600 mg ONCE ONCE PO 09/13/20 17:00 09/13/20 17:01 DC 09/13/20 17:12 600 MG Vital Signs/I&O 09/13/20 16:07 Temp 36.2 Pulse 67 Resp 16 B/P (MAP) 133/107 (116) Pulse Ox 96 O2 Delivery Room Air Progress Progress Note : Time: 17:24 Progress Note Negative for any acute findings. Negative x-rays. Patient be discharged home. Patient is continue all home medications follow-up with PCP in 2-3 days. Use heating pad and ice as needed for back. Tylenol Motrin as needed for pain. Departure Impression Primary Impression: Fall Additional Impression: Low back pain Disposition: HOME, SELF-CARE Condition: Stable Departure-Patient Inst. Decision time for Depature: 17:25 Referrals: [facility] (PCP/Family) Primary Care Physician Patient Instructions: Low Back Pain (DC) Add. Discharge Instructions: Alternate heat and ice as needed for low back pain. Take medications as ins tructed. Follow-up with PCP in 2-3 days. Scripts Diclofenac Sodium (Diclofenac Sodium) 75 Mg Tablet. 75 MG PO BID for 10 Days, #20 TAB 0 Refills Prov: SELAM MCWILLIAMS MD 09/13/20 SELAM MCWILLIAMS MD Sep 13, 2020 16:06
[2020-09-13] MEDS ORDERED: IBUPROFEN 600 MG (MOTRIN) TAB PO ONE (17:00)
--- NOTE | 2020-09-13 17:13 | Diagnostic Imaging Report ---
INDICATION: Fall, right hip pain 2 views of the right hip show no fracture, dislocation or other abnormality. IMPRESSION: Normal right hip. Dictated by: Dictated on workstation # [id number]
--- NOTE | 2020-09-13 17:13 | Diagnostic Imaging Report ---
INDICATION: Fall, right rib pain Four views of the right ribs show no fracture or other acute bony abnormality. There is no effusion or pneumothorax seen. IMPRESSION: Normal right ribs. Dictated by: Dictated on workstation # [id number]
--- NOTE | 2020-09-13 17:15 | Diagnostic Imaging Report ---
INDICATION: Fall, neck pain. FINDINGS: Five views of the cervical spine show normal height and alignment of the vertebral bodies. There is disc space narrowing at C5-C6. No significant spondylosis is present. There are mild degenerated facets. There is no fracture. IMPRESSION: There are mild degenerative changes present with no acute abnormality seen. Dictated by: Dictated on workstation # [id number]
--- NOTE | 2020-09-13 17:20 | Diagnostic Imaging Report ---
INDICATION: Fall, back pain 3 views of the lumbar spine show normal height and alignment of the vertebral bodies. There is disc space narrowing at L4-L5. There is mild degenerated facets in the lower lumbar spine. No fracture or other acute bony abnormality is seen. There is 12 x 18 mm calculus in the right renal pelvis. IMPRESSION: There are mild degenerative changes of the lumbar spine with no acute abnormality seen. There is a large calculus in the right kidney. Dictated by: Dictated on workstation # [id number]
[2020-09-13] MEDS ORDERED: DICL75TA2 PO (17:26)
[2020-09-13 17:42] VITALS: BP 118/61
== END 2020-09-13 17:59 | disposition home or self-care (01) ==
LOC: EDUNIT# 15:55 → ER FS 15:56
DX: M54.5 Low back pain (principal); E66.01 Morbid (severe) obesity due to excess calories; I10 Essential (primary) hypertension; E11.9 Type 2 diabetes mellitus without complications; F32.9 Major depressive disorder, single episode, unspecified; Z68.41 Body mass index [BMI] 40.0-44.9, adult; Z82.49 Family history of ischemic heart disease and other diseases of the circulatory system; Z83.3 Family history of diabetes mellitus; Z85.42 Personal history of malignant neoplasm of other parts of uterus; Z88.2 Allergy status to sulfonamides; Z88.1 Allergy status to other antibiotic agents; Z88.8 Allergy status to other drugs, medicaments and biological substances; Z79.84 Long term (current) use of oral hypoglycemic drugs
CPT/HCPCS: 71100; 72040; 72100; 73502

== ENCOUNTER 2021-01-10 01:45 | Emergency (ER) | payer MEDICAID ==
[~2021-01-10] VITALS: Ht 162.6 cm; Wt 127.9 kg
[~2021-01-10 01:45] MED LIST changes: -CIPR500T4 PO; +CIPR500T5 PO; +DICL75TA2 PO; -HYDR-3876 PO; +HYDR-3920 PO; -LISI10TA2 PO; +LISI10TA25 PO
--- NOTE | 2021-01-10 01:52 | ED General ---
General Stated Complaint: ELEVATED BLOOD SUGAR History of Present Illness Date Seen by Provider: Jan 10, 2021 Time Seen by Provider: 01:52 Initial Comments 55-year-old female brought in by EMS for elevated blood sugar. Patient reports she is rza-ucrdfro-dciemlxju diabetic. Has been checking her blood sugars twice daily. That when she went to bed it was elevated in the 300s. That she got up in the middle the night to go the restroom and felt well checked it was in the 500s per her. She is only on Metformin. Upon arrival EMS reports blood glucose of 363. At this time she has no complaints. Daughter states on the phone however that her blood sugars have been running 3-500 for at least a week or better. Allergies and Home Medications Allergies Coded Allergies: aspirin (Unverified Allergy, Severe, THROAT SWELLS, 01/20/13) amoxicillin (Unverified Allergy, Intermediate, HIVES, 04/25/16) sulfamethoxazole (Unverified Allergy, Unknown, 01/20/13) trimethoprim (Unverified Allergy, Unknown, 01/20/13) Home Medications Acetaminophen 500 Mg Tablet, 1,000 MG PO Q4H PRN for PAIN-MILD, (Reported) Allopurinol 100 Mg Tablet, 100 MG PO DAILY, (Reported) LAST FILLED 11-28-2019 #30 Atorvastatin Calcium 10 Mg Tablet, 10 MG PO HS, (Reported) LAST FILLED 11-09-2019 #30 Diclofenac Sodium 75 Mg Tablet.dr, 75 MG PO BID Prescribed by: SELAM MCWILLIAMS on 09/13/20 1726 Diltiazem HCl 240 Mg Cap.er.24h, 240 MG PO DAILY, (Reported) Fluoxetine HCl 40 Mg Capsule, 40 MG PO DAILY, (Reported) LAST FILLED 12-18-2019 #30 Gabapentin 800 Mg Tablet, 800 MG PO TID, (Reported) FILLED 11-09-2019 #90 Lisinopril 10 Mg Tablet, 10 MG PO DAILY, (Reported) LAST FILLED 11-28-2019 #30 Metformin HCl 500 Mg Tablet, 500 MG PO BID WITH MEALS, (Reported) Metoprolol Tartrate 25 Mg Tablet, 25 MG PO BID Prescribed by: SPIKE BERRIOS on 02/20/20 1209 Ondansetron 4 Mg Tab.rapdis, 4 MG PO for NAUSEA/VOMITING, (Reported) Patient Home Medication List Home Medication List Reviewed: Yes Review of Systems Review of Systems Constitutional: malaise EENTM: no symptoms reported Respiratory: no symptoms reported Cardiovascular: no symptoms reported Gastrointestinal: no symptoms reported Genitourinary: no symptoms reported Musculoskeletal: no symptoms reported Skin: no symptoms reported Psychiatric/Neurological: No Symptoms Reported Hematologic/Lymphatic: See HPI Past Dacgkjp-Fnhavl-Vuqzdw Hx Past Med/Social Hx: Reviewed Nursing Past Med/Soc Hx Patient Social History Drug of Choice: states last meth use in February, last marijuana use within 1 month Type Used: Cigarettes 2nd Hand Smoke Exposure: No Recent Hopitalizations: No Immunizations Up To Date Date of Pneumonia Vaccine: Jan 06, 2013 Date of Influenza Vaccine: Jan 20, 2013 Seasonal Allergies Seasonal Allergies: No Past Medical History Surgeries: Yes (cysto's and eswl's) Appendectomy, Gallbladder, Hysterectomy, Tubal Ligation Respiratory: No Cardiac: Yes (SVT, ) Atrial Fibrillation, Hypertension Neurological: Yes (HAS 3 BRAIN ANEURYSMS DX AT 37 YRS OF AGE, bulging discs, pinched nerve) Reproductive Disorders: No Genitourinary: Yes Kidney Stones Gastrointestinal: Yes (enlarged liver) Gastroesophageal Reflux Musculoskeletal: Yes (restless leg) Arthritis Endocrine: Yes Diabetes, Non-Insulin dep HEENT: No Cancer: No Uterine Psychosocial: Yes Suicide Attempts, Depression Integumentary: No Blood Disorders: No Family Medical History Asthma 19 MOTHER Diabetes mellitus 19 FATHER FH: COPD (chronic obstructive pulmonary disease) 19 MOTHER FH: emphysema 19 MOTHER Physical Exam Vital Signs Vital Signs - First Documented 01/10/21 01:46 Temp 36.8 Pulse 68 Resp 17 B/P (MAP) 153/76 (101) O2 Delivery Room Air Capillary Refill : Height, Weight, BMI Height: 5'4.00" Weight: 240lbs. 9.6oz. [id number]; 44.00 BMI Method:Stated General Appearance: No Apparent Distress, WD/WN, Obese Respiratory: Lungs Clear, Normal Breath Sounds Cardiovascular: Regular Rate, Rhythm, No Edema Gastrointestinal: Non Tender, Soft Extremity: Normal Range of Motion Neurologic/Psychiatric: Alert, Oriented x3, Normal Mood/Affect, candy separator hard II-XII Norm as Tested Skin: Normal Color, Warm/Dry Progress/Results/Core Measures Suspected Sepsis SIRS Temperature: Pulse: Respiratory Rate: Laboratory Tests 01/10/21 02:00: White Blood Count 12.5H Blood Pressure / Mean: Laboratory Tests 01/10/21 02:00: Creatinine 0.90, Platelet Count 271, Total Bilirubin 0.2 Results/Orders Lab Results Laboratory Tests Test 01/10/21 01:50 01/10/21 02:00 01/10/21 02:18 Range/Units Glucometer 363 H 70-110 MG/DL White Blood Count 12.5 H 4.3-11.0 10^3/uL Red Blood Count 4.71 4.35-5.85 10^6/uL Hemoglobin 13.7 11.5-16.0 G/DL Hematocrit 43 35-52 % Mean Corpuscular Volume 90 80-99 FL Mean Corpuscular Hemoglobin 29 25-34 PG Mean Corpuscular Hemoglobin Concent 32 32-36 G/DL Red Cell Distribution Width 14.6 H 10.0-14.5 % Platelet Count 271 130-400 10^3/uL Mean Platelet Volume 11.9 H 7.4-10.4 FL Immature Granulocyte % (Auto) 1 % Neutrophils (%) (Auto) 51 42-75 % Lymphocytes (%) (Auto) 35 12-44 % Monocytes (%) (Auto) 10 0-12 % Eosinophils (%) (Auto) 3 0-10 % Basophils (%) (Auto) 1 0-10 % Neutrophils # (Auto) 6.4 1.8-7.8 X 10^3 Lymphocytes # (Auto) 4.3 H 1.0-4.0 X 10^3 Monocytes # (Auto) 1.2 H 0.0-1.0 X 10^3 Eosinophils # (Auto) 0.3 0.0-0.3 10^3/uL Basophils # (Auto) 0.1 0.0-0.1 10^3/uL Immature Granulocyte # (Auto) 0.1 0.0-0.1 10^3/uL Sodium Level 134 L 135-145 MMOL/L Potassium Level 4.4 3.6-5.0 MMOL/L Chloride Level 98 98-107 MMOL/L Carbon Dioxide Level 26 21-32 MMOL/L Anion Gap 10 5-14 MMOL/L Blood Urea Nitrogen 20 H 7-18 MG/DL Creatinine 0.90 0.60-1.30 MG/DL Estimat Glomerular Filtration Rate > 60 BUN/Creatinine Ratio 22 Glucose Level 444 *H 70-105 MG/DL Calcium Level 9.2 8.5-10.1 MG/DL Corrected Calcium 9.4 8.5-10.1 MG/DL Total Bilirubin 0.2 0.1-1.0 MG/DL Aspartate Amino Transf (AST/SGOT) 18 5-34 U/L Alanine Aminotransferase (ALT/SGPT) 19 0-55 U/L Alkaline Phosphatase 175 H 40-136 U/L Total Protein 6.9 6.4-8.2 GM/DL Albumin 3.7 3.2-4.5 GM/DL Smear Scan OK Urine Color YELLOW Urine Clarity CLEAR Urine pH 6.0 5-9 Urine Specific [place] 1.010 L 1.016-1.022 Urine Protein NEGATIVE NEGATIVE Urine Glucose (UA) 3+ H NEGATIVE Urine Ketones NEGATIVE NEGATIVE Urine Nitrite NEGATIVE NEGATIVE Urine Bilirubin NEGATIVE NEGATIVE Urine Urobilinogen 0.2 < = 1.0 MG/DL Urine Leukocyte Esterase NEGATIVE NEGATIVE Urine RBC (Auto) TRACE H NEGATIVE Urine RBC 0-2 /HPF Urine WBC 0-2 /HPF Urine Squamous Epithelial Cells 0-2 /HPF Urine Crystals NONE /LPF Urine Bacteria NEGATIVE /HPF Urine Casts NONE /LPF Urine Mucus NEGATIVE /LPF Urine Culture Indicated NO My Orders Orders - TODD,AUDI L DO Cbc With Automated Diff (01/10/21 01:56) Comprehensive Metabolic Panel (01/10/21 01:56) Ua Culture If Indicated (01/10/21 01:56) Hemoglobin A1c (01/10/21 01:56) Ns Iv 1000 Ml (Sodium Chloride 0.9%) (01/10/21 01:56) Accucheck Stat ONCE (01/10/21 01:56) Ed Iv/Invasive Line Start (01/10/21 02:22) Vital Signs/I&O 01/10/21 01:46 Temp 36.8 Pulse 68 Resp 17 B/P (MAP) 153/76 (101) O2 Delivery Room Air Capillary Refill : Progress Note : Progress Note Patient with longstanding hyperglycemia and uncontrolled diabetes. She has an appointment with her doctor on Saturday. She will need to keep this and likely be started on insulin. Departure Impression Primary Impression: Type 2 diabetes mellitus with hyperglycemia, without long-term current use of insulin Disposition: 01 HOME, SELF-CARE Condition: Stable Departure-Patient Inst. Referrals: [facility] (PCP/Family) Primary Care Physician Patient Instructions: Type 2 Diabetes, How to Keep Track of Your Blood Sugar, Hyperglycemia, Adult (DC) Add. Discharge Instructions: Keep your already scheduled appointment with your primary care provider this week. Please discuss your hyperglycemia and other treatment options AUDI TODD DO Jan 10, 2021 01:52
[2021-01-10] MEDS ORDERED: NS IV 1000 ML 1,000 ML IV STA (01:56)
[2021-01-10 02:35] LABS: HEMATOCRIT 43 % (35-52); HEMOGLOBIN 13.7 G/DL (11.5-16.0); LYMPHOCYTES % (AUTO) 35 % (12-44); MEAN CORPUSCULAR HEMOGLOBIN 29 PG (25-34); MEAN CORPUSCULAR HGB CONC 32 G/DL (32-36); MEAN CORPUSCULAR VOLUME 90 FL (80-99); MEAN PLATELET VOLUME 11.9 FL (7.4-10.4); NEUTROPHILS % (AUTO) 51 % (42-75); PLATELET COUNT 271 10^3/uL (130-400); WHITE BLOOD COUNT 12.5 10^3/uL (4.3-11.0)
[2021-01-10 02:36] LABS: BASOPHILS # (AUTO) 0.1 10^3/uL (0.0-0.1); BASOPHILS % (AUTO) 1 % (0-10); EOSINOPHILS # (AUTO) 0.3 10^3/uL (0.0-0.3); EOSINOPHILS % (AUTO) 3 % (0-10); LYMPHOCYTES # (AUTO) 4.3 X 10^3 (1.0-4.0); MONOCYTES # (AUTO) 1.2 X 10^3 (0.0-1.0); MONOCYTES % (AUTO) 10 % (0-12); NEUTROPHILS # (AUTO) 6.4 X 10^3 (1.8-7.8)
[2021-01-10 02:41] LABS: BACTERIA,URINE NEGATIVE /HPF; BILIRUBIN,URINE NEGATIVE (NEGATIVE); CLARITY,URINE CLEAR; COLOR,URINE YELLOW; GLUCOSE, URINE (UA) 3+ (NEGATIVE); KETONES,URINE NEGATIVE (NEGATIVE); LEUKOCYTE ESTERASE ,URINE NEGATIVE (NEGATIVE); NITRITE,URINE NEGATIVE (NEGATIVE); PROTEIN,URINE NEGATIVE (NEGATIVE); RBC,URINE 0-2 /HPF; SQUAMOUS EPITHELIAL CELL,UR 0-2 /HPF; WBC,URINE 0-2 /HPF
[2021-01-10 02:47] LABS: SMEAR SCAN COMMENT OK
[2021-01-10 02:51] LABS: BUN/CREATININE RATIO 22; CARBON DIOXIDE 26 MMOL/L (21-32); CHLORIDE 98 MMOL/L (98-107); GFR ESTIMATED > 60; POTASSIUM 4.4 MMOL/L (3.6-5.0); SODIUM 134 MMOL/L (135-145)
[2021-01-10 02:52] LABS: GLUCOSE 444 MG/DL (70-105)
[2021-01-10 02:53] LABS: ALANINE AMINOTRANSFERASE 19 U/L (0-55); ALBUMIN 3.7 GM/DL (3.2-4.5); ALKALINE PHOSPHATASE 175 U/L (40-136); BILIRUBIN,TOTAL 0.2 MG/DL (0.1-1.0); CALCIUM 9.2 MG/DL (8.5-10.1); TOTAL PROTEIN 6.9 GM/DL (6.4-8.2)
[2021-01-10 03:35] VITALS: BP 139/72
[2021-01-10] MEDS ORDERED: inSUlin (REGULAR) HUMAN 1 UNIT/0.01 ML (CHARGE PER UNIT) IV SCH (06:00)
== END 2021-01-10 03:35 | disposition home or self-care (01) ==
LOC: EDUNIT# 01:45 → ER FS 01:47
DX: E11.65 Type 2 diabetes mellitus with hyperglycemia (principal); I10 Essential (primary) hypertension; F32.9 Major depressive disorder, single episode, unspecified; I67.1 Cerebral aneurysm, nonruptured; Z88.6 Allergy status to analgesic agent; Z88.1 Allergy status to other antibiotic agents; Z88.2 Allergy status to sulfonamides; I48.91 Unspecified atrial fibrillation; Z87.442 Personal history of urinary calculi; Z79.84 Long term (current) use of oral hypoglycemic drugs
CPT/HCPCS: 36415; 80053; 81000; 82962; 83036; 85025

== ENCOUNTER 2021-03-22 14:15 | Emergency (ER) | payer MEDICAID ==
[2021-03-22] MEDS ORDERED: fentaNYL INJ 100 MCG/2 ML AMP IVP STA (14:40)
[2021-03-22] MEDS ORDERED: KETOROLAC 30 MG/ML VIAL IVP STA (14:40)
[2021-03-22] MEDS ORDERED: NS IV 1000 ML 1,000 ML IV ONE (14:45)
--- NOTE | 2021-03-22 14:54 | ED GU-Female ---
General Chief Complaint: Abdominal/GI Problems Stated Complaint: HEMATURIA Nursing Triage Note: Has had R flank and abdominal pain x 1.5 weeks. Is painful to have bm or urinate. Was sent here from clinic due to pain. Has hx of kidney stones. Pain is rated at a 10/10. Nursing Sepsis Screen: No Definite Risk Source: patient Exam Limitations: no limitations History of Present Illness Date Seen by Provider: March 22, 2021 Time Seen by Provider: 14:25 Initial Comments Here with report of right flank pain with difficult urination and blood in her urine. Patient apparently went to the clinic in the found blood in her urine on urine dipstick. Does have history of kidney stones. She is worried that one has not passed. Has had the pain for 7 to 10 days. States pain is 10 out of 10. She has been taking naproxen twice daily but has not taken that today. Denies fever chills. States pain radiates from the right flank to the right groin area. Similar to previous stone pain. Timing/Duration: week, getting worse Severity/Quality: aching, burning Location: right flank Radiation: groin Activities at Onset: none Associated Symptoms: abdominal pain, dysuria; No fever/chills; lower back pain; No nausea/vomiting Allergies and Home Medications Allergies Coded Allergies: aspirin (Unverified Allergy, Severe, THROAT SWELLS, 01/20/13) amoxicillin (Unverified Allergy, Intermediate, HIVES, 04/25/16) sulfamethoxazole (Unverified Allergy, Unknown, 01/20/13) trimethoprim (Unverified Allergy, Unknown, 01/20/13) Home Medications Acetaminophen 500 Mg Tablet, 1,000 MG PO Q4H PRN for PAIN-MILD, (Reported) Allopurinol 100 Mg Tablet, 100 MG PO DAILY, (Reported) LAST FILLED 11-28-2019 #30 Atorvastatin Calcium 10 Mg Tablet, 10 MG PO HS, (Reported) LAST FILLED 11-09-2019 #30 Diclofenac Sodium 75 Mg Tablet.dr, 75 MG PO BID Prescribed by: SELAM MCWILLIAMS on 09/13/20 172 Diltiazem HCl 240 Mg Cap.er.24h, 240 MG PO DAILY, (Reported) Fluoxetine HCl 40 Mg Capsule, 40 MG PO DAILY, (Reported) LAST FILLED 12-18-2019 #30 Gabapentin 800 Mg Tablet, 800 MG PO TID, (Reported) FILLED 11-09-2019 #90 Lisinopril 10 Mg Tablet, 10 MG PO DAILY, (Reported) LAST FILLED 11-28-2019 #30 Metformin HCl 500 Mg Tablet, 500 MG PO BID WITH MEALS, (Reported) Metoprolol Tartrate 25 Mg Tablet, 25 MG PO BID Prescribed by: SPIKE BERRIOS on 02/20/20 1209 Ondansetron 4 Mg Tab.rapdis, 4 MG PO for NAUSEA/VOMITING, (Reported) Patient Home Medication List Home Medication List Reviewed: Yes Review of Systems Review of Systems Constitutional: see HPI; No chills, No fever EENTM: No nose congestion, No throat pain Respiratory: no symptoms reported Cardiovascular: No chest pain, No edema Gastrointestinal: abdominal pain; No nausea, No vomiting Genitourinary: see HPI Musculoskeletal: see HPI Skin: no symptoms reported All Other Systemes Reviewed Negative Unless Noted: Yes Past [place]-Mgdbkk Hx Past Med/Social Hx: Reviewed Nursing Past Med/Soc Hx Patient Social History Alcohol Use: Denies Use Drug of Choice: states last meth use in February, last marijuana use within 1 month Type Used: Cigarettes 2nd Hand Smoke Exposure: Yes Recent Infectious Disease Expo: No Recent Hopitalizations: No Immunizations Up To Date Date of Pneumonia Vaccine: Jan 06, 2013 Date of Influenza Vaccine: Jan 20, 2013 Seasonal Allergies Seasonal Allergies: No Past Medical History Surgeries: Yes (cysto's and eswl's) Appendectomy, Gallbladder, Hysterectomy, Tubal Ligation Respiratory: No Cardiac: Yes (SVT, ) Atrial Fibrillation, Hypertension Neurological: Yes (HAS 3 BRAIN ANEURYSMS DX AT 37 YRS OF AGE, bulging discs, pinched nerve) Reproductive Disorders: No Genitourinary: Yes Kidney Stones Gastrointestinal: Yes (enlarged liver) Gastroesophageal Reflux Musculoskeletal: Yes (restless leg) Arthritis Endocrine: Yes Diabetes, Non-Insulin dep HEENT: No Cancer: No Uterine Psychosocial: Yes Suicide Attempts, Depression Integumentary: No Blood Disorders: No Family Medical History Reviewed Nursing Family Hx Asthma 19 MOTHER Diabetes mellitus 19 FATHER FH: COPD (chronic obstructive pulmonary disease) 19 MOTHER FH: emphysema 19 MOTHER Physical Exam Vital Signs Vital Signs - First Documented 03/22/21 14:26 Temp 37.3 Pulse 74 Resp 20 B/P (MAP) 133/40 (71) Pulse Ox 99 Capillary Refill : Less Than 3 Seconds Height, Weight, BMI Height: 5'4.00" Weight: 240lbs. 9.6oz. [id number]; 48.00 BMI Method:Stated General Appearance: WD/WN, mild distress Neck: full range of motion, supple Cardiovascular: regular rate, rhythm, no murmur Respiratory: lungs clear, normal breath sounds Gastrointestinal: non tender, soft Back: normal inspection, no vertebral tenderness, CVA tenderness (R); No CVA tenderness (L) Extremities: non-tender, normal inspection, no pedal edema, no calf tenderness Neurologic/Psychiatric: alert, oriented x 3 Skin: normal color, warm/dry Progress/Results/Core Measures Suspected Sepsis Recent Fever Within 48 Hours: No Infection Criteria Present: Suspected New Infection New/Unexplained Altered Menta: No Sepsis Screen: No Definite Risk SIRS Temperature: Pulse: 74 Respiratory Rate: 20 Laboratory Tests 03/22/21 14:35: White Blood Count 12.7H Blood Pressure 133 /40 Mean: 71 Laboratory Tests 03/22/21 14:35: Creatinine 0.63, Platelet Count 282, Total Bilirubin < 0.2 Results/Orders Lab Results Laboratory Tests Test 03/22/21 14:32 03/22/21 14:35 Range/Units Urine Color YELLOW Urine Clarity CLEAR Urine pH 6.0 5-9 Urine Specific [place] 1.015 L 1.016-1.022 Urine Protein NEGATIVE NEGATIVE Urine Glucose (UA) 3+ H NEGATIVE Urine Ketones NEGATIVE NEGATIVE Urine Nitrite NEGATIVE NEGATIVE Urine Bilirubin NEGATIVE NEGATIVE Urine Urobilinogen 0.2 < = 1.0 MG/DL Urine Leukocyte Esterase NEGATIVE NEGATIVE Urine RBC (Auto) 1+ H NEGATIVE Urine RBC 2-5 H /HPF Urine WBC NONE /HPF Urine Squamous Epithelial Cells 0-2 /HPF Urine Crystals NONE /LPF Urine Bacteria NEGATIVE /HPF Urine Casts NONE /LPF Urine Mucus NEGATIVE /LPF Urine Culture Indicated NO Urine Opiates Screen NEGATIVE NEGATIVE Urine Oxycodone Screen NEGATIVE NEGATIVE Urine Methadone Screen NEGATIVE NEGATIVE Urine Propoxyphene Screen NEGATIVE NEGATIVE Urine Barbiturates Screen NEGATIVE NEGATIVE Ur Tricyclic Antidepressants Screen NEGATIVE NEGATIVE Urine Phencyclidine Screen NEGATIVE NEGATIVE Urine Amphetamines Screen NEGATIVE NEGATIVE Urine Methamphetamines Screen NEGATIVE NEGATIVE Urine Benzodiazepines Screen NEGATIVE NEGATIVE Urine Cocaine Screen NEGATIVE NEGATIVE Urine Cannabinoids Screen NEGATIVE NEGATIVE White Blood Count 12.7 H 4.3-11.0 10^3/uL Red Blood Count 4.76 4.35-5.85 10^6/uL Hemoglobin 14.1 11.5-16.0 G/DL Hematocrit 44 35-52 % Mean Corpuscular Volume 91 80-99 FL Mean Corpuscular Hemoglobin 30 25-34 PG Mean Corpuscular Hemoglobin Concent 32 32-36 G/DL Red Cell Distribution Width 14.3 10.0-14.5 % Platelet Count 282 130-400 10^3/uL Mean Platelet Volume 11.7 H 7.4-10.4 FL Immature Granulocyte % (Auto) 1 % Neutrophils (%) (Auto) 67 42-75 % Lymphocytes (%) (Auto) 24 12-44 % Monocytes (%) (Auto) 6 0-12 % Eosinophils (%) (Auto) 1 0-10 % Basophils (%) (Auto) 1 0-10 % Neutrophils # (Auto) 8.6 H 1.8-7.8 X 10^3 Lymphocytes # (Auto) 3.1 1.0-4.0 X 10^3 Monocytes # (Auto) 0.7 0.0-1.0 X 10^3 Eosinophils # (Auto) 0.2 0.0-0.3 10^3/uL Basophils # (Auto) 0.1 0.0-0.1 10^3/uL Immature Granulocyte # (Auto) 0.1 0.0-0.1 10^3/uL Sodium Level 136 135-145 MMOL/L Potassium Level 4.9 3.6-5.0 MMOL/L Chloride Level 102 98-107 MMOL/L Carbon Dioxide Level 24 21-32 MMOL/L Anion Gap 10 5-14 MMOL/L Blood Urea Nitrogen 17 7-18 MG/DL Creatinine 0.63 0.60-1.30 MG/DL Estimat Glomerular Filtration Rate > 60 BUN/Creatinine Ratio 27 Glucose Level 405 *H 70-105 MG/DL Calcium Level 8.8 8.5-10.1 MG/DL Corrected Calcium 9.3 8.5-10.1 MG/DL Total Bilirubin < 0.2 0.1-1.0 MG/DL Aspartate Amino Transf (AST/SGOT) 13 5-34 U/L Alanine Aminotransferase (ALT/SGPT) 14 0-55 U/L Alkaline Phosphatase 223 H 40-136 U/L C-Reactive Protein 1.71 H <0.50 MG/DL Total Protein 6.4 6.4-8.2 GM/DL Albumin 3.4 3.2-4.5 GM/DL My Orders Orders - BRIEN GARCIA MD Cbc With Automated Diff (03/22/21 14:40) Comprehensive Metabolic Panel (03/22/21 14:40) Drug Screen Stat (Urine) (03/22/21 14:40) Ua Culture If Indicated (03/22/21 14:40) Crp Fs (03/22/21 14:40) Fentanyl Inj (Sublimaze Injection) (03/22/21 14:40) Ketorolac Injection (Toradol Injection) (03/22/21 14:40) Ed Iv/Invasive Line Start (03/22/21 14:40) Ns Iv 1000 Ml (Sodium Chloride 0.9%) (03/22/21 14:45) Ct Abdomen/Pelvis Wo (03/22/21 14:40) Insulin (Regular) Human (Novolin R (Per (03/22/21 15:11) Medications Given in ED Current Medications Medications Dose Ordered Sig/Sirisha Route Start Time Stop Time Status Last Admin Dose Admin Sodium Chloride 1,000 ml @ 0 mls/hr Q0M ONCE IV 03/22/21 14:45 03/22/21 14:46 DC 03/22/21 14:52 999 MLS/HR Vital Signs/I&O 03/22/21 14:26 Temp 37.3 Pulse 74 Resp 20 B/P (MAP) 133/40 (71) Pulse Ox 99 Capillary Refill : Less Than 3 Seconds Blood Pressure Mean: 71 Progress Note : Progress Note Seen and evaluated. IV, labs, UA, normal saline 1 L bolus, fentanyl 50 mcg IV and Toradol [address] abdomen pelvis without contrast ordered. Monitor patient. 1555: Doing a little better. Labs reviewed and CT complete. No significant UTI or gross blood noted on UA. CT did have findings of stones in the renal pelvis which she has had previously. There was mention of question of transition point seen small bowel in the right lower quadrant area. Patient has been able to eat and drink and did have a large bowel movement this morning. It is unlikely she is obstructed given her presentation. She did have 3 sugar cookies and a couple of cups of coffee with cream and sugar prior to coming here. Blood sugar was noted to be in the 400s. Insulin 12 units subcu given. I did discuss with the patient regarding current findings. Pain may be related to chronic elevated blood sugar given current findings. We discussed options and outpatient therapy with clear liquid or light diet is the option which shows for now. I did discuss return precautions. Discharged home with return precau tions. Patient verbalized understanding of instructions and agreement with plan. Diagnostic Imaging Diagonstic Imaging: CT Plain Films/CT/US/NM/MRI: abdomen, pelvis Comments [facility] [place] NAME: ELIN CASTILLO [facility] REC#: [id number] PT STATUS: REG ER : 1965 PHYSICIAN: BRIEN GARCIA MD ADMIT DATE: 03/22/21/ER FS Signed Date of Exam:03/22/21 CT ABDOMEN/PELVIS WO PROCEDURE: CT abdomen and pelvis without contrast. TECHNIQUE: Multiple contiguous axial images were obtained through the abdomen and pelvis without the use of intravenous contrast. Auto Exposure Controls were utilized during the CT exam to meet ALARA standards for radiation dose reduction. INDICATION: Right flank pain that radiates to the right lower quadrant. Patient does have prior history of kidney stones. COMPARISON: Correlation is made with prior CT from 06/17/2020. FINDINGS: Lung bases are clear. There is diffuse low-density throughout the liver consistent with hepatic steatosis. Gallbladder is surgically absent. No biliary ductal dilatation is seen. Pancreas and spleen are unremarkable. No adrenal mass is detected. There is an 18 mm x 9 mm calculus located in the right renal pelvis. No hydronephrosis is seen. There is a 9 mm calculus in the lower pole of the left kidney. No hydronephrosis is identified. No ureteral calculi are detected. Aorta is nonaneurysmal. There does appear to be some mild prominence of small bowel loops in the central abdomen with a questionable transition to smaller caliber small bowel loops distally in the right lower quadrant. The colon is normal caliber and contains moderate stool. There is no free fluid or fluid collection identified. No definite inflammatory change or free air identified. Bladder is unremarkable. Uterus appears to be surgically absent. There appears to be a fat-containing umbilical hernia. IMPRESSION: 1. Hepatic steatosis. 2. Bilateral nonobstructing renal calculi. Largest calculus is located in the right renal pelvis without hydronephrosis. No ureteral or bladder calculi are seen. 3. There is some mild prominence of small bowel loops in the central abdomen with transition distally. This does raise the question of a potential small bowel obstruction. A small bowel study may be useful for further evaluation. No other significant abnormality is detected. Dictated by: Dictated on workstation # [id number] Dict: 03/22/21 1501 Trans: 03/22/21 1546 [facility] [id number] Interpreted by: THOMAS MORGAN MD Electronically signed by: THOMAS MORGAN MD 03/22/21 1546 Departure Impression Primary Impression: Right flank pain Additional Impression: Type 2 diabetes mellitus with hyperglycemia, without long-term current use of insulin Disposition: HOME, SELF-CARE Condition: Stable Departure-Patient Inst. Decision time for Depature: 16:00 Referrals: RAYMOND TORRES APRN (PCP) Primary Care Physician [facility] (Family) Primary Care Physician Patient Instructions: High Blood Sugar, Adult ED, Severe Abdominal Pain, Adult (DC) Add. Discharge Instructions: All discharge instructions reviewed with patient and/or family. Voiced understanding. Continue home medications as previously prescribed. You may take Tylenol/acetaminophen 1000 mg every 6-8 hours as needed for pain but do not take with the prescribed pain medicine as they both have acetaminophen in them. Drink plenty of nonsugary fluids. Clear liquid or light diet for the next 24 to 48 hours and then advance as tolerated. Follow-up with your doctor in a few days for recheck. Return for worse pain, fever, weakness, breathing problems, vomiting or other concerns as needed. It is very important that you control your blood sugar and you should minimize sugar intake. Scripts Hydrocodone Bit/Acetaminophen (HYDROcodone/APAP 5 MG/325 MG TAB) 1 Tab Tab 1 TAB PO Q6H for Pain, #8 TAB 0 Refills Prov: BRIEN GARCIA MD 03/22/21 BRIEN GARCIA MD March 22, 2021 14:54
[2021-03-22 14:57] LABS: BASOPHILS # (AUTO) 0.1 10^3/uL (0.0-0.1); BASOPHILS % (AUTO) 1 % (0-10); EOSINOPHILS # (AUTO) 0.2 10^3/uL (0.0-0.3); EOSINOPHILS % (AUTO) 1 % (0-10); HEMATOCRIT 44 % (35-52); HEMOGLOBIN 14.1 G/DL (11.5-16.0); LYMPHOCYTES # (AUTO) 3.1 X 10^3 (1.0-4.0); LYMPHOCYTES % (AUTO) 24 % (12-44); MEAN CORPUSCULAR HEMOGLOBIN 30 PG (25-34); MEAN CORPUSCULAR HGB CONC 32 G/DL (32-36); MEAN CORPUSCULAR VOLUME 91 FL (80-99); MEAN PLATELET VOLUME 11.7 FL (7.4-10.4); MONOCYTES # (AUTO) 0.7 X 10^3 (0.0-1.0); MONOCYTES % (AUTO) 6 % (0-12); NEUTROPHILS # (AUTO) 8.6 X 10^3 (1.8-7.8); NEUTROPHILS % (AUTO) 67 % (42-75); PLATELET COUNT 282 10^3/uL (130-400); WHITE BLOOD COUNT 12.7 10^3/uL (4.3-11.0)
[2021-03-22 15:02] LABS: AMPHETAMINE SCREEN, URINE NEGATIVE (NEGATIVE); BACTERIA,URINE NEGATIVE /HPF; BARBITURATE SCREEN URINE NEGATIVE (NEGATIVE); BENZODIAZEPINES SCREEN URINE NEGATIVE (NEGATIVE); BILIRUBIN,URINE NEGATIVE (NEGATIVE); CANNABINOID SCREEN, URINE NEGATIVE (NEGATIVE); CLARITY,URINE CLEAR; COCAINE SCREEN URINE NEGATIVE (NEGATIVE); COLOR,URINE YELLOW; GLUCOSE, URINE (UA) 3+ (NEGATIVE); KETONES,URINE NEGATIVE (NEGATIVE); LEUKOCYTE ESTERASE ,URINE NEGATIVE (NEGATIVE); METHADONE STAT NEGATIVE (NEGATIVE); METHAMPHETAMINE SCREEN URINE S NEGATIVE (NEGATIVE); NITRITE,URINE NEGATIVE (NEGATIVE); OPIATE SCREEN URINE NEGATIVE (NEGATIVE); OXYCODONE STAT NEGATIVE (NEGATIVE); PROPOXYPHENE STAT NEGATIVE (NEGATIVE); PROTEIN,URINE NEGATIVE (NEGATIVE); SQUAMOUS EPITHELIAL CELL,UR 0-2 /HPF; TRICYCLIC ANTIDEPRESSANTS SCRE NEGATIVE (NEGATIVE)
[2021-03-22 15:06] LABS: CARBON DIOXIDE 24 MMOL/L (21-32); CHLORIDE 102 MMOL/L (98-107); POTASSIUM 4.9 MMOL/L (3.6-5.0); SODIUM 136 MMOL/L (135-145)
[2021-03-22 15:07] LABS: BUN/CREATININE RATIO 27; CREATININE SERUM 0.63 MG/DL (0.60-1.30); GFR ESTIMATED > 60; GLUCOSE 405 MG/DL (70-105)
[2021-03-22 15:08] LABS: ALANINE AMINOTRANSFERASE 14 U/L (0-55); ALBUMIN 3.4 GM/DL (3.2-4.5); ALKALINE PHOSPHATASE 223 U/L (40-136); BILIRUBIN,TOTAL < 0.2 MG/DL (0.1-1.0); CALCIUM 8.8 MG/DL (8.5-10.1); TOTAL PROTEIN 6.4 GM/DL (6.4-8.2)
[2021-03-22] MEDS ORDERED: inSUlin (REGULAR) HUMAN 1 UNIT/0.01 ML (CHARGE PER UNIT) SC STA (15:11)
--- NOTE | 2021-03-22 15:18 | Diagnostic Imaging Report ---
PROCEDURE: CT abdomen and pelvis without contrast. TECHNIQUE: Multiple contiguous axial images were obtained through the abdomen and pelvis without the use of intravenous contrast. Auto Exposure Controls were utilized during the CT exam to meet ALARA standards for radiation dose reduction. INDICATION: Right flank pain that radiates to the right lower quadrant. Patient does have prior history of kidney stones. COMPARISON: Correlation is made with prior CT from 06/17/2020. FINDINGS: Lung bases are clear. There is diffuse low-density throughout the liver consistent with hepatic steatosis. Gallbladder is surgically absent. No biliary ductal dilatation is seen. Pancreas and spleen are unremarkable. No adrenal mass is detected. There is an 18 mm x 9 mm calculus located in the right renal pelvis. No hydronephrosis is seen. There is a 9 mm calculus in the lower pole of the left kidney. No hydronephrosis is identified. No ureteral calculi are detected. Aorta is nonaneurysmal. There does appear to be some mild prominence of small bowel loops in the central abdomen with a questionable transition to smaller caliber small bowel loops distally in the right lower quadrant. The colon is normal caliber and contains moderate stool. There is no free fluid or fluid collection identified. No definite inflammatory change or free air identified. Bladder is unremarkable. Uterus appears to be surgically absent. There appears to be a fat-containing umbilical hernia. IMPRESSION: 1. Hepatic steatosis. 2. Bilateral nonobstructing renal calculi. Largest calculus is located in the right renal pelvis without hydronephrosis. No ureteral or bladder calculi are seen. 3. There is some mild prominence of small bowel loops in the central abdomen with transition distally. This does raise the question of a potential small bowel obstruction. A small bowel study may be useful for further evaluation. No other significant abnormality is detected. Dictated by: Dictated on workstation # [id number]
[2021-03-22] MEDS ORDERED: ACHD5005 PO (16:02)
[2021-03-22 16:13] VITALS: BP 120/76
== END 2021-03-22 16:13 | disposition home or self-care (01) ==
LOC: EDUNIT# 14:15 → ER FS 14:17
DX: R10.31 Right lower quadrant pain (principal); E11.65 Type 2 diabetes mellitus with hyperglycemia; I10 Essential (primary) hypertension; I48.91 Unspecified atrial fibrillation; F32.9 Major depressive disorder, single episode, unspecified; G25.81 Restless legs syndrome; Z87.442 Personal history of urinary calculi; Z77.22 Contact with and (suspected) exposure to environmental tobacco smoke (acute) (chronic); Z79.84 Long term (current) use of oral hypoglycemic drugs; Z79.899 Other long term (current) drug therapy
CPT/HCPCS: 36415; 74176; 80053; 80306; 81000; 82947; 85025; 86141

== ENCOUNTER 2021-04-24 05:43 | Outpatient (CLI) | payer MEDICAID ==
[~2021-04-24] VITALS: Ht 162.6 cm; Wt 102.1 kg
[2021-04-24] MEDS ORDERED: NAPR-1088 PO (11:20)
[2021-04-24] MEDS ORDERED: TRZ50T PO (11:20)
[2021-04-24] MEDS ORDERED: CANA100T PO (11:20)
[2021-04-24] MEDS ORDERED: DIGO-8 PO (11:20)
== END 2021-04-24 11:49 | disposition home or self-care (01) ==
LOC: PREOP 05:43
PROVIDERS: ATTEND Surgery
DX: Z01.818 Encounter for other preprocedural examination (principal)

== ENCOUNTER 2021-04-27 12:55 | Day surgery (SDC) | payer MEDICAID ==
[2021-04-27] VITALS (10 sets, daily range): BP systolic 129–177; BP diastolic 62–92
[~2021-04-27] VITALS: Ht 162 cm; Wt 102.1 kg
[~2021-04-27 12:55] MED LIST changes: +CANA100T PO; +DIGO-8 PO; +NAPR-1088 PO
[2021-04-27 13:34] LABS: AMPHETAMINE SCREEN, URINE NEGATIVE (NEGATIVE); BARBITURATE SCREEN URINE NEGATIVE (NEGATIVE); BENZODIAZEPINES SCREEN URINE NEGATIVE (NEGATIVE); CANNABINOID SCREEN, URINE NEGATIVE (NEGATIVE); COCAINE SCREEN URINE NEGATIVE (NEGATIVE); METHADONE STAT NEGATIVE (NEGATIVE); METHAMPHETAMINE SCREEN URINE S NEGATIVE (NEGATIVE); OPIATE SCREEN URINE NEGATIVE (NEGATIVE); OXYCODONE STAT NEGATIVE (NEGATIVE); PROPOXYPHENE STAT NEGATIVE (NEGATIVE); TRICYCLIC ANTIDEPRESSANTS SCRE NEGATIVE (NEGATIVE)
[2021-04-27] MEDS: LACTATED RINGERS 1,000 ML IV PRN ×2 (13:39→17:16)
[2021-04-27 13:50] LABS: BASOPHILS # (AUTO) 0.1 10^3/uL (0.0-0.1); BASOPHILS % (AUTO) 1 % (0-10); EOSINOPHILS # (AUTO) 0.3 10^3/uL (0.0-0.3); EOSINOPHILS % (AUTO) 3 % (0-10); HEMATOCRIT 44 % (35-52); HEMOGLOBIN 14.2 g/dL (11.5-16.0); LYMPHOCYTES # (AUTO) 3.1 10^3/uL (1.0-4.0); LYMPHOCYTES % (AUTO) 27 % (12-44); MEAN CORPUSCULAR HEMOGLOBIN 30 pg (25-34); MEAN CORPUSCULAR HGB CONC 32 g/dL (32-36); MEAN CORPUSCULAR VOLUME 91 fL (80-99); MEAN PLATELET VOLUME 11.6 fL (9.0-12.2); MONOCYTES # (AUTO) 0.7 10^3/uL (0.0-1.0); MONOCYTES % (AUTO) 6 % (0-12); NEUTROPHILS # (AUTO) 7.3 10^3/uL (1.8-7.8); NEUTROPHILS % (AUTO) 63 % (42-75); PLATELET COUNT 306 10^3/uL (130-400); WHITE BLOOD COUNT 11.6 10^3/uL (4.3-11.0)
[2021-04-27] MEDS ORDERED: MIDAZOLAM 2 MG/2 ML (VERSED) VIAL IVP ONE (14:00)
[2021-04-27 14:12] LABS: ALANINE AMINOTRANSFERASE 21 U/L (0-55); ALBUMIN 3.7 GM/DL (3.2-4.5); ALKALINE PHOSPHATASE 112 U/L (40-136); BILIRUBIN,TOTAL 0.5 MG/DL (0.1-1.0); BUN/CREATININE RATIO 18; CALCIUM 9.3 MG/DL (8.5-10.1); CARBON DIOXIDE 25 MMOL/L (21-32); CHLORIDE 102 MMOL/L (98-107); CREATININE SERUM 0.85 MG/DL (0.60-1.30); GFR ESTIMATED > 60; GLUCOSE 239 MG/DL (70-105); POTASSIUM 4.2 MMOL/L (3.6-5.0); SODIUM 138 MMOL/L (135-145); TOTAL PROTEIN 7.6 GM/DL (6.4-8.2)
[2021-04-27] MEDS ORDERED: MIDAZOLAM 2 MG/2 ML (VERSED) VIAL ONE (14:15)
[2021-04-27] MEDS ORDERED: VANCOMYCIN INJECTION 1,000 MG in NS (IVPB) 250 ML IV NR (14:15)
[2021-04-27] MEDS ORDERED: fentaNYL INJ 100 MCG/2 ML AMP ONE ×2 (14:15→15:17)
--- NOTE | 2021-04-27 14:16 | Progress Note-Pre Operative ---
Pre-Operative Progress Note H&P Reviewed The H&P was reviewed, patient examined and no changes noted. Date Seen by Provider: Apr 27, 2021 Time Seen by Provider: 14:15 Date H&P Reviewed: Apr 27, 2021 Time H&P Reviewed: 14:10 Pre-Operative Diagnosis: Symptomatic incisional hernia, Reflux, screening colonoscopy HE DECKER APRN Apr 27, 2021 14:16
[2021-04-27 14:17] LABS: BAND NEUTROPHILS 1 %; BASOPHILS % (MANUAL) 0 %; EOSINOPHILS % (MANUAL) 0 %; LYMPHOCYTES % (MANUAL) 29 %; MONOCYTES % (MANUAL) 3 %; NEUTROPHILS % (MANUAL) 67 %; RBC MORPH NORMAL
[2021-04-27] MEDS ORDERED: HYDR-3817 PO (14:18)
--- NOTE | 2021-04-27 14:18 | Discharge Inst-Surgical ---
D/C Lap Instructions-KIDO Reconcile Patient Problems Problems Reviewed?: Yes New, Converted, or Re-Newed RX: RX on Chart Follow Up Appt in 2 weeks Activity as tolerated No driving for 24 hours No driving while on pain medications Incentive Spirometry use every 2 hours while awake Regular Diet Symptoms to Report: Fever over 101 degree F, Nausea/Vomiting Infection Signs and Symptoms to report: Increased redness, Foul odor of wound, Increased drainage Bathing instructions: May shower Operative Area Clean/Dry; Keep incision clean/dry If any problems/questions: Contact your physician or go to Emergency Room HE DECKER APRN Apr 27, 2021 14:18
[2021-04-27] MEDS ORDERED: morphine INJ 10 MG/ML 1ML (SYR OR VIAL) IVP PRN (14:30)
[2021-04-27] MEDS ORDERED: ONDANSETRON 4 MG/2 ML (SDV) Z0FRAN IVP PRN ×2 (14:30→17:15)
[2021-04-27] MEDS ORDERED: HYDROcodone/APAP 5 MG/325 MG (LORTAB) TAB PO ONE (14:30)
[2021-04-27] MEDS ORDERED: ACETAMINOPHEN 325 MG TABLET PO PRN (14:30)
[2021-04-27] MEDS ORDERED: LIDOCAINE/EPI 1%-1:100,000 (XYLOCAINE) 20ML ONE (14:36)
[2021-04-27] MEDS ORDERED: ROCURONIUM 10 MG/ML 5 ML SYRINGE IV ONE (14:46)
[2021-04-27] MEDS ORDERED: LIDOCAINE PF 2% 5 ML (XYLOCAINE) VIAL ONE (14:47)
[2021-04-27] MEDS ORDERED: ONDANSETRON 4 MG/2 ML (SDV) Z0FRAN ONE ×2 (14:47→17:25)
[2021-04-27] MEDS ORDERED: proPOfol 200 MG/20 ML (DIPRIVAN) VIAL IV ONE ×2 (15:08→16:02)
[2021-04-27] MEDS ORDERED: DESFLURANE (SUPRANE) 15 ML INHAL SOLN ONE ×2 (15:37→16:36)
[2021-04-27] MEDS ORDERED: ESMOLOL 100 MG/10 ML (BREVIBLOC) VIAL ONE (15:52)
[2021-04-27] MEDS ORDERED: HYDROmorphone 2 MG/ML VIAL (DILAUDID) ONE ×2 (15:53→17:21)
[2021-04-27] MEDS ORDERED: GLYCOPYRROLATE 0.2 MG/ML (ROBINUL) 2 ML VIAL ONE (16:10)
[2021-04-27] MEDS ORDERED: NEOSTIGMINE 3 MG/3 ML VIAL ONE (16:10)
--- NOTE | 2021-04-27 16:39 | Progress Note-Post Operative ---
Post-Operative Progess Note Surgeon (s)/Minibus Driver (s) Surgeon Dr. Max Soliz M.D. Minibus Driver: Ney Decker APRN Pre-Operative Diagnosis Symptomatic incisional hernia, Reflux, screening colonoscopy Post-Operative Diagnosis Incarcerated ventral abdominal incisional hernia with mesh and hernia sac, reflux esophagitis stage II, moderate gastritis, mild chronic stage II external and internal hemorrhoids Procedure & Operative Findings Date of Procedure 04/27/21 Procedure Performed/Findings Exploratory laparotomy, explantation of old mesh, repair ventral abdominal incisional hernia with mesh, EGD with biopsy, and colonoscopy Anesthesia Type GET Estimated Blood Loss Estimated blood loss (mL): 50mL Specimens/Packing Specimens Removed 1) Hernia sac 2) Antrum 3) GE junction NEY DECKER LOCK PLATER Apr 27, 2021 16:39
[2021-04-27] MEDS ORDERED: RT-ALBUTEROL SULF 2.5 MG/3 ML PRE-MIX VIAL ONE (16:59)
[2021-04-27] MEDS ORDERED: HYDROmorphone 2 MG/ML VIAL (DILAUDID) IV ONE (17:15)
[2021-04-27] MEDS ORDERED: HYDROcodone/APAP 7.5 MG/325 MG (LORTAB, LORCET PLUS) TABLET PO ONE (18:00)
[2021-04-27] MEDS ORDERED: HYDROcodone/APAP 5 MG/325 MG (LORTAB) TAB ONE (18:05)
[2021-04-27] MEDS ORDERED: OMEP40CA6 PO (18:13)
--- NOTE | 2021-04-27 19:11 | Anesthesia-General Post-Op ---
General Patient Condition Mental Status/LOC: Same as Preop Cardiovascular: Satisfactory Nausea/Vomiting: Absent Respiratory: Satisfactory Pain: Controlled Complications: Absent Post Op Complications Complications None Follow Up Care/Instructions Patient Instructions None needed. Anesthesia/Patient Condition Patient Condition Patient is doing well, no complaints, stable vital signs, no apparent adverse anesthesia problems. No complications reported per nursing. D/C home per [facility] Criteria: Yes LEX CALDERON CRNA Apr 27, 2021 19:11
--- NOTE | 2021-04-27 19:33 | OPERATIVE REPORT ---
DATE OF SERVICE: 04/27/2021 ATTENDING FLOOR FINISHER HELPER: Bere Fox APRN. PREOPERATIVE DIAGNOSES: Gastroesophageal reflux disease, screening colonoscopy. POSTOPERATIVE DIAGNOSES: Reflux esophagitis stage II, moderate gastritis, small hiatal hernia approximately 1.5 cm in size. Chronic stage II external and internal hemorrhoids. PROCEDURE: EGD with biopsy, colonoscopy. SURGEON: Charles Chin MD. ANESTHESIA: General endotracheal. ESTIMATED BLOOD LOSS: Minimal. FINDINGS: Reflux esophagitis stage II, moderate gastritis, small hiatal hernia approximately 1.5 cm in size. Chronic stage II external and internal hemorrhoids. DISPOSITION: The patient tolerated the procedure well. INDICATIONS: The patient is a 55-year-old female, who has had issues with epigastric burning sensation as well as crampy pain for years. She admits to having abused methamphetamines many years ago and after discontinuation of the use, she did gain a significant amount of weight and with the weight gain she has had worsening reflux and heartburn. She also in need of screening colonoscopy. She has not had a colonoscopy up to this point in her life. She does not report any red blood per rectum nor any dark tarry stools. She also does not report any family history of colon cancer. DESCRIPTION OF PROCEDURE: The endoscope was then placed in the mouth, visualizing the pharynx and hypopharyngeal region. Vocal cords, epiglottis and vallecula identified and appeared to be normal. The endoscope was gently intubated at esophageal opening and esophagus insufflated. The endoscope was then advanced to the first, second and third portion of esophagus at the level of GE junction, a reflux esophagitis stage II identified. There were no ulcers or strictures identified in this region. A biopsy was taken with forceps with visualization of good hemostasis. The endoscope was then advanced in the stomach and endoscope retroflexed, visualizing a small hiatal hernia approximately 1.5 cm in size. There was a moderate severity gastritis, which was diffuse throughout the stomach. No formal ulcerations, polyps, or any neoplasms. The endoscope was then advanced to the pylorus and the first and second portion of the duodenum, which appeared normal. The endoscope was then slowly withdrawn while taking a second look and suctioning of residual air with no additional findings. The endoscope was then slowly withdrawn while taking a second look and suctioning of residual air with no additional findings. A digital rectal examination was performed with the patient laid supine on the legs were placed in frog leg position. A digital rectal examination was performed, which revealed chronic stage II external and internal hemorrhoids, not actively edematous nor inflamed and no bleeding. Normal sphincter tone was felt and no palpable masses. The endoscope was then intubated and anus and rectum gently insufflated. The endoscope was then advanced to the valves of Edwards of rectum with no polyps or any neoplasms identified. Through the sigmoid colon, no diverticulosis identified. The endoscope was then advanced to the remainder of the descending, transverse and ascending colon to the cecum. These segments were normal. There were no polyps or any neoplasms identified throughout the colon or rectum. Endoscope was then slowly withdrawn while taking a second look and suctioning of residual air with no additional findings. The patient tolerated the procedure well. We will recommend small and more frequent meals, avoidance of eating at night as well as head elevation while lying supine. She also needs to avoid caffeinated beverages, spicy, greasy and acidic foods and also proceed with any form of weight loss modality. We will also recommend incorporation of a fiber supplement, which should equal or exceed 25 grams daily to promote soft stools on a daily basis. If she is asymptomatic from a lower gastrointestinal standpoint, she does not need another colonoscopy for another 10 years. Job ID: [id number] DocumentID: [id number] Dictated Date: 04/27/2021 16:54:31 Upholstery Auto Trimmer Date: 04/27/2021 19:33:23 Dictated By: CHARLES CHIN MD
--- NOTE | 2021-04-27 19:39 | OPERATIVE REPORT ---
DATE OF SERVICE: 04/27/2021 ATTENDING PRIMARY CARE PHYSICIAN: Bere Fox APRN. PREOPERATIVE DIAGNOSIS: Symptomatic incarcerated ventral abdominal incisional hernia. POSTOPERATIVE DIAGNOSIS: Symptomatic incarcerated ventral abdominal incisional hernia with old mesh within the hernia sac. PROCEDURE: Exploratory laparotomy, explantation of previous mesh, repair of ventral abdominal incisional hernia repair with mesh. SURGEON: Charles Chin MD. CEMENT CAR DUMPER: Ney Lockett APRN. ANESTHESIA: General endotracheal. ESTIMATED BLOOD LOSS: Minimal. FINDINGS: Previous mesh composed the hernia sac. There was omentum within the hernia sac no small bowel. DISPOSITION: The patient tolerated the procedure well. INDICATIONS: The patient is a 55-year-old female, who has had pain in the supraumbilical region for several months. She has had what sounds to be an incisional hernia repair done in the past. She reports that over time, she has gained weight and she developed recurrent bulge, which became more painful. Upon examination, she was found to have a symptomatic incarcerated ventral abdominal incisional hernia. She is otherwise eating well and having normal bowel movements. DESCRIPTION OF PROCEDURE: The patient was brought to the operating room and laid supine on the table. After adequate IV pain and sedative medications and general endotracheal intubation, the abdomen was prepped and draped in standard surgical fashion. A 0.5% Marcaine with epinephrine was used to anesthetize the overlying skin supraumbilically along the previous incision line and a vertical skin incision was made using a 15 blade. Subcutaneous tissue was then dissected using electrocautery. Hernia sac was identified and was very hard. We then proceeded with complete dissection of the hernia sac using blunt dissection as well as Metzenbaum scissors and electrocautery to the fascial base. The hernia sac was then entered using Metzenbaum scissors with the hernia sac composed of all the previous mesh as well as incarcerated omentum. We then proceeded with a formal full excision of the mesh under direct visualization using electrocautery with visualization of good hemostasis. The omental adhesions were then taken down using electrocautery as well as the omental adhesions towards the anterior abdominal wall with visualization of good hemostasis. The defect now was measured out to be 5 x 5 cm and a 15 cm coated polypropylene mesh was placed in the defect and mesh was sutured concentrically to the fascia using interrupted 0 Prolene sutures with visualization of good hemostasis. The subcutaneous tissue was then reapproximated using 3-0 Vicryl interrupted sutures. Skin was closed using 4-0 Monocryl running subcuticular suture. Wound was then cleaned and covered with Dermabond. The wound was then covered with tonsil sponges followed by 4 x 4 gauze followed by large Op-Site and a large abdominal binder. The patient tolerated the procedure well. We will start IV and oral pain medication as well as a clear liquid diet and when she is tolerating clears, has good pain control with oral pain medications, ambulating well, we will discharge her home. She will be instructed to keep the abdominal binder on for the next two weeks. Job ID: [id number] DocumentID: [id number] Dictated Date: 04/27/2021 16:12:47 Cigar Wrapper Tender Automatic Date: 04/27/2021 19:38:27 Dictated By: CHARLES CHIN MD MTDD
== END 2021-04-27 19:05 ==
LOC: SDC 12:55
PROVIDERS: ATTEND Surgery
DX: I10 Essential (primary) hypertension (principal)
CPT/HCPCS: 80053; 80306; 82947; 85007; 85027; 87081; 94664; C1781; 36415

== ENCOUNTER 2021-05-28 07:08 | Emergency (ER) | payer MEDICAID ==
[~2021-05-28 07:08] MED LIST changes: +HYDR-3817 PO; +OMEP40CA6 PO
--- NOTE | 2021-05-28 07:18 | ED Fall/Injury ---
General Stated Complaint: FALL History of Present Illness Date Seen by Provider: May 28, 2021 Time Seen by Provider: 07:16 Initial Comments 55-year-old female presents following a fall. Patient reports that she was walking out of a step out of her bedroom when she fell. She is complaining of pain in her neck and has cervical collar in place. Complaining of some left- sided lumbar pain, some left hip pain and left knee pain. Patient is able to move everything appropriately. Patient has a history of frequent falls. Patien t denies any other injury. Patient reports that she thinks her knee gave out and may be bent funny when she fell. Allergies and Home Medications Allergies Coded Allergies: aspirin (Verified Allergy, Severe, THROAT SWELLS, 04/27/21) amoxicillin (Verified Allergy, Intermediate, HIVES, 04/27/21) sulfamethoxazole (Verified Allergy, Unknown, 04/27/21) trimethoprim (Verified Allergy, Unknown, 04/27/21) Home Medications Allopurinol 100 Mg Tablet, 100 MG PO DAILY, (Reported) LAST FILLED 11-28-2019 #30 Atorvastatin Calcium 10 Mg Tablet, 10 MG PO HS, (Reported) LAST FILLED 11-09-2019 #30 Canagliflozin 100 Mg Tablet, 100 MG PO DAILY, (Reported) Digoxin 125 Mcg Tablet, 125 MCG PO DAILY, (Reported) Diltiazem HCl 240 Mg Cap.er.24h, 240 MG PO DAILY, (Reported) Fluoxetine HCl 40 Mg Capsule, 40 MG PO DAILY, (Reported) LAST FILLED 12-18-2019 #30 Gabapentin 800 Mg Tablet, 800 MG PO TID, (Reported) FILLED 11-09-2019 #90 Hydrocodone/Acetaminophen 1 Each Tablet, 1 EACH PO Q4H Prescribed by: HE DECKER on 04/27/21 1418 Lisinopril 10 Mg Tablet, 10 MG PO DAILY, (Reported) LAST FILLED 11-28-2019 #30 Metformin HCl 500 Mg Tablet, 500 MG PO BID WITH MEALS, (Reported) Naproxen 250 Mg Tablet, 500 MG PO BID, (Reported) Omeprazole 40 Mg Capsule.dr, 40 MG PO TID Prescribed by: SOPHIA PALENCIA on 04/27/21 181 Trazodone HCl 50 Mg Tablet, 50 MG PO HS, (Reported) Patient Home Medication List Home Medication List Reviewed: Yes Review of Systems Review of Systems Constitutional: no symptoms reported Eyes: No Symptoms Reported Ears, Nose, Mouth, Throat: no symptoms reported Respiratory: No cough, No short of breath Cardiovascular: No chest pain, No palpitations Gastrointestinal: No abdominal pain, No nausea, No vomiting Genitourinary: no symptoms reported Musculoskeletal: see HPI Skin: no symptoms reported Psychiatric/Neurological: No Symptoms Reported Past Mzouseb-Kzctrk-Nmfckl Hx Seasonal Allergies Seasonal Allergies: No Past Medical History Surgeries: Yes (cysto's and eswl's) Appendectomy, Gallbladder, Hysterectomy, Tubal Ligation Respiratory: No Currently Using CPAP: No Currently Using BIPAP: No Cardiac: Yes (SVT, ) Atrial Fibrillation, High Cholesterol, Hypertension Neurological: Yes (HAS 3 BRAIN ANEURYSMS DX AT 37 YRS OF AGE, bulging discs, pinched nerve) Reproductive Disorders: No Genitourinary: Yes Kidney Stones Gastrointestinal: Yes (enlarged liver) Gastroesophageal Reflux Musculoskeletal: Yes (restless leg) Degenerate Disk Disease, Arthritis Endocrine: Yes Diabetes, Non-Insulin dep HEENT: No Cancer: No (STAGE 2) Uterine Psychosocial: Yes Suicide Attempts, Depression Integumentary: Yes Psoriasis Blood Disorders: No Family Medical History Asthma 19 MOTHER Diabetes mellitus 19 FATHER FH: COPD (chronic obstructive pulmonary disease) 19 MOTHER FH: emphysema 19 MOTHER Physical Exam Vital Signs Vital Signs - First Documented 05/28/21 07:19 Temp 36.6 Pulse 69 Resp 18 B/P (MAP) 144/72 (96) Pulse Ox 95 Capillary Refill : Height, Weight, BMI Height: 5'4.00" Weight: 240lbs. 9.6oz. 108.555911mm; 38.90 BMI Method:Stated General Appearance: obese (Morbid) HEENT: pharynx normal Neck: other (C-collar in place) Cardiovascular: normal peripheral pulses, regular rate, rhythm Respiratory: lungs clear, normal breath sounds Gastrointestinal: non tender, soft, other (Morbid central obesity) Back: No vertebral tenderness Extremities: normal range of motion; No swelling; other (Tenderness in hip and knee) Neurologic/Psychiatric: alert, normal mood/affect, oriented x 3 Skin: normal color, warm/dry Progress/Results/Core Measures Results/Orders My Orders Orders - AUDI TODD DO Ct Cervical Spine Wo (05/28/21 07:19) Knee 3 View Left (05/28/21 07:19) Lumbar Spine 2 Or 3 View (05/28/21 07:19) Pelvis With Left Hip 2-3 View (05/28/21 07:19) Ed Iv/Invasive Line Start (05/28/21 07:19) Ketorolac Injection (Toradol Injection) (05/28/21 07:19) Orphenadrine Inj (Ed Only) (Norflex Inje (05/28/21 07:19) Vital Signs/I&O 05/28/21 07:19 Temp 36.6 Pulse 69 Resp 18 B/P (MAP) 144/72 (96) Pulse Ox 95 Progress Progress Note : Progress Note Patient with no acute findings on x-ray or physical exam. Patient with likely strain and contusions from her fall. C-collar was removed following negative CAT scan with no significant findings on exam with full range of motion following c- collar removal. Patient stable and discharged home. Diagnostic Imaging Diagonstic Imaging: Xray Comments Negative pelvis/hip, knee and lumbar x-ray Reviewed: Reviewed by Me, Reviewed/Discussed Diagonstic Imaging: CT Plain Films/CT/US/NM/MRI: c-spine Comments No acute fracture or trauma noted Reviewed: Reviewed by Me, Reviewed/Discussed Departure Impression Primary Impression: Fall from slip, trip, or stumble Qualified Codes: W01.0XXA - Fall on same level from slipping, tripping and stumbling without subsequent striking against object, initial encounter Additional Impressions: Cervical myofascial strain Qualified Codes: S16.1XXA - Strain of muscle, fascia and tendon at neck level, initial encounter Lumbar strain Qualified Codes: S39.012A - Strain of muscle, fascia and tendon of lower back, initial encounter Sprain of left knee Qualified Codes: S83.92XA - Sprain of unspecified site of left knee, initial encounter Disposition: HOME, SELF-CARE Condition: Stable Departure-Patient Inst. Referrals: [facility] (PCP) Primary Care Physician RAYMOND TORRES APRN (Family) Primary Care Physician Patient Instructions: Back Muscle Strain (DC), Cervical Muscle Strain (DC), Preventing Falls ED Add. Discharge Instructions: Tylenol or ibuprofen as needed for pain 4% topical lidocaine with menthol as directed on package as needed Ice to affected areas for 24 to 48 hours and warm moist heat Follow-up with your primary care provider as needed AUDI TODD DO May 28, 2021 07:18
[2021-05-28 07:19] VITALS: BP 144/72
[2021-05-28] MEDS ORDERED: ORPHENADRINE 60 MG/2 ML (NORFLEX) AMP (ED ONLY) IV STA (07:19)
[2021-05-28] MEDS ORDERED: KETOROLAC 30 MG/ML VIAL IVP STA (07:19)
--- NOTE | 2021-05-28 08:23 | Diagnostic Imaging Report ---
INDICATION: Fall with pain FINDINGS: 3 view left knee shows severe tricompartmental osteoarthritis. The lateral view showed no significant joint effusion. No opaque loose body. No fracture can be identified. IMPRESSION: Severe arthritic changes present but no fracture or acute bony abnormality apparent. Dictated by: Dictated on workstation # [id number]
--- NOTE | 2021-05-28 08:24 | Diagnostic Imaging Report ---
INDICATION: Left hip pain FINDINGS: AP pelvis and two-view left hip showed no appreciable fracture deformity or bony avulsion. No erosion. No acute finding. IMPRESSION: No fracture or acute abnormality apparent. Dictated by: Dictated on workstation # [id number]
--- NOTE | 2021-05-28 08:26 | Diagnostic Imaging Report ---
INDICATION: Fall. Back pain. Comparison is made to the prior study from September 13, 2020. FINDINGS: Examination is limited by large body habitus and poor tissue penetration. There is no evidence to suggest interval change in alignment. The vertebral body heights appear maintained. Most advanced disc space height loss at the L4-L5 level. There is lower lumbar facet arthropathy. A right sided abdominal calcification appears unchanged. This is known to be reflective of a prior large stone within the right renal pelvis. IMPRESSION: 1. Vertebral body heights appear maintained in alignment and is appropriate. Disc space height loss most advanced at L4-L5. There is lower lumbar facet arthropathy. 2. Unchanged large stone within the right renal pelvis. Dictated by: Dictated on workstation # [id number]
--- NOTE | 2021-05-28 08:32 | Diagnostic Imaging Report ---
PROCEDURE: CT cervical spine without contrast. TECHNIQUE: Multiple contiguous axial images were obtained through the cervical spine without the use of intravenous contrast. Sagittal and coronal reformations were then performed. Auto Exposure Controls were utilized during the CT exam to meet ALARA standards for radiation dose reduction. INDICATION: Fall, complaining of neck pain. No comparison. FINDINGS: Straightening of cervical curvature present without listhesis. There is degenerative changes greatest at C5-C6 where there is resultant mild spinal canal and mild left foraminal stenosis. There is no cervical fracture. No paravertebral hemorrhage. No traumatic malalignment. Facet relationships unremarkable. Craniocervical junction and visualized central skull base unremarkable. IMPRESSION: Mild cervical spondylosis without high-grade stenosis. No fracture or traumatic malalignment. Dictated by: Dictated on workstation # [id number]
== END 2021-05-28 08:45 | disposition home or self-care (01) ==
LOC: ER FS 07:16
DX: S16.1XXA Strain of muscle, fascia and tendon at neck level, initial encounter (principal); S39.012A Strain of muscle, fascia and tendon of lower back, initial encounter; S83.92XA Sprain of unspecified site of left knee, initial encounter; E66.01 Morbid (severe) obesity due to excess calories; I10 Essential (primary) hypertension; E78.00 Pure hypercholesterolemia, unspecified; K21.9 Gastro-esophageal reflux disease without esophagitis; F32.9 Major depressive disorder, single episode, unspecified; E11.9 Type 2 diabetes mellitus without complications; Z68.38 Body mass index [BMI] 38.0-38.9, adult; Z79.899 Other long term (current) drug therapy; Z79.84 Long term (current) use of oral hypoglycemic drugs; W01.0XXA Fall on same level from slipping, tripping and stumbling without subsequent striking against object, initial encounter
CPT/HCPCS: 72100; 72125; 73502; 73562

== ENCOUNTER 2021-07-20 06:13 | Emergency (ER) | payer MEDICAID ==
[~2021-07-20] VITALS: Ht 162.6 cm; Wt 123.8 kg
--- NOTE | 2021-07-20 06:24 | ED Cardiac General ---
History of Present Illness General Stated Complaint: TACHYCARDIA History of Present Illness Date Seen by Provider: Jul 20, 2021 Time Seen by Provider: 06:21 Initial Comments 55-year-old female brought in due to SVT. Patient has a history of SVT. She reports that this morning she was started have a rapid heartbeat and some fluttering in her chest. She took a digoxin waited little bit it did not help so she called EMS. When EMS arrived she was in a heart rate of the 200+ with SVT on their monitor. Patient was given 6 of adenosine. Patient then converted back to sinus rhythm. Patient arrives now with no complaints and feeling significantly better. (AUDI TODD DO) Allergies and Home Medications Allergies Coded Allergies: aspirin (Verified Allergy, Severe, THROAT SWELLS, 04/27/21) amoxicillin (Verified Allergy, Intermediate, HIVES, 04/27/21) sulfamethoxazole (Verified Allergy, Unknown, 04/27/21) trimethoprim (Verified Allergy, Unknown, 04/27/21) Patient Home Medication List Home Medication List Reviewed: Yes (DILLON GASCA DO) Allopurinol (Allopurinol) 100 Mg Tablet, 100 MG PO DAILY, (Reported) Entered as Reported by: TRELL OTERO on 02/19/20 1043 Atorvastatin Calcium (Atorvastatin Calcium) 10 Mg Tablet, 10 MG PO HS, (Reported) Entered as Reported by: BERNA WEEMS on 08/12/19 0838 Canagliflozin (Invokana) 100 Mg Tablet, 100 MG PO DAILY, (Reported) Entered as Reported by: HAMILTON HUNG on 04/24/21 1120 Digoxin (Digitek) 125 Mcg Tablet, 125 MCG PO DAILY, (Reported) Entered as Reported by: HAMILTON HUNG on 04/24/21 1120 Diltiazem HCl (Diltiazem 24Hr ER) 240 Mg Cap.er.24h, 240 MG PO DAILY, (Reported) Entered as Reported by: LUCI CH on 07/06/20 0150 Fluoxetine HCl (Prozac) 40 Mg Capsule, 40 MG PO DAILY, (Reported) Entered as Reported by: BERNA WEEMS on 08/12/19 0838 Gabapentin (Gabapentin) 800 Mg Tablet, 800 MG PO TID, (Reported) Entered as Reported by: TRELL OTERO on 02/19/20 1043 Hydrocodone/Acetaminophen (Hydrocodone-Acetamin 7.5-325) 1 Each Tablet, 1 EACH PO Q4H Prescribed by: HE DECKER on 04/27/21 1418 Lisinopril (Lisinopril) 10 Mg Tablet, 10 MG PO DAILY, (Reported) Entered as Reported by: BERNA WEEMS on 08/12/19 0838 Metformin HCl (Metformin HCl) 500 Mg Tablet, 500 MG PO BID WITH MEALS, (Reported) Entered as Reported by: LUCI CH on 07/06/20 0150 Naproxen (Naproxen) 250 Mg Tablet, 500 MG PO BID, (Reported) Entered as Reported by: HAMILTON HUNG on 04/24/21 1120 Omeprazole (Omeprazole) 40 Mg Capsule.dr, 40 MG PO TID Prescribed by: SOPHIA PALENCIA on 04/27/21 1813 Trazodone HCl (Trazodone HCl) 50 Mg Tablet, 50 MG PO HS, (Reported) Entered as Reported by: HAMILTON HUNG on 04/24/21 1120 Review of Systems Review of Systems Constitutional: No chills, No fever EENTM: No Symptoms Reported Respiratory: Denies Cough, Denies Shortness of Air Cardiovascular: See HPI, Palpitations Gastrointestinal: Denies Abdominal Pain, Denies Nausea, Denies Vomiting Genitourinary: No Symptoms Reported Musculoskeletal: no symptoms reported Skin: no symptoms reported Psychiatric/Neurological: No Symptoms Reported Endocrine: No Symptoms Reported Hematologic/Lymphatic: No Symptoms Reported (AUDI TODD DO) Past Qlnpqvh-Adnjwq-Ahpyhq Hx Seasonal Allergies Seasonal Allergies: No (AUDI TODD DO) Past Medical History Surgeries: Yes (cysto's and eswl's) Appendectomy, Gallbladder, Hysterectomy, Tubal Ligation Respiratory: No Currently Using CPAP: No Currently Using BIPAP: No Cardiac: Yes (SVT, ) Atrial Fibrillation, High Cholesterol, Hypertension Neurological: Yes (HAS 3 BRAIN ANEURYSMS DX AT 37 YRS OF AGE, bulging discs, pinched nerve) Reproductive Disorders: No Genitourinary: Yes Kidney Stones Gastrointestinal: Yes (enlarged liver) Gastroesophageal Reflux Musculoskeletal: Yes (restless leg) Degenerate Disk Disease, Arthritis Endocrine: Yes Diabetes, Non-Insulin dep HEENT: No Cancer: No (STAGE 2) Uterine Psychosocial: Yes Suicide Attempts, Depression Integumentary: Yes Psoriasis Blood Disorders: No (AUDI TODD DO) Family Medical History Asthma 19 MOTHER Diabetes mellitus 19 FATHER FH: COPD (chronic obstructive pulmonary disease) 19 MOTHER FH: emphysema 19 MOTHER Physical Exam Vital Signs Vital Signs - First Documented 07/20/21 07/20/21 06:20 07:45 Temp 36.4 Pulse 94 Resp 17 B/P (MAP) 105/70 (82) Pulse Ox 99 O2 Delivery Room Air (ROVENSTINEDILLON L DO) Vital Signs Capillary Refill : (AUDI TODD DO) Height, Weight, BMI Height: 5'4.00" Weight: 240lbs. 9.6oz. 108.908087ah; 38.90 BMI Method:Stated General Appearance: No Apparent Distress, WD/WN, Obese Neck: Non Tender Respiratory: Lungs Clear Cardiovascular: Regular Rate, Rhythm, Normal Peripheral Pulses Extremity: Normal Capillary Refill Neurologic/Psychiatric: Alert, Oriented x3, Normal Mood/Affect, check clerk II-XII Norm as Tested Skin: Normal Color, Warm/Dry (AUDI TODD DO) Progress/Results/Core Measures Results/Orders Lab Results Laboratory Tests Test 07/20/21 06:25 07/20/21 06:45 Range/Units White Blood Count 11.4 H 4.3-11.0 10^3/uL Red Blood Count 4.72 3.80-5.11 10^6/uL Hemoglobin 14.1 11.5-16.0 g/dL Hematocrit 44 35-52 % Mean Corpuscular Volume 93 80-99 fL Mean Corpuscular Hemoglobin 30 25-34 pg Mean Corpuscular Hemoglobin Concent 32 32-36 g/dL Red Cell Distribution Width 14.5 10.0-14.5 % Platelet Count 311 130-400 10^3/uL Mean Platelet Volume 11.3 9.0-12.2 fL Immature Granulocyte % (Auto) 0 % Neutrophils (%) (Auto) 58 42-75 % Lymphocytes (%) (Auto) 32 12-44 % Monocytes (%) (Auto) 7 0-12 % Eosinophils (%) (Auto) 3 0-10 % Basophils (%) (Auto) 1 0-10 % Neutrophils # (Auto) 6.6 1.8-7.8 X 10^3 Lymphocytes # (Auto) 3.6 1.0-4.0 X 10^3 Monocytes # (Auto) 0.8 0.0-1.0 X 10^3 Eosinophils # (Auto) 0.3 0.0-0.3 10^3/uL Basophils # (Auto) 0.1 0.0-0.1 10^3/uL Immature Granulocyte # (Auto) 0.0 0.0-0.1 10^3/uL Sodium Level 139 135-145 MMOL/L Potassium Level 3.7 3.6-5.0 MMOL/L Chloride Level 105 98-107 MMOL/L Carbon Dioxide Level 23 21-32 MMOL/L Anion Gap 11 5-14 MMOL/L Blood Urea Nitrogen 14 7-18 MG/DL Creatinine 0.75 0.60-1.30 MG/DL Estimat Glomerular Filtration Rate 81 BUN/Creatinine Ratio 19 Glucose Level 253 H 70-105 MG/DL Calcium Level 8.8 8.5-10.1 MG/DL Corrected Calcium 9.3 8.5-10.1 MG/DL Magnesium Level 1.6 1.6-2.4 MG/DL Total Bilirubin 0.2 0.1-1.0 MG/DL Aspartate Amino Transf (AST/SGOT) 24 5-34 U/L Alanine Aminotransferase (ALT/SGPT) 17 0-55 U/L Alkaline Phosphatase 134 40-136 U/L Total Protein 7.0 6.4-8.2 GM/DL Albumin 3.4 3.2-4.5 GM/DL Urine Color YELLOW Urine Clarity CLOUDY Urine pH 5.5 5-9 Urine Specific [place] 1.010 L 1.016-1.022 Urine Protein NEGATIVE NEGATIVE Urine Glucose (UA) NEGATIVE NEGATIVE Urine Ketones NEGATIVE NEGATIVE Urine Nitrite NEGATIVE NEGATIVE Urine Bilirubin NEGATIVE NEGATIVE Urine Urobilinogen 0.2 < = 1.0 MG/DL Urine Leukocyte Esterase 3+ H NEGATIVE Urine RBC (Auto) 1+ H NEGATIVE Urine RBC RARE /HPF Urine WBC 10-20 /HPF Urine Squamous Epithelial Cells 5-10 /HPF Urine Crystals NONE /LPF Urine Bacteria MODERATE H /HPF Urine Casts NONE /LPF Urine Mucus NEGATIVE /LPF Urine Culture Indicated YES (ROVENSTINE,DILLON L DO) Vital Signs/I&O 07/20/21 07/20/21 06:20 07:45 Temp 36.4 36.2 Pulse 94 89 Resp 17 16 B/P (MAP) 105/70 (82) 116/72 Pulse Ox 99 O2 Delivery Room Air Room Air (DILLON GASCA DO) Progress Progress Note : Progress Note Took over care patient at shift change and reviewed HPI and past medical history of SVT. Patient treated appropriately in the field by EMS with adenosine and c onverted to sinus rhythm. She had improved on arrival to the ER and was asymptomatic for the rest of her observation in the emergency room. Labs reviewed and without any significant abnormality. Patient advised to follow-up with her PCP and to continue her regular medications. Did discuss trying Valsalva maneuver in the future at initial onset should she have a rapid heart rate. Patient expressed understanding. (DILLON GASCA DO) Initial ECG Impression Date: Jul 20, 2021 Initial ECG Impression Time: 06:17 Initial ECG Rhythm: Normal Sinus Initial ECG Impression: Normal Comment normal ekg (AUDI TODD DO) Departure Impression Primary Impression: SVT (supraventricular tachycardia) Disposition: 01 HOME, SELF-CARE Condition: Improved Departure-Patient Inst. Decision time for Depature: 07:46 (DILLON GASCA DO) Referrals: [facility] [place] (PCP) Primary Care Physician RAYMOND TORRES APRN (Family) Primary Care Physician Patient Instructions: Supraventricular Tachycardia (SVT) Add. Discharge Instructions: follow up with your primary care provider as needed. AUDI TODD DO Jul 20, 2021 06:24 DILLON GASCA DO Jul 20, 2021 07:46
[2021-07-20 06:39] LABS: BASOPHILS % (AUTO) 1 % (0-10); EOSINOPHILS % (AUTO) 3 % (0-10); HEMATOCRIT 44 % (35-52); HEMOGLOBIN 14.1 g/dL (11.5-16.0); LYMPHOCYTES % (AUTO) 32 % (12-44); MEAN CORPUSCULAR HEMOGLOBIN 30 pg (25-34); MEAN CORPUSCULAR HGB CONC 32 g/dL (32-36); MEAN CORPUSCULAR VOLUME 93 fL (80-99); MEAN PLATELET VOLUME 11.3 fL (9.0-12.2); MONOCYTES % (AUTO) 7 % (0-12); NEUTROPHILS # (AUTO) 6.6 X 10^3 (1.8-7.8); NEUTROPHILS % (AUTO) 58 % (42-75); PLATELET COUNT 311 10^3/uL (130-400); WHITE BLOOD COUNT 11.4 10^3/uL (4.3-11.0)
[2021-07-20 06:40] LABS: BASOPHILS # (AUTO) 0.1 10^3/uL (0.0-0.1); EOSINOPHILS # (AUTO) 0.3 10^3/uL (0.0-0.3); LYMPHOCYTES # (AUTO) 3.6 X 10^3 (1.0-4.0); MONOCYTES # (AUTO) 0.8 X 10^3 (0.0-1.0)
[2021-07-20 06:55] LABS: BILIRUBIN,URINE NEGATIVE (NEGATIVE); CLARITY,URINE CLOUDY; COLOR,URINE YELLOW; GLUCOSE, URINE (UA) NEGATIVE (NEGATIVE); KETONES,URINE NEGATIVE (NEGATIVE); LEUKOCYTE ESTERASE ,URINE 3+ (NEGATIVE); NITRITE,URINE NEGATIVE (NEGATIVE); PH,URINE 5.5 (5-9); PROTEIN,URINE NEGATIVE (NEGATIVE)
[2021-07-20 07:00] LABS: ALBUMIN 3.4 GM/DL (3.2-4.5); CALCIUM 8.8 MG/DL (8.5-10.1); CREATININE SERUM 0.75 MG/DL (0.60-1.30); MAGNESIUM 1.6 MG/DL (1.6-2.4); POTASSIUM 3.7 MMOL/L (3.6-5.0)
[2021-07-20 07:01] LABS: BILIRUBIN,TOTAL 0.2 MG/DL (0.1-1.0)
[2021-07-20 07:09] LABS: BACTERIA,URINE MODERATE /HPF; RBC,URINE RARE /HPF
[2021-07-20 07:45] VITALS: BP 116/72
== END 2021-07-20 07:46 | disposition home or self-care (01) ==
LOC: EDUNIT# 06:13 → ER FS 06:15
DX: I47.1 Supraventricular tachycardia (principal); I10 Essential (primary) hypertension; K21.9 Gastro-esophageal reflux disease without esophagitis; E11.9 Type 2 diabetes mellitus without complications; E66.9 Obesity, unspecified; E78.00 Pure hypercholesterolemia, unspecified; F32.9 Major depressive disorder, single episode, unspecified; Z68.38 Body mass index [BMI] 38.0-38.9, adult; Z79.84 Long term (current) use of oral hypoglycemic drugs; Z79.899 Other long term (current) drug therapy
CPT/HCPCS: 36415; 80053; 81000; 83735; 85025; 87088; 93005; 93041

== ENCOUNTER 2021-11-23 07:33 | Emergency (ER) | payer MEDICAID ==
--- NOTE | 2021-11-23 07:35 | ED Cardiac General ---
History of Present Illness General Stated Complaint: SVT History of Present Illness Date Seen by Provider: Nov 23, 2021 Time Seen by Provider: 07:34 Initial Comments 55-year-old female presents with rapid heart rate and chest palpitations. Patient has a known history of SVT and irregular heartbeat. Patient reports that she took a digoxin but that did not help. Patient is states that started around 630. EMS arrived patient was in SVT was given adenosine both a 6 mg and 12 mg dose with minimal effect. Patient denies any shortness of breath, fever or chills. 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 which was the initial cause of her arrhythmias Allergies and Home Medications Allergies Coded Allergies: amoxicillin (Verified Allergy, Intermediate, HIVES, 04/27/21) aspirin (Verified Allergy, Unknown, 11/23/21) sulfamethoxazole (Verified Allergy, Unknown, 04/27/21) trimethoprim (Verified Allergy, Unknown, 04/27/21) Patient Home Medication List Home Medication List Reviewed: Yes Allopurinol (Allopurinol) 100 Mg Tablet, 100 MG PO DAILY, (Reported) Entered as Reported by: TRELL OTERO on 02/19/20 1043 Atorvastatin Calcium (Atorvastatin Calcium) 10 Mg Tablet, 10 MG PO HS, (Reported) Entered as Reported by: BERNA WEEMS on 08/12/19 0838 Canagliflozin (Invokana) 100 Mg Tablet, 100 MG PO DAILY, (Reported) Entered as Reported by: HAMILTON HUNG on 04/24/21 1120 Digoxin (Digitek) 125 Mcg Tablet, 125 MCG PO DAILY, (Reported) Entered as Reported by: HAMILTON HUNG on 04/24/21 1120 Diltiazem HCl (Diltiazem 24Hr ER) 240 Mg Cap.er.24h, 240 MG PO DAILY, (Reported) Entered as Reported by: LUCI CH on 07/06/20 0150 Fluoxetine HCl (Prozac) 40 Mg Capsule, 40 MG PO DAILY, (Reported) Entered as Reported by: BERNA WEEMS on 08/12/19 0838 Gabapentin (Gabapentin) 800 Mg Tablet, 800 MG PO TID, (Reported) Entered as Reported by: TRELL OTERO on 02/19/20 1043 Hydrocodone/Acetaminophen (Hydrocodone-Acetamin 7.5-325) 1 Each Tablet, 1 EACH PO Q4H Prescribed by: EH DECKER on 04/27/21 1418 Lisinopril (Lisinopril) 10 Mg Tablet, 10 MG PO DAILY, (Reported) Entered as Reported by: BERNA WEEMS on 08/12/19 0838 Metformin HCl (Metformin HCl) 500 Mg Tablet, 500 MG PO BID WITH MEALS, (Reporte d) Entered as Reported by: LUCI CH on 07/06/20 0150 Naproxen (Naproxen) 250 Mg Tablet, 500 MG PO BID, (Reported) Entered as Reported by: HAMILTON HUNG on 04/24/21 1120 Omeprazole (Omeprazole) 40 Mg Capsule.dr, 40 MG PO TID Prescribed by: SOPHIA PALENCIA on 04/27/21 1813 Trazodone HCl (Trazodone HCl) 50 Mg Tablet, 50 MG PO HS, (Reported) Entered as Reported by: HAMILTON HUNG on 04/24/21 1120 Review of Systems Review of Systems Constitutional: No chills, No fever Respiratory: Denies Cough Cardiovascular: See HPI; Denies Chest Pain; Palpitations Gastrointestinal: Denies Abdominal Pain, Denies Nausea, Denies Vomiting Musculoskeletal: no symptoms reported Skin: no symptoms reported Psychiatric/Neurological: No Symptoms Reported Endocrine: No Symptoms Reported Hematologic/Lymphatic: No Symptoms Reported Physical Exam Vital Signs Vital Signs - First Documented 11/23/21 07:33 Temp 35.8 Pulse 198 Resp 12 B/P (MAP) 115/66 (82) Pulse Ox 95 O2 Delivery Nasal Cannula Capillary Refill : Height, Weight, BMI Height: '" Weight: lbs. oz. 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 Norm as Tested Skin: Normal Color, Warm/Dry Progress/Results/Core Measures Results/Orders Lab Results Laboratory Tests Test 11/23/21 07:37 Range/Units White Blood Count 11.3 H 4.3-11.0 10^3/uL Red Blood Count 5.12 H 3.80-5.11 10^6/uL Hemoglobin 15.2 11.5-16.0 g/dL Hematocrit 47 35-52 % Mean Corpuscular Volume 92 80-99 fL Mean Corpuscular Hemoglobin 30 25-34 pg Mean Corpuscular Hemoglobin Concent 32 32-36 g/dL Red Cell Distribution Width 13.5 10.0-14.5 % Platelet Count 318 130-400 10^3/uL Mean Platelet Volume 11.5 9.0-12.2 fL Immature Granulocyte % (Auto) 1 % Neutrophils (%) (Auto) 59 42-75 % Lymphocytes (%) (Auto) 29 12-44 % Monocytes (%) (Auto) 8 0-12 % Eosinophils (%) (Auto) 3 0-10 % Basophils (%) (Auto) 1 0-10 % Neutrophils # (Auto) 6.7 1.8-7.8 X 10^3 Lymphocytes # (Auto) 3.3 1.0-4.0 X 10^3 Monocytes # (Auto) 0.9 0.0-1.0 X 10^3 Eosinophils # (Auto) 0.3 0.0-0.3 10^3/uL Basophils # (Auto) 0.1 0.0-0.1 10^3/uL Immature Granulocyte # (Auto) 0.1 0.0-0.1 10^3/uL Sodium Level 138 135-145 MMOL/L Potassium Level 4.3 3.6-5.0 MMOL/L Chloride Level 100 98-107 MMOL/L Carbon Dioxide Level 24 21-32 MMOL/L Anion Gap 14 5-14 MMOL/L Blood Urea Nitrogen 21 H 7-18 MG/DL Creatinine 0.81 0.60-1.30 MG/DL Estimat Glomerular Filtration Rate 87 BUN/Creatinine Ratio 26 Glucose Level 263 H 70-105 MG/DL Calcium Level 8.6 8.5-10.1 MG/DL Corrected Calcium 8.8 8.5-10.1 MG/DL Magnesium Level 1.8 1.6-2.4 MG/DL Total Bilirubin 0.2 0.1-1.0 MG/DL Aspartate Amino Transf (AST/SGOT) 18 5-34 U/L Alanine Aminotransferase (ALT/SGPT) 15 0-55 U/L Alkaline Phosphatase 159 H 40-136 U/L Troponin I < 0.30 <0.30 NG/ML Total Protein 6.9 6.4-8.2 GM/DL Albumin 3.7 3.2-4.5 GM/DL My Orders Orders - AUDI TODD DO Troponin I Nance (11/23/21 07:35) Chest 1 View Ap/Pa Only (11/23/21 07:35) Ekg Tracing (11/23/21 07:35) Monitor-Rhythm Ecg Trace Only (11/23/21 07:35) Cbc With Automated Diff (11/23/21 07:35) Comprehensive Metabolic Panel (11/23/21 07:35) Magnesium (11/23/21 07:35) Diltiazem Injection (Cardizem Injection) (11/23/21 07:45) Ekg Tracing (11/23/21 07:37) Medications Given in ED Current Medications Medications Dose Ordered Sig/Sirisha Route Start Time Stop Time Status Last Admin Dose Admin Diltiazem HCl 20 mg ONCE ONCE IVP 11/23/21 07:45 11/23/21 07:46 DC 11/23/21 07:41 20 MG Vital Signs/I&O 11/23/21 07:33 Temp 35.8 Pulse 198 Resp 12 B/P (MAP) 115/66 (82) Pulse Ox 95 O2 Delivery Nasal Cannula Progress Progress Note : Progress Note Patient converted from SVT to normal sinus rhythm following administration of 20 mg Cardizem. Patient was monitored in the ER and maintain sinus rhythm. Patient stable and discharged home. I recommended she follow-up with her diver helper for review of her current cardiac meds. Patient was offered extended monitoring in the ER and declined. Patient will return to the ER if symptoms return Initial ECG Impression Date: Nov 23, 2021 Initial ECG Impression Time: 07:35 Initial ECG Rhythm: SVT Initial ECG Impression: SVT Comment svt EKG : EKG Time: 07:37 Rhythm: PVC ECG Comparisson: Changed Comment svt, with pvc Diagnostic Imaging Diagonstic Imaging: Xray Plain Films/CT/US/NM/MRI: chest Comments Date of Exam:11/23/21 CHEST 1 VIEW AP/PA ONLY CHEST 1 VIEW AP/PA ONLY Indication: Chest pain. Comparison: 02/20/2020 Findings: Right midlung zone peripheral opacities have developed. No pleural effusion or pneumothorax. Normal cardiac silhouette. Impression: 1. New ill-defined opacities in the mid right lung could be due to infection, infarct or overlying artifact. Departure Impression Primary Impression: SVT (supraventricular tachycardia) Disposition: 01 HOME, SELF-CARE Condition: Stable Departure-Patient Inst. Patient Instructions: Paroxysmal Supraventricular Tachycardia (DC) Add. Discharge Instructions: Follow-up with your diver helper for recheck and review of your current medication Return to the ER as needed AUDI TODD DO Nov 23, 2021 07:35
[2021-11-23 07:52] LABS: HEMATOCRIT 47 % (35-52); HEMOGLOBIN 15.2 g/dL (11.5-16.0); MEAN CORPUSCULAR HEMOGLOBIN 30 pg (25-34); MEAN CORPUSCULAR HGB CONC 32 g/dL (32-36); MEAN CORPUSCULAR VOLUME 92 fL (80-99); MEAN PLATELET VOLUME 11.5 fL (9.0-12.2); PLATELET COUNT 318 10^3/uL (130-400); WHITE BLOOD COUNT 11.3 10^3/uL (4.3-11.0)
[2021-11-23 07:53] LABS: BASOPHILS # (AUTO) 0.1 10^3/uL (0.0-0.1); BASOPHILS % (AUTO) 1 % (0-10); EOSINOPHILS # (AUTO) 0.3 10^3/uL (0.0-0.3); EOSINOPHILS % (AUTO) 3 % (0-10); LYMPHOCYTES # (AUTO) 3.3 X 10^3 (1.0-4.0); LYMPHOCYTES % (AUTO) 29 % (12-44); MONOCYTES # (AUTO) 0.9 X 10^3 (0.0-1.0); MONOCYTES % (AUTO) 8 % (0-12); NEUTROPHILS # (AUTO) 6.7 X 10^3 (1.8-7.8); NEUTROPHILS % (AUTO) 59 % (42-75)
--- NOTE | 2021-11-23 07:56 | Diagnostic Imaging Report ---
CHEST 1 VIEW AP/PA ONLY Indication: Chest pain. Comparison: 02/20/2020 Findings: Right midlung zone peripheral opacities have developed. No pleural effusion or pneumothorax. Normal cardiac silhouette. Impression: 1. New ill-defined opacities in the mid right lung could be due to infection, infarct or overlying artifact. Dictated by: Dictated on workstation # [id number]
[2021-11-23 08:07] LABS: CALCIUM 8.6 MG/DL (8.5-10.1); CREATININE SERUM 0.81 MG/DL (0.60-1.30); POTASSIUM 4.3 MMOL/L (3.6-5.0)
[2021-11-23 08:08] LABS: ALBUMIN 3.7 GM/DL (3.2-4.5); BILIRUBIN,TOTAL 0.2 MG/DL (0.1-1.0); MAGNESIUM 1.8 MG/DL (1.6-2.4); TOTAL PROTEIN 6.9 GM/DL (6.4-8.2)
[2021-11-23 08:20] VITALS: BP 112/65
== END 2021-11-23 08:22 | disposition home or self-care (01) ==
LOC: EDUNIT# 07:33 → ER FS 07:34
DX: I47.1 Supraventricular tachycardia (principal); Z79.899 Other long term (current) drug therapy
CPT/HCPCS: 36415; 71045; 80053; 83735; 84484; 85025; 93041

== ENCOUNTER → 2022-02-02 | Outpatient (CLI) | payer MEDICAID ==
--- NOTE | 2022-02-02 13:49 | Diagnostic Imaging Report ---
Indication: Fall with pain in the left knee. Time of Exam: 1:28 PM 3 views of the left knee were obtained. There are severe medial and patellofemoral compartmental degenerative changes. There are significant joint space narrowing and marginal spurring. Lateral compartments fairly well maintained. No fracture, dislocation or effusion is seen. Impression: Degenerative changes. No acute bony abnormality is detected. Dictated by: Dictated on workstation # [id number]
--- NOTE | 2022-02-02 13:49 | Diagnostic Imaging Report ---
Indication: Fall with left wrist pain. Time of Exam: 1:26 PM 3 views of the left wrist were obtained. Distal radius and ulna are intact. Carpus and metacarpals are intact. No fractures are seen. Impression: No acute bony abnormalities detected. Dictated by: Dictated on workstation # [id number]
== END ==
LOC: RAD FS 13:12
PROVIDERS: ATTEND Nurse Practitioner Family
DX: M17.12 Unilateral primary osteoarthritis, left knee (principal); S89.92XS Unspecified injury of left lower leg, sequela; M25.532 Pain in left wrist; Z91.81 History of falling
CPT/HCPCS: 73110; 73562

== ENCOUNTER 2022-03-31 20:15 | Emergency (ER) | payer MEDICAID ==
[~2022-03-31] VITALS: Ht 162 cm; Wt 115.0 kg
[2022-03-31 20:23] VITALS: BP 105/51
[2022-03-31] MEDS ORDERED: LORazepam INJ 2 MG/ML (ATIVAN) VIAL IVP ONE (20:45)
--- NOTE | 2022-03-31 21:01 | ED Integumentary General ---
General Chief Complaint: Skin/Wound Problems Stated Complaint: WOUND ON BUTTOCKS Nursing Triage Note: Pt reports wound to buttocks area that she had a family member "pop" last week. She was seen by a MD in [facility] and sent to ED for evaluation. Pt denies fever. Source: patient Exam Limitations: no limitations History of Present Illness Date Seen by Provider: March 31, 2022 Time Seen by Provider: 20:30 Initial Comments Patient is a 56-year old female who presents with deroofed abscess wound to her left buttocks. Patient states she had a abscess appear 1 week ago and had a family member pop it. Patient does not have fever chills nausea vomiting or sweats. Denies drainage or current pain to this location. She is nondiabetic. No other symptoms or complaints. Timing/Duration: other (Getting better) Possible Cause: other Modifying Factors: improves with other Associated Symptoms: other Allergies and Home Medications Allergies Coded Allergies: amoxicillin (Verified Allergy, Intermediate, HIVES, 04/27/21) aspirin (Verified Allergy, Unknown, 11/23/21) sulfamethoxazole (Verified Allergy, Unknown, 04/27/21) trimethoprim (Verified Allergy, Unknown, 04/27/21) Patient Home Medication List Home Medication List Reviewed: Yes Allopurinol (Allopurinol) 100 Mg Tablet, 100 MG PO DAILY, (Reported) Entered as Reported by: TRELL OTERO on 02/19/20 1043 Atorvastatin Calcium (Atorvastatin Calcium) 10 Mg Tablet, 10 MG PO HS, (Reported) Entered as Reported by: BERNA WEEMS on 08/12/19 0838 Canagliflozin (Invokana) 100 Mg Tablet, 100 MG PO DAILY, (Reported) Entered as Reported by: HAMILTON HUNG on 04/24/21 1120 Digoxin (Digitek) 125 Mcg Tablet, 125 MCG PO DAILY, (Reported) Entered as Reported by: HAMILTON HUNG on 04/24/21 1120 Diltiazem HCl (Diltiazem 24Hr ER) 240 Mg Cap.er.24h, 240 MG PO DAILY, (Reported) Entered as Reported by: LUCI CH on 07/06/20 0150 Fluoxetine HCl (Prozac) 40 Mg Capsule, 40 MG PO DAILY, (Reported) Entered as Reported by: BERNA WEEMS on 08/12/19 0838 Gabapentin (Gabapentin) 800 Mg Tablet, 800 MG PO TID, (Reported) Entered as Reported by: TRELL OTERO on 02/19/20 1043 Hydrocodone/Acetaminophen (Hydrocodone-Acetamin 7.5-325) 1 Each Tablet, 1 EACH PO Q4H Prescribed by: HE DECKER on 04/27/21 1418 Lisinopril (Lisinopril) 10 Mg Tablet, 10 MG PO DAILY, (Reported) Entered as Reported by: BERNA WEEMS on 08/12/19 0838 Metformin HCl (Metformin HCl) 500 Mg Tablet, 500 MG PO BID WITH MEALS, (Reported) Entered as Reported by: LUCI CH on 07/06/20 0150 Naproxen (Naproxen) 250 Mg Tablet, 500 MG PO BID, (Reported) Entered as Reported by: HAMILTON HUNG on 04/24/21 1120 Omeprazole (Omeprazole) 40 Mg Capsule.dr, 40 MG PO TID Prescribed by: SOPHIA PALENCIA on 04/27/21 1813 Trazodone HCl (Trazodone HCl) 50 Mg Tablet, 50 MG PO HS, (Reported) Entered as Reported by: HAMILTON HUNG on 04/24/21 1120 Review of Systems Review of Systems Constitutional: see HPI Skin: see HPI Past [id number]-[id number] Hx Patient Social History Tobacco Use?: No Immunizations Up To Date First/Initial COVID19 Vaccinat: 07/2021 Seasonal Allergies Seasonal Allergies: No Past Medical History Surgery/Hospitalization HX: SVT; HTN; High Cholesterol; Depression; DM-Non insulin dependant; Neuropathy; Arthritis; Appy; Deisy; Hysterectomy; Tubal Ligation. Surgeries: Yes (cysto's and eswl's) Appendectomy, Gallbladder, Hysterectomy, Tubal Ligation Respiratory: No Currently Using CPAP: No Currently Using BIPAP: No Cardiac: Yes (SVT, ) Atrial Fibrillation, High Cholesterol, Hypertension Neurological: Yes (HAS 3 BRAIN ANEURYSMS DX AT 37 YRS OF AGE, bulging discs, pinched nerve) Reproductive Disorders: No Genitourinary: Yes Kidney Stones Gastrointestinal: Yes (enlarged liver) Gastroesophageal Reflux Musculoskeletal: Yes (restless leg) Degenerate Disk Disease, Arthritis Endocrine: Yes Diabetes, Non-Insulin dep HEENT: No Cancer: No (STAGE 2) Uterine Psychosocial: Yes Suicide Attempts, Depression Integumentary: Yes Psoriasis Blood Disorders: No Family Medical History Asthma 19 MOTHER Diabetes mellitus 19 FATHER FH: COPD (chronic obstructive pulmonary disease) 19 MOTHER FH: emphysema 19 MOTHER Physical Exam Vital Signs Vital Signs - First Documented 03/31/22 20:23 Temp 36.9 Pulse 75 Resp 18 B/P (MAP) 105/51 (69) Pulse Ox 98 O2 Delivery Room Air Capillary Refill : Less Than 3 Seconds General Appearance: WD/WN, no apparent distress Skin: other (dime-sized fully deroofed, left sided buttock abscess without surrounding erythema, inudration, fluctuance or drainage) Progress/Results/Core Measures Results/Orders Vital Signs/I&O 03/31/22 20:23 Temp 36.9 Pulse 75 Resp 18 B/P (MAP) 105/51 (69) Pulse Ox 98 O2 Delivery Room Air Blood Pressure Mean: 69 Departure Departure-Patient Inst. Referrals: [facility] (PCP) Primary Care Physician RAYMOND TORRES APRN (Family) Primary Care Physician LAKISHA ALVAREZ DO March 31, 2022 21:01
== END 2022-03-31 20:59 | disposition left against medical advice (07) ==
LOC: EDUNIT# 20:15 → ER FS 20:17
DX: L02.31 Cutaneous abscess of buttock (principal)
CPT/HCPCS: 99281